=== PATIENT | female | born 1945 | race Caucasian/White ===

== ENCOUNTER 2024-05-23 17:01 | Inpatient (IN) | payer MEDICARE, OTHER, SELFPAY ==
[2024-05-23] VITALS (7 sets, daily range): BP systolic 131–193; BP diastolic 56–89; BMI 48.9
[2024-05-23 13:46] LABS: Hematocrit 34.8 % (37.0-47.0); Hemoglobin 11.6 g/dL (12.0-16.0); Mean Corp Hgb Conc. 33.3 g/dL (33.0-37.0); Mean Corpuscular Hgb 31.2 pg (27.0-31.0); Mean Corpuscular Volume 93.5 fL (81.0-99.0); Mean Platelet Volume 9.4 fL (7.4-10.4); Platelet Count 270 10^3/uL (130-400); Red Blood Cell Count 3.72 10^6/uL (4.20-5.40); Red Cell Dist. Width 14.2 % (11.5-14.5); White Blood Cell Count 17.2 10^3/uL (4.8-10.8)
[2024-05-23 14:03] LABS: % Basophils 0.5 % (0-2); % Eosinophils 0.1 % (0-6); % Immature Granulocytes 8.7 % (0-0.5); % Lymphocytes 8.3 % (20.5-51.1); % Monocytes 5.8 % (1.7-9.3); % Neutrophils 76.6 % (42.2-75.2); Absolute Basophils 0.1 10^3/uL (0-0.2); Absolute Immature Granulocytes 1.5 10^3/uL (0-0.05); Absolute Lymphocytes 1.4 10^3/uL (1.2-3.4); Absolute Neutrophils 13.2 10^3/uL (1.4-6.5); Nucleated Red Blood Cells % 0 %
[2024-05-23 14:06] LABS: ALT (SGPT) 48 U/L (0-35); AST (SGOT) 26 U/L (14-36); Alkaline Phosphatase 91 U/L (38-126); Blood Urea Nitrogen 42 mg/dl (7-17); Calcium 9.6 mg/dl (8.4-10.2); Carbon Dioxide 21 mmol/L (22-30); Chloride 105 mmol/L (98-107); Glucose 158 mg/dl (70-99); Potassium 4.8 mmol/L (3.5-5.1); Sodium 139 mmol/L (135-145); Total Bilirubin 0.6 mg/dl (0.2-1.3); eGFR 33.01
[2024-05-23 15:11] LABS: COVID-19 Antigen Negative (Negative)
--- NOTE | 2024-05-23 15:15 | ED.GENMED ---
History of Present Illness
General
Chief Complaint: Breathing Problem
Source: patient and family
Time Seen by Provider: 05/23/24 15:01
History of Present Illness
History of Present Illness:
79-year-old female presents emergency department with worsening symptoms that she describes as a 'COPD flare'. Symptoms began 8 days ago described as coughing, wheezing, shortness of breath, and dyspnea on exertion. She states that when this
happened she typically takes a steroid taper and Zithromax which she started on Sunday. She is tapering down her steroids and is due to take 30 mg today and is taking 10 mg so far. She reports worsening/continued symptoms including cough,
generalized weakness and malaise, and dyspnea. She denies orthopnea or PND, fever, chills, sweats, new leg swelling. When asked about chest discomfort she describes experiencing a 'awful pain like 4 fingers of fire' across her chest for just a few
minutes on Sunday resolved with deep breaths. Otherwise she only describes having chest pain described as a 'weight' when she coughs. She denies pleuritic chest pain, abdominal pain, nausea, vomiting, back pain, headache, dizziness, or other
complaints. Of note patient has known history of lung nodules and is due to get a PET scan to further investigate in May. Patient went to an urgent care today and was reportedly diagnosed with multilobar pneumonia and referred to the
emergency department.
Past History
Past History
ED Past Medical History: Asthma, CAD, COPD, HTN and Hypercholesterolemia
ED Past Surgical History: Cardiac (Stent X3)
Social History
Tobacco: Former smoker
Alcohol: None
Drug: None
Personal:
Living: with family
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
Family History
Family History: Other (COPD, breast cancer)
Phy Exam
Physical Exam
Physical Exam:
GENERAL: Alert , in no apparent distress, pleasant, obese
EYE: pupils equal and reactive
NECK: Supple, no significant adenopathy.
ENT: o/p clr, mmm.
CARDIAC: Regular rate and rhythm .
LUNGS: Equal breath sounds bilaterally, no acute respiratory distress, obvious cough, diffuse wheezing noted with scattered rhonchi, speaks in full sentences
ABDOMEN: Soft, without focal tenderness, no r/g, no cvat
NEUROLOGICAL: Alert and oriented, no focal neuro deficits
SKIN: Warm and dry, skin intact.
MUSCULOSKELETAL: Trace bilateral lower extremity edema, well perfused.
PSYCH: Normal and appropriate interaction.
Scores
Heart Failure Risk
Heart Failure Risk Score: Not Applicable
Course
Orders/Labs/Results
Orders:
Orders
05/23/24 13:27
Complete Blood Count/With Diff Urgent
Comprehensive Metabolic Panel Urgent
05/23/24 14:45
COVID-19 Antigen Urgent
Source: Nasal Swab
NT-proBNP Urgent
Troponin I Urgent
Influenza A+B Rapid Molecular Urgent
LYDIA Source: Nasal Swab
Specimen Description:
05/23/24 15:16
EKG [Electrocardiogram (*1)] Urgent
Reason for Study: Shortness of Breath
EKG- Treatment ONCE
05/23/24 15:19
Albuterol Sulfate [Ventolin Nebules] 7.5 mg INH R NOW STA
Azithromycin [Zithromax] 500 mg PO NOW STA
CefTRIAXone [Rocephin] 1,000 mg IV NOW STA
Dexamethasone Sod Phosphate [Decadron] 10 mg IV NOW STA
05/23/24 16:24
Admit/Transfer Patient As Directed
Co-Sign Provider:
Level of Care: Inpatient admission
Assign to:: Telemetry
Physician / Group: barb
Diagnosis: copd exacerbation, pneumonia
Reason for Telemetry: Arrhythmia
Date to Stop Telemetry: 05/26/24
Time to Stop Telemetry: 11:00
Reason for Hospitalization: copd exacerbation, pneumonia
Expected length of stay greater than two midnights?: Yes
ELOS- Estimated Length of Stay in days: 2
I certify the patient meets the requirements for IP care: Yes
PRN Pain Medication Management As Directed
May give lesser potent ordered pain med per pt: Yes
preference::
Protocol:: Medication orders for pain may be administered in a
manner that supports deferring to patient preference
when the pt is:
- Requesting an ordered lesser potent pain medication.
Least to most potent pain medications are defined
as: acetaminophen < NSAID < tramadol < opioids
(morphine, oxycodone, hydromorphone).
- Requesting a lesser dose of the same medication IF
ORDERED.
- Requesting a less intrusive route of administration
if both routes are prescribed by the provider (PO <
IV).
05/23/24 16:25
Code Status As Directed
Resuscitation Status: Full Code
05/23/24 16:27
Respiratory Culture/Gram Stain Urgent
LYDIA Source: Sputum
Specimen Description:
05/23/24 16:32
Legionella Urinary Antigen Urgent
LYDIA Source: Urine
Specimen Description:
MRSA Screen Routine
LYDIA Source: Nose
Specimen Description:
Strep pneumoniae Antigen Urgent
LYDIA Source: Urine
Specimen Description:
05/23/24 17:22
Ipratropium/Albuterol Sulfate [Duoneb] 3 ml INH R Q4HPRN PRN
05/23/24 17:22
Activity As Directed
Activity Level: As Tolerated
Intake/ Output As Directed
Frequency: Per unit guidelines
Vital Signs As Directed
Frequency: Per unit guidelines
Copd Education [RESP] Routine
DX Deep Vein Thrombosis Video Routine
05/23/24 20:00
Acetaminophen [Tylenol] 1,000 mg PO BID
Budesonide/Formoterol 160/4.5 [Symbicort 160/4.5 Mcg Inhaler] 2 puff INH R BID
Heparin 5,000 units SC Q12
Ipratropium/Albuterol Sulfate [Duoneb] 3 ml INH R QID
05/23/24 22:00
Aspirin Low Dose EC [Aspir Low (Enteric Coated)] 81 mg PO HS
Atorvastatin [Lipitor] 80 mg PO HS
Duloxetine Delayed Release [Cymbalta Delayed Release] 40 mg PO HS
Ezetimibe [Zetia] 10 mg PO HS
Guaifenesin [Mucinex] 600 mg PO HS
Melatonin 20 mg PO HS
Pantoprazole [Protonix] 40 mg PO HS
Simethicone [Mylicon] 80 mg PO HS
Trazodone [Desyrel] 200 mg PO HS
05/24/24 00:00
Dexamethasone Sod Phosphate [Decadron] 4 mg IV Q8H
05/24/24 06:00
Levothyroxine [Synthroid] 75 mcg PO DAILY @ 0600
05/24/24 07:20
Basic Metabolic Panel IN AM
Complete Blood Count/With Diff IN AM
05/24/24 08:00
Cholecalciferol (Vitamin D3) [VITAMIN D3 (cholecalciferol)] 10 mcg PO DAILY
Cyanocobalamin [Vitamin B-12] 1,000 mcg PO DAILY
Lisinopril [Zestril] 10 mg PO DAILY
Nitroglycerin [Nitro-Dur] 0.2 mg TRANSDERM DAILY
05/24/24 16:00
Azithromycin 500 mg/250 ml [Zithromax Infusion] 500 mg in 250 ml IV Q24H
CefTRIAXone [Rocephin] 1,000 mg IV Q24H
05/26/24 11:00
DC Protocol for Telemetry ONCE
Abnormal Lab Results
05/23/24
13:27
WBC 17.2 H 10^3/uL
(4.8-10.8)
RBC 3.72 L 10^6/uL
(4.20-5.40)
Hgb 11.6 L g/dL
(12.0-16.0)
Hct 34.8 L %
(37.0-47.0)
MCH 31.2 H pg
(27.0-31.0)
Abs Immat Gran (auto) 1.5 H 10^3/uL
(0-0.05)
Absolute Neuts (auto) 13.2 H 10^3/uL
(1.4-6.5)
Absolute Monos (auto) 1.0 H 10^3/uL
(0.1-0.6)
Immature Gran % 8.7 H %
(0-0.5)
Neutrophils % 76.6 H %
(42.2-75.2)
Lymphocytes % 8.3 L %
(20.5-51.1)
Carbon Dioxide 21 L mmol/L
(22-30)
BUN 42 H mg/dl
(7-17)
Creatinine 1.6 H mg/dL
(0.6-1.0)
Glucose 158 H mg/dl
(70-99)
ALT 48 H U/L
(0-35)
Total Protein 6.0 L g/dl
(6.3-8.2)
05/23/24 13:27
05/23/24 13:27
Vital Signs
Initial and Last Documented VS:
Initial Vital Signs
Temp Pulse Resp BP Pulse Ox
98.1 F 85 16 193/89 97
05/23/24 13:20 05/23/24 13:20 05/23/24 13:20 05/23/24 13:20 05/23/24 13:20
Last Documented Vital Signs
Temp Pulse Resp BP Pulse Ox
98.5 F 77 22 133/79 95
05/26/24 19:00 05/26/24 22:00 05/26/24 22:00 05/26/24 20:00 05/26/24 20:19
*Critical Care Note
Total Time (30-74mins, 75-104mins- exclusive of procedures): Not Applicable
Update Note
Update Note:
Patient presents to the Emergency Department with ____cough, wheezing, dyspnea
Number and Complexity of Problems Addressed at the Encounter
� Chronic conditions affecting care:
� Acute Exacerbation and/or Progression of Chronic Illness:
� Differential Diagnosis includes: But not limited to pneumonia, COPD exacerbation, heart failure, ACS, etc.
Amount and/or Complexity of Data to be Reviewed and Analyzed
� I performed an independent evaluation of and my interpretation is:
EKG:read by me, nsr, nl rate, no acute ischemia
CT:
Xrays: Report reviewed from urgent care, report consistent with 'diffuse interstitial infiltrate is suggested in
Laboratory Studies: White blood cell count elevation noted with a left shift, baseline renal insufficiency, baseline anemia troponin BMP pending� She reported normal, BNP with nonspecific elevation.
Other:
� Review of other/old records reveals: March 2023 patient had a catheterization demonstrating 'angiographically stable calcifications'. History and physical from the same time details patient's prior medical history etc.
� Clinical information was obtained by an independent historian:
� Prescriptions/Medications Considered but not given:
� Further testing considered but not performed:
Risk of Complications and/or Morbidity or Mortality of Patient Management
� Social determinants of health affecting care:
� Discussion with other providers (PCP, Hospitalists, Consultants, etc): Case discussed with Dr. Mcgrath from hospitalist for admission.
� Escalation of care including admission/observation vs risk of discharge considered:
ED Attending Note
-
Portions of this chart may have been created with voice recognition software.� Occasional wrong word or��sound alike� substitutions may have occurred due to the inherent limitations of voice recognition software.
Discharge Plan
Departure
Patient Disposition: Admit
Date of Disposition: 05/23/24
Time of Disposition: 16:07
Presentation/result/management discussed w/ accepting MD/DO: Hospitalist
Condition: Fair
Discharge Problem:
COPD (chronic obstructive pulmonary disease), Pneumonia
Interventions
Interventions:
*Risk Screen - Suicide Last Done: 05/23/24 13:20
*General Assessment Last Done: 05/23/24 13:20
*Neglect/Abuse Screening Last Done: 05/23/24 13:20
ED- Fall Risk Assessment Last Done: 05/23/24 14:42
*ED COVID-19 Vaccine History Last Done: 05/23/24 17:25
*Nursing Disposition Last Done: 05/23/24 17:25
ED- Cardiac Assessment Last Done: 05/23/24 14:42
ED- Pulmonary Assessment Last Done: 05/23/24 14:42
Discharge Date and Time
Discharge Date/Time: 05/23/24 17:25
[2024-05-23 15:22] LABS: NT-proBNP 1730 pg/ml; Troponin I < 0.012 ng/ml
[2024-05-23] MEDS: ROCEPHIN 1000 MG IV (15:26)
[2024-05-23] MEDS: VENTOLIN NEBULES 7.5 MG INH (15:26)
[2024-05-23] MEDS: ZITHROMAX 500 MG PO (15:26)
[2024-05-23] MEDS: DECADRON 10 MG IV (15:26)
--- NOTE | 2024-05-23 16:27 | HPS.HSE ---
Addendum entered and electronically signed by Francisca Vegas MD 05/23/24 16:42:
Held Ibuprofen due to CKD. Continue Lisinopril.
Original Note:
Family Physician
-
Family Physician: Morris Gudino
Chief Complaint
-
cough, shortness of breath
History of Present Illness
79-year-old female past medical history of COPD, bronchiectasis, pulmonary nodules, CAD status post stent, hypothyroidism, gout, GERD, CKD 3, hypertension, depression, insomnia presenting with productive cough although not coughing up much, wheezing
and shortness of breath with exertion which started 8 days ago. She started taking steroid taper and Zithromax 5 days ago and is tapering down steroids, currently on 30 mg. She has had an episode of chest discomfort 3 days ago described as severe
pain across her chest for a few minutes described as a weight when she coughs. She continues to have chest pain currently is described as pressure and worse with coughing. She denies any abdominal pain, nausea vomiting or back pain or headache or
dizziness. She has lower extremity edema which is stable. She has been having chills but denies fever.
She has a history of lung nodules and is due to get a PET scan in May. She went to an urgent care today and was reportedly diagnosed with multilobular pneumonia and referred to the emergency room.
Medical History
Past Medical History
Past Medical History: Reports Other ( COPD, bronchiectasis, pulmonary nodules, CAD status post stent, hypothyroidism, gout, GERD, CKD 3, hypertension, depression, insomnia)
Past Surgical History: Reports Other (Cardiac (Stent X3))
Social History
Tobacco: Former Smoker
Alcohol: None
Drug: None
Family History
Family History: Not pertinent
Allergies / Home Medications
Allergies reflects when Allergies were last updated in [facility].
Home Medications with original date entered in [facility]
Allergy/Medication List:
Allergies
Allergy/AdvReac Type Severity Reaction Status Date / Time
levofloxacin [From Levaquin] Allergy Unknown Unknown Verified 04/20/23 10:57
metronidazole [From Flagyl] Allergy Unknown Verified 12/31/22 22:54
anesthetic Allergy patient Uncoded 12/21/22 16:17
unsure
which
anesthesia
med
Home Medications
atorvastatin 80 mg tablet 80 mg PO HS High cholesterol 10/03/16
aspirin 81 mg tablet,delayed release 81 mg PO HS Blood clot prevention/tx 07/05/20
ezetimibe 10 mg tablet 10 mg PO HS High cholesterol 07/05/20
loperamide 2 mg capsule (Imodium A-D) 2 - 4 mg PO Q4H PRN diarrhea 07/05/20
acetaminophen 500 mg tablet (Tylenol Extra Strength) 1,000 mg PO Q8H PRN mild pain 06/27/21
cholecalciferol (vitamin D3) 50 mcg (2,000 unit) tablet 2,000 unit PO DAILY Supplement 06/27/21
melatonin 10 mg tablet 20 mg PO HS Supplement 06/27/21
lavinia (Zingiber officinalis) 500 mg capsule 550 mg PO HS Supplement 01/23/22
ascorbic acid (vitamin C) 500 mg tablet (Vitamin C) 500 mg PO DAILY Supplement 12/21/22
cyanocobalamin (vitamin B-12) 1,000 mcg tablet (Vitamin B-12) 1,000 mcg PO DAILY Supplement 12/21/22
guaifenesin 600 mg tablet, extended release 12 hr (Mucus Relief ER) 600 mg PO HS Congestion 12/21/22
multivitamin 1 tab PO DAILY Supplement 12/21/22
nitroglycerin 0.2 mg/hr transdermal 24 hour patch 0.2 mg transdermal Q12H chest pain 12/21/22
omeprazole 40 mg capsule,delayed release 40 mg PO DAILY Gastrointestinal issue 12/21/22
amlodipine 2.5 mg tablet 2.5 mg PO DAILY #90 tabs 04/20/23
celecoxib 200 mg capsule (Celebrex) 200 mg PO DAILY 04/20/23
colchicine 0.6 mg tablet 0.6 mg PO DAILYPRN PRN gout 04/20/23
fluticasone fur. 200 mcg-umeclid 62.5 mcg-vilant 25 mcg inhalat.powder (Trelegy Ellipta) 1 inh inhalation R DAILY 04/20/23
guaifenesin 100 mg/5 mL oral liquid 100 mg PO DAILY 04/20/23
icosapent ethyl 1 gram capsule (Vascepa) 2 g PO BID 04/20/23
levothyroxine 75 mcg tablet 75 mcg PO DAILY 04/20/23
simethicone 125 mg capsule (Gas-X Extra Strength) 125 mg PO DAILY 04/20/23
albuterol sulfate 90 mcg/actuation aerosol inhaler 2 puff inhalation R Q6HPRN PRN sob/wheezing 05/23/24
duloxetine 60 mg capsule,delayed release 60 mg PO HS 05/23/24
ergocalciferol (vitamin D2) 1,250 mcg (50,000 unit) capsule 1,250 mcg PO WEEKLY 05/23/24
lisinopril 10 mg tablet 10 mg PO DAILY 05/23/24
montelukast 10 mg tablet 10 mg PO HS 05/23/24
trazodone 150 mg tablet 150 mg PO HS 05/23/24
Review of Systems
-
History Source: Patient
A 12 point ROS was completed and negative except as noted: Yes
Constitutional: Reports No Symptoms
EENT: Reports No Symptoms
Respiratory: Reports See HPI
Cardiac: Reports No Symptoms
Abdomen/GI: Reports No Symptoms
: Reports No Symptoms
Musculoskeletal: Reports No Symptoms
Skin: Reports No Symptoms
Neurological: Reports No Symptoms
Endocrine: Reports No Symptoms
Hematologic/Lymphatic: Reports No Symptoms
Psych: Reports No Symptoms
Physical Exam
Vital Signs
Vital Signs
Temp Pulse Resp BP Pulse Ox
98.1 F 83 16 131/56 96
05/23/24 13:20 05/23/24 15:30 05/23/24 15:30 05/23/24 15:00 05/23/24 15:30
Physical Exam
General: Well Developed, Well Nourished and No Apparent Distress
HEENT: NormoCephalic, Moist mucous membranes and Atraumatic
Respiratory: Wheezes and Rhonchi
Cardiac: S1/S2 and Regular Rhythm; No Murmur or Rub
GI: Soft, Non Tender, Non Distended and Normal Bowel Sounds; No Organomegaly
Rectal: Deferred by Provider
Musculoskeletal: No Clubbing, No Cyanosis and No Edema
Skin: No Rash
Neuro: Nonfocal/grossly intact
Laboratory Results
-
05/23/24 13:27
05/23/24 13:27
Laboratory Results
Total Bilirubin 0.6 mg/dl (0.2-1.3) 05/23/24 13:27
AST 26 U/L (14-36) 05/23/24 13:27
ALT 48 U/L (0-35) H 05/23/24 13:27
Alkaline Phosphatase 91 U/L (38-126) 05/23/24 13:27
Troponin I < 0.012 ng/ml 05/23/24 14:45
Data Reviewed
-
Lab Data: Labs Reviewed by me
Old Records: Reviewed
Impression/Plan
-
IMPRESSION:
PLAN:
# COPD exacerbation
# Reported multilobular pneumonia
-Coarse bilateral wheezing/rhonchi on examination
-Chest x-ray report given to ER, will try to locate
-EKG shows normal sinus rhythm, troponin negative
-COVID-negative
-Dexamethasone 4 mg every 8 hours
-DuoNebs every 6 hours
-Check sputum culture
-Ceftriaxone/azithromycin
-Continue Mucinex
History of bronchiectasis
History of pulmonary nodules
-Due to have PET scan in May
CAD status post stents x 3
-Continue aspirin, statin, Zetia
CKD stage III
-Renal function at baseline
Hypothyroidism
-Continue levothyroxine
GERD
-Continue omeprazole
Essential hypertension
-Continue amlodipine, lisinopril
Depression
-Continue duloxetine
Insomnia
-Continue trazodone
Gout
Former smoker
Full code
DVT prophylaxis-heparin
Regular diet
[2024-05-23] MEDS: VENTOLIN NEBULES 2.5 MG INH (19:40)
[2024-05-23] MEDS: SYMBICORT 160/4.5 MCG INHALER 2 PUFF INH (19:40)
[2024-05-23] MEDS: HEPARIN 5000 UNITS SC (20:26)
[2024-05-23] MEDS: TYLENOL 1000 MG PO (20:27)
--- NOTE | 2024-05-23 20:30 | PTCARENOTE ---
Pt admitted to floor at 1900. Pt AAOX3, VSS, receptive to room and callbell. Bed in lowest position and callbell within reach. Will continue with current plan of care.
[2024-05-23] MEDS: ASPIR LOW (ENTERIC COATED) 81 MG PO (21:44)
[2024-05-23] MEDS: ZETIA 10 MG PO (21:44)
[2024-05-23] MEDS: CYMBALTA DELAYED RELEASE 40 MG PO (21:44)
[2024-05-23] MEDS: MYLICON 80 MG PO (21:44)
[2024-05-23] MEDS: MELATONIN 20 MG PO (21:45)
[2024-05-23] MEDS: LIPITOR 80 MG PO (21:46)
[2024-05-23] MEDS: DESYREL 200 MG PO (21:46)
[2024-05-23] MEDS: PROTONIX 40 MG PO (21:46)
[2024-05-23] MEDS: MUCINEX 600 MG PO (21:47)
[2024-05-23] MEDS: DECADRON 4 MG IV (23:37)
[2024-05-24] VITALS (9 sets, daily range): BP systolic 107–172; BP diastolic 48–101
[2024-05-24] MEDS: SYNTHROID 75 MCG PO (05:36)
[2024-05-24] MEDS: SPIRIVA RESPIMAT 2.5 MCG 2 PUFF INH (07:47)
[2024-05-24] MEDS: VENTOLIN NEBULES 2.5 MG INH (07:48)
[2024-05-24] MEDS: SYMBICORT 160/4.5 MCG INHALER 2 PUFF INH ×2 (07:48→20:23)
[2024-05-24 08:45] LABS: Hematocrit 35.2 % (37.0-47.0); Hemoglobin 11.6 g/dL (12.0-16.0); Mean Corpuscular Hgb 31.7 pg (27.0-31.0); Mean Corpuscular Volume 96.2 fL (81.0-99.0); Mean Platelet Volume 9.8 fL (7.4-10.4); Platelet Count 273 10^3/uL (130-400); Red Blood Cell Count 3.66 10^6/uL (4.20-5.40); Red Cell Dist. Width 14.2 % (11.5-14.5); White Blood Cell Count 16.4 10^3/uL (4.8-10.8)
[2024-05-24] MEDS: VITAMIN B-12 1000 MCG PO (08:46)
[2024-05-24] MEDS: TYLENOL 1000 MG PO ×2 (08:46→21:01)
[2024-05-24] MEDS: ZESTRIL 10 MG PO (08:46)
[2024-05-24] MEDS: VITAMIN D3 (cholecalciferol) 10 MCG PO (08:46)
[2024-05-24] MEDS: NITRO-DUR 0.2 MG TRANSDERM (08:46)
[2024-05-24] MEDS: DECADRON 4 MG IV ×3 (08:47→23:56)
[2024-05-24] MEDS: HEPARIN 5000 UNITS SC (08:47)
[2024-05-24 08:54] LABS: Blood Urea Nitrogen 39 mg/dl (7-17); Calcium 9.9 mg/dl (8.4-10.2); Carbon Dioxide 25 mmol/L (22-30); Chloride 104 mmol/L (98-107); Estimated Creatinine Clearance 45 ml/min; Glucose 130 mg/dl (70-99); Potassium 5.3 mmol/L (3.5-5.1); Sodium 142 mmol/L (135-145); eGFR 42.35
[2024-05-24 09:36] LABS: Lymphocytes 10 % (20-51); Metamyelocytes 1 % (-); Monocytes 3 % (2-9); Segmented Neutrophils 79 % (42-75)
[2024-05-24 09:37] LABS: Absolute Neutrophils -Man Diff 12.9 10^3/uL (1.4-6.5); Band Neutrophils 0 % (0-3); Myelocytes 7 % (-); Normal RBC Morphology Yes; Platelets Checked Yes; Total Cells Counted 100
[2024-05-24] MEDS: NITROSTAT (SUBLINGUAL) 0.4 MG SL (10:45)
[2024-05-24] MEDS: CARDIZEM 125 IV (10:58)
--- NOTE | 2024-05-24 11:06 | W.PN.HOSP.TC ---
Today's Communication/Plan
-
A-Fib rate control
Eliquis
Monitor chest pain, trend troponins, metal loader notified
Assessment / Plan
Assessment / Plan
Physical Exam
General: Not in acute distress
HEENT: Normocephalic
Respiratory: Wheezes and Rhonchi
Cardiac: S1/S2 and Regular Rhythm
GI: Soft, Non Tender, Non Distended and Normal Bowel Sounds
Musculoskeletal: No Cyanosis and No Edema
Skin: Warm. Dry.
Neuro: Nonfocal/grossly intact
Assessment/Plan
# COPD exacerbation
# Reported multilobular pneumonia outpatient on outpatient imaging
-Coarse bilateral wheezing/rhonchi on examination
-Chest x-ray report noted
-COVID-negative
-Dexamethasone IV 4 mg every 8 hours
-DuoNebs every 6 hours
-Check sputum culture
-Ceftriaxone/azithromycin
-Continue Mucinex
-Pulmonary consulted, appreciate evaluation and recommendations
#Chest pain
#New-Onset A-Fib, associated with chest pain
-Cardizem IV bolus plus drip started; continue
-New medication: Eliquis 5 mg BID
-Avoid beta livier given wheezing
-Trend troponins
-EKG this afternoon with normal sinus rhythm
-Resawyer notified
#HFpEF
-Given mildly elevated proBNP, Lasix IV one-time ordered by metal loader
History of bronchiectasis
History of pulmonary nodules
-Due to have PET scan in May
CAD status post stents x 3
-Continue aspirin, statin, Zetia
CKD stage III
-Renal function at baseline
Hypothyroidism
-Continue levothyroxine
GERD
-Continue omeprazole
Essential hypertension
-Continue amlodipine, lisinopril
Depression
-Continue duloxetine
Insomnia
-Continue trazodone
Gout
Former smoker
Full code
DVT prophylaxis-Eliquis
Regular diet
Anticipated Discharge: > 48 hours
Subjective/Interval History
-
Date of Service: May 24, 2024
Patient was seen and examined. In the morning she was coughing and on room air, but later in the day, she developed chest pain, turned into A-Fib with RVR needing IV Cardizem and oxygen for increasing oxygen requirements.
Objective Data
-
Labs:
Laboratory Results
05/24/24
07:20
WBC 16.4 H
Hgb 11.6 L
Hct 35.2 L
Plt Count 273
Sodium 142
Potassium 5.3 H
Chloride 104
Carbon Dioxide 25
BUN 39 H
Creatinine 1.3 H
Glucose 130 H
Calcium 9.9
Vital Signs:
Vital Signs
Temp Pulse Resp BP Pulse Ox
98.0 F 65 18 170/100 99
05/24/24 07:46 05/24/24 07:51 05/24/24 07:51 05/24/24 10:50 05/24/24 07:51
[2024-05-24] MEDS: CARDIZEM 10 MG IV (11:10)
[2024-05-24] MEDS: VENTOLIN NEBULES INH (11:29)
--- NOTE | 2024-05-24 11:35 | CON.CAR ---
Consultation
Consultation Request
Date/Time Consultation Requested: 05/24/2024 11:15 AM
Date/Time Consultation Performed: 05/24/2024 11:30 AM
Requesting Provider: Dr. Gotti
Performing Provider: Dr Rissa Walker
Reason for Consultation: Chest pain and rapid atrial fibrillation
Medical History
-
Chief Complaint: Chest discomfort/shortness of breath
History of Present Illness:
She is well-known to me. She has a history of hypertension, coronary disease and heart failure with preserved ejection fraction. She was last seen in our office 06/2023. She presents to the ER for worsening symptoms of shortness of breath. She
was tapering down steroid pack and symptoms had initially began 8 days ago with coughing, wheezing, shortness of breath and dyspnea. She states that she was diagnosed noticed with multi lobar pneumonia at urgent care. She has noted some chest
discomfort when she coughs. She has known history of lung nodules and has upcoming PET scan to further investigate in May. She is hospitalized and went into rapid atrial fibrillation today requiring urgent care with IV diltiazem bolus and
drip which decreased heart rate. She had chest pressure which made her breathing feel worse and this has now improved with controlled heart rates. She has not had atrial fibrillation in the past.
-She has a past history of coronary artery disease with last cardiac catheterization 04/20/2023 with stable coronary anatomy 50% distal left main stenosis extending to the origin of the LAD and circumflex at or above the ischemic threshold. She has
previously placed right coronary artery stents.
Past Medical History
Past Medical History: CAD, CHF (Heart failure preserved ejection fraction), GERD, HTN, Hypercholesterolemia, Valvular Disease and Other (Lung nodule, meningioma)
Past Surgical History: , Gynecological (D&C), Orthopedic (Knee surgery, low back procedure) and Other (Cataract surgery)
Social History
Tobacco: Non-Smoker
Family History
Family History: CAD (Father 80s ) and Other (Mother COPD)
Allergies / Home Medications
Allergy/AdvReac Type Severity Reaction Status Date / Time
levofloxacin [From Levaquin] Allergy Unknown Unknown Verified 04/20/23 10:57
metronidazole [From Flagyl] Allergy Unknown Verified 12/31/22 22:54
anesthetic Allergy patient Uncoded 12/21/22 16:17
unsure
which
anesthesia
med
�Medication �Instructions �Recorded �Confirmed �Type
atorvastatin 80 mg tablet 80 mg PO HS High cholesterol 10/03/16 05/23/24 History
aspirin 81 mg tablet,delayed 81 mg PO HS Blood clot 07/05/20 05/23/24 History
release prevention/tx
ezetimibe 10 mg tablet 10 mg PO HS High cholesterol 07/05/20 05/23/24 History
loperamide 2 mg capsule (Imodium 2 - 4 mg PO Q4HPRN PRN diarrhea 07/05/20 05/23/24 History
A-D)
acetaminophen 500 mg tablet 1,000 mg PO BID 06/27/21 05/23/24 History
(Tylenol Extra Strength)
melatonin 10 mg tablet 20 mg PO HS Supplement 06/27/21 05/23/24 History
lavinia (Zingiber officinalis) 500 550 mg PO HS Supplement 01/23/22 05/23/24 History
mg capsule
cyanocobalamin (vitamin B-12) 1,000 mcg PO DAILY Supplement 12/21/22 05/23/24 History
1,000 mcg tablet (Vitamin B-12)
guaifenesin 600 mg tablet, 600 mg PO HS Congestion 12/21/22 05/23/24 History
extended release 12 hr (Mucus
Relief ER)
nitroglycerin 0.2 mg/hr 0.2 mg transdermal DAILY chest pain 12/21/22 05/23/24 History
transdermal 24 hour patch
omeprazole 40 mg capsule,delayed 40 mg PO HS Gastrointestinal issue 12/21/22 05/23/24 History
release
fluticasone fur. 200 mcg-umeclid 1 inh inhalation R DAILY 04/20/23 05/23/24 History
62.5 mcg-vilant 25 mcg
inhalat.powder (Trelegy Ellipta)
icosapent ethyl 1 gram capsule 2 g PO BID 04/20/23 05/23/24 History
(Vascepa)
levothyroxine 75 mcg tablet 75 mcg PO DAILY 04/20/23 05/23/24 History
simethicone 125 mg capsule (Gas-X 125 mg PO HS 04/20/23 05/23/24 History
Extra Strength)
Robitussin 1 dose PO HS 05/23/24 05/23/24 History
albuterol sulfate 90 mcg/actuation 2 puff inhalation R Q6HPRN PRN 05/23/24 05/23/24 History
aerosol inhaler sob/wheezing
cholecalciferol (vitamin D3) 10 10 mcg PO DAILY 05/23/24 05/23/24 History
mcg (400 unit) tablet
duloxetine 20 mg capsule,delayed 40 mg PO HS 05/23/24 05/23/24 History
release
ibuprofen 200 mg tablet (Advil) 400 mg PO BID 05/23/24 05/23/24 History
ipratropium bromide 21 mcg (0.03 2 spray intranasal BID 05/23/24 05/23/24 History
%) nasal spray
lisinopril 10 mg tablet 10 mg PO DAILY 05/23/24 05/23/24 History
prednisone 10 mg tablet 10 mg PO .TAPER 05/23/24 05/23/24 History
trazodone 100 mg tablet 200 mg PO HS 05/23/24 05/23/24 History
Review of Systems
-
History Source: Patient
Respiratory: Trouble Breathing
Cardiac: Chest Pain and Palpitations
Physical Exam
Vital Signs
Temp Pulse Resp BP Pulse Ox
97.4 F 123 18 172/101 99
05/24/24 11:28 05/24/24 11:28 05/24/24 11:28 05/24/24 11:28 05/24/24 11:28
Lab Results
05/24/24 07:20
05/24/24 07:20
Troponin I < 0.012 ng/ml 05/23/24 14:45
Cpe-K-Uiwydwxzvxu Pept 1730 pg/ml 05/23/24 14:45
General: Oxygen in place
Heart: Difficult to assess JVD
Heart: Irregularly irregular, distant heart sounds
Lungs: Coarse breath sounds with bilateral wheezes and rhonchi oxygen in place.
Extremities: No clubbing, cyanosis or edema bilaterally.
Neuro: Grossly nonfocal, awake, alert and oriented x3.
Impression / Plan
-
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 Rissa Walker
Impression:
Chest pain
New onset rapid atrial fibrillation
Multilobar pneumonia by report
Pulmonary nodules
Coronary artery disease
Heart failure with preserved ejection fraction
Mild to moderate aortic valve stenosis with trace AI
Mild renal insufficiency
Hyperlipidemia
Hypertension
Known meningioma
Anemia
Echocardiogram 12/26/2022: Ejection fraction 55 to 60% with mild septal hypertrophy. Trace MR. Mild to moderate aortic valve stenosis with peak/mean gradient 32/17 mmHg. Aortic valve area 1.3 cm�. Trace AI. Mild TR with PA pressure 40 mmHg.
Cardiac catheterization 04/12/2023: 50% distal left main stenosis extending to the origins of the left circumflex and LAD. iFR serially measured above the ischemic threshold. Overlapping mid RCA stents widely patent.
Plan:
Discussed with patient and her daughter at the bedside. She comes in with multi lobar pneumonia, wheezing and COPD/reactive airways disease exacerbation for which she is seeing hospitalist service and pulmonary is consulted. She follows as an
outpatient with pulmonary for lung nodules for which she is having upcoming PET scan by report. Now during hospital stay had rapid atrial fibrillation heart rates 170s up to 190s which is a new rhythm for this patient. Chest discomfort with this.
Given that she was significantly ill with rapid atrial fibrillation and has pneumonia she would likely benefit from transfer to higher level of care such as IMU. Defer to primary service.
New onset rapid atrial fibrillation
Rate control with IV diltiazem (bolus and drip started)
EKGs reviewed
I discussed with the patient and her daughter risks and benefits of proceeding with oral anticoagulation. Eliquis started 5 mg twice daily. Will have social work amaya medication.
Hopefully she will convert to sinus rhythm as pulmonary status improves.
Echocardiogram ordered
Coronary artery disease with chest pain
She has known coronary artery disease with prior RCA stent and catheterization 03/2023 which was stable disease noted. Continue aggressive medical management.
Chest pain in the setting of rapid atrial fibrillation. Control heart rate.
Avoid beta-livier at this time given significant wheezing.
Chest pain improved now that heart rates have decreased.
Check serial troponins and EKG.
Chest pain-free currently.
EKG without acute abnormality.
Continue aggressive risk factor modification.
Assess lipid
Heart failure with preserved ejection fraction
proBNP mildly elevated will give 1 dose of IV Lasix and follow.
Multilobar pneumonia by report
Defer treatment to primary service
COPD/reactive airways exacerbation
Defer treatment to primary service consider switching albuterol to Xopenex
Lung nodules
Being followed as an outpatient
Hypertension
Blood pressure generally stable but elevated when she was an extremis. Reassess.
Hyperlipidemia
Assess lipids
Renal insufficiency
Follow with diuresis
Data Reviewed
-
EKG: Tracing Personally Visualized and interpreted
Medical Tests (Nuc Med, Echo etc): Image Personally Visualized and interpreted
Labs: Labs Reviewed by me
Old Records: Reviewed
--- NOTE | 2024-05-24 12:01 | PTCARENOTE ---
pt was in NSR and resting comfortably when heart rate suddenly was going into the 140's and steadily increasing. went in to check on patient and she stated to have some chest discomfort. pt was in NSR but noted to convert to A-fib. Dr. Gotti was
notified of what was going on. EKG was taken, patient had converted into afib with rvr with HR in the 170's. ordered a 10mg bolus of Cardizem, as well as a Cardizem drip at 10ml/hr. pt was also given 1 dose of nitro sublingual. pt was put on 3L
of O2. cardiology was notified as well as pulm for a consult. pt is now in the 105-115 range. cardiology saw patient. Dr. Tracy and cardiology agreed that patient needs to be monitored more closely. pt will be transferred to IMU. pt is now
stable and resting in bed. will continue to monitor patient.
[2024-05-24] MEDS: ELIQUIS 5 MG PO ×2 (12:46→20:58)
[2024-05-24 13:20] LABS: Troponin I < 0.012 ng/ml
[2024-05-24] MEDS: LASIX 20 MG IV (14:57)
--- NOTE | 2024-05-24 15:13 | CON.PUL ---
Consultation
Consultation Request
Date/Time Consultation Requested: 05/24/2024
Date/Time Consultation Performed: 05/24/2024
Requesting Provider: Dr. Vegas
Performing Provider: Dr. Lexx Bruno
Reason for Consultation: Acute exacerbation of COPD
Medical History
-
History of Present Illness:
75-year-old woman with past medical history significant for COPD, bronchiectasis, pulmonary nodules, coronary artery disease post stents, hypothyroidism, gout, GERD, chronic kidney disease, hypertension, depression, insomnia who presented to the [facility] complaining of productive cough, wheezing and shortness of breath for the last 8 days. She took a course of azithromycin and taper of the steroids without improvement. Currently was on 30 mg of prednisone. Denies any nausea, but or
diarrhea.
Denies any lower extremity swelling that is worsening. She was seen in urgent care and she was diagnosed with multifocal pneumonia. Sent to the hospital for evaluation.
Past Medical History
Past Medical History: Other (see list below)
Social History
Tobacco: Former Smoker
Alcohol: None
Drug: None
Family History
Family History: Reviewed & Not Pertinent
Allergies / Home Medications
Allergies
Allergy/AdvReac Type Severity Reaction Status Date / Time
levofloxacin [From Levaquin] Allergy Unknown Unknown Verified 04/20/23 10:57
metronidazole [From Flagyl] Allergy Unknown Verified 12/31/22 22:54
anesthetic Allergy patient Uncoded 12/21/22 16:17
unsure
which
anesthesia
med
Home Medications
�Medication �Instructions �Recorded �Confirmed �Last Taken �Type
atorvastatin 80 mg tablet 80 mg PO HS High cholesterol 10/03/16 05/23/24 05/22/24 History
aspirin 81 mg tablet,delayed 81 mg PO HS Blood clot 07/05/20 05/23/24 05/22/24 History
release prevention/tx
ezetimibe 10 mg tablet 10 mg PO HS High cholesterol 07/05/20 05/23/24 05/22/24 History
loperamide 2 mg capsule (Imodium 2 - 4 mg PO Q4HPRN PRN diarrhea 07/05/20 05/23/24 06/26/21 22:00 History
A-D)
acetaminophen 500 mg tablet 1,000 mg PO BID 06/27/21 05/23/24 05/23/24 History
(Tylenol Extra Strength)
melatonin 10 mg tablet 20 mg PO HS Supplement 06/27/21 05/23/24 05/22/24 History
lavinia (Zingiber officinalis) 500 550 mg PO HS Supplement 01/23/22 05/23/24 05/22/24 History
mg capsule
cyanocobalamin (vitamin B-12) 1,000 mcg PO DAILY Supplement 12/21/22 05/23/24 05/23/24 History
1,000 mcg tablet (Vitamin B-12)
guaifenesin 600 mg tablet, 600 mg PO HS Congestion 12/21/22 05/23/24 04/19/23 22:30 History
extended release 12 hr (Mucus
Relief ER)
nitroglycerin 0.2 mg/hr 0.2 mg transdermal DAILY chest pain 12/21/22 05/23/24 05/23/24 History
transdermal 24 hour patch
omeprazole 40 mg capsule,delayed 40 mg PO HS Gastrointestinal issue 12/21/22 05/23/24 04/19/23 22:30 History
release
fluticasone fur. 200 mcg-umeclid 1 inh inhalation R DAILY 04/20/23 05/23/24 05/23/24 History
62.5 mcg-vilant 25 mcg
inhalat.powder (Trelegy Ellipta)
icosapent ethyl 1 gram capsule 2 g PO BID 04/20/23 05/23/24 04/19/23 22:30 History
(Vascepa)
levothyroxine 75 mcg tablet 75 mcg PO DAILY 04/20/23 05/23/24 05/23/24 History
simethicone 125 mg capsule (Gas-X 125 mg PO HS 04/20/23 05/23/24 05/22/24 History
Extra Strength)
Robitussin 1 dose PO HS 05/23/24 05/23/24 05/22/24 History
albuterol sulfate 90 mcg/actuation 2 puff inhalation R Q6HPRN PRN 05/23/24 05/23/24 Unknown History
aerosol inhaler sob/wheezing
cholecalciferol (vitamin D3) 10 10 mcg PO DAILY 05/23/24 05/23/24 05/23/24 History
mcg (400 unit) tablet
duloxetine 20 mg capsule,delayed 40 mg PO HS 05/23/24 05/23/24 05/22/24 History
release
ibuprofen 200 mg tablet (Advil) 400 mg PO BID 05/23/24 05/23/24 05/23/24 History
ipratropium bromide 21 mcg (0.03 2 spray intranasal BID 05/23/24 05/23/24 05/23/24 History
%) nasal spray
lisinopril 10 mg tablet 10 mg PO DAILY 05/23/24 05/23/24 05/23/24 History
prednisone 10 mg tablet 10 mg PO .TAPER 05/23/24 05/23/24 05/23/24 History
10 mg
trazodone 100 mg tablet 200 mg PO HS 05/23/24 05/23/24 05/22/24 History
Review of Systems
-
History Source: Patient
All other systems: Negative unless noted
Vitals / Labs / Diagnostic Testing
Vital Signs
Temp Pulse Resp BP Pulse Ox
97.4 F 123 18 172/101 99
05/24/24 11:28 05/24/24 11:28 05/24/24 11:28 05/24/24 11:28 05/24/24 11:28
Lab Data
05/24/24 07:20
05/24/24 07:20
Microbiology
05/24/24 04:58 Urine Legionella Urinary Antigen - Final
Negative for Legionella pneumophila Serogroup 1 antigen.
A negative result does not rule out the possiblity of
Legionella infection due to other serogroups or species of
Legionella. Clinical correlation is recommended.
05/24/24 04:58 Urine Streptococcus pneumoniae Antigen (M - Final
Negative for Streptococcus pneumoniae antigen.
A negative result does not exclude infection with
Streptococcus pneumoniae. Clinical correlation is
recommended.
05/23/24 14:45 Nasal Swab Influenza Types A & B (MODE) - Final
Negative for Influenza A & B, NAAT
Negative results must be combined with clinical observations
and patient history.
Nucleic Acid Amplification test (NAAT)performed on the
[employer] platform.
Diagnostic Testing:
Physical Exam
-
HEENT: Normocephalic
Cardiovascular: S1/S2
Respiratory: Wheeze and Rales
GI: Soft and Non Distended
Neurology: Awake, Alert and No Motor Deficits
General: Comfortable
Assessment
-
Acute exacerbation of COPD
Chest x-ray 05/24/2024: Mild coarsening of interstitial markings in the right lung base, stable compared to prior study suggesting scarring.
Most recent CT chest 12/22/2022: Showed no evidence of interstitial lung disease. Multiple pulmonary nodules
CT abdomen pelvis lung cuts: No evidence for lower lobe abnormalities. 7 mm right lower lobe lung nodule.
COVID-negative
Heart failure component cannot be ruled out proBNP 1730.
Echocardiogram 12/26/2022: Showed normal LVEF. Mild septal hypertrophy mild to moderate AI
Leukocytosis
Rapid atrial fibrillation-new onset
Conditions present prior admission:
History of lung nodules: Follows up with Dr. Santiago
COPD: Follow-up with Dr. Santiago
On Trelegy
Heart failure with preserved ejection fraction.
history of coronary artery disease with RCA stent
COPD/bronchiectasis
Pulmonary nodules
Prior history of GERD
Gout
Hypothyroidism
Chronic kidney disease stage III
Depression
Insomnia
Hypertension
Former smoker
Assessment and plan:
From the pulmonary perspective given abnormal chest x-ray, leukocytosis and shortness of breath. Not unreasonable to treat for [facility] pneumonia.
Check sputum culture
If cultures negative then complete 7 days of antibiotics.
-
Wheezing on exam: Acute exacerbation of COPD. Cannot rule out heart failure component either
Dexamethasone 4 mg IV every 8
Levalbuterol as needed
As the patient is on exacerbation and coughing, hold inhalers and transition to nebulizers Atrovent/Xopenex.
Avoid beta agonist due to rapid atrial fibrillation.
-
Atrial fibrillation/heart failure for cardiology following
Diuresis as needed
Cardizem drip
Anticoagulation
Heart rate control
-
Follow blood sugars particularly with high-dose of steroids.
-
Pulmonary nodules: Continue follow-up in the outpatient setting.
-
DVT prophylaxis-now on anticoagulation
-
-
Follow-up with Dr. Santiago after discharge
Will continue to follow
[2024-05-24] MEDS: ZITHROMAX 500 MG PO (15:21)
[2024-05-24] MEDS: ROCEPHIN 1000 MG IV (15:22)
[2024-05-24] MEDS: STERILE WATER FOR INJECTION 10 ML IV (15:22)
[2024-05-24] MEDS: XOPENEX 0.63 MG INHALANT SOLUTION INH (15:33)
--- NOTE | 2024-05-24 16:22 | PTCARENOTE ---
pt was transferred to IMU, pt stable, report given in person to FRED Haque.
--- NOTE | 2024-05-24 16:50 | PTCARENOTE ---
"Rec'd pt from [facility]. Pt upgraded to IMU after new onset rapid a fib. Placed on Cardizem drip after bolus. Pt arrived to IMU in [facility] [place], HR 58. Drip on standby. EKG completed showing SB, pt also complained of chest pain. Dr. Samaniego and "Nikki"Denise notified. BP stable, SB on tele. Pt AAO x3, oriented to IMU. A fib education provided"
[2024-05-24 20:11] LABS: D-Dimer < 0.27 ug/mlFEU (0.00-0.50)
[2024-05-24 20:15] LABS: Troponin I 0.065 ng/ml
[2024-05-24] MEDS: ATROVENT NEBULES 0.5 MG INH (20:23)
[2024-05-24] MEDS: XOPENEX 1.25 MG INHALANT SOLUTION INH (20:24)
[2024-05-24] MEDS: MELATONIN 20 MG PO (20:59)
[2024-05-24] MEDS: MUCINEX 600 MG PO (20:59)
[2024-05-24] MEDS: MYLICON 80 MG PO (20:59)
[2024-05-24] MEDS: ZETIA 10 MG PO (20:59)
[2024-05-24] MEDS: DESYREL 200 MG PO (20:59)
[2024-05-24] MEDS: PROTONIX 40 MG PO (20:59)
[2024-05-24] MEDS: CYMBALTA DELAYED RELEASE 40 MG PO (21:00)
[2024-05-24] MEDS: ASPIR LOW (ENTERIC COATED) 81 MG PO (21:00)
[2024-05-24] MEDS: LIPITOR 80 MG PO (21:01)
[2024-05-24 21:05] LABS: Blood Urea Nitrogen 46 mg/dl (7-17); Calcium 9.5 mg/dl (8.4-10.2); Carbon Dioxide 19 mmol/L (22-30); Chloride 105 mmol/L (98-107); Estimated Creatinine Clearance 39 ml/min; Glucose 258 mg/dl (70-99); Potassium 4.8 mmol/L (3.5-5.1); Sodium 137 mmol/L (135-145); eGFR 35.67
[2024-05-24] MEDS: FLUSH (NSS) 2 FLUSH IV (23:56)
[2024-05-25] VITALS (13 sets, daily range): BP systolic 132–167; BP diastolic 50–139; BMI 47.7
[2024-05-25 00:45] LABS: Troponin I 0.061 ng/ml
--- NOTE | 2024-05-25 05:04 | PTCARENOTE ---
Pt resting well overnight but unable to sleep much. Pt states steroids keeping her awake. Remains on RA 92-97%. Slight CLOUD with activity. Continues to deny CP. SR on CM rate 60's-70's. +2-3 edema to LE/pedal. LE's elevated on pillows. CHF/Afib
packets given and videos assigned to pt. Much teaching given regarding CHF and Afib. At beginning of shift Dr Nasir Walker TT'd re: trop. Results 0.[address] Nasir Walker. Will continue serial trops and am EKG. VSS. Afebrile. Karen HUNT
also TT'd and updated as well. Rest of assessment as documented. Turns self in bed. Call maynard remains within reach. Will continue to monitor.
[2024-05-25 06:53] LABS: Blood Urea Nitrogen 49 mg/dl (7-17); Calcium 9.9 mg/dl (8.4-10.2); Carbon Dioxide 22 mmol/L (22-30); Chloride 104 mmol/L (98-107); Estimated Creatinine Clearance 38 ml/min; Glucose 151 mg/dl (70-99); HDL Cholesterol 51 mg/dl; LDL Cholesterol, Calculated 30 mg/dl; Potassium 5.2 mmol/L (3.5-5.1); Sodium 140 mmol/L (135-145); Total Cholesterol 105 mg/dl (50-199); Triglyceride 122 mg/dl (10-149); Very Low Density Lipoprotein 24 mg/dl (0-30); eGFR 35.67
[2024-05-25 07:08] LABS: Troponin I 0.041 ng/ml
[2024-05-25] MEDS: ATROVENT NEBULES 0.5 MG INH ×3 (07:27→20:12)
[2024-05-25] MEDS: XOPENEX 1.25 MG INHALANT SOLUTION INH ×3 (07:27→20:12)
[2024-05-25] MEDS: SYMBICORT 160/4.5 MCG INHALER 2 PUFF INH ×2 (07:27→20:12)
--- NOTE | 2024-05-25 08:00 | W.PN.HOSP.TC ---
Today's Communication/Plan
-
Cardizem PO, and Lasix PO
Continue IV steroids
Assessment / Plan
Assessment / Plan
Physical Exam
General: Not in acute distress
HEENT: Normocephalic
Respiratory: Wheezes and Rhonchi
Cardiac: S1/S2 and Regular Rhythm
GI: Soft, Non Tender, Non Distended and Normal Bowel Sounds
Musculoskeletal: No Cyanosis and No Edema
Skin: Warm. Dry.
Neuro: Nonfocal/grossly intact
Assessment/Plan
# COPD exacerbation
# Reported multilobular pneumonia outpatient on outpatient imaging
-Coarse bilateral wheezing/rhonchi on examination
-Chest x-ray report noted
-COVID-negative
-Continue Dexamethasone IV 4 mg every 8 hours
-DuoNebs every 6 hours
-Check sputum culture
-Ceftriaxone/azithromycin
-Continue Mucinex
-Pulmonary consulted, appreciate evaluation and recommendations
#Chest pain, likely a combination of rapid A-Fib and musculoskeletal with coughing
#New-Onset A-Fib, associated with chest pain
-Cardizem IV bolus plus drip -- completed and now off of this
-Start Diltiazem CD 180 mg daily
-New medication: Eliquis 5 mg BID
-Avoid beta livier given wheezing
-Echocardiogram
#HFpEF
-Continue sodium and fluid restriction
-Status post IV Lasix
-Given mildly elevated proBNP, Lasix PO 20 mg daily started
#Mild Hyperkalemia
-May need Lisinopril stopped, but now Lasix also started so potassium may correct
History of bronchiectasis
History of pulmonary nodules
-Due to have PET scan in May
CAD status post stents x 3
-Continue aspirin, statin, Zetia
CKD stage III
-Renal function at baseline
Hypothyroidism
-Continue levothyroxine
GERD
-Continue omeprazole
Essential hypertension
-Continue amlodipine, lisinopril
Depression
-Continue duloxetine
Insomnia
-Continue trazodone
Gout
Former smoker
Full code
DVT prophylaxis-Eliquis
Regular diet
Anticipated Discharge: 24 - 48 hours
Subjective/Interval History
-
Date of Service: May 25, 2024
Patient was seen and examined. She reported some chest pain with coughing, but denied any other significant symptoms or complaints.
Objective Data
-
Labs:
Laboratory Results
05/24/24 05/25/24
20:43 06:26
Sodium 137 140
Potassium 4.8 5.2 H
Chloride 105 104
Carbon Dioxide 19 L 22
BUN 46 H 49 H
Creatinine 1.5 H 1.5 H
Glucose 258 H 151 H
Calcium 9.5 9.9
Vital Signs:
Vital Signs
Temp Pulse Resp BP Pulse Ox
97.7 F 67 20 153/77 96
05/25/24 03:48 05/25/24 07:30 05/25/24 07:30 05/25/24 06:00 05/25/24 07:30
I&O
05/24/24 05/25/24 05/26/24
06:59 06:59 06:59
Output Total 1025 / 1025
Balance -1025 / -1025
[2024-05-25] MEDS: SYNTHROID 75 MCG PO (08:27)
[2024-05-25] MEDS: ELIQUIS 5 MG PO ×2 (08:27→19:59)
[2024-05-25] MEDS: ZESTRIL 10 MG PO (08:28)
[2024-05-25] MEDS: VITAMIN B-12 1000 MCG PO (08:28)
[2024-05-25] MEDS: NITRO-DUR 0.2 MG TRANSDERM (08:28)
[2024-05-25] MEDS: VITAMIN D3 (cholecalciferol) 10 MCG PO (08:28)
[2024-05-25] MEDS: DECADRON 4 MG IV ×3 (08:29→22:59)
[2024-05-25] MEDS: TYLENOL 1000 MG PO ×2 (08:29→19:58)
--- NOTE | 2024-05-25 11:11 | W.PN.CARDCBS ---
Today's Communication / Plan
-
Start Cardizem CD 180 mg daily. She currently is in sinus rhythm but when she goes into A-fib which is likely going to be paroxysmal heart rates are quite fast.
She has diuresed well. Start Lasix 20 mg daily.
Follow labs.
Sodium and fluid restricted diet
Follow-up blood pressure on changes of medication.
Impression / Plan
-
Primary transportation services representative: Dr. Rissa Walker
Impression:
New onset rapid atrial fibrillation
Heart failure with preserved ejection fraction
Wheezing/COPD exacerbation
Multilobar pneumonia by report
Pulmonary nodules
Chest pain
Coronary artery disease
Non-MA, nonischemic troponin elevation
Mild to moderate aortic valve stenosis with trace AI
Mild renal insufficiency
Hyperlipidemia
Hypertension
Known meningioma
Anemia
Echocardiogram 12/26/2022: Ejection fraction 55 to 60% with mild septal hypertrophy. Trace MR. Mild to moderate aortic valve stenosis with peak/mean gradient 32/17 mmHg. Aortic valve area 1.3 cm�. Trace AI. Mild TR with PA pressure 40 mmHg.
Cardiac catheterization 04/12/2023: 50% distal left main stenosis extending to the origins of the left circumflex and LAD. iFR serially measured above the ischemic threshold. Overlapping mid RCA stents widely patent.
Plan:
New onset rapid atrial fibrillation
Was rapid on presentation and very symptomatic. Initially rate controlled with IV diltiazem (bolus and drip started). She converted to sinus rhythm and drip was discontinued.
Continues and is in sinus rhythm on telemetry. Have started low-dose diltiazem CD 180 mg daily given how rapid atrial arrhythmia was initially and this may improve blood pressure which is currently elevated.
Previously I discussed with the patient and her daughter risks and benefits of proceeding with oral anticoagulation. Eliquis started 5 mg twice daily. Case management consult placed to check cost.
Echocardiogram ordered
Coronary artery disease with chest pain
Chest pain in the setting of rapid atrial fibrillation and volume overload. Troponin peak 0.065 consistent with non-MA troponin elevation. Chest pain resolved.
She has known coronary artery disease with prior RCA stent and catheterization 03/2023 which was stable disease noted. Continue aggressive medical management.
Avoid beta-livier at this time given significant wheezing.
Repeat troponins downtrending and follow-up EKG without significant abnormality.
Continue aggressive risk factor modification.
Lipids at goal
Heart failure with preserved ejection fraction
Volume overload in the setting of pulmonary issues, steroids, rapid atrial fibrillation and history of heart failure with preserved ejection fraction. Has responded very well to IV diuretic with brisk diuresis feeling better overall.
Lasix 20 mg daily started.
Sodium and fluid restricted diet implemented, discussed with patient
Continue to follow weights input/output
proBNP mildly elevated above her baseline levels
Multilobar pneumonia by report
Defer treatment to primary service
COPD/reactive airways exacerbation
Defer treatment to primary service consider switching albuterol to Xopenex
Lung nodules
Being followed as an outpatient with plan for PET scan as outpatient this week
Hypertension
Blood pressure generally stable but elevated when she was an extremis and elevation continues perhaps in part related to steroids.
Hopefully this will be helped with diltiazem and Lasix. Avoid beta-livier for now
Hyperlipidemia
Stable
Renal insufficiency, known CKD
Follow with diuresis
Creatinine stable
Discussed with patient. Discussed with patient's daughter on the telephone. Discussed with nursing
Discussed with patient and her daughter at the bedside. She comes in with multi lobar pneumonia, wheezing and COPD/reactive airways disease exacerbation for which she is seeing hospitalist service and pulmonary is consulted. She follows as an
outpatient with pulmonary for lung nodules for which she is having upcoming PET scan by report. Now during hospital stay had rapid atrial fibrillation heart rates 170s up to 190s which is a new rhythm for this patient. Chest discomfort with this.
Given that she was significantly ill with rapid atrial fibrillation and has pneumonia she would likely benefit from transfer to higher level of care such as IMU. Defer to primary service.
Progress Note - [employer]
Subjective
Date of Service: May 25, 2024
She is feeling better overall. She still has wheezing. No chest pain.
Objective
Labs:
05/25/24 06:26
Labs
Hgb 11.6 g/dL (12.0-16.0) L 05/24/24 07:20
Hct 35.2 % (37.0-47.0) L 05/24/24 07:20
Plt Count 273 10^3/uL (130-400) 05/24/24 07:20
Sodium 140 mmol/L (135-145) 05/25/24 06:26
Potassium 5.2 mmol/L (3.5-5.1) H 05/25/24 06:26
BUN 49 mg/dl (7-17) H 05/25/24 06:26
Creatinine 1.5 mg/dL (0.6-1.0) H 05/25/24 06:26
Glucose 151 mg/dl (70-99) H 05/25/24 06:26
Troponins
05/23/24 05/24/24 05/24/24
14:45 12:45 18:02
Troponin I < 0.012 < 0.012 0.065 H* D
05/25/24 05/25/24
00:09 06:26
Troponin I 0.061 H* 0.041 H* D
Vital Signs and I&O:
Vital Signs
Temp Pulse Resp BP Pulse Ox
98.3 F 76 15 165/71 96
05/25/24 07:53 05/25/24 08:00 05/25/24 08:00 05/25/24 08:00 05/25/24 09:34
Vital Signs
Temp Pulse Resp BP Pulse Ox
98.3 F 76 15 165/71 96
05/25/24 07:53 05/25/24 08:00 05/25/24 08:00 05/25/24 08:00 05/25/24 09:34
Intake & Output
05/23/24 05/24/24 05/25/24 05/26/24
06:59 06:59 06:59 06:59
Output Total 1025 / 1025
Balance -1025 / -1025
Physical Exam
Physical Exam
General: Well developed, well nourished in NAD.
Neck: JVD 8 cm with positive HJR rally.
Heart: Distant heart sounds regular
Lungs: Expiratory wheezing with fair air movement and decreased at the bases
Extremities: No clubbing, cyanosis and trace to +1 edema bilaterally.
Neuro: Grossly nonfocal, awake, alert and oriented x3.
[2024-05-25 11:13] LABS: Hematocrit 32.5 % (37.0-47.0); Mean Corp Hgb Conc. 33.8 g/dL (33.0-37.0); Mean Corpuscular Hgb 31.1 pg (27.0-31.0); Mean Corpuscular Volume 91.8 fL (81.0-99.0); Mean Platelet Volume 9.5 fL (7.4-10.4); Platelet Count 263 10^3/uL (130-400); Red Blood Cell Count 3.54 10^6/uL (4.20-5.40); Red Cell Dist. Width 14.5 % (11.5-14.5); White Blood Cell Count 16.7 10^3/uL (4.8-10.8)
--- NOTE | 2024-05-25 12:08 | W.PN.PUL3 ---
Today's Communication / Plan
-
Continue nebulizers
Continue IV steroids
Heart rate control
Anticoagulation
Diuresis as able
Oxygen supplementation as necessary to maintain pulse ox above 90.
Assessment
-
Acute exacerbation of COPD
Chest x-ray 05/24/2024: Mild coarsening of interstitial markings in the right lung base, stable compared to prior study suggesting scarring.
Most recent CT chest 12/22/2022: Showed no evidence of interstitial lung disease. Multiple pulmonary nodules
CT abdomen pelvis lung cuts: No evidence for lower lobe abnormalities. 7 mm right lower lobe lung nodule.
COVID-negative
Heart failure component cannot be ruled out proBNP 1729.
Echocardiogram 12/26/2022: Showed normal LVEF. Mild septal hypertrophy mild to moderate AI
Leukocytosis
Rapid atrial fibrillation-new onset
Conditions present prior admission:
History of lung nodules: Follows up with Dr. Santiago
COPD: Follow-up with Dr. Santiago
On Trelegy
Heart failure with preserved ejection fraction.
history of coronary artery disease with RCA stent
COPD/bronchiectasis
Pulmonary nodules
Prior history of GERD
Gout
Hypothyroidism
Chronic kidney disease stage III
Depression
Insomnia
Hypertension
Former smoker
Assessment and plan:
From the pulmonary perspective given abnormal chest x-ray, leukocytosis and shortness of breath. Not unreasonable to treat for community-acquired pneumonia.
Check sputum culture-unable to produce
Negative Legionella
Negative MRSA screening
Negative influenza
If cultures negative then complete 7 days of antibiotics.
-
Wheezing on exam: Acute exacerbation of COPD. Cannot rule out heart failure component either.
Dexamethasone 4 mg IV every 8
Levalbuterol as needed
As the patient is on exacerbation and coughing, hold inhalers and transition to nebulizers Atrovent/Xopenex.
Avoid beta agonist due to rapid atrial fibrillation.
Repeat chest x-ray in the next 24 to 48 hours depending on clinical situation. If chest x-ray clears then infiltrate was more related to volume overload, if there is persistent infiltrate then pneumonia. If pneumonia is really present would
recommend delaying PET/CT that is scheduled for next Sunday. Discussed with patient
-
Atrial fibrillation/heart failure for cardiology following
Heart rate improved
Diuresis as able.
Cardizem drip
Anticoagulation
Heart rate control
-
Follow blood sugars particularly with high-dose of steroids.
-
Pulmonary nodules: Continue follow-up in the outpatient setting.
-
DVT prophylaxis-now on anticoagulation
-
Daughter who is a nurse was updated by Dr. Bruno on the phone 05/25/2024.
-
Follow-up with Dr. Santiago after discharge
Will continue to follow
Subjective Data
-
Date of Service:
Date of Service: May 25, 2024
Chief Complaint: Pulmonary Follow Up (Acute exacerbation of COPD)
Subjective:
Still intermittently short of breath
Occasionally reported some chest discomfort
Denies phlegm production
Review of Systems
General: Fever (n)
Cardiopulmonary: Dyspnea (none at rest)
GI: Abdominal Pain (n) and Nausea (n)
Neuro: Headache (n)
Objective Data
Data Reviewed
Vital Signs / I&O / Oxygen:
Vital Signs
Temp Pulse Resp BP Pulse Ox
98.3 F 76 15 165/71 96
05/25/24 07:53 05/25/24 08:00 05/25/24 08:00 05/25/24 08:00 05/25/24 09:34
Intake and Output
05/24/24 05/25/24 05/26/24
06:59 06:59 06:59
Output Total 1025 / 1025
Balance -1025 / -1025
SaO2 96
Nasal Cannula flow liters per 2
minute
Physical Exam
General: Comfortable
HEENT: Normocephalic
Cardiovascular: S1-S2
Respiratory: Clear and Non-Labored Respirations
GI: Soft and Non Distended
Neurology: Awake and AO x 3
Skin: Warm
Labs/Micro/Reports
Lab Data
05/25/24 10:49
05/25/24 06:26
Microbiology
05/23/24 16:32 Nose MRSA Screen - Final
No Methicillin Resistant Staphylococcus aureus isolated.
05/24/24 04:58 Urine Legionella Urinary Antigen - Final
Negative for Legionella pneumophila Serogroup 1 antigen.
A negative result does not rule out the possiblity of
Legionella infection due to other serogroups or species of
Legionella. Clinical correlation is recommended.
05/24/24 04:58 Urine Streptococcus pneumoniae Antigen (M - Final
Negative for Streptococcus pneumoniae antigen.
A negative result does not exclude infection with
Streptococcus pneumoniae. Clinical correlation is
recommended.
05/23/24 14:45 Nasal Swab Influenza Types A & B (MODE) - Final
Negative for Influenza A & B, NAAT
Negative results must be combined with clinical observations
and patient history.
Nucleic Acid Amplification test (NAAT)performed on the
[employer] platform.
[2024-05-25] MEDS: LASIX 20 MG PO (13:28)
[2024-05-25] MEDS: CARDIZEM CD 180 MG PO (13:28)
[2024-05-25] MEDS: ZITHROMAX 500 MG PO (17:54)
[2024-05-25] MEDS: ROCEPHIN 1000 MG IV (17:55)
[2024-05-25] MEDS: STERILE WATER FOR INJECTION 10 ML IV (17:55)
--- NOTE | 2024-05-25 20:15 | PTCARENOTE ---
Received pt from angeli RN. Pt is AAOx3, anxious @ times. NSR on the monitor. On RA O2 sat 93%, lungs exp wheeze. PW in place for stress incont. Pt is laying in bed with call maynard in reach.
[2024-05-25] MEDS: MYLICON 80 MG PO (22:55)
[2024-05-25] MEDS: ASPIR LOW (ENTERIC COATED) 81 MG PO (22:55)
[2024-05-25] MEDS: CYMBALTA DELAYED RELEASE 40 MG PO (22:55)
[2024-05-25] MEDS: PROTONIX 40 MG PO (22:55)
[2024-05-25] MEDS: DESYREL 200 MG PO (22:55)
[2024-05-25] MEDS: LIPITOR 80 MG PO (22:55)
[2024-05-25] MEDS: MUCINEX 600 MG PO (22:55)
[2024-05-25] MEDS: MELATONIN 20 MG PO (22:55)
[2024-05-25] MEDS: ZETIA 10 MG PO (22:55)
[2024-05-26] VITALS (14 sets, daily range): BP systolic 101–155; BP diastolic 47–91; PULSE 90; O2SAT 97; BMI 47.6
[2024-05-26] MEDS: SYNTHROID 75 MCG PO (05:10)
[2024-05-26 05:41] LABS: Hemoglobin 11.4 g/dL (12.0-16.0); Mean Corp Hgb Conc. 33.5 g/dL (33.0-37.0); Mean Corpuscular Hgb 31.8 pg (27.0-31.0); Mean Corpuscular Volume 94.7 fL (81.0-99.0); Mean Platelet Volume 9.5 fL (7.4-10.4); Platelet Count 276 10^3/uL (130-400); Red Blood Cell Count 3.59 10^6/uL (4.20-5.40); Red Cell Dist. Width 14.5 % (11.5-14.5); White Blood Cell Count 18.1 10^3/uL (4.8-10.8)
[2024-05-26 05:55] LABS: ALT (SGPT) 43 U/L (0-35); AST (SGOT) 19 U/L (14-36); Albumin 3.6 g/dl (3.5-5.0); Alkaline Phosphatase 71 U/L (38-126); Blood Urea Nitrogen 63 mg/dl (7-17); Calcium 9.9 mg/dl (8.4-10.2); Carbon Dioxide 18 mmol/L (22-30); Chloride 105 mmol/L (98-107); Estimated Creatinine Clearance 41 ml/min; Glucose 153 mg/dl (70-99); Magnesium 2.2 mg/dl (1.6-2.3); Potassium 5.2 mmol/L (3.5-5.1); Sodium 136 mmol/L (135-145); Total Bilirubin 0.5 mg/dl (0.2-1.3); Total Protein 5.7 g/dl (6.3-8.2); eGFR 38.75
[2024-05-26] MEDS: SYMBICORT 160/4.5 MCG INHALER 2 PUFF INH ×2 (07:38→19:20)
[2024-05-26] MEDS: ATROVENT NEBULES 0.5 MG INH ×3 (07:38→19:20)
[2024-05-26] MEDS: XOPENEX 1.25 MG INHALANT SOLUTION INH ×3 (07:38→19:25)
--- NOTE | 2024-05-26 08:11 | W.PN.HOSP.TC ---
Today's Communication/Plan
-
see A/P
OK to downgrade to tele
Assessment / Plan
Assessment / Plan
CXR
There is mild coarsening of the interstitial markings in the right lung base, stable when compared with the prior study suggesting that this is more likely interstitial scarring than interstitial pneumonia
A/P:
# COPD exacerbation
# Reported multilobular pneumonia outpatient on outpatient imaging
Coarse bilateral wheezing/rhonchi on examination
Chest x-ray report noted
COVID-negative, MRSA screen negative
Continue Dexamethasone IV 4 mg every 8 hours
DuoNebs every 6 hours
Check sputum culture if able to collect
Cont Ceftriaxone/azithromycin x5 days
Continue Mucinex
Pulmonary consulted, appreciate evaluation and recommendations
# Chest pain, likely a combination of rapid A-Fib and musculoskeletal with coughing
# New-Onset A-Fib, associated with chest pain
s/p Cardizem drip, started Diltiazem CD 180 mg daily
Added Eliquis 5 mg BID
Avoid beta livier given wheezing
Check Echocardiogram
# Acute on Chronic HFpEF
Continue sodium and fluid restriction
Status post IV Lasix, started PO Lasix 20 mg daily
# Mild Hyperkalemia
May need Lisinopril stopped, but now Lasix also started so potassium may correct
# History of bronchiectasis
# History of pulmonary nodules
Due to have PET scan in May
# CAD status post stents x 3
Continue aspirin, statin, Zetia
# CKD stage III
Renal function at baseline
# Hypothyroidism
Continue levothyroxine
# GERD
Continue omeprazole
# Essential hypertension
Continue amlodipine, lisinopril
# Depression
Continue duloxetine
# Insomnia
Continue trazodone
# Gout
# Former smoker
Full code
DVT prophylaxis-Eliquis
Regular diet
Anticipated Discharge: 24 - 48 hours
Subjective/Interval History
-
Date of Service: May 26, 2024
Objective Data
-
Labs:
Laboratory Results
05/26/24
05:07
WBC 18.1 H
Hgb 11.4 L
Hct 34.0 L
Plt Count 276
Sodium 136
Potassium 5.2 H
Chloride 105
Carbon Dioxide 18 L
BUN 63 H
Creatinine 1.4 H
Glucose 153 H
Calcium 9.9
Total Bilirubin 0.5
AST 19
ALT 43 H
Alkaline Phosphatase 71
Vital Signs:
Vital Signs
Temp Pulse Resp BP Pulse Ox
36.9 C 82 20 132/57 94
05/26/24 03:05 05/26/24 07:42 05/26/24 07:42 05/26/24 06:00 05/26/24 07:42
I&O
05/25/24 05/26/24 05/27/24
06:59 06:59 06:59
Intake Total 590 / 590
Output Total 1025 / 1025 1770 / 1770
Balance -1025 / -1025 -1180 / -1180
Review of Systems
-
Respiratory: Reports Cough (occasional)
Physical Exam
-
General: Well Developed, Well Nourished, No Apparent Distress, Comfortable, Conversant and Obese
HEENT: Normocephalic and Atraumatic; Negative Oxygen
Respiratory: Clear to Auscultation, Wheezes (BL bases) and Non Labored Respirations; Negative Accessory Resp Muscle Use
Cardiac: Regular Rhythm and S1/S2
GI: Soft and Nontender
Neuro: Awake and Alert
Psych: Calm and Intact Judgement/Insight
Data Reviewed
-
Diagnostic Radiology: Image personally visualized and interpreted and Report Reviewed by me
Labs: Labs Reviewed by me
[2024-05-26 08:16] LABS: Absolute Neutrophils -Man Diff 14.6 10^3/uL (1.4-6.5); Anisocytosis Slight; Band Neutrophils 0 % (0-3); Hypochromasia Slight; Lymphocytes 9 % (20-51); Metamyelocytes 3 % (-); Monocytes 1 % (2-9); Myelocytes 6 % (-); Normal RBC Morphology No; Platelets Checked Yes; Segmented Neutrophils 81 % (42-75); Total Cells Counted 100
[2024-05-26] MEDS: NITRO-DUR 0.2 MG TRANSDERM (08:25)
[2024-05-26] MEDS: CARDIZEM CD 180 MG PO (08:27)
[2024-05-26] MEDS: TYLENOL 1000 MG PO ×2 (08:27→20:05)
[2024-05-26] MEDS: VITAMIN D3 (cholecalciferol) 10 MCG PO (08:27)
[2024-05-26] MEDS: LASIX 20 MG PO (08:28)
[2024-05-26] MEDS: DECADRON 4 MG IV (08:28)
[2024-05-26] MEDS: ZESTRIL 10 MG PO (08:28)
[2024-05-26] MEDS: ELIQUIS 5 MG PO ×2 (08:28→20:05)
[2024-05-26] MEDS: VITAMIN B-12 1000 MCG PO (08:28)
--- NOTE | 2024-05-26 10:11 | PTCARENOTE ---
Pt AAOX3 pleasant . OOB to chaier assist 1 and single point cane . Fo tx to tele. Pt has exp wheezes that clear after coughing, Purewick removed . FR maintained.
--- NOTE | 2024-05-26 12:15 | W.PN.PUL3 ---
Today's Communication / Plan
-
Continue antibiotic-consider transition to oral antibiotics in the next 24 hours
Repeat chest x-ray tomorrow
Continue cardiac management-patient diuresed well
Steroids decreased-transition to prednisone tomorrow if improved
Continue nebulizers while in the hospital. Restart inhalers upon discharge
Assessment
-
Acute exacerbation of COPD
Chest x-ray 05/24/2024: Mild coarsening of interstitial markings in the right lung base, stable compared to prior study suggesting scarring.
Most recent CT chest 12/22/2022: Showed no evidence of interstitial lung disease. Multiple pulmonary nodules
CT abdomen pelvis lung cuts: No evidence for lower lobe abnormalities. 7 mm right lower lobe lung nodule.
COVID-negative
Heart failure component cannot be ruled out proBNP 1729.
Echocardiogram 12/26/2022: Showed normal LVEF. Mild septal hypertrophy mild to moderate AI
Leukocytosis
Rapid atrial fibrillation-new onset
Conditions present prior admission:
History of lung nodules: Follows up with Dr. Santiago
COPD: Follow-up with Dr. Santiago
On Trelegy
Heart failure with preserved ejection fraction.
history of coronary artery disease with RCA stent
COPD/bronchiectasis
Pulmonary nodules
Prior history of GERD
Gout
Hypothyroidism
Chronic kidney disease stage III
Depression
Insomnia
Hypertension
Former smoker
Assessment and plan:
From the pulmonary perspective given abnormal chest x-ray, leukocytosis and shortness of breath. Not unreasonable to treat for community-acquired pneumonia.
-
Remains afebrile
Leukocytosis in part from steroids per
-
Check sputum culture-unable to produce-pending.
Negative Legionella
Negative MRSA screening
Negative influenza
Continue ceftriaxone/Zithromax. Consider transition to oral antibiotics tomorrow if better.
If cultures negative then complete 7 days of antibiotics.
-
Wheezing on exam: Acute exacerbation of COPD. Cannot rule out heart failure component either.
Will continue to decrease dexamethasone to 2 mg IV Q8. Will consider transition to prednisone taper tomorrow if improves.
Levalbuterol as needed
As the patient is on exacerbation and coughing, hold inhalers for now and continue nebulizers Atrovent/Xopenex while in the hospital.
Avoid beta agonist due to rapid atrial fibrillation.
Repeat chest x-ray 05/27/2024. If chest x-ray clears then infiltrate was more related to volume overload, if there is persistent infiltrate then pneumonia. If pneumonia is really present would recommend delaying PET/CT that is scheduled for next
Sunday. Discussed with patient
-
Atrial fibrillation/heart failure for cardiology following
Heart rate improved
Diuresis as able. Now on oral Lasix.
On oral Cardizem.
Patient diuresed well.
Anticoagulation
Repeat echocardiogram pending
-
Follow blood sugars particularly with high-dose of steroids.
-
Pulmonary nodules: Continue follow-up in the outpatient setting.
Upcoming PET scan next Sunday. See above
-
DVT prophylaxis-now on anticoagulation-apixaban
-
Daughter who is a nurse was updated by Dr. Bruno on the phone 05/25/2024.
-
Follow-up with Dr. Santiago after discharge
Will continue to follow
Subjective Data
-
Date of Service:
Date of Service: May 26, 2024
Chief Complaint: Pulmonary Follow Up (Acute exacerbation of COPD)
Subjective:
Patient feeling better.
Less wheezing
No significant phlegm production or hemoptysis
Chest discomfort mostly resolved
Review of Systems
Cardiopulmonary: Dyspnea
GI: Abdominal Pain (n)
Objective Data
Data Reviewed
Vital Signs / I&O / Oxygen:
Vital Signs
Temp Pulse Resp BP Pulse Ox
98.2 F 84 17 153/83 96
05/26/24 11:14 05/26/24 08:50 05/26/24 08:50 05/26/24 08:50 05/26/24 08:50
Intake and Output
05/25/24 05/26/24 05/27/24
06:59 06:59 06:59
Intake Total 590 / 590
Output Total 1025 / 1025 1770 / 1770
Balance -1025 / -1025 -1180 / -1180
SaO2 96
Nasal Cannula flow liters per 2
minute
Physical Exam
General: Comfortable
HEENT: Normocephalic
Cardiovascular: S1-S2
Respiratory: Wheeze (mild expiratory) and Non-Labored Respirations
GI: Soft and Non Distended
Neurology: Awake and AO x 3
Skin: Warm
Labs/Micro/Reports
Lab Data
05/26/24 05:07
05/26/24 05:07
Microbiology
05/23/24 16:32 Nose MRSA Screen - Final
No Methicillin Resistant Staphylococcus aureus isolated.
05/24/24 04:58 Urine Legionella Urinary Antigen - Final
Negative for Legionella pneumophila Serogroup 1 antigen.
A negative result does not rule out the possiblity of
Legionella infection due to other serogroups or species of
Legionella. Clinical correlation is recommended.
05/24/24 04:58 Urine Streptococcus pneumoniae Antigen (M - Final
Negative for Streptococcus pneumoniae antigen.
A negative result does not exclude infection with
Streptococcus pneumoniae. Clinical correlation is
recommended.
05/23/24 14:45 Nasal Swab Influenza Types A & B (MODE) - Final
Negative for Influenza A & B, NAAT
Negative results must be combined with clinical observations
and patient history.
Nucleic Acid Amplification test (NAAT)performed on the
[employer] platform.
--- NOTE | 2024-05-26 15:13 | W.PN.CARDCBS ---
Today's Communication / Plan
-
Continue current cardiac meds
Monitor on telemetry
Check echo in a.m.
Impression / Plan
-
Primary game protector: Dr. Rissa Walker
Impression:
New onset rapid atrial fibrillation
Heart failure with preserved ejection fraction
Wheezing/COPD exacerbation
Multilobar pneumonia by report
Pulmonary nodules
Chest pain
Coronary artery disease
Non-AL, nonischemic troponin elevation
Mild to moderate aortic valve stenosis with trace AI
Mild renal insufficiency
Hyperlipidemia
Hypertension
Known meningioma
Anemia
Echocardiogram 12/26/2022: Ejection fraction 55 to 60% with mild septal hypertrophy. Trace MR. Mild to moderate aortic valve stenosis with peak/mean gradient 32/17 mmHg. Aortic valve area 1.3 cm�. Trace AI. Mild TR with PA pressure 40 mmHg.
Cardiac catheterization 04/12/2023: 50% distal left main stenosis extending to the origins of the left circumflex and LAD. iFR serially measured above the ischemic threshold. Overlapping mid RCA stents widely patent.
Plan:
New onset rapid atrial fibrillation
Was rapid on presentation and very symptomatic. Initially rate controlled with IV diltiazem (bolus and drip started). She converted to sinus rhythm and drip was discontinued.
Continues in sinus rhythm on telemetry. Have started low-dose diltiazem CD 180 mg daily given how rapid atrial arrhythmia was initially and this may improve blood pressure which is currently elevated.
Eliquis started 5 mg twice daily. Case management consult placed to check cost.
Echocardiogram ordered
Coronary artery disease with chest pain
Chest pain in the setting of rapid atrial fibrillation and volume overload. Troponin peak 0.065 consistent with non-AL troponin elevation. Chest pain resolved.
She has known coronary artery disease with prior RCA stent and catheterization 03/2023 which was stable disease noted. Continue aggressive medical management.
Avoid beta-livier at this time given significant wheezing.
Repeat troponins downtrending and follow-up EKG without significant abnormality.
Continue aggressive risk factor modification.
Lipids at goal
Heart failure with preserved ejection fraction
Volume overload in the setting of pulmonary issues, steroids, rapid atrial fibrillation and history of heart failure with preserved ejection fraction. Has responded very well to IV diuretic with brisk diuresis feeling better overall.
Lasix 20 mg daily started.
Sodium and fluid restricted diet implemented, discussed with patient
Continue to follow weights input/output
proBNP mildly elevated above her baseline levels
Multilobar pneumonia by report
Defer treatment to primary service
COPD/reactive airways exacerbation
Defer treatment to primary service consider switching albuterol to Xopenex
Lung nodules
Being followed as an outpatient with plan for PET scan as outpatient this week
Hypertension
Blood pressure generally stable but elevated when she was an extremis and elevation continues perhaps in part related to steroids.
Hopefully this will be helped with diltiazem and Lasix. Avoid beta-livier for now
Hyperlipidemia
Stable
Renal insufficiency, known CKD
Follow with diuresis
Creatinine stable
She comes in with multi lobar pneumonia, wheezing and COPD/reactive airways disease exacerbation for which she is seeing hospitalist service and pulmonary is consulted. She follows as an outpatient with pulmonary for lung nodules for which she is
having upcoming PET scan by report. Now during hospital stay had rapid atrial fibrillation heart rates 170s up to 190s which is a new rhythm for this patient. Chest discomfort with this. Given that she was significantly ill with rapid atrial
fibrillation and has pneumonia she would likely benefit from transfer to higher level of care such as IMU. Defer to primary service.
Progress Note - Obstetrics Scrub Nurse
Subjective
Date of Service: May 26, 2024
No acute overnight events. Patient's resting comfortably in the IMU. Not reporting any chest pain or pressure. Telemetry reviewed, maintaining sinus rhythm.
Objective
Labs:
05/26/24 05:07
05/26/24 05:07
Labs
Hgb 11.4 g/dL (12.0-16.0) L 05/26/24 05:07
Hct 34.0 % (37.0-47.0) L 05/26/24 05:07
Plt Count 276 10^3/uL (130-400) 05/26/24 05:07
Sodium 136 mmol/L (135-145) 05/26/24 05:07
Potassium 5.2 mmol/L (3.5-5.1) H 05/26/24 05:07
BUN 63 mg/dl (7-17) H 05/26/24 05:07
Creatinine 1.4 mg/dL (0.6-1.0) H 05/26/24 05:07
Glucose 153 mg/dl (70-99) H 05/26/24 05:07
Troponins
05/23/24 05/24/24 05/24/24
14:45 12:45 18:02
Troponin I < 0.012 < 0.012 0.065 H* D
05/25/24 05/25/24
00:09 06:26
Troponin I 0.061 H* 0.041 H* D
Vital Signs and I&O:
Vital Signs
Temp Pulse Resp BP Pulse Ox
98.2 F 90 21 141/91 94
05/26/24 11:14 05/26/24 14:12 05/26/24 14:12 05/26/24 14:00 05/26/24 14:12
Vital Signs
Temp Pulse Resp BP Pulse Ox
98.2 F 90 21 141/91 94
05/26/24 11:14 05/26/24 14:12 05/26/24 14:12 05/26/24 14:00 05/26/24 14:12
Intake & Output
05/24/24 05/25/24 05/26/24 05/27/24
06:59 06:59 06:59 06:59
Intake Total 590 / 590
Output Total 1025 / 1025 1770 / 1770
Balance -1025 / -1025 -1180 / -1180
Physical Exam
Physical Exam
Gen: NAD, AAOx3
HEENT: NC/AT, sclera anicteric
Neck: No JVD
CV: RRR, NL s1/s2, no M/R/G
Lungs: CTAB
Abd: S/ND
Ext: No LE edema
Skin: Warm, dry
Neuro: Non-focal
[2024-05-26] MEDS: DECADRON 2 MG IV ×2 (16:29→23:04)
[2024-05-26] MEDS: ZITHROMAX 500 MG PO (16:32)
[2024-05-26] MEDS: STERILE WATER FOR INJECTION 10 ML IV (16:32)
[2024-05-26] MEDS: ROCEPHIN 1000 MG IV (16:32)
--- NOTE | 2024-05-26 20:48 | PTCARENOTE ---
GILBERT Liang notified. Pt went into Afib HR went up to 150s, then HR was 120s-130s. Pt converted back to NSR, before an EKG could be provided. HR in the 80s.
[2024-05-26] MEDS: ZETIA 10 MG PO (22:52)
[2024-05-26] MEDS: MUCINEX 600 MG PO (22:52)
[2024-05-26] MEDS: CYMBALTA DELAYED RELEASE 40 MG PO (22:52)
[2024-05-26] MEDS: DESYREL 200 MG PO (22:52)
[2024-05-26] MEDS: MYLICON 80 MG PO (22:52)
[2024-05-26] MEDS: LIPITOR 80 MG PO (22:52)
[2024-05-26] MEDS: MELATONIN 20 MG PO (22:52)
[2024-05-26] MEDS: PROTONIX 40 MG PO (22:52)
[2024-05-26] MEDS: ASPIR LOW (ENTERIC COATED) 81 MG PO (22:52)
[2024-05-27] VITALS (7 sets, daily range): BP systolic 130–161; BP diastolic 58–109; BMI 47.2
[2024-05-27] MEDS: SYNTHROID 75 MCG PO (05:25)
[2024-05-27 05:40] LABS: Hematocrit 35.3 % (37.0-47.0); Hemoglobin 11.8 g/dL (12.0-16.0); Mean Corp Hgb Conc. 33.4 g/dL (33.0-37.0); Mean Corpuscular Hgb 31.1 pg (27.0-31.0); Mean Corpuscular Volume 93.1 fL (81.0-99.0); Mean Platelet Volume 9.3 fL (7.4-10.4); Platelet Count 301 10^3/uL (130-400); Red Blood Cell Count 3.79 10^6/uL (4.20-5.40); Red Cell Dist. Width 14.6 % (11.5-14.5); White Blood Cell Count 23.9 10^3/uL (4.8-10.8)
[2024-05-27 06:05] LABS: Blood Urea Nitrogen 70 mg/dl (7-17); Calcium 9.8 mg/dl (8.4-10.2); Carbon Dioxide 18 mmol/L (22-30); Chloride 105 mmol/L (98-107); Estimated Creatinine Clearance 38 ml/min; Glucose 148 mg/dl (70-99); Magnesium 2.3 mg/dl (1.6-2.3); Potassium 4.9 mmol/L (3.5-5.1); Sodium 138 mmol/L (135-145); eGFR 35.67
--- NOTE | 2024-05-27 06:33 | PTCARENOTE ---
Pt rang c/o chest pain and pressure on her chest. GILBERT Liang notified, gave pt her 0800 Tylenol and Lisinopril early. EKG provided.
[2024-05-27] MEDS: TYLENOL 1000 MG PO ×2 (06:38→20:12)
[2024-05-27] MEDS: ZESTRIL 10 MG PO (06:38)
[2024-05-27 07:02] LABS: Absolute Neutrophils -Man Diff 19.1 10^3/uL (1.4-6.5); Anisocytosis Slight; Band Neutrophils 0 % (0-3); Hypochromasia Slight; Lymphocytes 8 % (20-51); Metamyelocytes 2 % (-); Monocytes 4 % (2-9); Myelocytes 6 % (-); Normal RBC Morphology No; Platelets Checked Yes; Segmented Neutrophils 80 % (42-75)
[2024-05-27 07:03] LABS: Total Cells Counted 100
[2024-05-27] MEDS: ATROVENT NEBULES 0.5 MG INH ×3 (07:27→19:19)
[2024-05-27] MEDS: SYMBICORT 160/4.5 MCG INHALER 2 PUFF INH ×2 (07:28→19:20)
[2024-05-27] MEDS: XOPENEX 1.25 MG INHALANT SOLUTION INH ×3 (07:28→19:19)
--- NOTE | 2024-05-27 07:32 | PTCARENOTE ---
Pt AAOX3 sitting up in bed. No CP at this time. Pt awaiting tx to tele. Pt needs CXR and Echo. Pt lungs are harsh sounding BLE edema, CLOUD . Pt one assist with single point cane. 1500 FR . Pt instructed to call with any CP
--- NOTE | 2024-05-27 07:50 | W.PN.HOSP.TC ---
Today's Communication/Plan
-
Start vest therapy
see A/P
Assessment / Plan
Assessment / Plan
CXR
There is mild coarsening of the interstitial markings in the right lung base, stable when compared with the prior study suggesting that this is more likely interstitial scarring than interstitial pneumonia
A/P:
# COPD exacerbation
# Reported multilobular pneumonia on outpatient imaging
Coarse bilateral wheezing/rhonchi on examination
Chest x-ray report noted
COVID-negative, MRSA screen negative
Continue Dexamethasone, down to 2 mg IV Q8H
DuoNebs TID
Check sputum culture if able to collect
Cont Ceftriaxone/azithromycin x5 days
Continue Mucinex
Start vest therapy
Pulmonary consulted, appreciate evaluation and recommendations
# Chest pain, likely a combination of rapid A-Fib and musculoskeletal with coughing
# New-Onset A-Fib, associated with chest pain
s/p Cardizem drip, started Diltiazem CD 180 mg daily
Added Eliquis 5 mg BID
Avoid beta livier given wheezing
Check Echocardiogram
# Acute on Chronic HFpEF
Continue sodium and fluid restriction
Status post IV Lasix, started PO Lasix 20 mg daily
cont [employer] low dose lisinopril
# Mild Hyperkalemia, resolved
# History of bronchiectasis
# History of pulmonary nodules
Due to have PET scan in May
# CAD status post stents x 3
Continue aspirin, statin/Zetia
# CKD stage III
Renal function at baseline
SCr at 1.5 today
# Hypothyroidism
Continue levothyroxine
# GERD
Continue omeprazole
# Essential hypertension
Continue amlodipine, lisinopril
# Depression
Continue duloxetine
# Insomnia
Continue trazodone
# Gout
# Former smoker
Full code
DVT prophylaxis-Eliquis
Regular diet
Dispo: PT recc HH
Anticipated Discharge: 24 - 48 hours
Subjective/Interval History
-
Date of Service: May 27, 2024
Objective Data
-
Labs:
Laboratory Results
05/27/24
05:29
WBC 23.9 H
Hgb 11.8 L
Hct 35.3 L
Plt Count 301
Sodium 138
Potassium 4.9
Chloride 105
Carbon Dioxide 18 L
BUN 70 H
Creatinine 1.5 H
Glucose 148 H
Calcium 9.8
Vital Signs:
Vital Signs
Temp Pulse Resp BP Pulse Ox
36.4 C 65 18 169/72 99
05/27/24 07:08 05/27/24 07:30 05/27/24 07:30 05/27/24 06:38 05/27/24 07:30
I&O
05/26/24 05/27/24 05/28/24
06:59 06:59 06:59
Intake Total 590 / 590 410 / 410
Output Total 1770 / 1770
Balance -1180 / -1180 410 / 410
Review of Systems
-
Respiratory: Reports Cough (occasional)
Physical Exam
-
General: Well Developed, Well Nourished, No Apparent Distress, Comfortable, Conversant and Obese
HEENT: Normocephalic and Atraumatic; Negative Oxygen
Respiratory: Clear to Auscultation, Wheezes (BL bases) and Non Labored Respirations; Negative Accessory Resp Muscle Use
Cardiac: Regular Rhythm and S1/S2
GI: Soft and Nontender
Neuro: Awake and Alert
Psych: Calm and Intact Judgement/Insight
Data Reviewed
-
Diagnostic Radiology: Image personally visualized and interpreted and Report Reviewed by me
Labs: Labs Reviewed by me
[2024-05-27] MEDS: DECADRON 2 MG IV (08:38)
[2024-05-27] MEDS: NITRO-DUR 0.2 MG TRANSDERM (08:39)
[2024-05-27] MEDS: ELIQUIS 5 MG PO ×2 (08:42→20:12)
[2024-05-27] MEDS: VITAMIN D3 (cholecalciferol) 10 MCG PO (08:42)
[2024-05-27] MEDS: VITAMIN B-12 1000 MCG PO (08:42)
[2024-05-27] MEDS: CARDIZEM CD 180 MG PO (08:43)
[2024-05-27] MEDS: LASIX PO (08:43)
--- NOTE | 2024-05-27 09:21 | W.PN.PUL3 ---
Today's Communication / Plan
-
Continue Abx - consider transition to oral Abx in the next 24-48 hrs - finish total of [address] chest
Continue nebulized bronchodilators with Symbicort; Restart inhalers upon discharge
Raise steroids from Decadron 2mg IV q8hr to Solu-medrol 40mg IV q6hr x 3 doses then q8hr with wean down as she clinically improves
Continue cardiac management-patient diuresed well
Pulmonary service to continue to follow along
Assessment
-
Impression:
Acute exacerbation of COPD
Chest x-ray 05/24/2024: Mild coarsening of interstitial markings in the right lung base, stable compared to prior study suggesting scarring.
Most recent CT chest 12/22/2022: Showed no evidence of interstitial lung disease. Multiple pulmonary nodules
CT abdomen pelvis lung cuts: No evidence for lower lobe abnormalities. 7 mm right lower lobe lung nodule.
COVID-negative
Heart failure component cannot be ruled out proBNP 1729.
Echocardiogram 12/26/2022: Showed normal LVEF. Mild septal hypertrophy mild to moderate AI
Leukocytosis
Rapid atrial fibrillation-new onset - now rate controlled and in NSR
Mild�moderate aortic stenosis with peak/mean gradient 33/16, respectively
Conditions present prior admission:
History of lung nodules: Follows up with Dr. Santiago
COPD: Follow-up with Dr. Santiago
On Trelegy
Heart failure with preserved ejection fraction.
history of coronary artery disease with RCA stent
COPD/bronchiectasis
Pulmonary nodules
Prior history of GERD
Gout
Hypothyroidism
Chronic kidney disease stage III
Depression
Insomnia
Hypertension
Former smoker
Assessment and plan:
From the pulmonary perspective given abnormal chest x-ray, leukocytosis and shortness of breath. Not unreasonable to treat for community-acquired pneumonia.
-
Remains afebrile
Leukocytosis in part from steroids per
-
Check sputum culture-unable to produce-pending.
Negative Legionella
Negative MRSA screening
Negative influenza
Continue ceftriaxone/Zithromax. Consider transition to oral antibiotics in next 1-2 days
Complete 5-7 days of antibiotics, assuming she continues to clinically improve and remains afebrile for 2 days prior to stopping antibiotics
-
Wheezing on exam: Acute exacerbation of COPD. Cannot rule out heart failure component either.
Today she continues to have expiratory wheezing and endorses shortness of breath with chest tightness --> raise steroids from Decadron 2mg IV q8hr to Solu-Medrol 40mg IV q8hr
Levalbuterol as needed
Continue nebulizers Atrovent/Xopenex while in the hospital; continue Symbicort; resume Trelegy upon discharge
Avoid beta agonist due to rapid atrial fibrillation.
Repeat chest x-ray 05/27/2024. If chest x-ray clears then infiltrate was more related to volume overload, if there is persistent infiltrate then pneumonia.
Given her continued SOB with unclear CXR, will check CT chest to better assess lung parenchyma. OF note, she says that she has had a Ct chest few months ago at [facility], and is scheduled to have a PET scan next week with [facility]
If pneumonia is really present would recommend delaying PET/CT that is scheduled for next Sunday. Discussed with patient
-
Atrial fibrillation/heart failure for cardiology following
Heart rate improved and she converted into NSR on 05/24/2024
Diuresis as able. Now on oral Lasix.
On oral Cardizem.
Patient diuresed well.
Anticoagulation with Eliquis
Repeat echocardiogram done today -LVEF preserved at 60-65% with normal diastolic function, no regional WMA, mild�moderate , mild TR with mild pulmonary hypertension with PASP 30�35 assuming RAP of 3 mmHg
-
Follow blood sugars particularly with high-dose of steroids with goal >100 and <180mg/dL
-
Pulmonary nodules: Continue follow-up in the outpatient setting.
Upcoming PET scan next Sunday. See above
-
DVT prophylaxis-now on anticoagulation-apixaban
-
Follow-up with Dr. Santiago after discharge
Will continue to follow
Total time spent today was 35 minutes for this encounter. Time includes reviewing laboratory test/imaging results, reviewing pertinent medical records, obtaining and reviewing medical history, performing an appropriate exam, ordering medications,
tests and procedures. Time also includes documentation of this encounter, coordinating patient care and communicating with other healthcare professionals. Total time does not include separately billed tests performed on this date of service.
Subjective Data
-
Date of Service:
Date of Service: May 27, 2024
Chief Complaint: Pulmonary Follow Up (Acute exacerbation of COPD)
Subjective:
Pt seen and evaluated this AM. She endorses SOB and chest tightness. Wheezing on exam. On room air, breathing comfortably. HR 78 and BP 130/65. Says she has phlegm that she can't easily bring up. Denies fevers/chills, PACKER, chest pain, abd pain,
N/V/D.
Review of Systems
General: Other (Negative unless mentioned above)
Objective Data
Data Reviewed
Vital Signs / I&O / Oxygen:
Vital Signs
Temp Pulse Resp BP Pulse Ox
97.5 F 82 16 143/109 96
05/27/24 11:12 05/27/24 08:43 05/27/24 11:12 05/27/24 08:43 05/27/24 11:12
Intake and Output
05/26/24 05/27/24 05/28/24
06:59 06:59 06:59
Intake Total 590 / 590 410 / 410
Output Total 1770 / 1770
Balance -1180 / -1180 410 / 410
SaO2 96
Nasal Cannula flow liters per 2
minute
Physical Exam
General: Respiratory Distress (negative), Comfortable and Chills (negative)
HEENT: Normocephalic
Cardiovascular: S1-S2, Murmur (CHARLI, heard at [facility]) and Peripheral Edema (trace JENNIE bilaterally)
Respiratory: Wheeze (Expiratory, bilaterally), Crackles (negative), Rhonchi (negative) and Non-Labored Respirations
GI: Soft, Distended (Abdominal obesity), Non Tender and Normal Bowel Sounds
Neurology: AO x 3
Skin: Warm, Dry, Cyanosis (negative) and Jaundice (negative)
Labs/Micro/Reports
Lab Data
05/27/24 05:29
05/27/24 05:29
Microbiology
05/23/24 16:32 Nose MRSA Screen - Final
No Methicillin Resistant Staphylococcus aureus isolated.
--- NOTE | 2024-05-27 09:25 | PTCARENOTE ---
Pt to CXR then 2Decho. Pt CLOUD when ambulating to [facility] (formerly [facility])[3]
--- NOTE | 2024-05-27 11:25 | W.PN.CARDCBS ---
Today's Communication / Plan
-
Recurrent chest pain last night/early this morning (05/27/2024) which seems to be reproducible with palpation. Continue Tylenol. EKG was normal.
Check troponin but does not appear clinically to be cardiac chest pain.
She may be currently overdiuresed hold Lasix for now we will continue to reassess. Likely will need low-dose diuretic as an outpatient.
Blood pressure remains elevated. Continue diltiazem multiuse. I have added low-dose Cardura given the limitations with medications.
Impression / Plan
-
Primary catalogue and special products manager: Dr. Rissa Walker
Impression:
New onset rapid atrial fibrillation
Heart failure with preserved ejection fraction
Chest pain
Wheezing/COPD exacerbation
Multilobar pneumonia by report
Pulmonary nodules
Coronary artery disease
Non-DC, nonischemic troponin elevation
Mild to moderate aortic valve stenosis with trace AI
Mild renal insufficiency
Hyperlipidemia
Hypertension
Known meningioma
Anemia
Echocardiogram 12/26/2022: Ejection fraction 55 to 60% with mild septal hypertrophy. Trace MR. Mild to moderate aortic valve stenosis with peak/mean gradient 32/17 mmHg. Aortic valve area 1.3 cm�. Trace AI. Mild TR with PA pressure 40 mmHg.
Cardiac catheterization 04/12/2023: 50% distal left main stenosis extending to the origins of the left circumflex and LAD. iFR serially measured above the ischemic threshold. Overlapping mid RCA stents widely patent.
Plan:
New onset rapid atrial fibrillation
Without recurrence. Previously was rapid on presentation and very symptomatic. Initially rate controlled with IV diltiazem (bolus and drip started). She converted to sinus rhythm and drip was discontinued.
Continues in sinus rhythm on telemetry. Continue low-dose diltiazem CD 180 mg daily given how rapid atrial arrhythmia was initially and this may improve blood pressure which is currently elevated.
Eliquis started 5 mg twice daily. Case management consult placed to check cost.
Echocardiogram ordered
Coronary artery disease with chest pain
Recurrent chest pain last night/early this morning (05/27/2024) which seems to be reproducible with palpation of her chest and may be costochondritis secondary to coughing. Continue Tylenol. EKG was normal. Check troponin but does not appear
clinically to be cardiac chest pain.
Echocardiogram pending
Earlier in the admission chest pain in the setting of rapid atrial fibrillation and volume overload. Troponin peak 0.065 consistent with non-DC troponin elevation.
She has known coronary artery disease with prior RCA stent and catheterization 03/2023 which was stable disease noted. Continue aggressive medical management.
Avoid beta-livier at this time given significant wheezing.
Repeat troponins downtrending and sinus rhythm EKG is normal.
Continue aggressive risk factor modification.
Lipids at goal
Heart failure with preserved ejection fraction
Volume overload in the setting of pulmonary issues, steroids, rapid atrial fibrillation and history of heart failure with preserved ejection fraction. Has responded very well to IV diuretic with brisk diuresis feeling better overall.
She may be currently overdiuresed hold Lasix for now we will continue to reassess. Likely will need low-dose as an outpatient..
Sodium and fluid restricted diet implemented, discussed with patient
Continue to follow weights input/output
proBNP mildly elevated above her baseline levels
Multilobar pneumonia by report
Defer treatment to primary service
COPD/reactive airways exacerbation
Defer treatment to primary service consider switching albuterol to Xopenex
Lung nodules
Being followed as an outpatient with plan for PET scan as outpatient this week
Hypertension
Blood pressure generally stable but elevated when she was an extremis and elevation continues perhaps in part related to steroids.
Blood pressure remains elevated. Continue diltiazem multi use. I have added low-dose Cardura given the limitations with medications.
Hyperlipidemia
Stable
Renal insufficiency, known CKD
Follow with diuresis
Creatinine stable
She comes in with multi lobar pneumonia, wheezing and COPD/reactive airways disease exacerbation for which she is seeing hospitalist service and pulmonary is consulted. She follows as an outpatient with pulmonary for lung nodules for which she is
having upcoming PET scan by report. Now during hospital stay had rapid atrial fibrillation heart rates 170s up to 190s which is a new rhythm for this patient. Chest discomfort with this. Given that she was significantly ill with rapid atrial
fibrillation and has pneumonia she would likely benefit from transfer to higher level of care such as IMU. Defer to primary service.
Progress Note - Caddie Supervisor
Subjective
Date of Service: May 27, 2024
She had chest pain earlier today which is reproducible on exam.
Objective
Labs:
05/27/24 05:29
05/27/24 05:29
Labs
Hgb 11.8 g/dL (12.0-16.0) L 05/27/24 05:29
Hct 35.3 % (37.0-47.0) L 05/27/24 05:29
Plt Count 301 10^3/uL (130-400) 05/27/24 05:29
Sodium 138 mmol/L (135-145) 05/27/24 05:29
Potassium 4.9 mmol/L (3.5-5.1) 05/27/24 05:29
BUN 70 mg/dl (7-17) H 05/27/24 05:29
Creatinine 1.5 mg/dL (0.6-1.0) H 05/27/24 05:29
Glucose 148 mg/dl (70-99) H 05/27/24 05:29
Troponins
05/24/24 05/24/24 05/25/24
12:45 18:02 00:09
Troponin I < 0.012 0.065 H* D 0.061 H*
05/25/24
06:26
Troponin I 0.041 H* D
Vital Signs and I&O:
Vital Signs
Temp Pulse Resp BP Pulse Ox
97.5 F 82 16 143/109 96
05/27/24 11:12 05/27/24 08:43 05/27/24 11:12 05/27/24 08:43 05/27/24 11:12
Vital Signs
Temp Pulse Resp BP Pulse Ox
97.5 F 82 16 143/109 96
05/27/24 11:12 05/27/24 08:43 05/27/24 11:12 05/27/24 08:43 05/27/24 11:12
Intake & Output
05/25/24 05/26/24 05/27/24 05/28/24
06:59 06:59 06:59 06:59
Intake Total 590 / 590 410 / 410
Output Total 1025 / 1025 1770 / 1770
Balance -1025 / -1025 -1180 / -1180 410 / 410
Physical Exam
Physical Exam
General: Well developed, well nourished in NAD.
Neck: Supple, no JVD, HJR, carotids +2 B/L, no bruits bilaterally.
Heart: Distant heart sounds, RRR, no murmurs, No S3, S4, no rubs.
Chest: Pain to palpation predominately right-sided but also left-sided. Area of chest pain earlier
Lungs: no wheeze, rhonchi, rubs bilaterally,
Extremities: No clubbing, cyanosis or edema bilaterally.
Neuro: Grossly nonfocal, awake, alert and oriented x3.
--- NOTE | 2024-05-27 12:50 | CM ---
CM following re: discharge planning.
Reviewed pt's chart met with pt.
Pt is a 79 year old female, admitted with primary dx of COPD exacerbation.
Pt reports she lives with daughter 2SH, 2 steps to enter and pt has her living space in the basement. Pt reports she ambulates with a cane inside the house, has stair glide, uses a Rollator and a transport chair for a long distance. Pt reports she
is active with [facility] for PT, OT and RN. Pt requested to resume [facility] upon the discharge.
A referral to [facility] made.
Eliquis amaya checked: 30 day supplies - $141.29
90 day supplies - $423.69
Pt stated she has [facility] prescription plan.
Free 30 days coupon provided. Pt stated she understands that medication is expensive and she stated she will afford it.
PCP: Morris Gudino
Pharmacy: [facility]
D/C plan: home with resumptions of [facility] and family support. Daughter to transport.
CM will follow with discharge plan updates as hospitalization progresses
[2024-05-27 12:54] LABS: Troponin I 0.013 ng/ml
[2024-05-27] MEDS: SOLU-MEDROL PF 40 MG IV ×2 (15:56→23:53)
[2024-05-27] MEDS: ZITHROMAX 500 MG PO (16:01)
[2024-05-27] MEDS: ROCEPHIN 1000 MG IV (16:02)
[2024-05-27] MEDS: STERILE WATER FOR INJECTION 10 ML IV (16:02)
--- NOTE | 2024-05-27 16:44 | PTCARENOTE ---
Cards here to see pt and talk with son new orders given
--- NOTE | 2024-05-27 17:02 | PTCARENOTE ---
Report to 4th floor nurse
[2024-05-27] MEDS: CARDURA 1 MG PO (23:49)
[2024-05-27] MEDS: MELATONIN 20 MG PO (23:50)
[2024-05-27] MEDS: CYMBALTA DELAYED RELEASE 40 MG PO (23:50)
[2024-05-27] MEDS: MYLICON 80 MG PO (23:51)
[2024-05-27] MEDS: MUCINEX 600 MG PO (23:51)
[2024-05-27] MEDS: PROTONIX 40 MG PO (23:51)
[2024-05-27] MEDS: ASPIR LOW (ENTERIC COATED) 81 MG PO (23:52)
[2024-05-27] MEDS: ZETIA 10 MG PO (23:52)
[2024-05-27] MEDS: DESYREL 200 MG PO (23:52)
[2024-05-27] MEDS: LIPITOR 80 MG PO (23:52)
[2024-05-28] VITALS (7 sets, daily range): BP systolic 114–161; BP diastolic 57–78; PULSE 85–140; O2SAT 91; BMI 47.5
[2024-05-28] MEDS: SOLU-MEDROL PF 40 MG IV ×3 (04:37→20:22)
[2024-05-28] MEDS: SYNTHROID 75 MCG PO (04:41)
[2024-05-28 04:57] LABS: Hematocrit 32.2 % (37.0-47.0); Hemoglobin 10.9 g/dL (12.0-16.0); Mean Corp Hgb Conc. 33.9 g/dL (33.0-37.0); Mean Corpuscular Hgb 31.2 pg (27.0-31.0); Mean Corpuscular Volume 92.3 fL (81.0-99.0); Mean Platelet Volume 9.6 fL (7.4-10.4); Platelet Count 223 10^3/uL (130-400); Red Blood Cell Count 3.49 10^6/uL (4.20-5.40); Red Cell Dist. Width 14.6 % (11.5-14.5)
[2024-05-28 05:18] LABS: Blood Urea Nitrogen 80 mg/dl (7-17); Calcium 9.6 mg/dl (8.4-10.2); Carbon Dioxide 19 mmol/L (22-30); Chloride 104 mmol/L (98-107); Estimated Creatinine Clearance 34 ml/min; Glucose 170 mg/dl (70-99); Magnesium 2.4 mg/dl (1.6-2.3); Potassium 5.6 mmol/L (3.5-5.1); Sodium 135 mmol/L (135-145)
[2024-05-28] MEDS: ATROVENT NEBULES 0.5 MG INH ×3 (07:19→19:21)
[2024-05-28] MEDS: XOPENEX 1.25 MG INHALANT SOLUTION INH ×3 (07:20→19:21)
[2024-05-28] MEDS: SYMBICORT 160/4.5 MCG INHALER 2 PUFF INH ×2 (07:20→19:21)
[2024-05-28 08:38] LABS: % Basophils 0.3 % (0-2); % Immature Granulocytes 8.2 % (0-0.5); % Lymphocytes 4.6 % (20.5-51.1); % Monocytes 3.4 % (1.7-9.3); % Neutrophils 83.5 % (42.2-75.2); Absolute Basophils 0.1 10^3/uL (0-0.2); Absolute Immature Granulocytes 1.5 10^3/uL (0-0.05); Absolute Lymphocytes 0.8 10^3/uL (1.2-3.4); Absolute Monocytes 0.6 10^3/uL (0.1-0.6); Nucleated Red Blood Cells % 0 %
[2024-05-28] MEDS: CARDIZEM CD 180 MG PO (09:14)
[2024-05-28] MEDS: NITRO-DUR 0.2 MG TRANSDERM (09:15)
[2024-05-28] MEDS: ELIQUIS 5 MG PO ×2 (09:15→20:20)
[2024-05-28] MEDS: TYLENOL 1000 MG PO ×2 (09:15→20:21)
[2024-05-28] MEDS: VITAMIN B-12 1000 MCG PO (09:15)
[2024-05-28] MEDS: ZESTRIL 10 MG PO (09:15)
--- NOTE | 2024-05-28 09:42 | W.PN.HOSP.TC ---
Today's Communication/Plan
-
see A/P
Assessment / Plan
Assessment / Plan
CXR
There is mild coarsening of the interstitial markings in the right lung base, stable when compared with the prior study suggesting that this is more likely interstitial scarring than interstitial pneumonia
A/P:
# COPD exacerbation
# Reported multilobular pneumonia on outpatient imaging
Coarse bilateral wheezing/rhonchi on examination
Chest x-ray report noted
COVID-negative, MRSA screen negative
IV Dexamethasone switched to IV methylprednisone 40 mg Q8H
Cont DuoNebs TID and PRN
Check sputum culture if able to collect
Cont Ceftriaxone/azithromycin x5 days
Continue Mucinex, Cont vest therapy
Pulmonary consulted, appreciate evaluation and recommendations
# Chest pain, likely a combination of rapid A-Fib and musculoskeletal with coughing
# New-Onset A-Fib, associated with chest pain
s/p Cardizem drip, started Diltiazem CD 180 mg daily
Added Eliquis 5 mg BID
Avoid beta livier given wheezing
Echo unrevealing: EF 60-65%. Normal diastolic function. Mild to moderate aortic stenosis.
# Acute on Chronic HFpEF
Continue sodium and fluid restriction
Status post IV Lasix, PO Lasix 20 mg daily on hold due to over-diuresis
cont DIGITAL SALES MANAGER low dose lisinopril
# Essential hypertension
Continue Cardizem, lisinopril
Cardura HS added for better BP control
# Mild Hyperkalemia, resolved
# History of bronchiectasis
# History of pulmonary nodules
Due to have PET scan in May
# CAD status post stents x 3
Continue aspirin, statin/Zetia
# CKD stage III
Renal function at baseline
SCr at 1.7 today
# Hypothyroidism
Continue levothyroxine
# GERD
Continue omeprazole
# Depression
Continue duloxetine
# Insomnia
Continue trazodone
# Gout
# Former smoker
Full code
DVT prophylaxis-Eliquis
Regular diet
Dispo: PT recc HH
DW Card
Anticipated Discharge: Within 24 hours
Subjective/Interval History
-
Date of Service: May 28, 2024
Objective Data
-
Labs:
Laboratory Results
05/28/24
04:32
WBC 18.0 H
Hgb 10.9 L
Hct 32.2 L
Plt Count 223 D
Sodium 135
Potassium 5.6 H
Chloride 104
Carbon Dioxide 19 L
BUN 80 H
Creatinine 1.7 H
Glucose 170 H
Calcium 9.6
Vital Signs:
Vital Signs
Temp Pulse Resp BP Pulse Ox
36.7 C 68 20 148/62 95
05/28/24 07:35 05/28/24 09:14 05/28/24 07:35 05/28/24 09:14 05/28/24 07:26
I&O
05/27/24 05/28/24 05/29/24
06:59 06:59 06:59
Intake Total 410 / 410 960 / 960
Balance 410 / 410 960 / 960
Review of Systems
-
Respiratory: Reports Cough (occasional)
Physical Exam
-
General: Well Developed, Well Nourished, No Apparent Distress, Comfortable, Conversant and Obese
HEENT: Normocephalic and Atraumatic; Negative Oxygen
Respiratory: Clear to Auscultation, Wheezes (BL bases) and Non Labored Respirations; Negative Accessory Resp Muscle Use
Cardiac: Regular Rhythm and S1/S2
GI: Soft and Nontender
Neuro: Awake and Alert
Psych: Calm and Intact Judgement/Insight
Data Reviewed
-
Diagnostic Radiology: Image personally visualized and interpreted and Report Reviewed by me
Labs: Labs Reviewed by me
--- NOTE | 2024-05-28 10:08 | W.PN.PUL3 ---
Addendum entered and electronically signed by Marvin Nagel MD 05/29/24 11:02:
Cassie Gusman has Bronchiectasis and has had a CT scan confirming this disease. She has had a productive cough daily for the past 6 months, and has tried postural drainage techniques with no success. She has also been on
2 antibiotics for treatment of this specific disease. Pt would benefit from HFCWO (High Frequency Chest Wall Oscillation) or the AffloVest.
Original Note:
Today's Communication / Plan
-
Continue Abx - consider transition to oral Abx by tomorrow - finish total of 7 day course
Continue nebulized xopenex with Symbicort; Restart inhalers upon discharge
Continue vest therapy and consult CM to try to get vest for pt at home
Wheezing/chest tightness now markedly improved --> wean down steroids and can likely transition to slow OCS taper tomorrow starting at 60mg daily and reduce by 10mg every 5th day until off
Continue cardiac management-patient diuresed well
Pulmonary service to continue to follow along
Assessment
-
Impression:
Acute exacerbation of COPD
Pulmonary bronchiectasis - lower lobe predominant
Chest x-ray 05/24/2024: Mild coarsening of interstitial markings in the right lung base, stable compared to prior study suggesting scarring.
Most recent CT chest 12/22/2022: Showed no evidence of interstitial lung disease. Multiple pulmonary nodules
CT abdomen pelvis lung cuts: No evidence for lower lobe abnormalities. 7 mm right lower lobe lung nodule.
COVID-negative
Heart failure component cannot be ruled out proBNP 1729.
Echocardiogram 12/26/2022: Showed normal LVEF. Mild septal hypertrophy mild to moderate AI
Leukocytosis
Rapid atrial fibrillation-new onset - now rate controlled and in NSR
Mild�moderate aortic stenosis with peak/mean gradient 33/16, respectively
Conditions present prior admission:
History of lung nodules: Follows up with Dr. Santiago
COPD: Follow-up with Dr. Santiago
On Trelegy
Heart failure with preserved ejection fraction.
history of coronary artery disease with RCA stent
COPD/bronchiectasis
Pulmonary nodules
Prior history of GERD
Gout
Hypothyroidism
Chronic kidney disease stage III
Depression
Insomnia
Hypertension
Former smoker
Assessment and plan:
From the pulmonary perspective given abnormal chest x-ray, leukocytosis and shortness of breath. Not unreasonable to treat for community-acquired pneumonia.
-
Remains afebrile
Leukocytosis in part from steroids
-
Check sputum culture-unable to produce
Negative Legionella
Negative MRSA screening
Negative influenza
Continue ceftriaxone/Zithromax. Consider transition to oral antibiotics by tomorrow
Complete 5-7 days of antibiotics, assuming she continues to clinically improve and remains afebrile for 2 days prior to stopping antibiotics
-
Wheezing on exam: Acute exacerbation of COPD. Cannot rule out heart failure component either.
Wheezing now resolved as of 05/28/2024 after steroids were raised Decadron 2mg IV q8hr to Solu-Medrol 40mg IV q8hr --> taper down steroids to 40mg IV q12hr
Levalbuterol as needed
Continue nebulizers Atrovent/Xopenex while in the hospital; continue Symbicort; resume Trelegy upon discharge with prn nebulized xopenex (she has nebulizer kit and albuterol at home she says)
Avoid beta agonist due to rapid atrial fibrillation.
Repeat chest x-ray 05/27/2024. If chest x-ray clears then infiltrate was more related to volume overload, if there is persistent infiltrate then pneumonia.
Given her continued SOB with unclear CXR, CT chest checked, showing improvement in prior left lower lobe linear scarring/atelectasis, lower lobe predominant bronchiectasis, new small focus of posterior right upper lobe subsegmental atelectasis with
mild linear scarring seen in the RML, RLL + LLL, also stable pulmonary nodules
- Of note, she says that she has had a CT chest few months ago at [facility]/[place], and is scheduled to have a PET scan next week with [facility]
- Continue vest therapy given bronchiectasis seen on imaging with poor mucous expectoration that has been present for >6 months that has failed other therapies like acapella valve and mucinex
-
Atrial fibrillation/heart failure for cardiology following
Heart rate improved and she converted into NSR on 05/24/2024
Diuresis as able. Now on oral Lasix.
On oral Cardizem.
Patient diuresed well.
Anticoagulation with Eliquis
Repeat echocardiogram done on 05/27/2024: LVEF preserved at 60-65% with normal diastolic function, no regional WMA, mild�moderate , mild TR with mild pulmonary hypertension with PASP 30�35 assuming RAP of 3 mmHg
-
Follow blood sugars particularly with high-dose of steroids with goal >100 and <180mg/dL
-
Pulmonary nodules: Continue follow-up in the outpatient setting.
Upcoming PET scan next Sunday. See above
-
DVT prophylaxis-now on anticoagulation-apixaban
-
Follow-up with Dr. Santiago after discharge
Will continue to follow
Total time spent today was 35 minutes for this encounter. Time includes reviewing laboratory test/imaging results, reviewing pertinent medical records, obtaining and reviewing medical history, performing an appropriate exam, ordering medications,
tests and procedures. Time also includes documentation of this encounter, coordinating patient care and communicating with other healthcare professionals. Total time does not include separately billed tests performed on this date of service.
Subjective Data
-
Date of Service:
Date of Service: May 28, 2024
Chief Complaint: Pulmonary Follow Up (Acute exacerbation of COPD)
Subjective:
Patient seen and evaluated today at bedside. Using the vest and likes it, although she is minimally bringing up phlegm. Currently on room air breathing comfortably. No acute events reported overnight. I spoke with her in the presence of her
daughter, Jenny, who the patient called on the phone. I answered all of the patient's daughter's questions. Patient denies CP, PACKER, abdominal pain, fevers or chills. She is eager to go home.
Review of Systems
General: Other (Negative unless mentioned above)
Objective Data
Data Reviewed
Vital Signs / I&O / Oxygen:
Vital Signs
Temp Pulse Resp BP Pulse Ox
98.1 F 68 20 148/62 95
05/28/24 07:35 05/28/24 09:14 05/28/24 07:35 05/28/24 09:14 05/28/24 07:26
Intake and Output
05/27/24 05/28/24 05/29/24
06:59 06:59 06:59
Intake Total 410 / 410 960 / 960
Balance 410 / 410 960 / 960
SaO2 95
Nasal Cannula flow liters per 2
minute
Physical Exam
General: Respiratory Distress (negative), Comfortable, Chills (negative) and Sweats (negative)
HEENT: Normocephalic and Anicteric
Cardiovascular: S1-S2, Murmur (CHARLI, heard at RUSB) and Peripheral Edema (trace JENNIE bilaterally)
Respiratory: Wheeze (negative), Rhonchi (negative), Non-Labored Respirations and Other (Coarse breath sounds heard bilaterally)
GI: Soft, Distended (Abdominal obesity), Non Tender and Normal Bowel Sounds
Neurology: AO x 3 and Tremors (negative)
Skin: Warm, Dry, Cyanosis (negative) and Jaundice (negative)
Labs/Micro/Reports
Lab Data
05/28/24 04:32
05/28/24 04:32
Microbiology
05/23/24 16:32 Nose MRSA Screen - Final
No Methicillin Resistant Staphylococcus aureus isolated.
[2024-05-28] MEDS: VITAMIN D3 (cholecalciferol) 10 MCG PO (10:40)
--- NOTE | 2024-05-28 10:44 | W.PN.CARDCBS ---
Addendum entered and electronically signed by Maximiliano Weeks MD 05/28/24 12:55:
I saw and examined the patient.
The RESEARCH CENTER DIRECTOR or PA's note was reviewed and I agree with the note.
Comment: General: Well developed, well nourished in NAD.
Neck: Supple, no JVD, HJR, carotids +2 B/L, no bruits bilaterally.
Heart: Non displaced PMI, RRR, no murmurs, No S3, S4, no rubs.
Lungs: Scattered rhonchi
Extremities: No clubbing, cyanosis or edema bilaterally.
Neuro: Grossly nonfocal, awake, alert and oriented x3
She is likely over diuresed. Continue to hold Lasix. Will hold lisinopril. Eventually restart Lasix when renal function is stabilized. Shortness of breath felt to be more pulmonary at this point.
Original Note:
Today's Communication / Plan
-
Lasix on hold since yesterday
Hold lisinopril in AM pending Cre, patient with known CKD 3
Remains in SR
Impression / Plan
-
PCP: Dr. Morris Gudino
Primary moisture conditioner operator: Dr. Rissa Walker
Impression:
Admitted with AE COPD and PLNA 05/23/24
Newly diagnosed Afib with RVR
New start to chronic Eliquis OAC
Acute HFpEF
Elevated Troponin
Chest pain
Pulmonary nodules
CAD
s/p 3.5/15 mm Xience V expedition drug-eluting stent to the proximal LAD 02/17/14
s/p overlapping 3.5/38 mm x2 Xience V expedition drug-eluting stents to the mid and proximal RCA 02/17/14
stable CAD with patent LAD and RCA stents by cath 07/05/20
patent LAD and RCA stents, nonobstructive distal left main lesion by cath 06/27/21
stable LM lesions with negative iFR assessment of LM/LAD and LM/Circ by cath 04/20/23
Mild to moderate peak/mean 33/16 mmHg and LISA 1.3 cm sq by echo 05/27/24
CKD 3
Hyperlipidemia
Hypertension
Known meningioma
Anemia
Echocardiogram 12/26/2022: Ejection fraction 55 to 60% with mild septal hypertrophy. Trace MR. Mild to moderate aortic valve stenosis with peak/mean gradient 32/17 mmHg. Aortic valve area 1.3 cm�. Trace AI. Mild TR with PA pressure 40 mmHg.
Echo 05/27/2024: EF 60 to 65%, normal RV size and function, trace MR, mild to moderate peak/mean 33/16 mmHg with LISA 1.3 cm SQ, mild aortic regurgitation, mild TR with PAP 30 to 35 mmHg
Plan:
-Patient with new Afib and RVR on admission. HRs controlled initially with Cardizem gtt and patient spontaneously converted to SR and remains in SR on 05/28/24 on tele reviewed by me 05/28/24.
-Patient is new to Cardizem CD 180 mg daily
-New to Eliquis 5 mg BID (age 79, wt 117 kg, Cre 1.7). CM checked cost of Eliquis and a 90 day supply will be $423, but not sure if she has to meet her deductible. She can use the 30 day coupon and cardiology office can work on patient prescription
assistance.
-Weight is down 9 lbs with IV diuresis. Transitioned to Lasix 20 mg PO daily 05/25/24. but then on hold since 05/27/24 due to CONCHITA. Patient was not taking diuretic prior to admission. Might consider regimen of daily weights and PRN Lasix dosing vs daily
dosing pending Cre at time of d/c.
-EF stable by echo 05/27/24.
-No BB due to COPD and wheezing.
-Outpatient dose of lisinopril 10 mg daily has been continued
-Troponin was undetectable on admission and then peaked at 0.065. Patient with chest pain that was reproducible with palpation. Patient with h/o CAD as outlined above. No ischemic changes on ECG. Echo without WMA. Will manage as a nonischemic
myocardial injury Troponin elevation.
-LDL 30 and outpatient doses of atorvastatin 80 mg daily and Zetia 10 mg daily continued.
-Cre up to 1.7 on 05/28/24. Morning dose of lisinopril already given. Lasix has been on hold since 05/27/24. Will hold doses of lisinopril and Lasix 05/29/24 AM.
-Cardura 1 mg HS added 05/27/24 PM and BP improved 05/28/24 AM. Will follow.
She comes in with multi lobar pneumonia, wheezing and COPD/reactive airways disease exacerbation for which she is seeing hospitalist service and pulmonary is consulted. She follows as an outpatient with pulmonary for lung nodules for which she is
having upcoming PET scan by report. Now during hospital stay had rapid atrial fibrillation heart rates 170s up to 190s which is a new rhythm for this patient. Chest discomfort with this. Given that she was significantly ill with rapid atrial
fibrillation and has pneumonia she would likely benefit from transfer to higher level of care such as IMU. Defer to primary service.
Progress Note - [place] [employer] Operator
Subjective
Date of Service: May 28, 2024
Feels well, still with pain when coughing
Objective
Labs:
05/28/24 04:32
05/28/24 04:32
Labs
Hgb 10.9 g/dL (12.0-16.0) L 05/28/24 04:32
Hct 32.2 % (37.0-47.0) L 05/28/24 04:32
Plt Count 223 10^3/uL (130-400) D 05/28/24 04:32
Sodium 135 mmol/L (135-145) 05/28/24 04:32
Potassium 5.6 mmol/L (3.5-5.1) H 05/28/24 04:32
BUN 80 mg/dl (7-17) H 05/28/24 04:32
Creatinine 1.7 mg/dL (0.6-1.0) H 05/28/24 04:32
Glucose 170 mg/dl (70-99) H 05/28/24 04:32
Troponins
05/27/24
12:11
Troponin I 0.013
Vital Signs and I&O:
Vital Signs
Temp Pulse Resp BP Pulse Ox
98.1 F 68 20 148/62 95
05/28/24 07:35 05/28/24 09:14 05/28/24 07:35 05/28/24 09:14 05/28/24 10:31
Vital Signs
Temp Pulse Resp BP Pulse Ox
98.1 F 68 20 148/62 95
05/28/24 07:35 05/28/24 09:14 05/28/24 07:35 05/28/24 09:14 05/28/24 10:31
Intake & Output
05/26/24 05/27/24 05/28/24 05/29/24
06:59 06:59 06:59 06:59
Intake Total 590 / 590 410 / 410 960 / 960
Output Total 1770 / 1770
Balance -1180 / -1180 410 / 410 960 / 960
Physical Exam
Physical Exam
GEN: AAOx3
HEENT: MMM
LUNGS: Slight expiratory wheeze
CV: SR on tele
ABD: ND
EXT: No edema B/L
NEURO: Gross non-focal
SKIN: No rash
[2024-05-28] MEDS: STERILE WATER FOR INJECTION 10 ML IV (15:34)
[2024-05-28] MEDS: ROCEPHIN 1000 MG IV (15:34)
[2024-05-28] MEDS: ZITHROMAX 500 MG PO (15:34)
--- NOTE | 2024-05-28 16:01 | CM ---
CM met with pt bedside
Pt accepted by [facility] for [facility]
IMM verbally completed- copy provided
VN order requested- pt is hopeful for dc today
Discharge Disposition- home with [facility] office fax- [phone]
[2024-05-28] MEDS: MUCINEX 1200 MG PO (20:22)
[2024-05-28] MEDS: ASPIR LOW (ENTERIC COATED) 81 MG PO (21:53)
[2024-05-28] MEDS: MELATONIN 20 MG PO (21:53)
[2024-05-28] MEDS: LIPITOR 80 MG PO (21:54)
[2024-05-28] MEDS: CYMBALTA DELAYED RELEASE 40 MG PO (21:54)
[2024-05-28] MEDS: PROTONIX 40 MG PO (21:54)
[2024-05-28] MEDS: DESYREL 200 MG PO (21:54)
[2024-05-28] MEDS: ZETIA 10 MG PO (21:55)
[2024-05-28] MEDS: CARDURA 1 MG PO (21:55)
[2024-05-28] MEDS: MYLICON 80 MG PO (21:56)
--- NOTE | 2024-05-28 22:28 | W.PN.UPDATE ---
Addendum entered and electronically signed by GILBERT Vogel 05/29/24 04:46:
At [place] HR continuos to be in 110's-130s, 160/72, will start Cardizem drip at 5mg/hr
At 0300 converted to NSR, HR in 60's,will turn off Cardizem drip
Patient continuous to be asymptomatic
Original Note:
Update Note
Progress Note Update
RN notified MANAGER CREDIT RISK HR irregular(A-fib) 120's-140, 160/72, afebrile, was on Cardizem drip for rapid Afib, now Cardizem PO in AM. Patient asymptomatic, will order Cardizem 10mg IVx1.
[2024-05-28] MEDS: CARDIZEM 10 MG IV (22:36)
[2024-05-29] MEDS: CARDIZEM 125 IV (01:03)
--- NOTE | 2024-05-29 01:15 | PTCARENOTE ---
Pt alarmed on tele with high heart rate; pt who was previously NSR found to be Afib on the monitor, HR sustaining 100's-130's. Pt reports mild SOB/anxiety, denies CP. D/w covering PEDIATRIC ONCOLOGIST, BP 160/72, 10mg IV Cardizem bolus given as ordered, see NOV.
Pt's HR lowered to 90's-110's for a short period of time, remaining in Afib, before elevating back to 120's-130's Afib on the monitor. Update provided to covering PEDIATRIC ONCOLOGIST, Cardizem gtt ordered and hung when received from pharmacy, see NOV. BP 125/84,
HR 130.
--- NOTE | 2024-05-29 01:25 | PTCARENOTE ---
Pt converted back to NSR on tele, HR 88; see telemetry strips in paper chart.
[2024-05-29 03:52] VITALS: BP 131/54
[2024-05-29] MEDS: SYNTHROID 75 MCG PO (05:33)
[2024-05-29 06:00] VITALS: BMI 47.5
[2024-05-29] MEDS: ATROVENT NEBULES 0.5 MG INH ×3 (07:16→19:26)
[2024-05-29] MEDS: XOPENEX 1.25 MG INHALANT SOLUTION INH ×3 (07:16→19:26)
[2024-05-29] MEDS: SYMBICORT 160/4.5 MCG INHALER 2 PUFF INH ×2 (07:17→19:26)
[2024-05-29 07:29] LABS: Blood Urea Nitrogen 92 mg/dl (7-17); Calcium 9.5 mg/dl (8.4-10.2); Carbon Dioxide 14 mmol/L (22-30); Chloride 104 mmol/L (98-107); Estimated Creatinine Clearance 32 ml/min; Glucose 152 mg/dl (70-99); Magnesium 2.5 mg/dl (1.6-2.3); Potassium 5.4 mmol/L (3.5-5.1); Sodium 137 mmol/L (135-145); eGFR 28.66
[2024-05-29 07:40] LABS: Hematocrit 34.8 % (37.0-47.0); Hemoglobin 11.7 g/dL (12.0-16.0); Mean Corp Hgb Conc. 33.6 g/dL (33.0-37.0); Mean Corpuscular Hgb 31.9 pg (27.0-31.0); Mean Corpuscular Volume 94.8 fL (81.0-99.0); Mean Platelet Volume 9.9 fL (7.4-10.4); Platelet Count 224 10^3/uL (130-400); Red Blood Cell Count 3.67 10^6/uL (4.20-5.40); Red Cell Dist. Width 14.6 % (11.5-14.5); White Blood Cell Count 23.3 10^3/uL (4.8-10.8)
[2024-05-29 08:40] VITALS: BP 136/60
[2024-05-29 08:48] LABS: % Basophils 0.6 % (0-2); % Immature Granulocytes 6.4 % (0-0.5); % Lymphocytes 4.2 % (20.5-51.1); % Monocytes 4.3 % (1.7-9.3); % Neutrophils 84.5 % (42.2-75.2); Absolute Basophils 0.1 10^3/uL (0-0.2); Absolute Immature Granulocytes 1.5 10^3/uL (0-0.05); Absolute Neutrophils 19.7 10^3/uL (1.4-6.5); Nucleated Red Blood Cells % 0 %
[2024-05-29] MEDS: MUCINEX 1200 MG PO ×2 (08:52→20:54)
[2024-05-29] MEDS: SOLU-MEDROL PF 40 MG IV ×2 (08:52→22:50)
[2024-05-29] MEDS: VITAMIN B-12 1000 MCG PO (08:53)
[2024-05-29] MEDS: CARDIZEM CD 180 MG PO (08:53)
[2024-05-29] MEDS: NITRO-DUR 0.2 MG TRANSDERM (08:53)
[2024-05-29] MEDS: TYLENOL 1000 MG PO ×2 (08:53→20:56)
[2024-05-29] MEDS: VITAMIN D3 (cholecalciferol) 10 MCG PO (08:53)
[2024-05-29] MEDS: ELIQUIS 5 MG PO ×2 (08:53→20:54)
--- NOTE | 2024-05-29 09:05 | W.PN.HOSP.TC ---
Today's Communication/Plan
-
see A/P
Assessment / Plan
Assessment / Plan
CXR
There is mild coarsening of the interstitial markings in the right lung base, stable when compared with the prior study suggesting that this is more likely interstitial scarring than interstitial pneumonia
A/P:
# COPD exacerbation
# Reported multilobular pneumonia on outpatient imaging
Coarse bilateral wheezing/rhonchi on examination
Chest x-ray report noted
COVID-negative, MRSA screen negative
IV Dexamethasone switched to IV methylprednisone, now at 40 mg Q12
Cont DuoNebs TID and PRN
Check sputum culture if able to collect
Cont Ceftriaxone/azithromycin x5 days
Continue Mucinex, cont vest therapy
Pulmonary consulted, appreciate evaluation and recommendations
# Chest pain, likely a combination of rapid A-Fib and musculoskeletal with coughing
# New-Onset A-Fib, associated with chest pain
s/p Cardizem drip, started Diltiazem CD 180 mg daily
Added Eliquis 5 mg BID
Avoid beta livier given wheezing
Echo unrevealing: EF 60-65%. Normal diastolic function. Mild to moderate aortic stenosis.
overnight / pt went into A fib, was given IV Cardizem and restarted with Cardizem drip, then converted back to NSR
# Acute on Chronic HFpEF
Continue sodium and fluid restriction
Status post IV Lasix, PO Lasix 20 mg daily on hold due to over-diuresis
cont MONEY MARKET DEALER low dose lisinopril
# Essential hypertension
Continue Cardizem, lisinopril
Cardura HS added for better BP control
# Mild Hyperkalemia, resolved
# History of bronchiectasis
# History of pulmonary nodules
Due to have PET scan in May
# CAD status post stents x 3
Continue aspirin, statin/Zetia
# CKD stage III
Renal function at baseline
SCr at 1.8 today
# Hypothyroidism
Continue levothyroxine
# GERD
Continue omeprazole
# Depression
Continue duloxetine
# Insomnia
Continue trazodone
# Gout
# Former smoker
Full code
DVT prophylaxis-Eliquis
Regular diet
Dispo: PT recc HH
DW Card
Anticipated Discharge: Within 24 hours
Subjective/Interval History
-
Date of Service: May 29, 2024
Objective Data
-
Labs:
Laboratory Results
05/29/24
05:45
WBC 23.3 H
Hgb 11.7 L
Hct 34.8 L
Plt Count 224
Sodium 137
Potassium 5.4 H
Chloride 104
Carbon Dioxide 14 L*
BUN 92 H
Creatinine 1.8 H
Glucose 152 H
Calcium 9.5
Vital Signs:
Vital Signs
Temp Pulse Resp BP Pulse Ox
36.8 C 70 18 136/60 96
05/29/24 08:40 05/29/24 08:53 05/29/24 08:40 05/29/24 08:53 05/29/24 08:40
I&O
05/28/24 05/29/24 05/30/24
06:59 06:59 06:59
Intake Total 960 / 960 1170 / 1170
Balance 960 / 960 1170 / 1170
Review of Systems
-
Respiratory: Reports Cough (occasional)
Physical Exam
-
General: Well Developed, Well Nourished, No Apparent Distress, Comfortable, Conversant and Obese
HEENT: Normocephalic and Atraumatic; Negative Oxygen
Respiratory: Clear to Auscultation, Wheezes (improved ) and Non Labored Respirations; Negative Accessory Resp Muscle Use
Cardiac: Regular Rhythm and S1/S2
GI: Soft and Nontender
Neuro: Awake and Alert
Psych: Calm and Intact Judgement/Insight
Data Reviewed
-
Diagnostic Radiology: Image personally visualized and interpreted and Report Reviewed by me
Labs: Labs Reviewed by me
--- NOTE | 2024-05-29 09:29 | W.PN.PUL3 ---
Today's Communication / Plan
-
Continue nebulized xopenex with Symbicort; Restart inhalers upon discharge
Continue vest therapy and CM consulted to try to get vest for pt at home
Wheezing/chest tightness now resolved--> wean down steroids and will transition to slow OCS taper tomorrow starting at 60mg daily and reduce by 10mg every 5th day until off
Continue cardiac management-patient diuresed well
A-fib management per cardiology
Trend serum HCO3
Pulmonary service to continue to follow along
Assessment
-
Impression:
Acute exacerbation of COPD
Pulmonary bronchiectasis - lower lobe predominant
Chest x-ray 05/24/2024: Mild coarsening of interstitial markings in the right lung base, stable compared to prior study suggesting scarring.
Most recent CT chest 12/22/2022: Showed no evidence of interstitial lung disease. Multiple pulmonary nodules
CT abdomen pelvis lung cuts: No evidence for lower lobe abnormalities. 7 mm right lower lobe lung nodule.
COVID-negative
Heart failure component cannot be ruled out proBNP 1729.
Echocardiogram 12/26/2022: Showed normal LVEF. Mild septal hypertrophy mild to moderate AI
Leukocytosis
Rapid atrial fibrillation-new onset - now rate controlled and in NSR
Mild�moderate aortic stenosis with peak/mean gradient 33/16, respectively
Conditions present prior admission:
History of lung nodules: Follows up with Dr. Santiago
COPD: Follow-up with Dr. Santiago
On Trelegy
Heart failure with preserved ejection fraction.
history of coronary artery disease with RCA stent
COPD/bronchiectasis
Pulmonary nodules
Prior history of GERD
Gout
Hypothyroidism
Chronic kidney disease stage III
Depression
Insomnia
Hypertension
Former smoker
Assessment and plan:
From the pulmonary perspective given abnormal chest x-ray, leukocytosis and shortness of breath. Not unreasonable to treat for community-acquired pneumonia.
-
Remains afebrile
Leukocytosis in part from steroids
-
Check sputum culture-unable to produce
Negative Legionella
Negative MRSA screening
Negative influenza
Continue ceftriaxone/Zithromax - s/p 6 days of antibiotics
-
Wheezing on exam: Acute exacerbation of COPD. Cannot rule out heart failure component either.
Wheezing now resolved as of 05/28/2024 after steroids were raised Decadron 2mg IV q8hr to Solu-Medrol 40mg IV q8hr --> on 05/27 I tapered down steroids to 40mg IV q12hr
Levalbuterol as needed
Continue nebulizers Atrovent/Xopenex while in the hospital; continue Symbicort 160mcg; resume Trelegy upon discharge with prn nebulized xopenex (she has nebulizer kit and albuterol at home she says)
Avoid beta agonist due to rapid atrial fibrillation.
Repeat chest x-ray 05/27/2024. If chest x-ray clears then infiltrate was more related to volume overload, if there is persistent infiltrate then pneumonia.
Given her continued SOB with unclear CXR, CT chest checked, showing improvement in prior left lower lobe linear scarring/atelectasis, lower lobe predominant bronchiectasis, new small focus of posterior right upper lobe subsegmental atelectasis with
mild linear scarring seen in the RML, RLL + LLL, also stable pulmonary nodules
- Of note, she says that she has had a CT chest few months ago at [facility]/[place], and is scheduled to have a PET scan next week with [facility]
- Continue vest therapy given bronchiectasis seen on imaging with poor mucous expectoration that has been present for >6 months that has failed other therapies like acapella valve and mucinex
-
Atrial fibrillation/heart failure for cardiology following
Heart rate improved and she converted into NSR on 05/24/2024; went back into A-fib with RVR on evening of 05/28 - 05/29, requiring Cardizem drip. Now on PO amiodarone and back in NSR
Diuresis as able - lasix being held due to CONCHITA
On oral Cardizem.
Anticoagulation with Eliquis
Repeat echocardiogram done on 05/27/2024: LVEF preserved at 60-65% with normal diastolic function, no regional WMA, mild�moderate , mild TR with mild pulmonary hypertension with PASP 30�35 assuming RAP of 3 mmHg
-
Follow blood sugars particularly with high-dose of steroids with goal >100 and <180mg/dL
-
Pulmonary nodules: Continue follow-up in the outpatient setting.
Upcoming PET scan next Sunday. See above
-
DVT prophylaxis-now on anticoagulation-apixaban
-
Follow-up with Dr. Santiago after discharge
Will continue to follow
Total time spent today was 35 minutes for this encounter. Time includes reviewing laboratory test/imaging results, reviewing pertinent medical records, obtaining and reviewing medical history, performing an appropriate exam, ordering medications,
tests and procedures. Time also includes documentation of this encounter, coordinating patient care and communicating with other healthcare professionals. Total time does not include separately billed tests performed on this date of service.
Subjective Data
-
Date of Service:
Date of Service: May 29, 2024
Chief Complaint: Pulmonary Follow Up (Acute exacerbation of COPD)
Subjective:
Developed A-fib with RVR overnight, started on Cardizem drip and converted to NSR at around 3 AM. When I saw the patient she was in NSR, feels a little more short of breath today. Denies chest pain. Daughter, Brynn, at bedside. All questions
were answered. Patient is on room air breathing comfortably. Patient also denies PACKER, abdominal pain, nausea, fevers or chills.
Review of Systems
General: Other (Negative unless mentioned above)
Objective Data
Data Reviewed
Vital Signs / I&O / Oxygen:
Vital Signs
Temp Pulse Resp BP Pulse Ox
98.2 F 70 18 136/60 96
05/29/24 08:40 05/29/24 08:53 05/29/24 08:40 05/29/24 08:53 05/29/24 08:40
Intake and Output
05/28/24 05/29/24 05/30/24
06:59 06:59 06:59
Intake Total 960 / 960 1170 / 1170
Balance 960 / 960 1170 / 1170
SaO2 96
Nasal Cannula flow liters per 2
minute
Physical Exam
General: Respiratory Distress (negative), Comfortable, Chills (negative) and Sweats (negative)
HEENT: Normocephalic, Anicteric and Moist Mucous Membranes
Cardiovascular: S1-S2, Murmur (CHARLI, heard at RUSB) and Peripheral Edema (negative)
Respiratory: Clear, Wheeze (negative), Crackles (negative), Rhonchi (negative) and Non-Labored Respirations
GI: Soft, Distended (Abdominal obesity), Non Tender and Normal Bowel Sounds
Neurology: AO x 3 and Tremors (negative)
Skin: Warm, Dry, Cyanosis (negative) and Jaundice (negative)
Labs/Micro/Reports
Lab Data
05/29/24 05:45
05/29/24 05:45
--- NOTE | 2024-05-29 11:14 | W.PN.CARDCBS ---
Addendum entered and electronically signed by Dayday Pinedo DO 05/29/24 20:37:
I saw and examined the patient.
The Hydraulic Auto Jack Mechanic's note was reviewed and I agree with the note.
Comment:
Plan:
Recurrent symptomatic AFib.
Discussed amiodarone 200 mg BID. Monitor QTc with being on Zithromax and Trazodone.
Reviewed with pharmacy. Monitor EKG
Tolerating Cardizem and Eliquis
Cont to hold Lisinopril and Lasix and monitor cr
Cont pulm toilet
Discussed with daughter via telephone and her regular nuclear powerplant mechanic helper.
Original Note:
Today's Communication / Plan
-
Start amiodarone 200 mg BID
Check ECG now and Troponin now after chest pain late last night/early this morning
Check ECG in AM to monitor QT
Cont to hold lisinopril and Lasix
Check BMP in AM
52 minutes in face to face time with patient and family and chart prep
Impression / Plan
-
PCP: Dr. Morris Gudino
Primary nuclear powerplant mechanic helper: Dr. Rissa Walker
Impression:
Admitted with AE COPD and PNA 05/23/24
Newly diagnosed Afib with RVR
spontaneously converted to SR on Cardizem gtt 05/23/24
recurrent Afib with RVR that spontaneously converted again on Cardizem gtt 05/29/24 early AM
New start to chronic Eliquis OAC
Acute HFpEF
Elevated Troponin
Chest pain
Pulmonary nodules
CAD
s/p 3.5/15 mm Xience V expedition drug-eluting stent to the proximal LAD 02/17/14
s/p overlapping 3.5/38 mm x2 Xience V expedition drug-eluting stents to the mid and proximal RCA 02/17/14
stable CAD with patent LAD and RCA stents by cath 07/05/20
patent LAD and RCA stents, nonobstructive distal left main lesion by cath 06/27/21
stable LM lesions with negative iFR assessment of LM/LAD and LM/Circ by cath 04/20/23
Mild to moderate peak/mean 33/16 mmHg and LISA 1.3 cm sq by echo 05/27/24
CKD 3
Hyperlipidemia
Hypertension
Known meningioma
Anemia
Echocardiogram 12/26/22: Ejection fraction 55 to 60% with mild septal hypertrophy. Trace MR. Mild to moderate aortic valve stenosis with peak/mean gradient 32/17 mmHg. Aortic valve area 1.3 cm�. Trace AI. Mild TR with PA pressure 40 mmHg.
Echo 05/27/24: EF 60 to 65%, normal RV size and function, trace MR, mild to moderate peak/mean 33/16 mmHg with LISA 1.3 cm SQ, mild aortic regurgitation, mild TR with PAP 30 to 35 mmHg
Plan:
-New Afib on admission that converted on Cardizem gtt. Patient recurred with Afib 05/28/24 PM and had chest discomfort that she says lasted for 4 hours. No ECG checked at the time. ECG ordered for now. Check Troponin. Echo without WMA on admission
when she had similar symptoms.
-Troponin was undetectable on admission and then peaked at 0.065. Patient with chest pain that was reproducible with palpation. Patient with h/o CAD as outlined above. No ischemic changes on ECG. Echo without WMA. Will manage as a nonischemic
myocardial injury Troponin elevation. Likely outpatient stress test.
-Cardizem gtt restarted 05/28/24 PM and patient again spontaneously converted to SR at about 0300 on 05/29/24. Remains in SR on tele review by me.
-Talked with patient and a daughter by phone plus her daughter in the room. Talked about Afib and treatment options. Patient is agreeable to starting amiodarone 200 mg BID. Check ECG now and again in AM to monitor QT. Patient ordered azithromycin
for PNA on admission, but last dose scheduled for 05/29/24. Patient also taking trazodone chronically as an outpatient. Follow QTc on tele.
-Reviewed long-term monitoring of TFTs, LFTs and CXR with patient and daughter.
-Cont Cardizem CD 180 mg daily as well which is new this admission. Patient cannot take BB due to wheezing and COPD.
-New to Eliquis 5 mg BID (age 79, wt 117 kg, Cre 1.7). CM checked cost of Eliquis and a 90 day supply will be $423, but not sure if she has to meet her deductible. She can use the 30 day coupon and cardiology office can work on patient prescription
assistance.
-Weight is down 9 lbs with IV diuresis. Patient was not taking diuretic prior to admission. Transitioned to Lasix 20 mg PO daily 05/25/24, but then developed CONCHITA and Lasix on hold since 05/27/24. Might consider regimen of lasix 20 mg MWF or daily
weights and PRN Lasix dosing.
-Patient is agreeable to VN
-EF stable by echo 05/27/24.
-No BB due to COPD and wheezing.
-Outpatient dose of lisinopril 10 mg daily on hold due to CONCHITA
-Cre might be plateauing. Check BMP 05/30/24 AM
-LDL 30 and outpatient doses of atorvastatin 80 mg daily and Zetia 10 mg daily continued.
-Cardura 1 mg HS added 05/27/24 PM and BP improved.
She comes in with multi lobar pneumonia, wheezing and COPD/reactive airways disease exacerbation for which she is seeing hospitalist service and pulmonary is consulted. She follows as an outpatient with pulmonary for lung nodules for which she is
having upcoming PET scan by report. Now during hospital stay had rapid atrial fibrillation heart rates 170s up to 190s which is a new rhythm for this patient. Chest discomfort with this. Given that she was significantly ill with rapid atrial
fibrillation and has pneumonia she would likely benefit from transfer to higher level of care such as IMU. Defer to primary service.
Progress Note - Premix Concrete Batcher
Subjective
Date of Service: May 29, 2024
Chest pain during rapid Afib last night
Objective
Labs:
05/29/24 05:45
05/29/24 05:45
Labs
Hgb 11.7 g/dL (12.0-16.0) L 05/29/24 05:45
Hct 34.8 % (37.0-47.0) L 05/29/24 05:45
Plt Count 224 10^3/uL (130-400) 05/29/24 05:45
Sodium 137 mmol/L (135-145) 05/29/24 05:45
Potassium 5.4 mmol/L (3.5-5.1) H 05/29/24 05:45
BUN 92 mg/dl (7-17) H 05/29/24 05:45
Creatinine 1.8 mg/dL (0.6-1.0) H 05/29/24 05:45
Glucose 152 mg/dl (70-99) H 05/29/24 05:45
Troponins
05/27/24
12:11
Troponin I 0.013
Vital Signs and I&O:
Vital Signs
Temp Pulse Resp BP Pulse Ox
98.2 F 70 18 136/60 96
05/29/24 08:40 05/29/24 08:53 05/29/24 08:40 05/29/24 08:53 05/29/24 08:40
Vital Signs
Temp Pulse Resp BP Pulse Ox
98.2 F 70 18 136/60 96
05/29/24 08:40 05/29/24 08:53 05/29/24 08:40 05/29/24 08:53 05/29/24 08:40
Intake & Output
05/27/24 05/28/24 05/29/24 05/30/24
06:59 06:59 06:59 06:59
Intake Total 410 / 410 960 / 960 1170 / 1170
Balance 410 / 410 960 / 960 1170 / 1170
Physical Exam
Physical Exam
GEN: AAOx3
HEENT: MMM
LUNGS: Slight expiratory wheeze
CV: SR on tele
ABD: ND
EXT: No edema B/L
NEURO: Gross non-focal
SKIN: No rash
--- NOTE | 2024-05-29 11:20 | CM ---
Consult received for Pulmonary vest.
Contacted Alexandria at [facility] [phone] .DR Nagel signed form . All appropriate clinical faxed to [facility] [phone].
Alexandria spoke with patient.
Pt accepted by Sarah for [facility] office.
Family to drive her home
PLAN Home with [facility] fax- [phone]
[2024-05-29 11:21] LABS: COVID-19 Antigen Negative (Negative)
[2024-05-29] MEDS: PACERONE 200 MG PO ×2 (11:26→20:54)
[2024-05-29 11:59] VITALS: BP 146/53
[2024-05-29 14:42] LABS: Troponin I 0.024 ng/ml
[2024-05-29 16:08] VITALS: BP 134/59
[2024-05-29] MEDS: STERILE WATER FOR INJECTION IV (16:10)
[2024-05-29 19:37] VITALS: BP 138/64
[2024-05-29] MEDS: SOLU-MEDROL PF IV (20:56)
[2024-05-29] MEDS: ASPIR LOW (ENTERIC COATED) 81 MG PO (22:05)
[2024-05-29] MEDS: DESYREL 200 MG PO (22:07)
[2024-05-29] MEDS: ZETIA 10 MG PO (22:07)
[2024-05-29] MEDS: LIPITOR 80 MG PO (22:07)
[2024-05-29] MEDS: CYMBALTA DELAYED RELEASE 40 MG PO (22:07)
[2024-05-29] MEDS: MYLICON 80 MG PO (22:07)
[2024-05-29] MEDS: MELATONIN 20 MG PO (22:07)
[2024-05-29] MEDS: PROTONIX 40 MG PO (22:08)
[2024-05-29] MEDS: CARDURA 1 MG PO (22:14)
[2024-05-29 22:34] LABS: ALT (SGPT) 37 U/L (0-35); AST (SGOT) 20 U/L (14-36); Albumin 3.5 g/dl (3.5-5.0); Alkaline Phosphatase 72 U/L (38-126); Blood Urea Nitrogen 102 mg/dl (7-17); Calcium 9.2 mg/dl (8.4-10.2); Carbon Dioxide 13 mmol/L (22-30); Chloride 103 mmol/L (98-107); Estimated Creatinine Clearance 29 ml/min; Glucose 204 mg/dl (70-99); Magnesium 2.3 mg/dl (1.6-2.3); Phosphorus 4.9 mg/dl (2.5-4.5); Potassium 4.9 mmol/L (3.5-5.1); Sodium 132 mmol/L (135-145); Total Bilirubin 0.4 mg/dl (0.2-1.3); Total Protein 5.3 g/dl (6.3-8.2); eGFR 25.26
[2024-05-29 23:47] VITALS: BP 142/58
[2024-05-30] VITALS (9 sets, daily range): BP systolic 130–158; BP diastolic 44–74; PULSE 89–111; BMI 47.9
[2024-05-30] MEDS: SODIUM BICARBONATE 50 MEQ IV (01:13)
--- NOTE | 2024-05-30 03:13 | PTCARENOTE ---
Addendum entered by Lisbeth Duron RN 05/30/24 06:27:
Pt ambulated to this morning,came back to bed. Pt Hr noted 110-140 not sustaining. Pt BP was rechecked 158/74,hr-120. COMMUNITY HEALTH PROMOTER contact lens cutter made aware of all pt am labs & pt HR range.EKG done on pt.Pt asymptomatic denies pain,no fever.COMMUNITY HEALTH PROMOTER ok to give am dose
of amiodarone early.No new orders at this time.Pt encouraged to call for help as needed.
Original Note:
Pt aaox3 able to make her needs known.Denies pain. MEDICAL NURSE contact lens cutter made aware of all pt critical lab results. Pt asymptomatic,denies SOB or any other discomfort. Medications given as per COMMUNITY HEALTH PROMOTER order. Plan of care continued.Call maynard in reach.
[2024-05-30 04:31] LABS: Venous Blood Gas HCO3 18.8 mmol/L (22-27); Venous Blood Gas O2 Sat % 94.3 %; Venous Blood Gas pCO2 34 mmHg (35-48); Venous Blood Gas pH 7.35 (7.32-7.43); Venous Blood Gas pO2 67 mmHg (30-50)
[2024-05-30 04:37] LABS: Hematocrit 31.6 % (37.0-47.0); Hemoglobin 10.9 g/dL (12.0-16.0); Mean Corp Hgb Conc. 34.5 g/dL (33.0-37.0); Mean Corpuscular Hgb 31.8 pg (27.0-31.0); Mean Corpuscular Volume 92.1 fL (81.0-99.0); Mean Platelet Volume 9.8 fL (7.4-10.4); Platelet Count 214 10^3/uL (130-400); Red Blood Cell Count 3.43 10^6/uL (4.20-5.40); Red Cell Dist. Width 14.9 % (11.5-14.5); White Blood Cell Count 20.4 10^3/uL (4.8-10.8)
[2024-05-30] MEDS: SYNTHROID 75 MCG PO (04:54)
[2024-05-30 04:59] LABS: Blood Urea Nitrogen 103 mg/dl (7-17); Calcium 9.5 mg/dl (8.4-10.2); Carbon Dioxide 15 mmol/L (22-30); Chloride 103 mmol/L (98-107); Estimated Creatinine Clearance 30 ml/min; Glucose 168 mg/dl (70-99); Magnesium 2.5 mg/dl (1.6-2.3); Phosphorus 5.3 mg/dl (2.5-4.5); Potassium 5.3 mmol/L (3.5-5.1); Sodium 137 mmol/L (135-145); eGFR 26.86
[2024-05-30] MEDS: PACERONE 200 MG PO ×2 (05:36→19:41)
[2024-05-30] MEDS: XOPENEX 1.25 MG INHALANT SOLUTION INH ×3 (07:14→19:18)
[2024-05-30] MEDS: SYMBICORT 160/4.5 MCG INHALER 2 PUFF INH ×2 (07:14→19:17)
[2024-05-30] MEDS: ATROVENT NEBULES 0.5 MG INH ×3 (07:14→19:17)
--- NOTE | 2024-05-30 07:30 | W.PN.CARDCBS ---
Addendum entered and electronically signed by Maximiliano Weeks MD 05/30/24 15:03:
I saw and examined the patient.
The DATA PROCESSING AUDITOR or PA's note was reviewed and I agree with the note.
Comment: General: Well developed, well nourished in NAD.
Neck: Supple, no JVD, HJR, carotids +2 B/L, no bruits bilaterally.
Heart: Non displaced PMI, irregular, no murmurs, No S3, S4, no rubs.
Lungs: Scattered rhonchi
Extremities: No clubbing, cyanosis or edema bilaterally.
Neuro: Grossly nonfocal, awake, alert and oriented x3.
Remains in sinus rhythm with amiodarone. Lasix remains on hold due to renal insufficiency.
Original Note:
Today's Communication / Plan
-
Continue amiodarone load.
Would discharge home on 200 mg twice daily for 2 weeks then once a day thereafter
Would keep an additional 24 hours given symptomatic rate rapid atrial fibrillation
Consider outpatient ischemic evaluation with stress test and outpatient evaluation for sleep apnea
Cardiology follow-up has been arranged
Impression / Plan
-
PCP: Dr. Morris Gudino
Primary anglesmith helper: Dr. Rissa Walker
Impression:
Admitted with AE COPD and PNA 05/23/24
Newly diagnosed Afib with RVR
spontaneously converted to SR on Cardizem gtt 05/23/24
recurrent Afib with RVR that spontaneously converted again on Cardizem gtt 05/29/24 early AM
New start to chronic Eliquis OAC
Acute HFpEF, proBNP 1730
Elevated Troponin, peaked 0.065, nonischemic myocardial injury secondary to pneumonia and respiratory process
Pulmonary nodules
CAD
s/p 3.5/15 mm Xience V expedition drug-eluting stent to the proximal LAD 02/17/14
s/p overlapping 3.5/38 mm x2 Xience V expedition drug-eluting stents to the mid and proximal RCA 02/17/14
stable CAD with patent LAD and RCA stents by cath 07/05/20
patent LAD and RCA stents, nonobstructive distal left main lesion by cath 06/27/21
stable LM lesions with negative iFR assessment of LM/LAD and LM/Circ by cath 04/20/23Mild to moderate peak/mean 33/16 mmHg and LISA 1.3 cm sq by echo 05/27/24
CKD 3
Hyperlipidemia
Hypertension
Known meningioma
Anemia
Echocardiogram 12/26/22: Ejection fraction 55 to 60% with mild septal hypertrophy. Trace MR. Mild to moderate aortic valve stenosis with peak/mean gradient 32/17 mmHg. Aortic valve area 1.3 cm�. Trace AI. Mild TR with PA pressure 40 mmHg.
Echo 05/27/24: EF 60 to 65%, normal RV size and function, trace MR, mild to moderate peak/mean 33/16 mmHg with LISA 1.3 cm SQ, mild aortic regurgitation, mild TR with PAP 30 to 35 mmHg
Plan:
-New Afib on admission that converted on Cardizem gtt. Patient recurred with Afib 05/28/24 PM and had chest discomfort that she says lasted for 4 hours. No ECG checked at the time. Troponin unremarkable. Suspect chest pain was secondary to rapid
A-fib
-Patient had recurrence of PAF on morning of 05/30/2024. She was given amiodarone dosing early with spontaneous conversion of sinus rhythm.
-Troponin was undetectable on admission and then peaked at 0.065. Patient with chest pain that was reproducible with palpation. Patient with h/o CAD as outlined above. No ischemic changes on ECG. Echo without WMA. Will manage as a nonischemic
myocardial injury Troponin elevation. Likely outpatient stress test when she has recovered from pulmonary process
-Cardizem gtt restarted 05/28/24 PM and patient again spontaneously converted to SR at about 0300 on 05/29/24. Had recurrence of PAF 05/30/2024 in AM with spontaneous conversion to sinus rhythm after given AM amiodarone. Remains in SR on tele review by
me.
-Continue amiodarone load with 200 mg BID x 2 weeks then once a day after. QTc stable on EKG at 376 ms on 05/30/2024. Patient ordered azithromycin for PNA on admission, but last dose scheduled for 05/29/24. Patient also taking trazodone chronically as
an outpatient. Follow QTc on tele.
-Given patient w/ several episodes of recurrence of PAF during sleep would consider outpatient sleep study once she has recovered from pulmonary standpoint. Patient reports she did have a sleep test in the past which was unremarkable but it was
several years ago.
-Reviewed long-term monitoring of TFTs, LFTs and CXR with patient and daughter.
-Cont Cardizem CD 180 mg daily as well which is new this admission. Patient cannot take BB due to wheezing and COPD.
-New to Eliquis 5 mg BID (age 79, wt 117 kg, Cre 1.7). CM checked cost of Eliquis and a 90 day supply will be $423, but not sure if she has to meet her deductible. She can use the 30 day coupon and cardiology office can work on patient prescription
assistance.
-Weight is down 7 lbs with IV diuresis since admission. Patient was not taking diuretic prior to admission. Transitioned to Lasix 20 mg PO daily 05/25/24, but then developed CONCHITA and Lasix on hold since 05/27/24. Might consider regimen of lasix 20 mg MWF
or daily weights and PRN Lasix dosing.
-Creat still up, 1.9. Baseline appears to be 1.3-1.5
-Patient is agreeable to VN
-EF stable by echo 05/27/24.
-No BB due to COPD and wheezing.
-Outpatient dose of lisinopril 10 mg daily on hold due to CONCHITA. Can consider increasing diltiazem as needed for blood pressure control
-LDL 30 and outpatient doses of atorvastatin 80 mg daily and Zetia 10 mg daily continued.
-Cardura 1 mg HS added 05/27/24 PM and BP improved.
Plan was discussed with nursing, hospitalist, patient and patient's daughter over the phone.
She comes in with multi lobar pneumonia, wheezing and COPD/reactive airways disease exacerbation for which she is seeing hospitalist service and pulmonary is consulted. She follows as an outpatient with pulmonary for lung nodules for which she is
having upcoming PET scan by report. Now during hospital stay had rapid atrial fibrillation heart rates 170s up to 190s which is a new rhythm for this patient. Chest discomfort with this. Given that she was significantly ill with rapid atrial
fibrillation and has pneumonia she would likely benefit from transfer to higher level of care such as IMU. Defer to primary service.
Progress Note - Sour Bleaching Pleater
Subjective
Date of Service: May 30, 2024
Patient seen and examined. Patient sitting in chair. She reports she was able to walk a lap around the unit felt mildly dyspneic but cough has improved significantly. She denies shortness of breath at rest.
She did have an episode of atrial fibrillation in commercial litigation paralegal of 05/30/2024. She was given oral amiodarone and converted spontaneously to sinus rhythm shortly after. No recurrence of arrhythmia since then.
Objective
Labs:
05/30/24 04:24
05/30/24 04:24
Labs
Hgb 10.9 g/dL (12.0-16.0) L 05/30/24 04:24
Hct 31.6 % (37.0-47.0) L 05/30/24 04:24
Plt Count 214 10^3/uL (130-400) 05/30/24 04:24
Sodium 137 mmol/L (135-145) 05/30/24 04:24
Potassium 5.3 mmol/L (3.5-5.1) H 05/30/24 04:24
BUN 103 mg/dl (7-17) H* 05/30/24 04:24
Creatinine 1.9 mg/dL (0.6-1.0) H 05/30/24 04:24
Glucose 168 mg/dl (70-99) H 05/30/24 04:24
Troponins
05/27/24 05/29/24
12:11 14:08
Troponin I 0.013 0.024
Vital Signs and I&O:
Vital Signs
Temp Pulse Resp BP Pulse Ox
98.8 F 81 18 158/74 95
05/30/24 05:38 05/30/24 07:17 05/30/24 07:17 05/30/24 05:38 05/30/24 07:17
Vital Signs
Temp Pulse Resp BP Pulse Ox
98.8 F 81 18 158/74 95
05/30/24 05:38 05/30/24 07:17 05/30/24 07:17 05/30/24 05:38 05/30/24 07:17
Intake & Output
05/28/24 05/29/24 05/30/24 05/31/24
06:59 06:59 06:59 06:59
Intake Total 960 / 960 1170 / 1170 720 / 720
Balance 960 / 960 1170 / 1170 720 / 720
Physical Exam
Physical Exam
GEN: No distress, awake, Ox3, sitting in chair
HEENT: supple, anicteric, mmm
LUNGS: CTA, no wheezes/rales; on room air
CV: Reg, S1/S2, 1/6 syst LSB murmur, no rub or gallop
ABD: soft, BS+, NT/ND
EXT: Trace lower extremity edema bilaterally, no clubbing or cyanosis
NEURO: Gross non-focal
SKIN: No rash, warm, dry, pink
[2024-05-30 08:05] LABS: % Basophils 0.2 % (0-2); % Immature Granulocytes 5.6 % (0-0.5); % Lymphocytes 2.9 % (20.5-51.1); % Monocytes 4.1 % (1.7-9.3); % Neutrophils 87.2 % (42.2-75.2); Absolute Immature Granulocytes 1.1 10^3/uL (0-0.05); Absolute Lymphocytes 0.6 10^3/uL (1.2-3.4); Absolute Monocytes 0.8 10^3/uL (0.1-0.6); Absolute Neutrophils 17.8 10^3/uL (1.4-6.5); Nucleated Red Blood Cells % 0 %
[2024-05-30] MEDS: MUCINEX 1200 MG PO ×2 (08:31→19:41)
[2024-05-30] MEDS: TYLENOL 1000 MG PO ×2 (08:31→19:42)
[2024-05-30] MEDS: VITAMIN D3 (cholecalciferol) 10 MCG PO (08:33)
[2024-05-30] MEDS: ELIQUIS 5 MG PO ×2 (08:33→19:41)
[2024-05-30] MEDS: CARDIZEM CD 180 MG PO (08:33)
[2024-05-30] MEDS: NITRO-DUR 0.2 MG TRANSDERM (08:33)
[2024-05-30] MEDS: SOLU-MEDROL PF 40 MG IV ×2 (08:34→19:41)
[2024-05-30] MEDS: VITAMIN B-12 1000 MCG PO (08:34)
--- NOTE | 2024-05-30 08:36 | W.PN.HOSP.TC ---
Today's Communication/Plan
-
see A/P
Assessment / Plan
Assessment / Plan
CXR
There is mild coarsening of the interstitial markings in the right lung base, stable when compared with the prior study suggesting that this is more likely interstitial scarring than interstitial pneumonia
A/P:
# COPD exacerbation
# Reported multilobular pneumonia on outpatient imaging
Coarse bilateral wheezing/rhonchi on examination
Chest x-ray report noted
COVID-negative, MRSA screen negative
IV Dexamethasone -> IV methylprednisone, with plan to transition to PO prednisone with taper upon discharge
Cont DuoNebs TID and PRN
Check sputum culture if able to collect
s/p Ceftriaxone/azithromycin x5 days
Continue Mucinex, cont vest therapy
Pulmonary consulted, appreciate evaluation and recommendations
# Chest pain, likely a combination of rapid A-Fib and musculoskeletal with coughing
# New-Onset A-Fib, associated with chest pain
s/p Cardizem drip, started Diltiazem CD 180 mg daily
Added Eliquis 5 mg BID
Avoid beta livier given wheezing
Echo unrevealing: EF 60-65%. Normal diastolic function. Mild to moderate aortic stenosis.
overnight 05/28 and 05/29 pt went into A fib
Amiodarone 200 mg BID started
# Acute on Chronic HFpEF
Continue sodium and fluid restriction
Status post IV Lasix, PO Lasix 20 mg daily on hold due to over-diuresis
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
# Essential hypertension
Continue Cardizem, lisinopril
Cardura HS added for better BP control
# Mild Hyperkalemia, resolved
# History of bronchiectasis
# History of pulmonary nodules
Due to have PET scan in May
# CAD status post stents x 3
Continue aspirin, statin/Zetia
# CKD stage III
Renal function at baseline
SCr at 1.9 today
# Hypothyroidism
Continue levothyroxine
# GERD
Continue omeprazole
# Depression
Continue duloxetine
# Insomnia
Continue trazodone
# Gout
# Former smoker
Full code
DVT prophylaxis-Eliquis
Regular diet
Dispo: PT recc HH
DW RN
DW Card
updated daughter Jenny on the phone
total time spent 51 min
Anticipated Discharge: 24 - 48 hours
Subjective/Interval History
-
Date of Service: May 30, 2024
Objective Data
-
Labs:
Laboratory Results
05/29/24 05/30/24
21:56 04:24
WBC 20.4 H
Hgb 10.9 L
Hct 31.6 L
Plt Count 214
Sodium 132 L 137
Potassium 4.9 5.3 H
Chloride 103 103
Carbon Dioxide 13 L* 15 L
BUN 102 H* 103 H*
Creatinine 2.0 H 1.9 H
Glucose 204 H 168 H
Calcium 9.2 9.5
Total Bilirubin 0.4
AST 20
ALT 37 H
Alkaline Phosphatase 72
Vital Signs:
Vital Signs
Temp Pulse Resp BP Pulse Ox
36.5 C 82 18 140/57 95
05/30/24 07:00 05/30/24 08:33 05/30/24 07:17 05/30/24 08:33 05/30/24 07:17
I&O
05/29/24 05/30/24 05/31/24
06:59 06:59 06:59
Intake Total 1170 / 1170 720 / 720
Balance 1170 / 1170 720 / 720
--- NOTE | 2024-05-30 09:33 | W.PN.PUL3 ---
Today's Communication / Plan
-
Continue nebulized xopenex with Symbicort; Restart inhalers upon discharge
Continue vest therapy and CM consulted to try to get vest for home use
Wheezing/chest tightness now resolved--> wean down steroids and will transition to slow OCS taper tomorrow starting at 60mg daily and reduce by 10mg every 5th day until off
Continue cardiac management-patient diuresed well
A-fib management per cardiology
Trend serum HCO3
Pulmonary service to continue to follow along
Assessment
-
Impression:
Acute exacerbation of COPD
Pulmonary bronchiectasis - lower lobe predominant
Chest x-ray 05/24/2024: Mild coarsening of interstitial markings in the right lung base, stable compared to prior study suggesting scarring.
Most recent CT chest 12/22/2022: Showed no evidence of interstitial lung disease. Multiple pulmonary nodules
CT abdomen pelvis lung cuts: No evidence for lower lobe abnormalities. 7 mm right lower lobe lung nodule.
COVID-negative
Heart failure component cannot be ruled out proBNP 1729.
Echocardiogram 12/26/2022: Showed normal LVEF. Mild septal hypertrophy mild to moderate AI
Leukocytosis
Rapid atrial fibrillation-new onset - now rate controlled and in NSR
Mild�moderate aortic stenosis with peak/mean gradient 33/16, respectively
Conditions present prior admission:
History of lung nodules: Follows up with Dr. Santiago
COPD: Follow-up with Dr. Santiago
On Trelegy
Heart failure with preserved ejection fraction.
history of coronary artery disease with RCA stent
COPD/bronchiectasis
Pulmonary nodules
Prior history of GERD
Gout
Hypothyroidism
Chronic kidney disease stage III
Depression
Insomnia
Hypertension
Former smoker
Assessment and plan:
From the pulmonary perspective given abnormal chest x-ray, leukocytosis and shortness of breath. Not unreasonable to treat for community-acquired pneumonia.
-
Remains afebrile
Leukocytosis in part from steroids
-
Check sputum culture-unable to produce
Negative Legionella
Negative MRSA screening
Negative influenza
s/p 6 days of antibiotics (ceftriaxone/Zithromax)
-
Wheezing on exam: Acute exacerbation of COPD. Cannot rule out heart failure component either.
Wheezing now resolved as of 05/28/2024 after steroids were raised Decadron 2mg IV q8hr to Solu-Medrol 40mg IV q8hr --> on 05/27 I tapered down steroids to 40mg IV q12hr --> tomorrow can start prednisone starting at 60mg daily and reduce by 10mg every
5th day until off
Levalbuterol as needed
Continue nebulizers Atrovent/Xopenex while in the hospital; continue Symbicort 160mcg; resume Trelegy upon discharge with prn nebulized xopenex (she has nebulizer kit and albuterol at home she says)
Avoid beta agonist due to rapid atrial fibrillation.
Given her continued SOB with unclear CXR, CT chest checked, showing improvement in prior left lower lobe linear scarring/atelectasis, lower lobe predominant bronchiectasis, new small focus of posterior right upper lobe subsegmental atelectasis with
mild linear scarring seen in the RML, RLL + LLL, also stable pulmonary nodules
- Of note, she says that she has had a CT chest few months ago at [facility]/[place], and is scheduled to have a PET scan next week with [facility]
- Continue vest therapy given bronchiectasis seen on imaging with poor mucous expectoration that has been present for >6 months that has failed other therapies like acapella valve and mucinex
-
Atrial fibrillation/heart failure for cardiology following
Heart rate improved and she converted into NSR on 05/24/2024; went back into A-fib with RVR on evening of 05/28 - 05/29, requiring Cardizem drip. Now on PO amiodarone and back in NSR
Diuresis as able - lasix being held due to CONCHITA
On oral Cardizem.
Anticoagulation with Eliquis
Repeat echocardiogram done on 05/27/2024: LVEF preserved at 60-65% with normal diastolic function, no regional WMA, mild�moderate , mild TR with mild pulmonary hypertension with PASP 30�35 assuming RAP of 3 mmHg
-
Follow blood sugars particularly with high-dose of steroids with goal >100 and <180mg/dL
-
Pulmonary nodules: Continue follow-up in the outpatient setting.
Upcoming PET scan next Sunday. See above
-
DVT prophylaxis-now on anticoagulation-apixaban
-
Follow-up with Dr. Santiago after discharge
Will continue to follow
Total time spent today was 35 minutes for this encounter. Time includes reviewing laboratory test/imaging results, reviewing pertinent medical records, obtaining and reviewing medical history, performing an appropriate exam, ordering medications,
tests and procedures. Time also includes documentation of this encounter, coordinating patient care and communicating with other healthcare professionals. Total time does not include separately billed tests performed on this date of service.
Subjective Data
-
Date of Service:
Date of Service: May 30, 2024
Chief Complaint: Pulmonary Follow Up (Acute exacerbation of COPD)
Subjective:
Patient seen and evaluated today at bedside. She went into A-fib with RVR overnight. Given oral amiodarone and converted back into sinus rhythm. She is currently on room air breathing comfortably. She feels better today. Able to walk around the
smith with mild shortness of breath that is not limiting. She denies chest pain, PACKER, abdominal pain, fevers or chills.
Review of Systems
General: Other (Negative unless mentioned above)
Objective Data
Data Reviewed
Vital Signs / I&O / Oxygen:
Vital Signs
Temp Pulse Resp BP Pulse Ox
97.9 F 76 16 141/59 98
05/30/24 11:16 05/30/24 11:16 05/30/24 11:16 05/30/24 11:16 09/06/24 11:16
Intake and Output
05/29/24 05/30/24 05/31/24
06:59 06:59 06:59
Intake Total 1170 / 1170 720 / 720
Balance 1170 / 1170 720 / 720
SaO2 98
Nasal Cannula flow liters per 2
minute
Physical Exam
General: Respiratory Distress (negative), Comfortable, Chills (negative) and Sweats (negative)
HEENT: Normocephalic, Anicteric and Moist Mucous Membranes
Cardiovascular: S1-S2, Murmur (CHARLI, heard at [facility]) and Peripheral Edema (trace EJNNIE bilaterally)
Respiratory: Wheeze (negative), Crackles (Bilaterally in posterior lung zuleta), Rhonchi (negative) and Non-Labored Respirations
GI: Soft, Distended (Abdominal obesity), Non Tender and Normal Bowel Sounds
Neurology: AO x 3 and Tremors (negative)
Skin: Warm, Dry, Cyanosis (negative) and Jaundice (negative)
Labs/Micro/Reports
Lab Data
05/30/24 04:24
05/30/24 04:24
[2024-05-30] MEDS: STERILE WATER FOR INJECTION IV (15:45)
--- NOTE | 2024-05-30 16:19 | CM ---
As per [place] at [facility] [phone] all clinical have been received for Pulmonary vest.
DR Nagel aware.
Informed pt [facility] will contact her with vest set up.
Spoke with Michelle .Pt accepted by Sarah for [facility] office.
Family to drive her home
IMM signed by pt on chart.
PLAN Home with Sarah fax- [phone]
[2024-05-30] MEDS: DESYREL 200 MG PO (21:09)
[2024-05-30] MEDS: LIPITOR 80 MG PO (21:09)
[2024-05-30] MEDS: CARDURA 1 MG PO (21:09)
[2024-05-30] MEDS: ASPIR LOW (ENTERIC COATED) 81 MG PO (21:09)
[2024-05-30] MEDS: ZETIA 10 MG PO (21:09)
[2024-05-30] MEDS: MELATONIN 20 MG PO (21:09)
[2024-05-30] MEDS: PROTONIX 40 MG PO (21:10)
[2024-05-30] MEDS: MYLICON 80 MG PO (21:10)
[2024-05-30] MEDS: CYMBALTA DELAYED RELEASE 40 MG PO (21:10)
[2024-05-31 03:23] VITALS: BP 152/53
[2024-05-31 05:38] LABS: % Basophils 0.2 % (0-2); % Immature Granulocytes 4.8 % (0-0.5); % Lymphocytes 2.6 % (20.5-51.1); % Monocytes 4.7 % (1.7-9.3); % Neutrophils 87.7 % (42.2-75.2); Absolute Immature Granulocytes 0.7 10^3/uL (0-0.05); Absolute Lymphocytes 0.4 10^3/uL (1.2-3.4); Absolute Monocytes 0.7 10^3/uL (0.1-0.6); Absolute Neutrophils 13.6 10^3/uL (1.4-6.5); Hematocrit 32.2 % (37.0-47.0); Hemoglobin 10.6 g/dL (12.0-16.0); Mean Corp Hgb Conc. 32.9 g/dL (33.0-37.0); Mean Corpuscular Hgb 30.5 pg (27.0-31.0); Mean Corpuscular Volume 92.5 fL (81.0-99.0); Mean Platelet Volume 10.1 fL (7.4-10.4); Nucleated Red Blood Cells % 0 %; Platelet Count 182 10^3/uL (130-400); Red Blood Cell Count 3.48 10^6/uL (4.20-5.40); Red Cell Dist. Width 14.7 % (11.5-14.5); White Blood Cell Count 15.5 10^3/uL (4.8-10.8)
[2024-05-31 05:54] VITALS: BMI 47.7
[2024-05-31 06:00] VITALS: BMI 47.7
[2024-05-31 06:00] LABS: Blood Urea Nitrogen 97 mg/dl (7-17); Calcium 9.4 mg/dl (8.4-10.2); Carbon Dioxide 16 mmol/L (22-30); Chloride 104 mmol/L (98-107); Estimated Creatinine Clearance 32 ml/min; Glucose 150 mg/dl (70-99); Potassium 5.1 mmol/L (3.5-5.1); Sodium 137 mmol/L (135-145); eGFR 28.66
[2024-05-31] MEDS: SYNTHROID 75 MCG PO (06:19)
[2024-05-31] MEDS: SYMBICORT 160/4.5 MCG INHALER 2 PUFF INH (07:53)
[2024-05-31] MEDS: XOPENEX 1.25 MG INHALANT SOLUTION INH (07:53)
[2024-05-31] MEDS: ATROVENT NEBULES 0.5 MG INH (07:53)
[2024-05-31 08:06] VITALS: BP 159/70
--- NOTE | 2024-05-31 08:51 | W.PN.HOSP.TC ---
Addendum entered and electronically signed by Alicia Hall MD 05/31/24 12:31:
total DC time 40 min
Original Note:
Today's Communication/Plan
-
see A/P
Assessment / Plan
Assessment / Plan
CXR
There is mild coarsening of the interstitial markings in the right lung base, stable when compared with the prior study suggesting that this is more likely interstitial scarring than interstitial pneumonia
A/P:
# COPD exacerbation
# Reported multilobular pneumonia on outpatient imaging
Coarse bilateral wheezing/rhonchi on examination
Chest x-ray report noted
COVID-negative, MRSA screen negative
IV Dexamethasone -> IV methylprednisone -> PO prednisone with taper, decrease 10mg every 5th day until off
Cont DuoNebs TID and PRN
s/p Ceftriaxone/azithromycin x5 days
Continue Mucinex, cont vest therapy
Pulmonary consulted, appreciate evaluation and recommendations
# Chest pain, likely a combination of rapid A-Fib and musculoskeletal with coughing
# New-Onset A-Fib, associated with chest pain
s/p Cardizem drip, started Diltiazem CD 180 mg daily
Added Eliquis 5 mg BID
Avoid beta livier given wheezing
Echo unrevealing: EF 60-65%. Normal diastolic function. Mild to moderate aortic stenosis.
overnight 05/28 and 05/29 pt went into A fib, Amiodarone 200 mg BID started
recc to follow with Pulm/PCP for outpt sleep apnea eval (sleep study)
# Acute on Chronic HFpEF
Continue sodium and fluid restriction
Status post IV Lasix, PO Lasix 20 mg daily on hold due to over-diuresis
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
# Essential hypertension
Continue Cardizem, lisinopril
Cardura HS added for better BP control
# Mild Hyperkalemia, resolved
# History of bronchiectasis
# History of pulmonary nodules
Due to have PET scan in May
# CAD status post stents x 3
Continue aspirin, statin/Zetia
# CKD stage III
Renal function at baseline
SCr at 1.8 today
# Hypothyroidism
Continue levothyroxine
# GERD
Continue omeprazole
# Depression
Continue duloxetine
# Insomnia
Continue trazodone
# Gout
# Former smoker
Full code
DVT prophylaxis-Eliquis
Regular diet
Dispo: PT recc HH
DW RN
DW Card
updated daughter Jenny on the phone
Anticipated Discharge: Today
Subjective/Interval History
-
Date of Service: May 31, 2024
Objective Data
-
Labs:
Laboratory Results
05/31/24
04:16
WBC 15.5 H
Hgb 10.6 L
Hct 32.2 L
Plt Count 182
Sodium 137
Potassium 5.1
Chloride 104
Carbon Dioxide 16 L
BUN 97 H
Creatinine 1.8 H
Glucose 150 H
Calcium 9.4
Vital Signs:
Vital Signs
Temp Pulse Resp BP Pulse Ox
36.7 C 76 18 159/70 96
05/31/24 08:06 05/31/24 08:06 05/31/24 08:06 05/31/24 08:06 05/31/24 08:06
I&O
05/30/24 05/31/24 06/01/24
06:59 06:59 06:59
Intake Total 720 / 720 1140 / 1140
Balance 720 / 720 1140 / 1140
Review of Systems
-
All other systems: Reviewed and negative
Physical Exam
-
General: Well Developed, Well Nourished, No Apparent Distress, Comfortable, Conversant and Obese
HEENT: Normocephalic and Atraumatic; Negative Oxygen
Respiratory: Clear to Auscultation and Non Labored Respirations; Negative Wheezes or Accessory Resp Muscle Use
Cardiac: Regular Rhythm and S1/S2
GI: Soft and Nontender
Neuro: Awake and Alert
Psych: Calm and Intact Judgement/Insight
Data Reviewed
-
Diagnostic Radiology: Image personally visualized and interpreted and Report Reviewed by me
Labs: Labs Reviewed by me
[2024-05-31] MEDS: VITAMIN B-12 1000 MCG PO (08:53)
[2024-05-31] MEDS: TYLENOL 1000 MG PO (08:53)
[2024-05-31] MEDS: DELTASONE 60 MG PO (08:53)
[2024-05-31] MEDS: CARDIZEM CD 180 MG PO (08:53)
[2024-05-31] MEDS: MUCINEX 1200 MG PO (08:53)
[2024-05-31] MEDS: PACERONE 200 MG PO (08:54)
[2024-05-31] MEDS: ELIQUIS 5 MG PO (08:54)
[2024-05-31] MEDS: VITAMIN D3 (cholecalciferol) 10 MCG PO (08:54)
[2024-05-31] MEDS: NITRO-DUR 0.2 MG TRANSDERM (08:54)
--- NOTE | 2024-05-31 09:52 | W.PN.PUL3 ---
Today's Communication / Plan
-
Continue nebulized xopenex with Symbicort; Restart inhalers upon discharge
Continue vest therapy and CM consulted to try to get vest for home use
Wheezing/chest tightness now resolved--> transition to slow OCS taper today starting at 60mg daily and reduce by 10mg every 5th day until off
Continue cardiac management-patient diuresed well
A-fib management per cardiology
Trend serum HCO3
Patient being prepared for discharge home today. Pulmonary service will now sign off. Please reconsult if there are any additional questions/concerns, or if patient's respiratory status deteriorates.
Assessment
-
Impression:
Acute exacerbation of COPD
Pulmonary bronchiectasis - lower lobe predominant
Chest x-ray 05/24/2024: Mild coarsening of interstitial markings in the right lung base, stable compared to prior study suggesting scarring.
Most recent CT chest 12/22/2022: Showed no evidence of interstitial lung disease. Multiple pulmonary nodules
CT abdomen pelvis lung cuts: No evidence for lower lobe abnormalities. 7 mm right lower lobe lung nodule.
COVID-negative
Heart failure component cannot be ruled out proBNP 1729.
Echocardiogram 12/26/2022: Showed normal LVEF. Mild septal hypertrophy mild to moderate AI
Leukocytosis
Rapid atrial fibrillation-new onset - now rate controlled and in NSR
Mild�moderate aortic stenosis with peak/mean gradient 33/16, respectively
Conditions present prior admission:
History of lung nodules: Follows up with Dr. Santiago
COPD: Follow-up with Dr. Santiago
On Trelegy
Heart failure with preserved ejection fraction.
history of coronary artery disease with RCA stent
COPD/bronchiectasis
Pulmonary nodules
Prior history of GERD
Gout
Hypothyroidism
Chronic kidney disease stage III
Depression
Insomnia
Hypertension
Former smoker
Assessment and plan:
From the pulmonary perspective given abnormal chest x-ray, leukocytosis and shortness of breath. Not unreasonable to treat for community-acquired pneumonia.
-
Remains afebrile
Leukocytosis in part from steroids
-
Check sputum culture-unable to produce
Negative Legionella
Negative MRSA screening
Negative influenza
s/p 6 days of antibiotics (ceftriaxone/Zithromax)
-
Wheezing on exam: Acute exacerbation of COPD. Cannot rule out heart failure component either.
Wheezing now resolved as of 05/28/2024 after steroids were raised Decadron 2mg IV q8hr to Solu-Medrol 40mg IV q8hr --> on 05/27 I tapered down steroids to 40mg IV q12hr --> today I started prednisone taper starting at 60mg daily and reduce by 10mg
every 5th day until off
Levalbuterol as needed
Continue nebulizers Atrovent/Xopenex while in the hospital; continue Symbicort 160mcg; resume Trelegy upon discharge with prn nebulized xopenex (she has nebulizer kit and albuterol at home she says)
Avoid beta agonist due to rapid atrial fibrillation.
Given her continued SOB with unclear CXR, CT chest checked, showing improvement in prior left lower lobe linear scarring/atelectasis, lower lobe predominant bronchiectasis, new small focus of posterior right upper lobe subsegmental atelectasis with
mild linear scarring seen in the RML, RLL + LLL, also stable pulmonary nodules
- Of note, she says that she has had a CT chest few months ago at [facility]/[place], and is scheduled to have a PET scan next week with [facility] --> will need to get records of this
- Continue vest therapy given bronchiectasis seen on imaging with poor mucous expectoration that has been present for >6 months that has failed other therapies like acapella valve and mucinex
-
Atrial fibrillation/heart failure for cardiology following
Heart rate improved and she converted into NSR on 05/24/2024; went back into A-fib with RVR on evening of 05/28 - 05/29, requiring Cardizem drip. Now on PO amiodarone and back in NSR
Diuresis as able - lasix being held due to CONCHITA
On oral Cardizem.
Anticoagulation with Eliquis
Repeat echocardiogram done on 05/27/2024: LVEF preserved at 60-65% with normal diastolic function, no regional WMA, mild�moderate , mild TR with mild pulmonary hypertension with PASP 30�35 assuming RAP of 3 mmHg
-
Follow blood sugars particularly with high-dose of steroids with goal >100 and <180mg/dL
-
Pulmonary nodules: Continue follow-up in the outpatient setting.
Upcoming PET scan next Sunday. See above
-
DVT prophylaxis-now on anticoagulation-apixaban
-
Follow-up with Dr. Santiago/GILB[facility] after discharge
Patient being prepared for discharge home today. Pulmonary service will now sign off. Thank you for allowing us to be involved in the care of this patient. Please reconsult if there are any additional questions/concerns, or if patient's
respiratory status deteriorates.
Total time spent today was 35 minutes for this encounter. Time includes reviewing laboratory test/imaging results, reviewing pertinent medical records, obtaining and reviewing medical history, performing an appropriate exam, ordering medications,
tests and procedures. Time also includes documentation of this encounter, coordinating patient care and communicating with other healthcare professionals. Total time does not include separately billed tests performed on this date of service.
Subjective Data
-
Date of Service:
Date of Service: May 31, 2024
Chief Complaint: Pulmonary Follow Up (Acute exacerbation of COPD)
Subjective:
Patient seen and evaluated today at bedside. Feels well. No acute events reported from overnight. Eager to go home. Denies chest pain, PACKER, abdominal pain, fevers or chills.
Review of Systems
General: Other (Negative unless mentioned above)
Objective Data
Data Reviewed
Vital Signs / I&O / Oxygen:
Vital Signs
Temp Pulse Resp BP Pulse Ox
98.1 F 76 18 159/70 96
05/31/24 08:06 05/31/24 08:06 05/31/24 08:06 05/31/24 08:06 05/31/24 08:06
Intake and Output
05/30/24 05/31/24 06/01/24
06:59 06:59 06:59
Intake Total 720 / 720 1140 / 1140
Balance 720 / 720 1140 / 1140
SaO2 96
Nasal Cannula flow liters per 2
minute
Physical Exam
General: Respiratory Distress (negative), Comfortable, Chills (negative) and Sweats (negative)
HEENT: Normocephalic, Anicteric and Moist Mucous Membranes
Cardiovascular: S1-S2, Murmur (CHARLI, heard at RUSB) and Peripheral Edema (trace JENNIE bilaterally)
Respiratory: Wheeze (negative), Crackles (Bilaterally in posterior lung zuleta), Rhonchi (negative) and Non-Labored Respirations
GI: Soft, Distended (Abdominal obesity), Non Tender and Normal Bowel Sounds
Neurology: AO x 3 and Tremors (negative)
Skin: Warm, Dry, Cyanosis (negative) and Jaundice (negative)
Labs/Micro/Reports
Lab Data
05/31/24 04:16
05/31/24 04:16
[2024-05-31 09:54] LABS: COVID-19 Antigen Negative (Negative)
--- NOTE | 2024-05-31 09:58 | CM ---
fax- [phone] for [facility]. Cm updated referral in [facility].
deli clerk to fax d/c paperwork to [facility].
--- NOTE | 2024-05-31 10:16 | W.PN.CARDCBS ---
Addendum entered and electronically signed by Maximiliano Weeks MD 05/31/24 13:01:
I saw and examined the patient.
The LITERACY TEACHER or PA's note was reviewed and I agree with the note.
Comment: General: Well developed, well nourished in NAD.
Stable cardiology status for discharge. Will resume Lasix at 20 mg Sunday, Sunday, Sunday. Will check renal profile in 1 week. Continue to hold lisinopril with renal insufficiency. She has outpatient follow-up scheduled. Amiodarone 200 mg
p.o. twice daily for 2 weeks then 200 mg daily. Has remained in sinus rhythm. Discussed with primary service
Original Note:
Today's Communication / Plan
-
Continue amiodarone 200 mg twice daily for 2 weeks then decrease to 200 mg daily
Check EKG today prior to discharge to reeval QTc in sinus rhythm
Continue p.o. Cardizem
Continue Eliquis
P.o. Lasix 20 mg Sunday with BMP in 1 week
Consider for outpatient sleep study and outpatient stress test
Outpatient cardiac follow-up arranged
For DC today
Impression / Plan
-
PCP: Dr. Morris Gudino
Primary paving crew foreman: Dr. Rissa Walker
Impression:
Admitted with AE COPD and PNA 05/23/24
Newly diagnosed Afib with RVR
spontaneously converted to SR on Cardizem gtt 05/23/24
recurrent Afib with RVR that spontaneously converted again on Cardizem gtt 05/29/24 early AM
New start to chronic Eliquis OAC
Acute HFpEF, proBNP 1730
Elevated Troponin, peaked 0.065, nonischemic myocardial injury secondary to pneumonia and respiratory process
Pulmonary nodules
CAD
s/p 3.5/15 mm Xience V expedition drug-eluting stent to the proximal LAD 02/17/14
s/p overlapping 3.5/38 mm x2 Xience V expedition drug-eluting stents to the mid and proximal RCA 02/17/14
stable CAD with patent LAD and RCA stents by cath 07/05/20
patent LAD and RCA stents, nonobstructive distal left main lesion by cath 06/27/21
stable LM lesions with negative iFR assessment of LM/LAD and LM/Circ by cath 04/20/23Mild to moderate peak/mean 33/16 mmHg and LISA 1.3 cm sq by echo 05/27/24
CKD 3
Hyperlipidemia
Hypertension
Known meningioma
Anemia
Echocardiogram 12/26/22: Ejection fraction 55 to 60% with mild septal hypertrophy. Trace MR. Mild to moderate aortic valve stenosis with peak/mean gradient 32/17 mmHg. Aortic valve area 1.3 cm�. Trace AI. Mild TR with PA pressure 40 mmHg.
Echo 05/27/24: EF 60 to 65%, normal RV size and function, trace MR, mild to moderate peak/mean 33/16 mmHg with LISA 1.3 cm SQ, mild aortic regurgitation, mild TR with PAP 30 to 35 mmHg
Plan:
-She is feeling much improved. Plan for discharge today.
-New A-fib on admission and spontaneously converted on IV Cardizem gtt., however then recurred. She was started on amiodarone. maintaining SR. Plan to continue amiodarone 200 mg twice daily for 2 weeks then decrease to 200 mg daily. She is
chronically on trazodone. Repeat EKG today to reassess QTc in sinus rhythm
-Continue outpatient Cardizem, no beta-livier due to wheezing/COPD.
-continue Eliquis 5 mg twice daily
-Noted to have several episodes of PAF during sleep. Consider for outpatient sleep study
-She was diuresed this admission. Not on diuretic prior. Plan for p.o. Lasix 20 mg Sunday. Will need BMP in 1 week upon discharge. Creatinine today 1.8. Baseline 1.3-1.5 by review of prior records
-EF preserved by echo this admission
-Lisinopril stopped due to CONCHITA. Jace added this admission. Holding on SGLT2 inhibitor at present as with CONCHITA, however unclear if good candidate.
-Troponin peaked at 0.065 suspected nonischemic myocardial injury. Consider for outpatient stress test,
-Plan for discharge to home with VNA today
-Outpatient cardiac follow-up arranged
She comes in with multi lobar pneumonia, wheezing and COPD/reactive airways disease exacerbation for which she is seeing hospitalist service and pulmonary is consulted. She follows as an outpatient with pulmonary for lung nodules for which she is
having upcoming PET scan by report. Now during hospital stay had rapid atrial fibrillation heart rates 170s up to 190s which is a new rhythm for this patient. Chest discomfort with this. Given that she was significantly ill with rapid atrial
fibrillation and has pneumonia she would likely benefit from transfer to higher level of care such as IMU. Defer to primary service.
Progress Note - Rn Telemetry
Subjective
Date of Service: May 31, 2024
Feeling better. Eager for discharge
Objective
Labs:
05/31/24 04:16
05/31/24 04:16
Labs
Hgb 10.6 g/dL (12.0-16.0) L 05/31/24 04:16
Hct 32.2 % (37.0-47.0) L 05/31/24 04:16
Plt Count 182 10^3/uL (130-400) 05/31/24 04:16
Sodium 137 mmol/L (135-145) 05/31/24 04:16
Potassium 5.1 mmol/L (3.5-5.1) 05/31/24 04:16
BUN 97 mg/dl (7-17) H 05/31/24 04:16
Creatinine 1.8 mg/dL (0.6-1.0) H 05/31/24 04:16
Glucose 150 mg/dl (70-99) H 05/31/24 04:16
Troponins
05/29/24
14:08
Troponin I 0.024
Vital Signs and I&O:
Vital Signs
Temp Pulse Resp BP Pulse Ox
98.1 F 76 18 159/70 96
05/31/24 08:06 05/31/24 08:06 05/31/24 08:06 05/31/24 08:06 05/31/24 08:06
Vital Signs
Temp Pulse Resp BP Pulse Ox
98.1 F 76 18 159/70 96
05/31/24 08:06 05/31/24 08:06 05/31/24 08:06 05/31/24 08:06 05/31/24 08:06
Intake & Output
05/29/24 05/30/24 05/31/24 06/01/24
07:59 07:59 07:59 07:59
Intake Total 1170 / 1170 720 / 720 1140 / 1140
Balance 1170 / 1170 720 / 720 1140 / 1140
Physical Exam
Physical Exam
GEN: No distress, awake, alert, oriented x3. Obese, EOMI
HEENT: supple, anicteric, mmm
LUNGS: Scattered rhonchi, no wheezes
CV: Reg, S1/S2, 1/6 syst LSB
ABD: soft, BS+, NT/ND
EXT: No cyanosis, clubbing. Trace edema of bilateral lower extremity
NEURO: Gross non-focal
SKIN: Warm, pink, dry. No rash
--- NOTE | 2024-05-31 11:12 | W.DCSUMMARY ---
Discharge Summary
Discharge Data
Date of Admission: 05/23/24
Date of Discharge: 05/31/24
-
Pending Results: No
Hospital Course
Principal Diagnosis:
COPD exacerbation
New onset atrial fibrillation
Acute on chronic heart failure with preserved ejection fraction
Chronic Diagnoses:�
Essential hypertension, Cardura added this admission for better BP control
History of bronchiectasis
History of pulmonary nodules
Coronary artery disease status post stents x 3
Chronic kidney disease stage III
Hypothyroidism, on levothyroxine
GERD
Depression on duloxetine
Insomnia on trazodone
Gout
Former smoker
Consultations:�
Cardiology
Pulmonary
Procedures:�
None
Clinical course:�
This is a 79-year-old female, with past medical history as stated above, who presented with cough, shortness of breath and wheezing.
Problem 1:
COPD exacerbation with reported multilobular pneumonia on outpatient imaging.
Her COVID and MRSA screen were negative.
She received IV Decadron initially for her COPD, and this was later changed to IV methylprednisolone.
She was discharged with oral prednisone taper (50 mg daily, to decrease 10 mg every 5 days until off).
She completed antibiotic course with Ceftriaxone/azithromycin x5 days during hospital stay.
Problem 2:
New onset atrial fibrillation.
She was treated with Cardizem drip initially, and this was changed to oral Cardizem at 180 mg daily, which she can continue going forward.
Eliquis 5 mg BID was added.
Her Echo was unrevealing: showed EF 60-65%. Normal diastolic function. Mild to moderate aortic stenosis.
Due to persistent A fib, Amiodarone was started. She can continue Amiodarone 200 mg twice daily for 2 weeks then once a day thereafter.
She has been informed to follow-up with her PCP/pulmonary outpatient for sleep study (for sleep apnea eval, which could be the cause of her A-fib).
Problem 3:
Acute on Chronic HFpEF.
She received IV Lasix while in the hospital, and was discharged with oral Lasix 20 mg Sunday. She can continue such dose until further directed by her dealer compliance representative.
Due to her CONCHITA on CKD stage III and hyperkalemia, her prior to admission lisinopril was discontinued this admission.
As for the rest of her medical problems, they were stable during her hospital stay.
Discharge Plan
-
Patient Disposition: Home with Home Care
Discharge Diagnosis/Procedures: COPD exacerbation with community acquired pneumonia;
Atrial fibrillation
Condition: Fair
Diet: As tolerated, Low Fat, Low Cholesterol, 2 Gram Sodium and Restrict fluids to 64 oz
Activity: As tolerated
Driving Restrictions: As prior to admission
Blood Work: BMP in 1 week, result to your PCP
Activity Restrictions/Additional Instructions:
follow with Pulm/PCP for outpatient sleep apnea eval (sleep study)
Referrals:
[facility] Visiting Nurse [Outside]
Morris Gudino MD [Family Provider] -
Antoinette Rea NP [Specified Professional Personl] - in one to two weeks
Rissa Walker MD [Active] - 07/02/24 11:20 am (You have cardiology follow-up with Dr. Rissa Walker on July 02 at 11:20 AM at the [facility] in [place]. If you are unable to make this appointment please call
[phone] to reschedule)
Additional Discharge Medication Instructions: Continue prednisone with taper: decrease 10mg every 5th day until off.
You were started with Diltiazem CD 180 mg daily and Amiodarone for your atrial fibrillation.
Take Amiodarone 200 mg twice daily for 2 weeks then once a day thereafter.
You were started with Eliquis 5 mg twice daily.
Cardura was added for better BP control.
Stop lisinopril (due to chronic kidney disease and hyperkalemia) and Advil (due to chronic kidney injury)
Continue lasix 20 mg MWF until further directed by your dealer compliance representative.
Prescriptions:
New
diltiazem HCl 180 mg Capsule,Extended Release 24hr
180 mg PO DAILY Qty: 30 0RF
doxazosin 1 mg Tablet
1 mg PO HS Qty: 30 0RF
Eliquis 5 mg Tablet
5 mg PO BID Qty: 60 0RF
amiodarone 200 mg Tablet
200 mg PO BID Qty: 60 0RF
prednisone 10 mg Tablet
See Rx Instructions .ROUTE .COMPLEX Qty: 100 0RF
Rx Instructions:
Take By Mouth:
50 mg daily x5 days, 40 mg daily x5 days,
30 mg daily x5 days, 20 mg daily x5 days,
10 mg daily x5 days
furosemide [Lasix] 20 mg tablet
20 mg PO MOWEFR Qty: 30 0RF
Continued
atorvastatin 80 MG tablet
80 mg PO HS
loperamide [Imodium A-D] 2 MG capsule
2 - 4 mg PO Q4HPRN PRN (Reason: diarrhea)
ezetimibe 10 MG tablet
10 mg PO HS
acetaminophen [Tylenol Extra Strength] 500 MG tablet
1,000 mg PO BID
melatonin 10 MG tablet
20 mg PO HS
lavinia (Zingiber officinalis) 500 MG capsule
550 mg PO HS
nitroglycerin 0.2 mg/hr patch 24 hour
0.2 mg transdermal DAILY
Rx Instructions:
12 hours on, 12 hours off
cyanocobalamin (vitamin B-12) [Vitamin B-12] 1,000 mcg Tablet
1,000 mcg PO DAILY
omeprazole 40 mg capsule,delayed release(DR/EC)
40 mg PO HS
guaifenesin [Mucus Relief ER] 600 MG tablet extended release 12hr
600 mg PO HS
levothyroxine 75 mcg Tablet
75 mcg PO DAILY
simethicone [Gas-X Extra Strength] 125 mg Capsule
125 mg PO HS
icosapent ethyl [Vascepa] 1 gram Capsule
2 g PO BID
Trelegy Ellipta 200-62.5-25 mcg Blister With Device
1 inh INHALATION R DAILY
albuterol sulfate 90 mcg/actuation HFA aerosol inhaler
2 puff INHALATION R Q6HPRN PRN (Reason: sob/wheezing)
trazodone 100 mg Tablet
200 mg PO HS
cholecalciferol (vitamin D3) 10 mcg (400 unit) Tablet
10 mcg PO DAILY
ipratropium bromide 21 mcg (0.03 %) spray,non-aerosol
2 spray INTRANASAL BID
duloxetine 20 mg capsule,delayed release(DR/EC)
40 mg PO HS
Robitussin liquid
1 dose PO HS
Discontinued
aspirin 81 MG tablet,delayed release (DR/EC)
81 mg PO HS
lisinopril 10 mg tablet
10 mg PO DAILY
prednisone 10 mg tablet
10 mg PO .TAPER
Rx Instructions:
TAKE 4 TABS BY MOUTH FOR 3 DAYS,3 TABS FOR 3 DAYS,2 TABS FOR 3 DAYS,1 TAB FOR 3 DAYS
ibuprofen [Advil] 200 mg Tablet
400 mg PO BID
Discharge Orders:
Discharge Patient (As Directed); Ordered 05/31/24
Ordered By: Alicia Hall
Discharge Date and Time
Print Language: KAZAKH
[2024-05-31 12:00] VITALS: BP 130/89
== END 2024-05-31 12:58 | disposition home health service (06) | DRG 190 ==
LOC: 4 EAST ACU 17:01
PROVIDERS: Emergency Medicine; Hospitalist; Internal Medicine Critical Care Medicine; Physician Assistant; Physician Assistant Medical; ADMITTING PHYSICIAN Hospitalist; ATTENDING PHYSICIAN Internal Medicine; CONSULT PHYSICIAN Internal Medicine Cardiovascular Disease; CONSULT PHYSICIAN Internal Medicine Critical Care Medicine; EMERGENCY PHYSICIAN Emergency Medicine; FAMILY PHYSICIAN Family Medicine
DX: J44.1 Chronic obstructive pulmonary disease with (acute) exacerbation (principal); I50.33 Acute on chronic diastolic (congestive) heart failure; J18.9 Pneumonia, unspecified organism; I13.0 Hypertensive heart and chronic kidney disease with heart failure and stage 1 through stage 4 chronic kidney disease, or unspecified chronic kidney disease; J47.0 Bronchiectasis with acute lower respiratory infection; N17.9 Acute kidney failure, unspecified; I5A Non-ischemic myocardial injury (non-traumatic); Z68.42 Body mass index [BMI] 45.0-49.9, adult; J44.0 Chronic obstructive pulmonary disease with (acute) lower respiratory infection; I48.91 Unspecified atrial fibrillation; I25.10 Atherosclerotic heart disease of native coronary artery without angina pectoris; E78.00 Pure hypercholesterolemia, unspecified; N18.30 Chronic kidney disease, stage 3 unspecified; K21.9 Gastro-esophageal reflux disease without esophagitis; M10.9 Gout, unspecified; I08.0 Rheumatic disorders of both mitral and aortic valves; G47.00 Insomnia, unspecified; E87.5 Hyperkalemia; E03.9 Hypothyroidism, unspecified; D63.1 Anemia in chronic kidney disease; D32.9 Benign neoplasm of meninges, unspecified; E66.8 Other obesity; F32.A Depression, unspecified; Z95.5 Presence of coronary angioplasty implant and graft; Z87.891 Personal history of nicotine dependence; Z79.82 Long term (current) use of aspirin; Z79.890 Hormone replacement therapy; Z79.899 Other long term (current) drug therapy; Z82.5 Family history of asthma and other chronic lower respiratory diseases; Z88.1 Allergy status to other antibiotic agents; Z11.52 Encounter for screening for COVID-19
CPT/HCPCS: 71045; 71046; 71250; 80048; 80053; 80061; 82805; 83735; 83880; 84100; 84484; 85025; 85027; 85379; 87070; 87449; 87502; 87811; 87899; 93005; 93306; 94640; 94669; 96374; 96375; 97116; 97162; 97166; 97530; 97535; 99285

== ENCOUNTER 2024-06-06 18:00 | Inpatient (IN) | payer MEDICARE, OTHER, SELFPAY ==
[2024-06-06 13:10] VITALS: BP 145/62
[2024-06-06 14:21] VITALS: BMI 49.4
[2024-06-06 14:52] LABS: % Basophils 0.2 % (0-2); % Eosinophils 0.1 % (0-6); % Immature Granulocytes 4.2 % (0-0.5); % Lymphocytes 3.6 % (20.5-51.1); % Monocytes 2.5 % (1.7-9.3); % Neutrophils 89.4 % (42.2-75.2); Absolute Immature Granulocytes 0.7 10^3/uL (0-0.05); Absolute Lymphocytes 0.6 10^3/uL (1.2-3.4); Absolute Monocytes 0.4 10^3/uL (0.1-0.6); Absolute Neutrophils 15.6 10^3/uL (1.4-6.5); Hematocrit 34.3 % (37.0-47.0); Hemoglobin 11.5 g/dL (12.0-16.0); Mean Corp Hgb Conc. 33.5 g/dL (33.0-37.0); Mean Corpuscular Hgb 30.7 pg (27.0-31.0); Mean Corpuscular Volume 91.7 fL (81.0-99.0); Mean Platelet Volume 10.1 fL (7.4-10.4); Nucleated Red Blood Cells % 0 %; Platelet Count 224 10^3/uL (130-400); Red Blood Cell Count 3.74 10^6/uL (4.20-5.40); White Blood Cell Count 17.4 10^3/uL (4.8-10.8)
[2024-06-06 15:02] LABS: ALT (SGPT) 32 U/L (0-35); AST (SGOT) 20 U/L (14-36); Albumin 3.6 g/dl (3.5-5.0); Alkaline Phosphatase 85 U/L (38-126); Blood Urea Nitrogen 71 mg/dl (7-17); Calcium 9.3 mg/dl (8.4-10.2); Carbon Dioxide 20 mmol/L (22-30); Chloride 100 mmol/L (98-107); Estimated Creatinine Clearance 33 ml/min; Glucose 177 mg/dl (70-99); Potassium 5.1 mmol/L (3.5-5.1); Sodium 133 mmol/L (135-145); Total Bilirubin 0.7 mg/dl (0.2-1.3); Total Protein 5.4 g/dl (6.3-8.2); eGFR 28.66
[2024-06-06 15:10] LABS: COVID-19 Antigen Negative (Negative)
[2024-06-06 15:34] LABS: TSH Reflex To Free T4 0.12 uIU/ml (0.47-4.68)
[2024-06-06 15:44] VITALS: BP 124/58
[2024-06-06 15:58] VITALS: BP 124/58; PULSE 72; O2SAT 97
--- NOTE | 2024-06-06 15:58 | ED.GENMED ---
History of Present Illness
General
Chief Complaint: Weakness
Source: patient and family
Exam Limitations: none
Time Seen by Provider: 06/06/24 13:47
Nursing documentation reviewed up to this point in time: agreed with
History of Present Illness
History of Present Illness:
79-year-old female with a past medical history of hypertension, hyperlipidemia, CHF, COPD, IBS, hypothyroidism who presents to the emergency room for evaluation of generalized weakness. Patient was notably just admitted to this hospital 05/23/2024
until 05/31/2024 for COPD exacerbation with pneumonia, new onset A-fib and acute CHF exacerbation. Since she has been home patient says that she has had significant generalized weakness and it has progressed to the point that she cannot even get
herself up out of a chair or out of bed without assistance from multiple people. She currently lives in a basement apartment with her daughter and has a stair chair but they could not even get her up and into the stair chair without assistance from
3 people today and so she was brought to the ER. Yesterday she actually had a minor mechanical fall due to her degree of weakness�fell onto her knees, fortunately no serious injuries or head trauma. She was too weak to get up on her own and
required assistance from her family. In addition to being very weak, she has had some mild shortness of breath. She has continued edema in her legs. She says cough has improved. She has not had a fever or chills. She has not had any GI issues.
She denies any urinary symptoms.
Past History
Past History
ED Past Medical History: Asthma, CAD, COPD, HTN and Hypercholesterolemia
ED Past Surgical History: Cardiac (Stent X3)
Social History
Tobacco: Former smoker
Alcohol: None
Drug: None
Personal:
Living: with family
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
Family History
Family History: Other (COPD, breast cancer)
Review of Systems
Review of Systems
All Other Systems: ROS reviewed and negative except as documented in HPI and ROS
Constitutional: Reports fatigue; Denies fever or chills
Respiratory: Reports trouble breathing; Denies cough
Cardiac: Denies chest pain
ABD/GI: Denies abdominal pain, nausea or vomiting
: Denies dysuria, frequency or flank pain
Musculoskeletal: Reports edema; Denies joint pain
Neurological: Reports weakness (Generalized); Denies dizzy or headache
Phy Exam
Physical Exam
Physical Exam:
General: Awake, alert, oriented x3; no acute distress
Head: Normocephalic, atraumatic
Eyes: Conjunctiva normal, pupils equal round and reactive to light bilaterally
Throat: Airway intact, handling secretions
Neck: Trachea midline, supple without meningismus
Lungs: Clear to auscultation bilaterally, no wheezing, rales, rhonchi; occasional cough
Heart: Regular rate and rhythm, systolic murmur
Abd: Soft, non distended, mild suprapubic tenderness
Neuro: Cranial nerves grossly intact, speech fluid, no focal motor or sensory deficit
Skin: Chronic venous stasis changes in the legs
Extremities: Marked bilateral lower extremity edema; distal extremities warm and well-perfused
Scores
Heart Failure Risk
Heart Failure Risk Score: Not Applicable
Heart Score for Chest Pain Patients
STEMI patient?: Not applicable
Withdrawal Assessment of Alcohol
Withdrawal Assessment Completed?: Not applicable
Course
Orders/Labs/Results
Orders:
Orders
06/06/24 13:48
Electrocardiogram (*1) Urgent
Reason for Study: Fatigue / Weakness
EKG- Treatment ONCE
06/06/24 13:49
CR Chest - 2 Views Urgent
Comment:
Reason For Exam: weakness, recent pneumonia
06/06/24 14:41
COVID-19 Antigen Urgent
Source: Nasal Swab
Complete Blood Count/With Diff Urgent
Comprehensive Metabolic Panel Urgent
Free T4 Urgent
NT-proBNP Urgent
Comment: ADD ON
TSH Reflex To Free T4 Urgent
Influenza A+B Rapid Molecular Urgent
LYDIA Source: Nasal Swab
Specimen Description:
06/06/24 15:06
Case Management Consult ONCE
Case Management Consult: Detention Placement
Straight cath- Treatment ONCE
06/06/24 15:24
Pt Eval And Treat Urgent
Activity Level: With Assistance
06/06/24 16:02
Add On- LAB Urgent
Tests Added?: pro-BNP
06/06/24 16:05
Urinalysis Reflex To Culture Urgent
Date Specimen was Collected: 06/06/24
Time Specimen was Collected: 16:04
Urine Microscopic Reflex Cult Urgent
Abnormal Lab Results
06/06/24 06/06/24
14:41 16:05
WBC 17.4 H 10^3/uL
(4.8-10.8)
RBC 3.74 L 10^6/uL
(4.20-5.40)
Hgb 11.5 L g/dL
(12.0-16.0)
Hct 34.3 L %
(37.0-47.0)
RDW 15.0 H %
(11.5-14.5)
Abs Immat Gran (auto) 0.7 H 10^3/uL
(0-0.05)
Absolute Neuts (auto) 15.6 H 10^3/uL
(1.4-6.5)
Absolute Lymphs (auto) 0.6 L 10^3/uL
(1.2-3.4)
Immature Gran % 4.2 H %
(0-0.5)
Neutrophils % 89.4 H %
(42.2-75.2)
Lymphocytes % 3.6 L %
(20.5-51.1)
Sodium 133 L mmol/L
(135-145)
Carbon Dioxide 20 L mmol/L
(22-30)
BUN 71 H mg/dl
(7-17)
Creatinine 1.8 H mg/dL
(0.6-1.0)
Glucose 177 H mg/dl
(70-99)
Total Protein 5.4 L g/dl
(6.3-8.2)
TSH (Reflex) 0.12 L uIU/ml
(0.47-4.68)
Urine Bilirubin 1+ A
(Negative)
Leukocyte Esterase Rfl Trace A
(Negative)
06/06/24 14:41
06/06/24 14:41
Vital Signs
Initial and Last Documented VS:
Initial Vital Signs
Temp Pulse Resp BP Pulse Ox
36.6 C 78 22 145/62 96
06/06/24 13:10 06/06/24 13:10 06/06/24 13:10 06/06/24 13:10 06/06/24 13:10
Last Documented Vital Signs
Temp Pulse Resp BP Pulse Ox
36.6 C 70 21 124/58 98
06/06/24 13:10 06/06/24 16:30 06/06/24 16:30 06/06/24 15:44 06/06/24 15:45
MDM/Problems Addressed
Differential Diagnosis Includes:
Persistent pneumonia, UTI, anemia, CHF, deconditioning
MDM/Problems Addressed:
79-year-old female who was recently hospitalized as described above presents with persistent generalized weakness worsening x 1 week since discharge. Had minor fall yesterday no serious injuries. Vitals and exam as above. Suspect that this may be
physical deconditioning after prolonged hospitalization however must rule out infection or secondary cause. Check labs including a CBC and a CMP, thyroid studies. Check urinalysis and chest x-ray. Swab for COVID. Check an EKG, will send a proBNP
as she does have continued lower extremity edema. Discussed with case management and PT to evaluate�if no secondary cause for weakness identified and symptoms thought to be from deconditioning would likely need placement in rehab/fpc.
Labs reviewed: CBC shows a leukocytosis to 17.4�she is notably on a steroid taper likely contributing to this. She has mild anemia which is stable. She does have a creatinine of 1.8�this is stable. TSH low but normal T4. Chest x-ray shows no
pneumonia or clear CHF. COVID swab negative. We are awaiting results of urinalysis.
Case management performed bedside assessment�unfortunately due to multiple issues patient will be difficult to place out of the emergency room, likely will need admission to the hospital pending placement for the next few days but they will attempt
at placement of the ER first.
Urinalysis negative for infection. Vitals have been stable here including normal pulse ox, normal respiratory rate; no pulmonary edema on chest x-ray�not clearly in acute CHF despite her continued edema it sounds that this is going chronic issue
only slightly worse recently. My suspicion is that her weakness is due to physical deconditioning after her recent hospitalization. Fortunately case management was able to arrange for a bed in fpc facility but will not be available
until tomorrow. Will admit for observation pending placement. Discussed with hospitalist.
Chronic conditions affecting care:
Obesity, CHF, COPD
*Radiology
Radiology exam reviewed: preliminary read by ED provider and radiology read reviewed
*Pulse Oximetry
Patient hypoxic: no
*EKG
Interpreted by ED Provider?: Yes
Heart Rate: 69
Rate: normal
Rhythm: sinus
[place]: normal axis
Interval: normal interval
QRS Pattern: normal QRS
Ischemia: no ischemia
*Critical Care Note
Total Time (30-74mins, 75-104mins- exclusive of procedures): Not Applicable
Data Reviewed
Review of Other/Old Records Reveals: Labs, Records, Radiology Studies and Discharge Summary
Source: patient, records and family
Patient Management
Social determinants of health affecting care: Living situation
Discussion with other providers: Hospitalist (Discussed with hospitalist) and Other (Discussed with case management)
Escalation/DeEscalation of care consider admission/obs:
Admission indicated
ED Attending Note
-
Portions of this chart may have been created with voice recognition software.� Occasional wrong word or��sound alike� substitutions may have occurred due to the inherent limitations of voice recognition software.
Discharge Plan
Departure
Patient Disposition: Admit
Date of Disposition: 06/06/24
Time of Disposition: 16:40
Admit to doctor: Chas
Presentation/result/management discussed w/ accepting MD/DO: Hospitalist
Patient with high blood pressure during this ER visit?: No
Discharge Problem:
Physical deconditioning, Generalized weakness
Instructions: Generalized Weakness (DC)
Prescriptions:
No Action
atorvastatin 80 MG tablet
80 mg PO HS
loperamide [Imodium A-D] 2 MG capsule
2 - 4 mg PO Q4HPRN PRN (Reason: diarrhea)
ezetimibe 10 MG tablet
10 mg PO HS
acetaminophen [Tylenol Extra Strength] 500 MG tablet
1,000 mg PO BID
melatonin 10 MG tablet
20 mg PO HS
lavinia (Zingiber officinalis) 500 MG capsule
550 mg PO HS
nitroglycerin 0.2 mg/hr patch 24 hour
0.2 mg transdermal DAILY
Rx Instructions:
12 hours on, 12 hours off
cyanocobalamin (vitamin B-12) [Vitamin B-12] 1,000 mcg Tablet
1,000 mcg PO DAILY
omeprazole 40 mg capsule,delayed release(DR/EC)
40 mg PO HS
guaifenesin [Mucus Relief ER] 600 MG tablet extended release 12hr
600 mg PO HS
levothyroxine 75 mcg Tablet
75 mcg PO DAILY
simethicone [Gas-X Extra Strength] 125 mg Capsule
125 mg PO HS
icosapent ethyl [Vascepa] 1 gram Capsule
2 g PO BID
Trelegy Ellipta 200-62.5-25 mcg Blister With Device
1 inh INHALATION R DAILY
albuterol sulfate 90 mcg/actuation HFA aerosol inhaler
2 puff INHALATION R Q6HPRN PRN (Reason: sob/wheezing)
trazodone 100 mg Tablet
200 mg PO HS
cholecalciferol (vitamin D3) 10 mcg (400 unit) Tablet
10 mcg PO DAILY
ipratropium bromide 21 mcg (0.03 %) spray,non-aerosol
2 spray INTRANASAL BID
duloxetine 20 mg capsule,delayed release(DR/EC)
40 mg PO HS
Robitussin liquid
1 dose PO HS
diltiazem HCl 180 mg Capsule,Extended Release 24hr
180 mg PO DAILY Qty: 30 0RF
doxazosin 1 mg Tablet
1 mg PO HS Qty: 30 0RF
Eliquis 5 mg Tablet
5 mg PO BID Qty: 60 0RF
amiodarone 200 mg Tablet
200 mg PO BID Qty: 60 0RF
prednisone 10 mg Tablet
See Rx Instructions .ROUTE .COMPLEX Qty: 100 0RF
Rx Instructions:
Take By Mouth:
50 mg daily x5 days, 40 mg daily x5 days,
30 mg daily x5 days, 20 mg daily x5 days,
10 mg daily x5 days
furosemide [Lasix] 20 mg tablet
20 mg PO MOWEFR Qty: 30 0RF
Referrals:
Morris Gudino MD [Family Provider] - Follow up in 5-7 days
Activity Restrictions/Additional Instructions:
Thank you for visiting the Emergency Department at [facility].
1. Please schedule a follow up appointment as directed. Call first thing tomorrow morning to make an appointment.
2. If indicated, please take your medications as instructed and indicated on discharge paperwork.
3. If any of your symptoms do not improve, or persist, or become more severe within 6-12 hours, please return to the emergency department for further care.
4. Please return to the emergency department if you develop a headache, neck pain/stiffness, fever greater than 100.4F, chest pain, shortness of breath, persistent nausea, vomiting, slurred speech, difficulty walking, numbness/tingling, weakness,
signs of infection or any other symptoms that are worrisome to you.
Please call [phone] if you have any questions.
Interventions
Interventions:
*Risk Screen - Suicide Last Done: 06/06/24 13:11
*General Assessment Last Done: 06/06/24 13:11
*Neglect/Abuse Screening Last Done: 06/06/24 13:11
ED- Fall Risk Assessment Last Done: 06/06/24 14:52
*ED COVID-19 Vaccine History Last Done: 06/06/24 14:48
ED- Cardiac Assessment Last Done: 06/06/24 16:37
ED- Neurological Assessment Last Done: 06/06/24 14:52
ED- Pulmonary Assessment Last Done: 06/06/24 14:52
Discharge Date and Time
Print Language: GREEK
--- NOTE | 2024-06-06 16:06 | CM ---
Addendum entered by Alexandria Doty RN 06/06/24 17:10:
[facility] has accepted patient for tomorrow discharge. Alexandria from [facility] has provided this CM with original script for patient's AffloVest. CM forwarded script to [facility] via [facility]. Plan for patient's family to bring vest to facility.
[facility] stated they will have a STR bed available for patient tomorrow. [facility] is requesting a after 3pm discharge.
Patient's family is happy with plan. Patient is looking forward to rehab and 'getting better.'
Original Note:
CM met with patient and daughter in room. Patient and daughter are agreeable to SNF placement. CM advised that finding a facility that will accept her Pulmonary Toileting [employer] Velocity Vest may be difficult. Family and patient understood. They
confirmed that patient has a vest from [facility].
CM sent referrals to [facility], [facility], [facility], [facility]. LESLY spoke with [facility] and she is able to accept patient with vest as long as patient provides vest.
[2024-06-06 16:08] LABS: Free T4 1.35 ng/dl (0.78-2.19)
[2024-06-06 16:26] LABS: Urine Albumin Trace (Neg - Trace); Urine Bilirubin 1+ (Negative); Urine Character Clear (Clear); Urine Color Yellow; Urine Glucose Negative (Negative); Urine Ketone Negative (Negative); Urine Leukocyte Trace (Negative); Urine Nitrite Negative (Negative); Urine Occult Blood Negative (Negative); Urine Urobilinogen Negative (Neg - 1+)
[2024-06-06 16:36] LABS: Urine Red Blood Cell 0-2 /HPF (0-2); Urine Squamous Cell >30 /LPF (Few); Urine White Cell 0-2 /HPF (0-5)
--- NOTE | 2024-06-06 17:36 | HPS.HSE ---
Family Physician
-
Family Physician: Morris Gudino
Chief Complaint
-
Weakness
History of Present Illness
Patient is a 79 yo female with hx of COPD/Bronchiectasis, CKD, Afib, and HFpEF presents for weakness. She was discharged 1 week ago after being hospitalized with COPD exacerbation, HF exacerbation, and new onset Afib. She was discharged with a
prednisone taper, oral Lasix 3x/week, Cardizem, Eliquis and amiodarone. Since being discharged her weakness, which she describes as a 'stone'-like heaviness in her legs, has progressively worsened to the point where today she could not get out of
bed or out of a chair without assistance from 3 people. Additionally she reports some confusion and lightheadedness since being discharged last week. Her weight earlier in the week was initially up 5 lbs, so her PCP had her take 2 doses of her Lasix
on Sunday and then 1 dose daily from then on. Her weight has now been decreasing about 1 lb each day, however her leg swelling has not improved. She denies headache, vision changes, slurred speech, worsening cough or SOB, chest pain, abdominal
pain, or n/v/d.
Medical History
Past Medical History
Past Medical History: Reports Other
Additional Past Medical History:
COPD
Bronchiectasis
Coronary Artery Disease s/p Stent
Chronic HFpEF
Paroxysmal Atrial Fibrillation
Essential Hypertension
Hyperlipidemia
CKD Stage III
Hypothyroidism
Depression
Insomnia
GERD
Gout
Past Surgical History: Reports Other
Additional Past Surgical History:
Lumbar Rhizotomy
Right Knee Arthroscopy
Urethral Dilation
Left Lumpectomy
Social History
Tobacco: Former Smoker
Alcohol: None
Living: With Family
Family History
Family History: Other (Father: CAD, HTN Mother: COPD, HTN, Breast Cancer)
Allergies / Home Medications
Allergies reflects when Allergies were last updated in [employer].
Home Medications with original date entered in [employer]
Allergy/Medication List:
Allergies
Allergy/AdvReac Type Severity Reaction Status Date / Time
levofloxacin [From Levaquin] Allergy Unknown Verified 05/28/24 18:06
metronidazole [From Flagyl] Allergy JOINT Verified 05/28/24 18:06
PAINS/H=PYLORI
anesthetic Allergy patient Uncoded 12/21/22 16:17
unsure
which
anesthesia
med
Home Medications
atorvastatin 80 mg tablet 80 mg PO HS High cholesterol 10/03/16
ezetimibe 10 mg tablet 10 mg PO HS High cholesterol 07/05/20
loperamide 2 mg capsule (Imodium A-D) 2 - 4 mg PO Q4HPRN PRN diarrhea 07/05/20
acetaminophen 500 mg tablet (Tylenol Extra Strength) 1,000 mg PO BID Pain 06/27/21
melatonin 10 mg tablet 20 mg PO HS Sleep 06/27/21
lavinia (Zingiber officinalis) 500 mg capsule 550 mg PO HS Supplement 01/23/22
cyanocobalamin (vitamin B-12) 1,000 mcg tablet (Vitamin B-12) 1,000 mcg PO DAILY Supplement 12/21/22
nitroglycerin 0.2 mg/hr transdermal 24 hour patch 0.2 mg transdermal DAILY chest pain 12/21/22
omeprazole 40 mg capsule,delayed release 40 mg PO HS Gastrointestinal issue 12/21/22
fluticasone fur. 200 mcg-umeclid 62.5 mcg-vilant 25 mcg inhalat.powder (Trelegy Ellipta) 1 inh inhalation R DAILY Lung/Breathing Issues 04/20/23
icosapent ethyl 1 gram capsule (Vascepa) 2 g PO BID High Cholesterol 04/20/23
levothyroxine 75 mcg tablet 75 mcg PO DAILY Thyroid 04/20/23
simethicone 125 mg capsule (Gas-X Extra Strength) 125 mg PO HSPRN PRN gas 04/20/23
Robitussin 1 dose PO HS Cough 05/23/24
amiodarone 200 mg tablet 200 mg PO BID #60 tabs 05/31/24
apixaban 5 mg tablet (Eliquis) 5 mg PO BID #60 tabs 05/31/24
diltiazem HCl 180 mg capsule,extended release 24 hr 180 mg PO DAILY #30 caps 05/31/24
doxazosin 1 mg tablet 1 mg PO HS #30 tabs 05/31/24
prednisone 10 mg tablet See Rx Instructions .Route .COMPLEX #100 tabs 05/31/24
cholecalciferol (vitamin D3) 1,250 mcg (50,000 unit) capsule 1,250 mcg PO FR 06/06/24
colchicine 0.6 mg tablet 0.6 mg PO DAILYPRN PRN gout 06/06/24
duloxetine 60 mg capsule,delayed release 60 mg PO HS 06/06/24
furosemide 20 mg tablet (Lasix) 20 mg PO DAILY 06/06/24
trazodone 150 mg tablet 150 mg PO HS 06/06/24
Review of Systems
-
A 12 point ROS was completed and negative except as noted: Yes
Constitutional: Denies Fever or Chills
Respiratory: Reports Other (Dyspnea on exertion); Denies Cough
Cardiac: Reports Palpitations; Denies Chest Pain
Abdomen/GI: Denies Abdominal Pain, Nausea, Vomiting or Diarrhea
Musculoskeletal: Reports Edema
Physical Exam
Vital Signs
Vital Signs
Temp Pulse Resp BP Pulse Ox
97.8 F 72 13 124/58 98
06/06/24 13:10 06/06/24 17:00 06/06/24 17:00 06/06/24 15:44 06/06/24 15:45
Physical Exam
General: Comfortable and Conversant
HEENT: Anicteric and Moist mucous membranes
Respiratory: Clear and Non Labored Respirations
Cardiac: S1/S2 and Regular Rhythm
GI: Soft and Non Tender
Musculoskeletal: No Clubbing, No Cyanosis and Other (+3 edema bilateral lower extremities)
Skin: Warm and Dry
Neuro: Awake, Alert, Oriented and Nonfocal/grossly intact
Psych: Calm
Laboratory Results
-
06/06/24 14:41
06/06/24 14:41
Laboratory Results
Total Bilirubin 0.7 mg/dl (0.2-1.3) 06/06/24 14:41
AST 20 U/L (14-36) 06/06/24 14:41
ALT 32 U/L (0-35) 06/06/24 14:41
Alkaline Phosphatase 85 U/L (38-126) 06/06/24 14:41
Data Reviewed
-
Lab Data: Labs Reviewed by me
Impression/Plan
-
Hyponatremia, mild - Suspect Decompensated HFpEF
-Possibly related to recent increase in diuretics, however weight is still up compared to recent discharge and patient has noted worsening lower extremity edema
-BNP slightly lower than previous, but remains elevated - Suspect decompensated heart failure
-Give Lasix 40mg IV Now
-Continue Lasix 20mg PO Daily
-Recheck BMP in AM
-Check urine electrolytes
-Monitor Is&Os and Daily Weights
Leukocytosis, no signs/symptoms of infection, possibly related to steroids
-Recheck CBC in AM
Weakness/Ambulatory Dysfunction
-Continue PT/OT
COPD/Bronchiectasis
-Completed prednisone taper as previously prescribed
-Continue Trelegy
Coronary Artery Disease s/p Stent
-Continue nitroglycerin patch
Chronic HFpEF
-Monitor Is&Os and Daily Weights
Paroxysmal Atrial Fibrillation
-Continue Amiodarone and Diltiazem for rate/rhythm control
-Continue Eliquis for anticoagulation
Essential Hypertension
-Continue diltiazem and doxazosin
Hyperlipidemia
-Continue atorvastatin and ezetimibe
-Patient also maintained on Vascepa as outpatient
CKD Stage III
-Creatinine at baseline
Hypothyroidism
-Continue levothyroxine
Depression
-Continue duloxetine
Insomnia
-Continue trazodone
Class III Obesity
-Affects all aspects of care
DVT proph: Eliquis
Code Status: Full Code
[2024-06-06 17:40] LABS: NT-proBNP 1280 pg/ml
--- NOTE | 2024-06-06 17:57 | W.PN.UPDATE ---
Update Note
Progress Note Update
This note serves as an addendum to the H&P by special education aide ROGELIO Bernarda CALLE
HPI
79F Recent admission ( 05/23/24 - 05/31/24) HX COPD, bronchiectasis, New AF, chr HFpEF, CKD3 seenat ER for evaluation of generalized weakness. Unabel to care for herself.
Vital Signs
Temp Pulse Resp BP Pulse Ox
97.8 F 72 13 124/58 98
06/06/24 13:10 06/06/24 17:00 06/06/24 17:00 06/06/24 15:44 06/06/24 15:45
PE
Gen: Obese , NAD
HEENT: anicteric
Neck: supple
Lungs: CTA
Cor: RRR S1 S2
Abdomen: obese
FIRST PRESS OPERATOR: AAO3, NFND
MS: b/l Hayley 2 plus edema
Psych: nl affect
Labs reviewed:
leukocytosis to 17.4� on a steroid taper
mild anemia - stable.
Cr 1.8�this is stable.
TSH low but normal T4.
NEG UA
COVID swab negative. We are awaiting results of urinalysis.
CXR: no pneumonia or clear CHF.
EKG in NSR
ASSESSMENT & PLAN
Deconditioning elderly who live with family
Generalized weakness and debility
Ambulatory dysfunction
- Of note; has Rehab bed tomorrow
- PT/OT
- CRM consult
Elevated proBNP
gained Wt from DC
Mild Hyponatremia due to hemodilution but asymtomatic
Suspect decompensated Chr HFpEF
- IV Lasix 40 x1 and cont PO lasix
- daily Wt
- daily BMP
HX Prx AF on Eliquis and Diltiazem
DVT Px: on Eliquis for AF
Code: Full code
IP TLM
[2024-06-06 18:33] LABS: Osmolality Serum 299 mOsm/kg (275-300)
[2024-06-06] MEDS: LASIX 40 MG IV (18:42)
[2024-06-06 18:49] VITALS: BP 137/53
[2024-06-06 19:26] LABS: Urine Sodium 13 mmol/L (30-90)
[2024-06-06 19:33] LABS: Osmolality Urine 504 mOsm/kg (300-900)
[2024-06-06 20:34] VITALS: BP 143/61; BMI 46.4
[2024-06-06] MEDS: TYLENOL 650 MG PO (21:10)
[2024-06-06] MEDS: ZETIA 10 MG PO (21:10)
[2024-06-06] MEDS: MUCINEX 600 MG PO (21:11)
[2024-06-06] MEDS: PACERONE 200 MG PO (21:11)
[2024-06-06] MEDS: PROTONIX 40 MG PO (21:11)
[2024-06-06] MEDS: DESYREL 150 MG PO (21:12)
[2024-06-06] MEDS: LIPITOR 80 MG PO (21:12)
[2024-06-06] MEDS: MELATONIN 20 MG PO (21:12)
[2024-06-06] MEDS: ELIQUIS 5 MG PO (21:13)
[2024-06-06] MEDS: CYMBALTA DELAYED RELEASE 60 MG PO (21:13)
[2024-06-06] MEDS: CARDURA 1 MG PO (21:13)
[2024-06-06 22:56] VITALS: BP 122/43
[2024-06-07] VITALS (8 sets, daily range): BP systolic 115–137; BP diastolic 33–60; PULSE 67–72; O2SAT 98; BMI 46.4
[2024-06-07 06:19] LABS: Hematocrit 32.4 % (37.0-47.0); Mean Corpuscular Hgb 31.9 pg (27.0-31.0); Mean Corpuscular Volume 93.9 fL (81.0-99.0); Mean Platelet Volume 10.2 fL (7.4-10.4); Platelet Count 199 10^3/uL (130-400); Red Blood Cell Count 3.45 10^6/uL (4.20-5.40); White Blood Cell Count 16.6 10^3/uL (4.8-10.8)
[2024-06-07] MEDS: SYNTHROID 75 MCG PO (06:22)
[2024-06-07 06:39] LABS: Blood Urea Nitrogen 75 mg/dl (7-17); Calcium 9.2 mg/dl (8.4-10.2); Carbon Dioxide 21 mmol/L (22-30); Chloride 102 mmol/L (98-107); Estimated Creatinine Clearance 30 ml/min; Glucose 96 mg/dl (70-99); Potassium 4.4 mmol/L (3.5-5.1); Sodium 133 mmol/L (135-145); eGFR 26.86
[2024-06-07] MEDS: SYMBICORT 160/4.5 MCG INHALER 2 PUFF INH ×2 (07:55→20:27)
[2024-06-07] MEDS: SPIRIVA RESPIMAT 2.5 MCG 2 PUFF INH (07:55)
[2024-06-07] MEDS: PACERONE 200 MG PO ×2 (09:23→21:51)
[2024-06-07] MEDS: DELTASONE 40 MG PO (09:24)
[2024-06-07] MEDS: LASIX 20 MG PO (09:24)
[2024-06-07] MEDS: ELIQUIS 5 MG PO ×2 (09:24→21:50)
[2024-06-07] MEDS: MUCINEX 600 MG PO ×2 (09:24→21:49)
[2024-06-07] MEDS: CARDIZEM CD 180 MG PO (09:28)
--- NOTE | 2024-06-07 09:34 | W.PN.HOSP.TC ---
Today's Communication/Plan
-
Diuretics. Monitor renal function and WBC.
Assessment / Plan
Assessment / Plan
Physical Exam
General: Comfortable and Conversant
HEENT: Anicteric and Moist mucous membranes
Respiratory: Clear and Non Labored Respirations
Cardiac: S1/S2 and Regular Rhythm
GI: Soft and Non Tender
Musculoskeletal: No Clubbing, No Cyanosis and Other (+2 edema bilateral lower extremities)
Skin: Warm and Dry
Neuro: Awake, Alert, Oriented and Nonfocal/grossly intact
Psych: Calm
A/P:
Hyponatremia, mild - Suspect Decompensated HFpEF
-Possibly related to recent increase in diuretics, however weight is still up compared to recent discharge and patient has noted worsening lower extremity edema
-BNP slightly lower than previous, but remains elevated - Suspect decompensated heart failure
-Give Lasix 40mg IV yesterday
-Continue Lasix 20mg PO Daily. Unclear if she would benefit from increased doses of diuretics but given underlying CKD I would prefer to have nephrology evaluate her.
-Recheck BMP in AM
-Check urine electrolytes
-Monitor Is&Os and Daily Weights
-Discharge disposition once cleared by nephrology.
Leukocytosis, no signs/symptoms of infection, possibly related to steroids but also will need to rule out hematopoietic malignancy or other etiologies.
-Recheck CBC in AM
-Hematology oncology referral as outpatient
Weakness/Ambulatory Dysfunction
-Continue PT/OT
-Plan to go to rehab upon discharge
Constipation
-Start bowel regimen
COPD/Bronchiectasis
-Completed prednisone taper as previously prescribed
-Continue Trelegy
Coronary Artery Disease s/p Stent
-Continue nitroglycerin patch
Chronic HFpEF
-Monitor Is&Os and Daily Weights
Paroxysmal Atrial Fibrillation
-Continue Amiodarone and Diltiazem for rate/rhythm control
-Continue Eliquis for anticoagulation
Essential Hypertension
-Continue diltiazem and doxazosin
Hyperlipidemia
-Continue atorvastatin and ezetimibe
-Patient also maintained on Vascepa as outpatient
CKD Stage III
-Creatinine at baseline but use of diuretics renal function needs to be monitored closely
Hypothyroidism
-Continue levothyroxine
Depression
-Continue duloxetine
Insomnia
-Continue trazodone
Class III Obesity
-Affects all aspects of care
DVT proph: Eliquis
Code Status: Full Code
Anticipated Discharge: Within 24 hours
Subjective/Interval History
-
Date of Service: June 07, 2024
Patient with generalized weakness. She also has peripheral edema. Afebrile. No chest pain
Objective Data
-
Labs:
Laboratory Results
06/07/24
05:49
WBC 16.6 H
Hgb 11.0 L
Hct 32.4 L
Plt Count 199
Sodium 133 L
Potassium 4.4
Chloride 102
Carbon Dioxide 21 L
BUN 75 H
Creatinine 1.9 H
Glucose 96
Calcium 9.2
Vital Signs:
Vital Signs
Temp Pulse Resp BP Pulse Ox
97.7 F 72 18 136/55 99
06/07/24 07:08 06/07/24 08:02 06/07/24 08:02 06/07/24 07:08 06/07/24 08:02
I&O
06/06/24 06/07/24 06/08/24
06:59 06:59 06:59
Intake Total 120 / 120
Output Total 300 / 300
Balance -180 / -180
--- NOTE | 2024-06-07 12:25 | CM ---
Reviewed chart, spoke with Sobeida in admissions at [facility] who confirmed that she can accept patient today, after 3. # For Report [phone] F [phone].
Plan: Case management will continue to follow and assist with discharge planning, [facility] when medically cleared.
--- NOTE | 2024-06-07 13:21 | W.CON.NEPH ---
Consultation
-
Date/Time Consultation Requested: 06/07/24 0942
Date/Time Consultation Performed: 06/07/24 1430
Requesting Provider: Reji Diaz
Performing Provider: Amberly Bentley
Reason for Consultation: CKD and diuretic use
Medical History
-
Chief Complaint: Weakness
History of Present Illness:
79 yo female with hx of COPD/Bronchiectasis inhaler, CKD3b cr 1.5-1.9, Afib on Amiodarone, Eliquis, and HFpEF on lasix, mild to mod , HLD on statin, Ezetimibe, Vescepa, GERD o PPI, gout on prn colchicine presents for weakness. She was discharged 1
week ago after being hospitalized with COPD exacerbation, HF exacerbation, and new onset Afib. Due to CONCHITA and hyperkalemia last admit ACEI were discontinued. She was discharged with a prednisone taper, oral Lasix 3x/week, Cardizem, Eliquis and
amiodarone. Since being discharged her weakness, which she describes as a 'stone'-like heaviness in her legs, has progressively worsened to the point where that she could not get out of bed or out of a chair without assistance from 3 people.
Additionally she reports some confusion and lightheadedness since being discharged last week. Her weight earlier in the week was initially up 5 lbs, she took extra lasix as directed by cards and improved wt but she became more weaker with ongoing
edema. She denies worsening cough or SOB, chest pain, abdominal pain, or n/v/d.
Since admit her cr remains at 1.8-1.9, nephrology asked to guide diuretics. Mild hyponatremia 133.
SHe has not seen nephrology before.
Past Medical History
COPD
Bronchiectasis
Coronary Artery Disease s/p Stent
Chronic HFpEF
Paroxysmal Atrial Fibrillation
Essential Hypertension
Hyperlipidemia
CKD Stage III
Hypothyroidism
Depression
Insomnia
GERD
Gout
Past Surgical History: Other (Lumbar Rhizotomy Right Knee Arthroscopy Urethral Dilation Left Lumpectomy)
Social History
Tobacco: Former Smoker
Alcohol: None
Living: With Family
Family History
Father: CAD, HTN Mother: COPD, HTN, Breast Cancer
no CKD
Allergies / Home Medications
Allergy/AdvReac Type Severity Reaction Status Date / Time
levofloxacin [From Levaquin] Allergy Unknown Verified 05/28/24 18:06
metronidazole [From Flagyl] Allergy JOINT Verified 05/28/24 18:06
PAINS/H=PYLORI
anesthetic Allergy patient Uncoded 12/21/22 16:17
unsure
which
anesthesia
med
�Medication �Instructions �Recorded �Confirmed �Type
atorvastatin 80 mg tablet 80 mg PO HS High cholesterol 10/03/16 06/06/24 History
ezetimibe 10 mg tablet 10 mg PO HS High cholesterol 07/05/20 06/06/24 History
loperamide 2 mg capsule (Imodium 2 - 4 mg PO Q4HPRN PRN diarrhea 07/05/20 06/06/24 History
A-D)
acetaminophen 500 mg tablet 1,000 mg PO BID Pain 06/27/21 06/06/24 History
(Tylenol Extra Strength)
melatonin 10 mg tablet 20 mg PO HS Sleep 06/27/21 06/06/24 History
lavinia (Zingiber officinalis) 500 550 mg PO HS Supplement 01/23/22 06/06/24 History
mg capsule
cyanocobalamin (vitamin B-12) 1,000 mcg PO DAILY Supplement 12/21/22 06/06/24 History
1,000 mcg tablet (Vitamin B-12)
nitroglycerin 0.2 mg/hr 0.2 mg transdermal DAILY chest pain 12/21/22 06/06/24 History
transdermal 24 hour patch
omeprazole 40 mg capsule,delayed 40 mg PO HS Gastrointestinal issue 12/21/22 06/06/24 History
release
fluticasone fur. 200 mcg-umeclid 1 inh inhalation R DAILY 04/20/23 06/06/24 History
62.5 mcg-vilant 25 mcg Lung/Breathing Issues
inhalat.powder (Trelegy Ellipta)
icosapent ethyl 1 gram capsule 2 g PO BID High Cholesterol 04/20/23 06/06/24 History
(Vascepa)
levothyroxine 75 mcg tablet 75 mcg PO DAILY Thyroid 04/20/23 06/06/24 History
simethicone 125 mg capsule (Gas-X 125 mg PO HSPRN PRN gas 04/20/23 06/06/24 History
Extra Strength)
Robitussin 1 dose PO HS Cough 05/23/24 06/06/24 History
amiodarone 200 mg tablet 200 mg PO BID #60 tabs 05/31/24 06/06/24 Rx
apixaban 5 mg tablet (Eliquis) 5 mg PO BID #60 tabs 05/31/24 06/06/24 Rx
diltiazem HCl 180 mg 180 mg PO DAILY #30 caps 05/31/24 06/06/24 Rx
capsule,extended release 24 hr
doxazosin 1 mg tablet 1 mg PO HS #30 tabs 05/31/24 06/06/24 Rx
cholecalciferol (vitamin D3) 1,250 1,250 mcg PO FR Supplement 06/06/24 06/06/24 History
mcg (50,000 unit) capsule
colchicine 0.6 mg tablet 0.6 mg PO DAILYPRN PRN gout 06/06/24 06/06/24 History
duloxetine 60 mg capsule,delayed 60 mg PO HS Depression 06/06/24 06/06/24 History
release
furosemide 20 mg tablet (Lasix) 20 mg PO DAILY Fluid 06/06/24 06/06/24 History
Retention/Swelling
trazodone 150 mg tablet 150 mg PO HS Sleep 06/06/24 06/06/24 History
prednisone 10 mg tablet See Rx Instructions .Route 06/07/24 06/06/24 History
.COMPLEX Anti-Inflammatory
Review of Systems
-
All complete 12 point ROS have been inquired and found negative other than stated in HPI
All other systems: Negative unless noted
Physical Exam
Vital Signs
Vital Signs
Temp Pulse Resp BP Pulse Ox
98.1 F 72 17 127/57 100
06/07/24 11:23 06/07/24 11:23 06/07/24 11:23 06/07/24 11:23 06/07/24 11:23
Lab Results
WBC 16.6 10^3/uL (4.8-10.8) H 06/07/24 05:49
RBC 3.45 10^6/uL (4.20-5.40) L 06/07/24 05:49
Hgb 11.0 g/dL (12.0-16.0) L 06/07/24 05:49
Hct 32.4 % (37.0-47.0) L 06/07/24 05:49
Plt Count 199 10^3/uL (130-400) 06/07/24 05:49
Sodium 133 mmol/L (135-145) L 06/07/24 05:49
Potassium 4.4 mmol/L (3.5-5.1) 06/07/24 05:49
Chloride 102 mmol/L (98-107) 06/07/24 05:49
Carbon Dioxide 21 mmol/L (22-30) L 06/07/24 05:49
BUN 75 mg/dl (7-17) H 06/07/24 05:49
Creatinine 1.9 mg/dL (0.6-1.0) H 06/07/24 05:49
eGFR 26.86 06/07/24 05:49
Glucose 96 mg/dl (70-99) 06/07/24 05:49
Calcium 9.2 mg/dl (8.4-10.2) 06/07/24 05:49
Inm-B-Lcnvonopjoy Pept 1280 pg/ml 06/06/24 14:41
Albumin 3.6 g/dl (3.5-5.0) 06/06/24 14:41
CXR 06/06:
FINDINGS: Previously seen hazy opacity over the left midlung has resolved. Likely related to the technique and overlying soft tissues on the previous exam. There is some mild elevation of right hemidiaphragm as compared with the left. Lung volumes
are low. Linear opacity along fissure on the lateral view related to the subsegmental atelectatic change, probably hypoaeration atelectasis. No dense airspace consolidation. No effusion. No pneumothorax. Cardiomediastinal silhouette is unchanged.
Pulmonary vasculature is within normal limits. No acute osseous abnormality is seen. Moderate degenerative changes thoracic spine.
IMPRESSION: Hypoaerated lungs without consolidation.
Physical Exam
General: Awake, Alert, Oriented, AOx3, No Distress and Nontoxic
HEENT: EOMI, Anicteric, Conjunctivae Clear and Neck Supple
Respiratory: Clear, Normal Excursion and Nonlabored Respirations
Cardiac: S1/S2, Regular Rate/Rhythm and Murmur
Breast: Deferred by me
Abdomen: Soft, Nontender and Nondistended
Musculoskeletal: No Cyanosis and Edema (1+ no pitting)
Skin: No Rash
Neuro: Nonfocal/Grossly Intact
Psych: Mood/afflect pleasant, Insight/judgement good and Appropriate
Data Reviewed
-
Radiology: Report Reviewed by me and Discussed with Family
Labs: Labs Reviewed by me, Discussed with Nurse, Discussed with Patient and Discussed with Family
Assessment/Plan
-
IMP:
Suspect Decompensated HFpEF
CKD [id number] 1.5-1.9
Leukocytosis
Non gap met acidosis
Weakness/Ambulatory Dysfunction
Constipation
COPD/Bronchiectasis
Coronary Artery Disease s/p Stent
Paroxysmal Atrial Fibrillation
Essential Hypertension
Hyperlipidemia
Hypothyroidism
Depression
Insomnia
Class III Obesity
mild to mod
PLan:
A/w gen weakness after recent d/c 1 wk ago-treated for COPD and CHF
[place] to be mild decompensation of DCHF on admit
current wt is oli, would cont lasix 20mg daily
should follow salt and fluid restriction
CKD-cr seem stable, follow bladder scan
bland UA and U na low suggest cardiorenal
she probably has underlying interstitial nephritis with heavy use of NSAIDs which she stopped since last admit
(cr is slowly progressive increase for several years from 2013, CT in 2022 non acute kidneys)
recent fluctuations are from cardiorenal, reviewed staging of CKD with family
monitor non gap met acidosis
prednisone per primary
BP stable on meds
bowel regimen for constipation
I wonder her edema is not amenable for diuresis, start TEDs, elevate legs
note she is on CCB, Casper livier and now on prednisone
BMP 1 week after d/c
she wants to f/u with nephro out pt
detailed d/w pt and family
[2024-06-07] MEDS: NITRO-DUR 0.2 MG TRANSDERM (14:35)
[2024-06-07] MEDS: MIRALAX 17 GRAMS PO (14:35)
[2024-06-07] MEDS: SENOKOT-S 1 TABLET PO ×2 (14:35→21:51)
[2024-06-07 14:56] LABS: INR 1.57; PT 18.6 Sec (11.4-14.6)
[2024-06-07 14:57] LABS: APTT 25.7 Sec (23.4-35.0)
--- NOTE | 2024-06-07 16:48 | PTCARENOTE ---
PT aaox3 pleasant able to make needs known. pt denies any pain at this time. weight 253 same as yesterday. BLE +3 BLE edema, daughter stated worse than yesterday, lung scourase in based decreased throghout CLOUD. P with NSR on monitor. PT two
assist oob to chair. Legs wrapped with paris. creatinin 1.9, renal consult ordered and obtained. purwick removed as pt is able to ambulate. Daughter at bedside most of day and assisted mother. PT on eliquis and her rac IV was leaking blood however,
it had an excellent blood return. IVT called and re dressed it. aware and coags ordered. Abd large soft hypoactive BS no NVD. pt tells me she has not had any bp since last sunday. Abd soft on deep palpation, aware and bowel regime
added. no bp so far. Heel foam dressings placed on heels preventativly as when i go in room her legs are off pillows with them digging in bed. Legs are currently on pillow elevated.
[2024-06-07] MEDS: ZETIA 10 MG PO (21:49)
[2024-06-07] MEDS: CYMBALTA DELAYED RELEASE 60 MG PO (21:49)
[2024-06-07] MEDS: PROTONIX 40 MG PO (21:49)
[2024-06-07] MEDS: LIPITOR 80 MG PO (21:49)
[2024-06-07] MEDS: MELATONIN 20 MG PO (21:49)
[2024-06-07] MEDS: CARDURA 1 MG PO (21:50)
[2024-06-07] MEDS: DESYREL 150 MG PO (21:51)
[2024-06-07] MEDS: MIRALAX PO (21:51)
[2024-06-08] VITALS (7 sets, daily range): BP systolic 108–152; BP diastolic 47–76; PULSE 70–96; BMI 46.6
[2024-06-08] MEDS: SYNTHROID 75 MCG PO (06:23)
[2024-06-08 07:43] LABS: Hematocrit 32.1 % (37.0-47.0); Hemoglobin 10.9 g/dL (12.0-16.0); Mean Corpuscular Hgb 32.1 pg (27.0-31.0); Mean Corpuscular Volume 94.4 fL (81.0-99.0); Mean Platelet Volume 10.3 fL (7.4-10.4); Platelet Count 185 10^3/uL (130-400); Red Cell Dist. Width 14.8 % (11.5-14.5); White Blood Cell Count 16.3 10^3/uL (4.8-10.8)
[2024-06-08 08:06] LABS: Blood Urea Nitrogen 70 mg/dl (7-17); Calcium 9.4 mg/dl (8.4-10.2); Carbon Dioxide 19 mmol/L (22-30); Chloride 102 mmol/L (98-107); Estimated Creatinine Clearance 32 ml/min; Glucose 98 mg/dl (70-99); Potassium 4.4 mmol/L (3.5-5.1); Sodium 134 mmol/L (135-145); eGFR 28.66
[2024-06-08] MEDS: SPIRIVA RESPIMAT 2.5 MCG 2 PUFF INH (08:20)
[2024-06-08] MEDS: SYMBICORT 160/4.5 MCG INHALER 2 PUFF INH ×2 (08:21→21:09)
[2024-06-08 08:42] LABS: % Basophils 0.4 % (0-2); % Eosinophils 0.4 % (0-6); % Immature Granulocytes 5.3 % (0-0.5); % Lymphocytes 8.6 % (20.5-51.1); % Monocytes 4.7 % (1.7-9.3); % Neutrophils 80.6 % (42.2-75.2); Absolute Basophils 0.1 10^3/uL (0-0.2); Absolute Eosinophils 0.1 10^3/uL (0-0.7); Absolute Immature Granulocytes 0.9 10^3/uL (0-0.05); Absolute Lymphocytes 1.4 10^3/uL (1.2-3.4); Absolute Monocytes 0.8 10^3/uL (0.1-0.6); Absolute Neutrophils 13.1 10^3/uL (1.4-6.5); Nucleated Red Blood Cells % 0 %
--- NOTE | 2024-06-08 09:01 | W.PN.HOSP.TC ---
Today's Communication/Plan
-
Doppler left lower extremity. Diuretics. Taper steroids. Discharge planning in progress.
Assessment / Plan
Assessment / Plan
Physical Exam
General: Chronically ill. Comfortable and Conversant
HEENT: Anicteric and Moist mucous membranes
Respiratory: Clear and Non Labored Respirations
Cardiac: S1/S2 and Regular Rhythm
GI: Soft and Non Tender
Musculoskeletal: No Clubbing, No Cyanosis and Other (+2 edema bilateral lower extremities)
Skin: Warm and Dry
Neuro: Awake, Alert, Oriented and Nonfocal/grossly intact
Psych: Calm
A/P:
Generalized weakness and ambulatory dysfunction:
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
Obtain CPK, B12, and update TSH in a.m.
Discussed with patient and family that we will attempt to taper down her steroids quicker than initially anticipated. Her lung exam is unremarkable today.
I am decreasing down from 40 mg down to 20 mg from tomorrow on a prednisone and anticipate short course rather than long.
Discussed with nephrology today and nephrology making some changes today and feels that she is not ready for discharge yet.
Discussed with onsite case manager and plan to go to rehab once medically stable.
Discussed with both daughters over the phone today
Orthostatic hypotension:
Suspect medication related
Continue to monitor orthostatic
Discontinue Nitropaste
Hold Cardura
Acute on chronic diastolic CHF:
IV Lasix upon admission and yesterday.
Extra Lasix 20 mg today but nephrology recommends 20 mg daily upon discharge.
Follow-up with cardiology upon discharge (she was recently seen by mark on prior admission).
Continue monitor in and out, daily weights, and salt and fluid restriction.
Obtain ultrasound of the left lower extremity (she is on Eliquis though).
Hyponatremia, mild - Suspect related to decompensated HFpEF:
BNP slightly lower than previous, but remains elevated and increase weight and edema - Suspect decompensated heart failure as above.
Given Lasix
Continue Lasix 20mg PO Daily.
Recheck BMP in AM
Check urine electrolytes
Leukocytosis, reactive -no signs/symptoms of infection:
Likely related to steroids
Recheck CBC in AM
Hematology eval if would not go back down to normal after finish steroids course but not necessary at the moment.
Constipation:
Continue bowel regimen
COPD/Bronchiectasis
On tapering course of steroid but given her lung exam she does not need to be on a long course or high doses of steroids, in my opinion.
Continue Trelegy
Coronary Artery Disease s/p Stent
Continue anti-ischemic regimen
Paroxysmal Atrial Fibrillation
Continue Amiodarone and Diltiazem for rate/rhythm control
Continue Eliquis for anticoagulation
Essential Hypertension
Continue diltiazem
Hold doxazosin
Hyperlipidemia
Continue atorvastatin and ezetimibe
Patient also maintained on Vascepa as outpatient
CKD Stage III
Creatinine at baseline but use of diuretics renal function needs to be monitored closely
Hypothyroidism
Continue levothyroxine
Depression
Continue duloxetine
Insomnia
Continue trazodone
Class III Obesity
Affects all aspects of care
DVT proph: Eliquis
Code Status: Full Code
Anticipated Discharge: 24 - 48 hours
Subjective/Interval History
-
Date of Service: June 08, 2024
Patient feels tired and reports some lightheadedness. Peripheral edema present. Afebrile. No chest pain
Objective Data
-
Labs:
Laboratory Results
06/08/24
07:01
WBC 16.3 H
Hgb 10.9 L
Hct 32.1 L
Plt Count 185
Sodium 134 L
Potassium 4.4
Chloride 102
Carbon Dioxide 19 L
BUN 70 H
Creatinine 1.8 H
Glucose 98
Calcium 9.4
Vital Signs:
Vital Signs
Temp Pulse Resp BP Pulse Ox
97.6 F 74 18 129/51 99
06/08/24 07:51 06/08/24 08:28 06/08/24 08:28 06/08/24 07:51 06/08/24 08:28
I&O
06/07/24 06/08/24 06/09/24
06:59 06:59 06:59
Intake Total 120 / 120 660 / 660
Output Total 300 / 300 400 / 400
Balance -180 / -180 260 / 260
[2024-06-08] MEDS: SENOKOT-S 1 TABLET PO ×2 (09:23→20:20)
[2024-06-08] MEDS: ELIQUIS 5 MG PO ×2 (09:23→20:20)
[2024-06-08] MEDS: MUCINEX 600 MG PO ×2 (09:24→20:20)
[2024-06-08] MEDS: LASIX 20 MG PO ×2 (09:24→13:37)
[2024-06-08] MEDS: CARDIZEM CD 180 MG PO (09:24)
[2024-06-08] MEDS: MIRALAX 17 GRAMS PO ×2 (09:24→20:21)
[2024-06-08] MEDS: DELTASONE 40 MG PO (09:24)
[2024-06-08] MEDS: PACERONE 200 MG PO ×2 (09:24→20:21)
[2024-06-08] MEDS: NITRO-DUR 0.2 MG TRANSDERM (09:25)
[2024-06-08] MEDS: TYLENOL 650 MG PO (09:39)
--- NOTE | 2024-06-08 13:04 | W.PN.NEPH.PH ---
Today's Communication / Plan
-
TEDs, elevate legs
hold cardura
extra lasix
wean steroids
Assessment/Plan
-
IMP:
Suspect Decompensated HFpEF
CKD [id number] 1.5-1.9
Leukocytosis
Non gap met acidosis
Weakness/Ambulatory Dysfunction
Constipation
COPD/Bronchiectasis
Coronary Artery Disease s/p Stent
Paroxysmal Atrial Fibrillation
Essential Hypertension
Hyperlipidemia
Hypothyroidism
Depression
Insomnia
Class III Obesity
mild to mod
PLan:
A/w gen weakness after recent d/c 1 wk ago-treated for COPD and CHF
[place] to be mild decompensation of DCHF on admit
wt is slightly up and increase in LE edema
ok to take extra lasix and cont lasix 20mg daily
should follow salt and fluid restriction
CKD-cr seem stable, follow bladder scan
bland UA and U na low suggest cardiorenal
she probably has underlying interstitial nephritis with heavy use of NSAIDs which she stopped since last admit
(cr is slowly progressive increase for several years from 2014, CT in 2022 non acute kidneys)
recent fluctuations of cr are from cardiorenal
non gap met acidosis add po bicarb
prednisone per primary
BP stable on meds but borderline orthostatic, may be hold cardura, she is also on nitro patch
suspect her edema is not amenable for diuresis, start TEDs, elevate legs, on AC with eliquis
note she is on CCB, Casper livier and now on prednisone taper
BMP 1 week after d/c
she wants to f/u with nephro out pt
d/w nursing
-
-
Date of Service: June 08, 2024
CC / HPI / ROS
-
Chief Complaint:
CKD
History of Present Illness:
cr stable at 1.8, bicarb low 19
sodium stable 134
BP stable but orthostatic specially on standing
no fever
wt is slightly up
Review of Systems:
no cp or sob
but concerned about increased edema specially left leg and feels heavy
Labs
-
Labs:
WBC 16.3 10^3/uL (4.8-10.8) H 06/08/24 07:01
RBC 3.40 10^6/uL (4.20-5.40) L 06/08/24 07:01
Hgb 10.9 g/dL (12.0-16.0) L 06/08/24 07:01
Hct 32.1 % (37.0-47.0) L 06/08/24 07:01
Plt Count 185 10^3/uL (130-400) 06/08/24 07:01
Sodium 134 mmol/L (135-145) L 06/08/24 07:01
Potassium 4.4 mmol/L (3.5-5.1) 06/08/24 07:01
Chloride 102 mmol/L (98-107) 06/08/24 07:01
Carbon Dioxide 19 mmol/L (22-30) L 06/08/24 07:01
BUN 70 mg/dl (7-17) H 06/08/24 07:01
Creatinine 1.8 mg/dL (0.6-1.0) H 06/08/24 07:01
eGFR 28.66 06/08/24 07:01
Glucose 98 mg/dl (70-99) 06/08/24 07:01
Calcium 9.4 mg/dl (8.4-10.2) 06/08/24 07:01
Nyc-J-Yaqlcdqfhnk Pept 1280 pg/ml 06/06/24 14:41
Albumin 3.6 g/dl (3.5-5.0) 06/06/24 14:41
Physical Exam
-
Vital Signs:
Vital Signs
Temp Pulse Resp BP Pulse Ox
97.9 F 72 16 121/51 98
06/08/24 10:41 06/08/24 10:41 06/08/24 10:41 06/08/24 10:41 06/08/24 10:41
Cardiovascular:: Regular rate and rhythm
Respiratory:: Bilateral: CTA
Lung Excursion:: Normal
Abdomen:: Nontender and Soft
Extremity Edema:: +2: Bilateral: (non pitting)
Perez Catheter: No
[2024-06-08] MEDS: SODIUM BICARBONATE 650 MG PO (20:21)
[2024-06-08] MEDS: LIPITOR 80 MG PO (22:40)
[2024-06-08] MEDS: MELATONIN 20 MG PO (22:40)
[2024-06-08] MEDS: PROTONIX 40 MG PO (22:40)
[2024-06-08] MEDS: CYMBALTA DELAYED RELEASE 60 MG PO (22:41)
[2024-06-08] MEDS: ZETIA 10 MG PO (22:41)
[2024-06-08] MEDS: DESYREL 150 MG PO (22:41)
[2024-06-09] VITALS (9 sets, daily range): BP systolic 118–146; BP diastolic 52–74; PULSE 65–110; O2SAT 95; BMI 46.5
[2024-06-09] MEDS: SYNTHROID 75 MCG PO (05:40)
[2024-06-09 05:58] LABS: Blood Urea Nitrogen 72 mg/dl (7-17); Calcium 9.2 mg/dl (8.4-10.2); Carbon Dioxide 19 mmol/L (22-30); Chloride 101 mmol/L (98-107); Creatine Phosphokinase 43 U/L (30-135); Estimated Creatinine Clearance 33 ml/min; Glucose 118 mg/dl (70-99); Potassium 4.5 mmol/L (3.5-5.1); Sodium 132 mmol/L (135-145)
[2024-06-09 06:26] LABS: Hematocrit 31.7 % (37.0-47.0); Hemoglobin 10.7 g/dL (12.0-16.0); Mean Corp Hgb Conc. 33.8 g/dL (33.0-37.0); Mean Corpuscular Hgb 30.7 pg (27.0-31.0); Mean Corpuscular Volume 91.1 fL (81.0-99.0); Mean Platelet Volume 10.3 fL (7.4-10.4); Platelet Count 198 10^3/uL (130-400); Red Blood Cell Count 3.48 10^6/uL (4.20-5.40); Red Cell Dist. Width 14.9 % (11.5-14.5); White Blood Cell Count 18.2 10^3/uL (4.8-10.8)
[2024-06-09 06:30] LABS: TSH 0.14 uIU/ml (0.47-4.68)
[2024-06-09 07:05] LABS: Vitamin B12 > 1000 pg/ml (239-931)
[2024-06-09] MEDS: ELIQUIS 5 MG PO ×2 (07:39→20:26)
[2024-06-09] MEDS: SODIUM BICARBONATE 650 MG PO ×2 (07:39→20:33)
[2024-06-09] MEDS: DELTASONE 20 MG PO (07:39)
[2024-06-09] MEDS: MUCINEX 600 MG PO ×2 (07:39→20:26)
[2024-06-09] MEDS: CARDIZEM CD 180 MG PO (07:39)
[2024-06-09] MEDS: MIRALAX 17 GRAMS PO ×2 (07:40→20:26)
[2024-06-09] MEDS: SENOKOT-S 1 TABLET PO ×2 (07:40→20:27)
[2024-06-09] MEDS: LASIX 20 MG PO (07:40)
[2024-06-09] MEDS: PACERONE 200 MG PO ×2 (07:40→20:26)
[2024-06-09] MEDS: SPIRIVA RESPIMAT 2.5 MCG 2 PUFF INH (07:46)
[2024-06-09] MEDS: SYMBICORT 160/4.5 MCG INHALER 2 PUFF INH ×2 (07:46→20:14)
[2024-06-09 08:09] LABS: % Basophils 0.2 % (0-2); % Eosinophils 0.3 % (0-6); % Immature Granulocytes 5.3 % (0-0.5); % Lymphocytes 6.8 % (20.5-51.1); % Monocytes 4.3 % (1.7-9.3); % Neutrophils 83.1 % (42.2-75.2); Absolute Eosinophils 0.1 10^3/uL (0-0.7); Absolute Lymphocytes 1.2 10^3/uL (1.2-3.4); Absolute Monocytes 0.8 10^3/uL (0.1-0.6); Absolute Neutrophils 15.2 10^3/uL (1.4-6.5); Nucleated Red Blood Cells % 0 %
--- NOTE | 2024-06-09 09:55 | W.PN.NEPH.PH ---
Today's Communication / Plan
-
increase lasix
Assessment/Plan
-
IMP:
Suspect Decompensated HFpEF
CKD [id number] 1.5-1.9
Leukocytosis
Non gap met acidosis
Weakness/Ambulatory Dysfunction
Constipation
COPD/Bronchiectasis
Coronary Artery Disease s/p Stent
Paroxysmal Atrial Fibrillation
Essential Hypertension
Hyperlipidemia
Hypothyroidism
Depression
Insomnia
Class III Obesity
gout
mild to mod
PLan:
increase lasix to 40mg daily
check uric acid
will likely benefit from allopurinol
wean steroids
follow BMP
maintain FR
tolerate SBP up to 140 given orthostasis
-
-
Date of Service: June 09, 2024
CC / HPI / ROS
-
Chief Complaint:
CKD
History of Present Illness:
Cr/CKD down to 1.7
acidosis stable 19 on bicarb
weaning steroids
sodium stable 132
BP stable but orthostatic
Review of Systems:
no cp or sob
c/o LE edema
Labs
-
Labs:
WBC 18.2 10^3/uL (4.8-10.8) H 06/09/24 05:02
RBC 3.48 10^6/uL (4.20-5.40) L 06/09/24 05:02
Hgb 10.7 g/dL (12.0-16.0) L 06/09/24 05:02
Hct 31.7 % (37.0-47.0) L 06/09/24 05:02
Plt Count 198 10^3/uL (130-400) 06/09/24 05:02
Sodium 132 mmol/L (135-145) L 06/09/24 05:02
Potassium 4.5 mmol/L (3.5-5.1) 06/09/24 05:02
Chloride 101 mmol/L (98-107) 06/09/24 05:02
Carbon Dioxide 19 mmol/L (22-30) L 06/09/24 05:02
BUN 72 mg/dl (7-17) H 06/09/24 05:02
Creatinine 1.7 mg/dL (0.6-1.0) H 06/09/24 05:02
eGFR 30.70 06/09/24 05:02
Glucose 118 mg/dl (70-99) H 06/09/24 05:02
Calcium 9.2 mg/dl (8.4-10.2) 06/09/24 05:02
Mah-U-Cvtlgzjiuwg Pept 1280 pg/ml 06/06/24 14:41
Albumin 3.6 g/dl (3.5-5.0) 06/06/24 14:41
Physical Exam
-
Vital Signs:
Vital Signs
Temp Pulse Resp BP Pulse Ox
98.2 F 74 15 131/61 95
06/09/24 07:21 06/09/24 08:05 06/09/24 08:05 06/09/24 07:39 06/09/24 08:05
Cardiovascular:: Regular rate and rhythm
Respiratory:: Bilateral: Coarse
Lung Excursion:: Normal
Abdomen:: Nontender and Soft
Bowel Sounds:: Normal
Extremity Edema:: +2: Bilateral:
--- NOTE | 2024-06-09 11:09 | CM ---
Spoke with Sobeida from [facility] she said she has a bed to [facility] for pt.
Updates sent in care port.
anticipates dc tomorrow.
[facility]
Report [phone]

[facility]
--- NOTE | 2024-06-09 14:35 | W.PN.HOSP.TC ---
Today's Communication/Plan
-
monitor renal function/weight
continue steroids taper
eventual snf rehab
Assessment / Plan
Assessment / Plan
Generalized weakness and ambulatory dysfunction:
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
CPK normal, B12 elevated, TSH 0.14
Patient steroids to be tapered early
Patient will need snf rehab placement
Orthostatic hypotension:
Suspect medication related
Continue to monitor orthostatic
Discontinue Nitropaste
Hold Cardura
Acute on chronic diastolic CHF:
Follow-up with cardiology upon discharge (she was recently seen by card on prior admission).
Continue monitor in and out, daily weights, and salt and fluid restriction.
LE wound dopler neg for clot.
Patient lasix dose has been increased to 40mg/d
Chronic Hyponatremia, mild - Suspect related to decompensated HFpEF:
BNP slightly lower than previous, but remains elevated and increase weight and edema - Suspect decompensated heart failure as above.
Leukocytosis, reactive -no signs/symptoms of infection:
Likely related to steroids
Constipation:
Continue bowel regimen
COPD/Bronchiectasis
Oral steroids to be tapered faster
Continue Trelegy
Coronary Artery Disease s/p Stent
Continue anti-ischemic regimen
Paroxysmal Atrial Fibrillation
Continue Amiodarone and Diltiazem for rate/rhythm control
Continue Eliquis for anticoagulation
Essential Hypertension
Continue diltiazem
Hold doxazosin
Hyperlipidemia
Continue atorvastatin and ezetimibe
Patient also maintained on Vascepa as outpatient
CKD Stage III
Creatinine at baseline but use of diuretics renal function needs to be monitored closely
Hypothyroidism
Continue levothyroxine
Depression
Continue duloxetine
Insomnia
Continue trazodone
Class III Obesity
Affects all aspects of care
DVT proph: Eliquis
Code Status: Full Code
Discussed with patient and daughter at bedside.
Patient should be able to be discharged to assisted facility rehab tomorrow
Anticipated Discharge: 24 - 48 hours
Subjective/Interval History
-
Date of Service: June 09, 2024
Patient resting comfortably in bed
denies of having any issues
Objective Data
-
Labs:
Laboratory Results
06/09/24
05:02
WBC 18.2 H
Hgb 10.7 L
Hct 31.7 L
Plt Count 198
Sodium 132 L
Potassium 4.5
Chloride 101
Carbon Dioxide 19 L
BUN 72 H
Creatinine 1.7 H
Glucose 118 H
Calcium 9.2
Vital Signs:
Vital Signs
Temp Pulse Resp BP Pulse Ox
98.1 F 69 16 139/61 98
06/09/24 11:10 06/09/24 11:10 06/09/24 11:10 06/09/24 11:10 06/09/24 11:10
I&O
06/08/24 06/09/24 06/10/24
06:59 06:59 06:59
Intake Total 660 / 660 900 / 900 0 / 0
Output Total 400 / 400 900 / 900
Balance 260 / 260 900 / 900 -900 / -900
Review of Systems
-
Respiratory: Reports No Symptoms
Cardiac: Reports No Symptoms
Abdomen/GI: Reports No Symptoms
Physical Exam
-
General: Comfortable
HEENT: Negative Oxygen
Respiratory: Clear to Auscultation; Negative Wheezes
Cardiac: Regular Rhythm and S1/S2; Negative Murmur
GI: Soft and Nontender
Neuro: Awake, Alert, Oriented and No Motor Deficits
Psych: Calm and Intact Judgement/Insight
[2024-06-09] MEDS: LASIX 40 MG PO (15:32)
[2024-06-09] MEDS: LIPITOR 80 MG PO (21:17)
[2024-06-09] MEDS: MELATONIN 20 MG PO (21:17)
[2024-06-09] MEDS: DESYREL 150 MG PO (21:17)
[2024-06-09] MEDS: CYMBALTA DELAYED RELEASE 60 MG PO (21:17)
[2024-06-09] MEDS: PROTONIX 40 MG PO (21:18)
[2024-06-09] MEDS: ZETIA 10 MG PO (21:18)
[2024-06-10 03:25] VITALS: BP 150/70
[2024-06-10] MEDS: SYNTHROID 75 MCG PO (05:59)
[2024-06-10 06:00] VITALS: BMI 46.0
[2024-06-10 07:05] VITALS: BP 130/67; BP 139/58; BP 139/67; PULSE 68; PULSE 79; PULSE 96
[2024-06-10 07:10] LABS: Blood Urea Nitrogen 72 mg/dl (7-17); Calcium 9.4 mg/dl (8.4-10.2); Carbon Dioxide 21 mmol/L (22-30); Chloride 99 mmol/L (98-107); Estimated Creatinine Clearance 31 ml/min; Glucose 106 mg/dl (70-99); Potassium 4.2 mmol/L (3.5-5.1); Sodium 133 mmol/L (135-145); Uric Acid 10.2 mg/dl (2.5-6.2); eGFR 28.66
[2024-06-10] MEDS: SYMBICORT 160/4.5 MCG INHALER 2 PUFF INH (07:29)
[2024-06-10] MEDS: SPIRIVA RESPIMAT 2.5 MCG 2 PUFF INH (07:30)
[2024-06-10] MEDS: MUCINEX 600 MG PO (08:59)
[2024-06-10] MEDS: CARDIZEM CD 180 MG PO (09:00)
[2024-06-10] MEDS: DELTASONE 20 MG PO (09:00)
[2024-06-10] MEDS: LASIX 40 MG PO (09:00)
[2024-06-10] MEDS: PACERONE 200 MG PO (09:00)
[2024-06-10] MEDS: SODIUM BICARBONATE 650 MG PO (09:00)
[2024-06-10] MEDS: ELIQUIS 5 MG PO (09:00)
[2024-06-10] MEDS: MIRALAX 17 GRAMS PO (09:00)
[2024-06-10] MEDS: SENOKOT-S 1 TABLET PO (09:01)
[2024-06-10 09:30] VITALS: BP 139/55; PULSE 70; O2SAT 100
--- NOTE | 2024-06-10 10:25 | W.PN.NEPH.PH ---
Today's Communication / Plan
-
allopurinol
Assessment/Plan
-
IMP:
Suspect Decompensated HFpEF
CKD [id number] 1.5-1.9
Leukocytosis
Non gap met acidosis
Weakness/Ambulatory Dysfunction
Constipation
COPD/Bronchiectasis
Coronary Artery Disease s/p Stent
Paroxysmal Atrial Fibrillation
Essential Hypertension
Hyperlipidemia
Hypothyroidism
Depression
Insomnia
Class III Obesity
gout
mild to mod
PLan:
continue lasix 40mg daily
wean steroids
follow BMP
maintain FR
tolerate SBP up to 140 given orthostasis
allopurinol 100mg daily
-
-
Date of Service: June 10, 2024
CC / HPI / ROS
-
Chief Complaint:
CKD
History of Present Illness:
Cr/CKD stable 1.8
uric acid high 10.2
acidosis stable 21 on bicarb
weaning steroids
sodium stable 133
BP stable but orthostatic
Review of Systems:
no cp or sob
LE edema improving
Labs
-
Labs:
WBC 18.2 10^3/uL (4.8-10.8) H 06/09/24 05:02
RBC 3.48 10^6/uL (4.20-5.40) L 06/09/24 05:02
Hgb 10.7 g/dL (12.0-16.0) L 06/09/24 05:02
Hct 31.7 % (37.0-47.0) L 06/09/24 05:02
Plt Count 198 10^3/uL (130-400) 06/09/24 05:02
Sodium 133 mmol/L (135-145) L 06/10/24 06:25
Potassium 4.2 mmol/L (3.5-5.1) 06/10/24 06:25
Chloride 99 mmol/L (98-107) 06/10/24 06:25
Carbon Dioxide 21 mmol/L (22-30) L 06/10/24 06:25
BUN 72 mg/dl (7-17) H 06/10/24 06:25
Creatinine 1.8 mg/dL (0.6-1.0) H 06/10/24 06:25
eGFR 28.66 06/10/24 06:25
Glucose 106 mg/dl (70-99) H 06/10/24 06:25
Calcium 9.4 mg/dl (8.4-10.2) 06/10/24 06:25
Moc-V-Jymvepjuemo Pept 1280 pg/ml 06/06/24 14:41
Albumin 3.6 g/dl (3.5-5.0) 06/06/24 14:41
Physical Exam
-
Vital Signs:
Vital Signs
Temp Pulse Resp BP Pulse Ox
97.8 F 71 16 139/58 96
06/10/24 07:05 06/10/24 07:35 06/10/24 07:35 06/10/24 07:05 06/10/24 08:15
Cardiovascular:: Regular rate and rhythm
Respiratory:: Bilateral: Coarse
Lung Excursion:: Normal
Abdomen:: Nontender and Soft
Bowel Sounds:: Normal
Extremity Edema:: +1: Bilateral:
[2024-06-10] MEDS: ZYLOPRIM 100 MG PO (11:28)
[2024-06-10 11:29] VITALS: BP 143/61
--- NOTE | 2024-06-10 11:43 | CM ---
entered order for discharge.
Spoke with Sobeida from [facility] bed ready
Updates sent in care port.
Spoke with carmelita Alvarado she agrees with dc.[facility] reviewed she said she has copy and agrees with dc.
Reviewed transport . Jenny said she would drive her to SNF .
[facility]
Report [phone]

[facility]
--- NOTE | 2024-06-10 13:07 | W.PN.HOSP.TC ---
Today's Communication/Plan
-
d/c snf rehab
Assessment / Plan
Assessment / Plan
Generalized weakness and ambulatory dysfunction:
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
CPK normal, B12 elevated, TSH 0.14
Patient steroids to be tapered early
Patient will need snf rehab placement
Orthostatic hypotension:
Suspect medication related
Continue to monitor orthostatic
Discontinue Nitropaste
Hold Cardura
Acute on chronic diastolic CHF:
Follow-up with cardiology upon discharge (she was recently seen by card on prior admission).
Continue monitor in and out, daily weights, and salt and fluid restriction.
LE wound dopler neg for clot.
Patient lasix dose has been increased to 40mg/d
Chronic Hyponatremia, mild - Suspect related to decompensated HFpEF:
BNP slightly lower than previous, but remains elevated and increase weight and edema - Suspect decompensated heart failure as above.
Leukocytosis, reactive -no signs/symptoms of infection:
Likely related to steroids
Constipation:
Continue bowel regimen
COPD/Bronchiectasis
Oral steroids to be tapered faster
Continue Trelegy
Coronary Artery Disease s/p Stent
Continue anti-ischemic regimen
Paroxysmal Atrial Fibrillation
Continue Amiodarone and Diltiazem for rate/rhythm control
Continue Eliquis for anticoagulation
Essential Hypertension
Continue diltiazem
Hold doxazosin
Hyperlipidemia
Continue atorvastatin and ezetimibe
Patient also maintained on Vascepa as outpatient
CKD Stage III
Creatinine at baseline but use of diuretics renal function needs to be monitored closely
Hypothyroidism
Continue levothyroxine
Depression
Continue duloxetine
Insomnia
Continue trazodone
Class III Obesity
Affects all aspects of care
DVT proph: Eliquis
Code Status: Full Code
More than 30 minutes spent in discharge including
Final examination of the patient
Summarizing hospital stay
Instructions for continuing care to all relevant caregivers
Preparation of discharge records, prescriptions, and referral forms
Total time spent (in minutes): 39 mins
Anticipated Discharge: Today
Subjective/Interval History
-
Date of Service: June 10, 2024
no issues overnight
no shortness breath/cough
Objective Data
-
Labs:
Laboratory Results
06/10/24
06:25
Sodium 133 L
Potassium 4.2
Chloride 99
Carbon Dioxide 21 L
BUN 72 H
Creatinine 1.8 H
Glucose 106 H
Calcium 9.4
Vital Signs:
Vital Signs
Temp Pulse Resp BP Pulse Ox
97.9 F 68 18 143/61 92
06/10/24 11:29 06/10/24 11:29 06/10/24 11:29 06/10/24 11:29 06/10/24 11:29
I&O
06/09/24 06/10/24 06/11/24
06:59 06:59 06:59
Intake Total 900 / 900 1320 / 1320
Output Total 900 / 900
Balance 900 / 900 420 / 420
Review of Systems
-
Respiratory: Reports Trouble Breathing; Denies Cough
Cardiac: Reports No Symptoms
Abdomen/GI: Reports No Symptoms
Physical Exam
-
General: Comfortable
HEENT: Negative Oxygen
Respiratory: Clear to Auscultation; Negative Wheezes
Cardiac: Regular Rhythm and S1/S2; Negative Murmur
GI: Soft and Nontender
Neuro: Awake, Alert, Oriented and No Motor Deficits
Psych: Calm and Intact Judgement/Insight
--- NOTE | 2024-06-11 18:22 | W.DCSUMMARY ---
Discharge Summary
Discharge Data
Date of Admission: 06/06/24
Date of Discharge: 06/10/24
-
Pending Results: No
Hospital Course
Discharging Physician : Dr Yaw Klein
Disposition : To home
Primary care physician : Dr Morris Gudino
Principal Discharge diagnosis :
Generalized weakness
Orthostatic hypotension
Acute on chronic diastolic congestive heart failure
Chronic hyponatremia
Reactive leukocytosis
Chronic Discharge diagnosis :
Chronic obstructive pulmonary disease/bronchiectasis
Coronary artery disease with history of stents
Paroxysmal atrial fibrillation
Essential hypertension
Hyperlipidemia
Chronic kidney disease stage IIIb
Hypothyroidism
Depression
Morbid obesity
Hospital Course :
Patient is a 79-year-old female with above-mentioned past medical history came to ER for having worsening weakness with leg feeling heavy and like 'stone'. On clinical evaluation patient was felt to having worsening heart failure exacerbation.
Patient was provided IV diuretic therapy. Lower extremity venous Doppler was negative for clot. Nephrology was involved in care with patient underlying CKD. Patient also had a problem with some orthostatic hypotension and blood pressure
medications were adjusted. Patient insulin improvement in leg swelling with weight trending down. At discharge patient was discharged on oral Lasix 40 mg daily dose.
Patient generalized weakness was felt to be related to decompensation versus steroid related myopathy. CPK/B12 levels were within normal limit. TSH was somewhat suppressed at 0.14 and will require repeat check in PCP office. Patient steroid taper
was shortened with plan for patient to come off steroids and 6 to 7 days. Patient was evaluated by physical therapy and was appropriate for rehab placement.
Important imaging findings :
None
Procedure findings :
None
Discharge Plan
-
Patient Disposition: Penitentiary/SNF
Discharge Diagnosis/Procedures: Diastolic HF exacerbation, Orthostatic hypotension, Generalized weakness - possible steroid use related
Condition: Fair
Diet: 2 Gram Sodium
Activity: As tolerated
Driving Restrictions: No driving
Bathing Restrictions: OK to Shower
Blood Work: BMP in 1 week
Referrals:
Morris Gudino MD [Family Provider] - in one week
Prescriptions:
New
furosemide 40 mg Tablet
40 mg PO DAILY Qty: 30 0RF
allopurinol 100 mg Tablet
100 mg PO DAILY Qty: 30 0RF
sodium bicarbonate 650 mg Tablet
650 mg PO BID Qty: 60 0RF
guaifenesin 600 mg Tablet Extended Release 12hr
600 mg PO Q12 Qty: 30 0RF
prednisone 10 mg tablet
See Rx Instructions .ROUTE .COMPLEX Qty: 10 0RF
Rx Instructions:
Take 2 Tabs for 3 Days THEN
Take 1 Tabs for 3 Days
Continued
atorvastatin 80 MG tablet
80 mg PO HS
loperamide [Imodium A-D] 2 MG capsule
2 - 4 mg PO Q4HPRN PRN (Reason: diarrhea)
ezetimibe 10 MG tablet
10 mg PO HS
acetaminophen [Tylenol Extra Strength] 500 MG tablet
1,000 mg PO BID
melatonin 10 MG tablet
20 mg PO HS
lavinia (Zingiber officinalis) 500 MG capsule
550 mg PO HS
cyanocobalamin (vitamin B-12) [Vitamin B-12] 1,000 mcg Tablet
1,000 mcg PO DAILY
omeprazole 40 mg capsule,delayed release(DR/EC)
40 mg PO HS
levothyroxine 75 mcg Tablet
75 mcg PO DAILY
simethicone [Gas-X Extra Strength] 125 mg Capsule
125 mg PO HSPRN PRN (Reason: gas)
icosapent ethyl [Vascepa] 1 gram Capsule
2 g PO BID
Trelegy Ellipta 200-62.5-25 mcg Blister With Device
1 inh INHALATION R DAILY
Robitussin liquid
1 dose PO HS
diltiazem HCl 180 mg Capsule,Extended Release 24hr
180 mg PO DAILY Qty: 30 0RF
Eliquis 5 mg Tablet
5 mg PO BID Qty: 60 0RF
amiodarone 200 mg Tablet
200 mg PO BID Qty: 60 0RF
trazodone 150 mg Tablet
150 mg PO HS
colchicine 0.6 mg Tablet
0.6 mg PO DAILYPRN PRN (Reason: gout)
duloxetine 60 mg Capsule,Delayed Release(Dr/Ec)
60 mg PO HS
ergocalciferol (vitamin D2) 1,250 mcg (50,000 unit) capsule
50,000 unit PO FR
Discontinued
nitroglycerin 0.2 mg/hr patch 24 hour
0.2 mg transdermal DAILY
Rx Instructions:
12 hours on, 12 hours off
doxazosin 1 mg Tablet
1 mg PO HS Qty: 30 0RF
furosemide [Lasix] 20 mg tablet
20 mg PO DAILY
prednisone 10 mg tablet
See Rx Instructions .ROUTE .COMPLEX
Patient Comments:
06/06/24: Today patient just had her first dose of 40mg
Rx Instructions:
Take By Mouth:
50 mg daily x5 days, 40 mg daily x5 days,
30 mg daily x5 days, 20 mg daily x5 days,
10 mg daily x5 days
Discharge Orders:
Discharge Patient (As Directed); Ordered 06/10/24
Ordered By: Yaw Klein
Discharge Date and Time
Discharge Date/Time: 06/10/24 14:16
Print Language: INDIAN
== END 2024-06-10 14:16 | DRG 91 ==
LOC: 3 WEST ACU 18:00
PROVIDERS: Hospitalist; Physician Assistant Medical; Specialist; ADMITTING PHYSICIAN Internal Medicine; ATTENDING PHYSICIAN Hospitalist; CONSULT PHYSICIAN Internal Medicine; EMERGENCY PHYSICIAN Emergency Medicine; FAMILY PHYSICIAN Family Medicine
DX: G72.0 Drug-induced myopathy (principal); I50.33 Acute on chronic diastolic (congestive) heart failure; I13.0 Hypertensive heart and chronic kidney disease with heart failure and stage 1 through stage 4 chronic kidney disease, or unspecified chronic kidney disease; E87.1 Hypo-osmolality and hyponatremia; Z68.42 Body mass index [BMI] 45.0-49.9, adult; E87.20 Acidosis, unspecified; N12 Tubulo-interstitial nephritis, not specified as acute or chronic; T38.0X5A Adverse effect of glucocorticoids and synthetic analogues, initial encounter; T44.6X5A Adverse effect of alpha-adrenoreceptor antagonists, initial encounter; J44.89 Other specified chronic obstructive pulmonary disease; I25.10 Atherosclerotic heart disease of native coronary artery without angina pectoris; E78.00 Pure hypercholesterolemia, unspecified; N18.32 Chronic kidney disease, stage 3b; D63.1 Anemia in chronic kidney disease; E03.9 Hypothyroidism, unspecified; F32.A Depression, unspecified; G47.00 Insomnia, unspecified; I48.0 Paroxysmal atrial fibrillation; E66.01 Morbid (severe) obesity due to excess calories; K21.9 Gastro-esophageal reflux disease without esophagitis; J47.9 Bronchiectasis, uncomplicated; K59.00 Constipation, unspecified; I35.0 Nonrheumatic aortic (valve) stenosis; I95.2 Hypotension due to drugs; M10.9 Gout, unspecified; D72.829 Elevated white blood cell count, unspecified; Z11.52 Encounter for screening for COVID-19; Z95.5 Presence of coronary angioplasty implant and graft; Z87.891 Personal history of nicotine dependence; Z88.1 Allergy status to other antibiotic agents; Z87.01 Personal history of pneumonia (recurrent); Z79.01 Long term (current) use of anticoagulants; Z79.890 Hormone replacement therapy; Z79.899 Other long term (current) drug therapy
CPT/HCPCS: 71046; 80048; 80053; 81003; 81015; 82550; 82607; 83880; 83930; 83935; 84300; 84439; 84443; 84550; 85025; 85027; 85610; 85730; 87502; 87811; 93005; 93971; 94640; 97116; 97166; 97530; 99285

== ENCOUNTER 2024-07-02 16:42 | Inpatient (IN) | payer MEDICARE, OTHER, SELFPAY ==
[2024-07-02 13:03] VITALS: BP 135/59
[2024-07-02 13:41] VITALS: BP 130/56
[2024-07-02 13:43] VITALS: BMI 49.7
[2024-07-02 14:15] LABS: Hematocrit 28.3 % (37.0-47.0); Hemoglobin 9.2 g/dL (12.0-16.0); Mean Corp Hgb Conc. 32.5 g/dL (33.0-37.0); Mean Corpuscular Hgb 30.7 pg (27.0-31.0); Mean Corpuscular Volume 94.3 fL (81.0-99.0); Mean Platelet Volume 8.8 fL (7.4-10.4); Platelet Count 263 10^3/uL (130-400); Red Cell Dist. Width 17.9 % (11.5-14.5); White Blood Cell Count 9.9 10^3/uL (4.8-10.8)
--- NOTE | 2024-07-02 14:18 | ED.GENMED ---
History of Present Illness
General
Chief Complaint: Swelling
Source: patient
Exam Limitations: none
Time Seen by Provider: 07/02/24 13:37
Nursing documentation reviewed up to this point in time: agreed with
History of Present Illness
History of Present Illness:
79-year-old female with past medical history of COPD, asthma, CHF CAD hypertension, CKD presenting from cardiology office with concerns of recent significant weight gain leg swelling and shortness of breath. Patient has been on Lasix as well as
metolazone without relief as an outpatient. Additionally her potassium has been low as well and has been taking supplementation over the past few days. She claims that her exercise tolerance has been significantly decreased over the past few days
as well. Denies any chest pain fevers.
Past History
Past History
ED Past Medical History: Asthma, CAD, COPD, HTN and Hypercholesterolemia
ED Past Surgical History: Cardiac (Stent X3)
Social History
Tobacco: Former smoker
Alcohol: None
Drug: None
Personal:
Living: with family
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
Family History
Family History: Other (COPD, breast cancer)
Review of Systems
Review of Systems
Allergies reviewed?: Yes
All Other Systems: ROS reviewed and negative except as documented in HPI and ROS
Phy Exam
Physical Exam
Physical Exam:
GENERAL: Alert , in no apparent distress
EYE: pupils equal and reactive
NECK: Supple, no significant adenopathy.
ENT: o/p clr, mmm.
CARDIAC: Regular rate and rhythm .
LUNGS: End expiratory wheeze diffusely otherwise good air movement
ABDOMEN: Soft, without focal tenderness, no r/g, no cvat
NEUROLOGICAL: Alert and oriented, no focal neuro deficits
SKIN: Warm and dry, skin intact.
MUSCULOSKELETAL: Significantly swollen legs from mid thigh distally well perfused.
PSYCH: Normal and appropriate interaction.
Scores
Heart Failure Risk
Heart Failure Risk Score: Not Applicable
Course
Orders/Labs/Results
Orders:
Orders
07/02/24 13:39
Electrocardiogram (*1) Stat
Reason for Study: Other
Other Reason for Exam: chest pain
EKG- Treatment ONCE
CR Chest - 2 Views Urgent
Comment:
Reason For Exam: sob
07/02/24 13:51
Comprehensive Metabolic Panel Urgent
Magnesium Urgent
07/02/24 13:52
Complete Blood Count/With Diff Urgent
Manual Differential Urgent
NT-proBNP Urgent
TSH Urgent
Troponin I Urgent
07/02/24 14:56
Furosemide [Lasix] 40 mg IV NOW STA
Abnormal Lab Results
07/02/24 07/02/24
13:51 13:52
RBC 3.00 L 10^6/uL
(4.20-5.40)
Hgb 9.2 L g/dL
(12.0-16.0)
Hct 28.3 L %
(37.0-47.0)
MCHC 32.5 L g/dL
(33.0-37.0)
RDW 17.9 H %
(11.5-14.5)
Abs Neuts (Manual) 8.1 H 10^3/uL
(1.4-6.5)
Segmented Neutrophils 80 H %
(42-75)
Lymphocytes (Manual) 8 L %
(20-51)
BUN 58 H mg/dl
(7-17)
Creatinine 1.9 H mg/dL
(0.6-1.0)
Glucose 107 H mg/dl
(70-99)
Total Protein 5.7 L g/dl
(6.3-8.2)
07/02/24 13:52
07/02/24 13:51
Vital Signs
Initial and Last Documented VS:
Initial Vital Signs
Temp Pulse Resp BP Pulse Ox
97.9 F 67 20 135/59 93
07/02/24 13:03 07/02/24 13:03 07/02/24 13:03 07/02/24 13:03 07/02/24 13:03
Last Documented Vital Signs
Temp Pulse Resp BP Pulse Ox
97.9 F 66 18 128/53 95
07/02/24 13:03 07/02/24 14:59 07/02/24 13:44 07/02/24 14:59 07/02/24 13:44
MDM/Problems Addressed
MDM/Problems Addressed:
79-year-old female presenting to the emergency department today with concerns of potential CHF exacerbation as well as hypokalemia. Patient at rest in no distress with pulse ox in the mid to low 90s. Patient is significant peripheral edema and
adventitious lung sounds concerning for potential pulmonary edema. Labs showing creatinine patient's baseline. Troponin negative EKG unchanged potassium level normal. Considering her likely CHF exacerbation patient was given dose of IV Lasix.
Plan to admit for further treatment and monitoring.
*Critical Care Note
Total Time (30-74mins, 75-104mins- exclusive of procedures): Not Applicable
ED Attending Note
-
Portions of this chart may have been created with voice recognition software.� Occasional wrong word or��sound alike� substitutions may have occurred due to the inherent limitations of voice recognition software.
Discharge Plan
Departure
Patient Disposition: Admit
Date of Disposition: 07/02/24
Time of Disposition: 15:37
Admit to: Telemetry
Admit to doctor: [facility]
Presentation/result/management discussed w/ accepting MD/DO: Hospitalist
Patient with high blood pressure during this ER visit?: No
Condition: Good
Covid-19: Not Applicable
Discharge Problem:
Acute exacerbation of CHF (congestive heart failure)
Prescriptions:
No Action
atorvastatin 80 MG tablet
80 mg PO HS
loperamide [Imodium A-D] 2 MG capsule
2 - 4 mg PO Q4HPRN PRN (Reason: diarrhea)
ezetimibe 10 MG tablet
10 mg PO HS
acetaminophen [Tylenol Extra Strength] 500 MG tablet
1,000 mg PO BID
melatonin 10 MG tablet
20 mg PO HS
lavinia (Zingiber officinalis) 500 MG capsule
550 mg PO HS
cyanocobalamin (vitamin B-12) [Vitamin B-12] 1,000 mcg Tablet
1,000 mcg PO DAILY
omeprazole 40 mg capsule,delayed release(DR/EC)
40 mg PO HS
levothyroxine 75 mcg Tablet
75 mcg PO DAILY
simethicone [Gas-X Extra Strength] 125 mg Capsule
125 mg PO HSPRN PRN (Reason: gas)
icosapent ethyl [Vascepa] 1 gram Capsule
2 g PO BID
Trelegy Ellipta 200-62.5-25 mcg Blister With Device
1 inh INHALATION R DAILY
Robitussin liquid
1 dose PO HS
diltiazem HCl 180 mg Capsule,Extended Release 24hr
180 mg PO DAILY Qty: 30 0RF
Eliquis 5 mg Tablet
5 mg PO BID Qty: 60 0RF
amiodarone 200 mg Tablet
200 mg PO BID Qty: 60 0RF
trazodone 150 mg Tablet
150 mg PO HS
colchicine 0.6 mg Tablet
0.6 mg PO DAILYPRN PRN (Reason: gout)
duloxetine 60 mg Capsule,Delayed Release(Dr/Ec)
60 mg PO HS
ergocalciferol (vitamin D2) 1,250 mcg (50,000 unit) capsule
50,000 unit PO FR
furosemide 40 mg Tablet
40 mg PO DAILY Qty: 30 0RF
allopurinol 100 mg Tablet
100 mg PO DAILY Qty: 30 0RF
sodium bicarbonate 650 mg Tablet
650 mg PO BID Qty: 60 0RF
guaifenesin 600 mg Tablet Extended Release 12hr
600 mg PO Q12 Qty: 30 0RF
prednisone 10 mg tablet
See Rx Instructions .ROUTE .COMPLEX Qty: 10 0RF
Rx Instructions:
Take 2 Tabs for 3 Days THEN
Take 1 Tabs for 3 Days
Referrals:
Suraj Arreguin MD [Family Provider] -
Interventions
Interventions:
ED- Cardiac Assessment Last Done: 07/02/24 13:45
Discharge Date and Time
Print Language: NIUEAN
[2024-07-02 14:22] LABS: ALT (SGPT) 23 U/L (0-35); AST (SGOT) 22 U/L (14-36); Albumin 3.8 g/dl (3.5-5.0); Alkaline Phosphatase 110 U/L (38-126); Blood Urea Nitrogen 58 mg/dl (7-17); Calcium 9.6 mg/dl (8.4-10.2); Carbon Dioxide 28 mmol/L (22-30); Chloride 99 mmol/L (98-107); Estimated Creatinine Clearance 31 ml/min; Glucose 107 mg/dl (70-99); Potassium 3.6 mmol/L (3.5-5.1); Sodium 137 mmol/L (135-145); Total Bilirubin 0.4 mg/dl (0.2-1.3); Total Protein 5.7 g/dl (6.3-8.2); eGFR 26.86
[2024-07-02 14:32] LABS: Absolute Neutrophils -Man Diff 8.1 10^3/uL (1.4-6.5); Band Neutrophils 2 % (0-3); Segmented Neutrophils 80 % (42-75)
[2024-07-02 14:33] LABS: Eosinophils 2 % (0-6); Lymphocytes 8 % (20-51); Monocytes 5 % (2-9); Myelocytes 2 % (-); NT-proBNP 133 pg/ml; Normal RBC Morphology No; Nucleated Red Blood Cells 1 (-); Platelets Checked Yes; Promyelocytes 1 % (-); Troponin I < 0.012 ng/ml
[2024-07-02 14:34] LABS: Anisocytosis 2+; Macrocytosis 2+; Polychromasia 1+
[2024-07-02 14:35] LABS: Total Cells Counted 100
[2024-07-02 14:59] VITALS: BP 128/53
[2024-07-02] MEDS: LASIX 40 MG IV (15:31)
--- NOTE | 2024-07-02 16:24 | HPS.HSE ---
Family Physician
-
Family Physician: Suraj Arreguin
Chief Complaint
-
shortness of breath
History of Present Illness
79-year-old female past medical history of orthostatic hypotension, CAD status post stents, paroxysmal atrial fibrillation, HFpEF, essential hypertension, CKD 3, chronic hyponatremia, constipation, COPD/bronchiectasis, hypothyroidism, presenting
with depression, insomnia, obesity, presenting with recent weight gain, swelling and shortness of breath. She has gained 15 pounds in past few weeks. Her exercise tolerance has been decreased over the past few days. Denies chest pain, cough or
fever. He has been on Lasix and metolazone without relief. She was recently switched to Bumex without improvement. Her potassium has been low and she has been taking potassium supplementation.
Denies smoking or alcohol use.
Medical History
Past Medical History
Past Medical History: Reports Other (orthostatic hypotension, CAD status post stents, paroxysmal atrial fibrillation, HFpEF, essential hypertension, CKD 3, chronic hyponatremia, constipation, COPD/bronchiectasis, hypothyroidism, presenting with
depression, insomnia, obesity)
Past Surgical History: Reports None
Social History
Tobacco: Non-smoker
Alcohol: None
Drug: None
Family History
Family History: Not pertinent
Allergies / Home Medications
Allergies reflects when Allergies were last updated in [employer].
Home Medications with original date entered in [employer]
Allergy/Medication List:
Allergies
Allergy/AdvReac Type Severity Reaction Status Date / Time
levofloxacin [From Levaquin] Allergy Unknown Verified 07/02/24 13:07
metronidazole [From Flagyl] Allergy JOINT Verified 07/02/24 13:07
PAINS/H=PYLORI
anesthetic Allergy nausea Uncoded 07/02/24 13:11
vomiting
Home Medications
atorvastatin 80 mg tablet 80 mg PO HS High cholesterol 10/03/16
ezetimibe 10 mg tablet 10 mg PO HS High cholesterol 07/05/20
loperamide 2 mg capsule (Imodium A-D) 4 mg PO Q4HPRN PRN diarrhea 07/05/20
acetaminophen 500 mg tablet (Tylenol Extra Strength) 1,000 mg PO BID Pain 06/27/21
melatonin 10 mg tablet 20 mg PO HS Sleep 06/27/21
lavinia (Zingiber officinalis) 500 mg capsule 550 mg PO HS Supplement 01/23/22
cyanocobalamin (vitamin B-12) 1,000 mcg tablet (Vitamin B-12) 1,000 mcg PO DAILY Supplement 12/21/22
omeprazole 40 mg capsule,delayed release 40 mg PO HS Gastrointestinal issue 12/21/22
fluticasone fur. 200 mcg-umeclid 62.5 mcg-vilant 25 mcg inhalat.powder (Trelegy Ellipta) 1 inh inhalation R DAILY Lung/Breathing Issues 04/20/23
levothyroxine 75 mcg tablet 75 mcg PO DAILY Thyroid 04/20/23
simethicone 125 mg capsule (Gas-X Extra Strength) 125 mg PO HSPRN PRN gas 04/20/23
amiodarone 200 mg tablet 200 mg PO BID #60 tabs 05/31/24
apixaban 5 mg tablet (Eliquis) 5 mg PO BID #60 tabs 05/31/24
diltiazem HCl 180 mg capsule,extended release 24 hr 180 mg PO DAILY #30 caps 05/31/24
colchicine 0.6 mg tablet 0.6 mg PO DAILYPRN PRN gout 06/06/24
duloxetine 60 mg capsule,delayed release 60 mg PO HS Depression 06/06/24
trazodone 150 mg tablet 150 mg PO HS Sleep 06/06/24
allopurinol 100 mg tablet 100 mg PO DAILY #30 tabs 06/10/24
sodium bicarbonate 650 mg tablet 650 mg PO BID #60 tabs 06/10/24
acetaminophen 325 mg tablet 650 mg PO Q6HPRN PRN mild pain/temp >100 07/02/24
bisacodyl 10 mg rectal suppository (Dulcolax (bisacodyl)) [address] DAILYPRN PRN mom ineffective 07/02/24
bumetanide 2 mg tablet 2 mg PO DAILY 07/02/24
cholecalciferol (vitamin D3) 1,250 mcg (50,000 unit) tablet 1,250 mcg PO FR 07/02/24
dextromethorphan-guaifenesin 10 mg-100 mg/5 mL oral syrup 10 ml PO HS 07/02/24
guaifenesin 200 mg tablet 600 mg PO Q12H 07/02/24
icosapent ethyl 1 gram capsule (Vascepa) 2 g PO BID 07/02/24
ipratropium 0.5 mg-albuterol 3 mg (2.5 mg base)/3 mL nebulization soln 3 ml inhalation R Q6HPRN PRN sob 07/02/24
lidocaine 4 % topical patch 1 patch topical DAILY right front thigh 07/02/24
magnesium hydroxide 400 mg/5 mL oral suspension (Milk of Magnesia) 30 ml PO [id number] PRN no bm 3 days 07/02/24
potassium chloride 20 mEq tablet,extended release 40 meq PO DAILY 07/02/24
sodium phosphates 19 gram-7 gram/118 mL enema (Fleet Enema) [address] DAILYPRN PRN dulcolax ineffective 07/02/24
Review of Systems
-
History Source: Patient
A 12 point ROS was completed and negative except as noted: Yes
Constitutional: Reports No Symptoms
EENT: Reports No Symptoms
Respiratory: Reports See HPI
Cardiac: Reports See HPI
Abdomen/GI: Reports No Symptoms
: Reports No Symptoms
Musculoskeletal: Reports No Symptoms
Skin: Reports No Symptoms
Neurological: Reports No Symptoms
Endocrine: Reports No Symptoms
Hematologic/Lymphatic: Reports No Symptoms
Psych: Reports No Symptoms
Physical Exam
Vital Signs
Vital Signs
Temp Pulse Resp BP Pulse Ox
97.9 F 67 18 132/57 95
07/02/24 13:03 07/02/24 15:31 07/02/24 13:44 07/02/24 15:31 07/02/24 13:44
Physical Exam
General: Well Developed, Well Nourished and No Apparent Distress
HEENT: NormoCephalic, Moist mucous membranes and Atraumatic
Respiratory: Clear
Cardiac: S1/S2 and Regular Rhythm; No Murmur or Rub
GI: Soft, Non Tender, Non Distended and Normal Bowel Sounds; No Organomegaly
Rectal: Deferred by Provider
Musculoskeletal: No Clubbing, No Cyanosis and No Edema
Skin: No Rash
Neuro: Nonfocal/grossly intact
Laboratory Results
-
07/02/24 13:52
07/02/24 13:51
Laboratory Results
Total Bilirubin 0.4 mg/dl (0.2-1.3) 07/02/24 13:51
AST 22 U/L (14-36) 07/02/24 13:51
ALT 23 U/L (0-35) 07/02/24 13:51
Alkaline Phosphatase 110 U/L (38-126) 07/02/24 13:51
Troponin I < 0.012 ng/ml 07/02/24 13:52
Data Reviewed
-
Lab Data: Labs Reviewed by me
Old Records: Reviewed
Impression/Plan
-
IMPRESSION:
PLAN:
# Acute on chronic HFpEF exacerbation
-Patient clearly clinically volume overloaded
-Check I's and O's, daily weights
-Bumex 2 mg twice daily IV
-Chest x-ray unremarkable
-Interestingly cardiac BNP of only 130
-Cardiology consulted
CAD status post stents
-Continue statin
Paroxysmal atrial fibrillation
-Continue amiodarone
-Continue diltiazem
-Continue Eliquis
Hyperlipidemia
-Continue Zetia
History of orthostatic hypotension
Essential hypertension
CKD 3
-Continue sodium bicarb
-Renal function at baseline
Chronic hyponatremia
Constipation
COPD/bronchiectasis
-Continue Trelegy
Hypothyroidism
-Continue levothyroxine
Depression
-Continue duloxetine
Insomnia
-Continue trazodone
Obesity
Gout
-Continue allopurinol, colchicine
Full code
DVT prophylaxis�Eliquis
Cardiac diet
--- NOTE | 2024-07-02 16:39 | W.PN.CARDCBS ---
Today's Communication / Plan
-
Continue IV diuresis, monitor and trend response
Monitor renal function closely
Continue diltiazem, amiodarone, Eliquis
Impression / Plan
-
Please refer to Outpatient cardiology office note from 07/02/2024 as official H&P/consult
PCP: Dr. Morris Gudino
Primary marble mason: Dr. Rissa Walker
Impression:
Presents 07/02/2024 with worsening shortness of breath, crackles, edema and weight gain
Difficulty ambulating
Acute on chronic heart failure with preserved ejection fraction, proBNP 133
Recent admissiom for COPD/bronchiectasis and PNA 05/23/24
Paroxymal Afib with RVR spontaneously converted to SR on Cardizem gtt 05/23/24 and again on 05/29/2024
Chronic Eliquis OAC
Pulmonary nodules
CAD
s/p 3.5/15 mm Xience V expedition drug-eluting stent to the proximal LAD 02/17/14
s/p overlapping 3.5/38 mm x2 Xience V expedition drug-eluting stents to the mid and proximal RCA 02/17/14
stable CAD with patent LAD and RCA stents by cath 07/05/20
patent LAD and RCA stents, nonobstructive distal left main lesion by cath 06/27/21
stable LM lesions with negative iFR assessment of LM/LAD and LM/Circ by cath 04/20/23
Mild to moderate peak/mean 33/16 mmHg and LISA 1.3 cm sq by echo 05/27/24
CKD 3
Hyperlipidemia
Hypertension
Known meningioma
Anemia
Echocardiogram 12/26/22: Ejection fraction 55 to 60% with mild septal hypertrophy. Trace MR. Mild to moderate aortic valve stenosis with peak/mean gradient 32/17 mmHg. Aortic valve area 1.3 cm�. Trace AI. Mild TR with PA pressure 40 mmHg.
Echo 05/27/24: EF 60 to 65%, normal RV size and function, trace MR, mild to moderate peak/mean 33/16 mmHg with LISA 1.3 cm SQ, mild aortic regurgitation, mild TR with PAP 30 to 35 mmHg
Plan:
-Presents 07/02/2024 with worsening shortness of breath, edema and weight gain which is up 15-20 lbs since d/c 06/10
-CXR with no acute cardiopulmonary process.
-Heart failure with preserved ejection fraction, proBNP 133 this admission. Was as high as 1280 in May 2024 and 1730 in April 2024
-Treat with IV diuresis, patient was given Lasix 40 mg IV in ED. Monitor and assess response.
-Baseline CKD stage 3b (1.5-1.9), creat 1.9. Monitor and trend with diuresis. Continue Sodium bicarb. Known to nephrology from prior admissions
-Known COPD -may benefit from nebulizer given wheezing
-History of Paroxysmal atrial fibrillation (new in April 2024). Currently in sinus rhythm on ECG. Continue Amiodarone 200 mg daily. TSH 2.90
-Chronic anticoagulation on Eliquis 5 mg BID. Hgb stable at 9.2. Continue to monitor and trend
-Known coronary artery disease. EKG without ischemic changes. Troponin negative. Patient denies chest pain. Continue medical management
Plan discussed with patient, daughter at bedside
Progress Note - Customer Support Executive
Subjective
Date of Service: July 02, 2024
Patient seen and examined. Patient's daughter at bedside with her. Confirms she has been more short of breath with minimal activity with increased fatigue, worsening lower extremity edema, cough over the last week.
Denies chest pain or shortness of breath at rest.
Objective
Labs:
07/02/24 13:52
07/02/24 13:51
Labs
Hgb 9.2 g/dL (12.0-16.0) L 07/02/24 13:52
Hct 28.3 % (37.0-47.0) L 07/02/24 13:52
Plt Count 263 10^3/uL (130-400) 07/02/24 13:52
Sodium 137 mmol/L (135-145) 07/02/24 13:51
Potassium 3.6 mmol/L (3.5-5.1) 07/02/24 13:51
BUN 58 mg/dl (7-17) H 07/02/24 13:51
Creatinine 1.9 mg/dL (0.6-1.0) H 07/02/24 13:51
Glucose 107 mg/dl (70-99) H 07/02/24 13:51
Troponins
07/02/24
13:52
Troponin I < 0.012
Vital Signs and I&O:
Vital Signs
Temp Pulse Resp BP Pulse Ox
97.9 F 67 18 132/57 95
07/02/24 13:03 07/02/24 15:31 07/02/24 13:44 07/02/24 15:31 07/02/24 13:44
Vital Signs
Temp Pulse Resp BP Pulse Ox
97.9 F 67 18 132/57 95
07/02/24 13:03 07/02/24 15:31 07/02/24 13:44 07/02/24 15:31 07/02/24 13:44
Physical Exam
Physical Exam
GEN: No distress, awake, Ox3, lying in bed
HEENT: supple, anicteric, mmm
LUNGS: Faint expiratory wheezes left greater than right, bibasilar crackles; on 3 L via nasal cannula
CV: Reg, S1/S2, 1/6 syst LSB murmur, no rub or gallop
ABD: soft, BS+, NT/ND
EXT: +1 lower extremity edema bilaterally, no clubbing or cyanosis; leg in Alan wrap's
NEURO: Gross non-focal
SKIN: No rash, warm, dry, pink
[2024-07-02 18:02] VITALS: BP 143/59; BMI 48.8
[2024-07-02 18:37] VITALS: BMI 48.8
[2024-07-02 19:20] VITALS: BP 133/53
--- NOTE | 2024-07-02 19:24 | PTCARENOTE ---
pt pulled over from stretcher to bed. wearing 2L NC. VSS. NSR on monitor. assessment and admissions completed by this nurse.
[2024-07-02] MEDS: SYMBICORT 160/4.5 MCG INHALER INH (19:25)
[2024-07-02] MEDS: PROTONIX 40 MG PO (21:55)
[2024-07-02] MEDS: MUCINEX 600 MG PO (21:55)
[2024-07-02] MEDS: SODIUM BICARBONATE 650 MG PO (21:55)
[2024-07-02] MEDS: PACERONE 200 MG PO (21:56)
[2024-07-02] MEDS: TYLENOL 1000 MG PO (21:57)
[2024-07-02] MEDS: ELIQUIS 5 MG PO (21:57)
[2024-07-02] MEDS: DESENEX/MITRAZOL/ZEASORB 1 APPLIC TOPICAL (21:58)
[2024-07-02] MEDS: ZETIA 10 MG PO (21:59)
[2024-07-02] MEDS: ROBITUSSIN DM 10 ML PO (21:59)
[2024-07-02] MEDS: CYMBALTA DELAYED RELEASE 60 MG PO (22:00)
[2024-07-02] MEDS: MELATONIN 20 MG PO (22:00)
[2024-07-02] MEDS: LIPITOR 80 MG PO (22:00)
[2024-07-02] MEDS: DESYREL 150 MG PO (22:00)
[2024-07-02 23:02] VITALS: BP 107/42
[2024-07-03 03:00] VITALS: BP 122/47
[2024-07-03] MEDS: SYNTHROID 75 MCG PO (05:46)
[2024-07-03 06:00] VITALS: BMI 48.5
[2024-07-03 06:57] LABS: Hematocrit 26.4 % (37.0-47.0); Hemoglobin 8.6 g/dL (12.0-16.0); Mean Corp Hgb Conc. 32.6 g/dL (33.0-37.0); Mean Corpuscular Hgb 32.1 pg (27.0-31.0); Mean Corpuscular Volume 98.5 fL (81.0-99.0); Mean Platelet Volume 9.2 fL (7.4-10.4); Platelet Count 226 10^3/uL (130-400); Red Blood Cell Count 2.68 10^6/uL (4.20-5.40); Red Cell Dist. Width 17.9 % (11.5-14.5); White Blood Cell Count 8.6 10^3/uL (4.8-10.8)
[2024-07-03 07:16] LABS: ALT (SGPT) 20 U/L (0-35); AST (SGOT) 20 U/L (14-36); Albumin 3.3 g/dl (3.5-5.0); Alkaline Phosphatase 105 U/L (38-126); Blood Urea Nitrogen 58 mg/dl (7-17); Calcium 9.8 mg/dl (8.4-10.2); Carbon Dioxide 29 mmol/L (22-30); Chloride 99 mmol/L (98-107); Estimated Creatinine Clearance 31 ml/min; Glucose 137 mg/dl (70-99); Potassium 3.4 mmol/L (3.5-5.1); Sodium 140 mmol/L (135-145); Total Bilirubin 0.5 mg/dl (0.2-1.3); Total Protein 5.2 g/dl (6.3-8.2); eGFR 26.86
[2024-07-03 07:32] LABS: % Basophils 0.9 % (0-2); % Eosinophils 1.2 % (0-6); % Immature Granulocytes 5.1 % (0-0.5); % Lymphocytes 11.1 % (20.5-51.1); % Monocytes 4.8 % (1.7-9.3); % Neutrophils 76.9 % (42.2-75.2); Absolute Basophils 0.1 10^3/uL (0-0.2); Absolute Eosinophils 0.1 10^3/uL (0-0.7); Absolute Immature Granulocytes 0.4 10^3/uL (0-0.05); Absolute Monocytes 0.4 10^3/uL (0.1-0.6); Absolute Neutrophils 6.6 10^3/uL (1.4-6.5); Nucleated Red Blood Cells % 0.4 %
[2024-07-03] MEDS: SYMBICORT 160/4.5 MCG INHALER 2 PUFF INH ×2 (07:36→19:40)
[2024-07-03] MEDS: SPIRIVA RESPIMAT 2.5 MCG 2 PUFF INH (07:36)
[2024-07-03 07:39] VITALS: BP 141/63
[2024-07-03] MEDS: TYLENOL 1000 MG PO ×2 (07:56→20:54)
[2024-07-03] MEDS: CARDIZEM CD 180 MG PO (07:56)
[2024-07-03] MEDS: MUCINEX 600 MG PO ×2 (07:56→20:54)
[2024-07-03] MEDS: KCL 40 MEQ PO ×2 (07:56→09:32)
[2024-07-03] MEDS: ELIQUIS 5 MG PO ×2 (07:56→20:54)
[2024-07-03] MEDS: VITAMIN B-12 1000 MCG PO (07:56)
[2024-07-03] MEDS: PACERONE 200 MG PO ×2 (07:56→20:55)
[2024-07-03] MEDS: ZYLOPRIM 100 MG PO (07:56)
[2024-07-03] MEDS: SODIUM BICARBONATE 650 MG PO ×2 (07:56→22:07)
[2024-07-03] MEDS: DESENEX/MITRAZOL/ZEASORB 1 APPLIC TOPICAL ×2 (07:57→21:05)
[2024-07-03] MEDS: BUMEX 2 MG IV ×2 (07:57→15:35)
[2024-07-03] MEDS: FLUSH (NSS) 2 FLUSH IV (07:59)
--- NOTE | 2024-07-03 11:26 | W.PN.HOSP.TC ---
Today's Communication/Plan
-
Monitor vital signs
see plan
Continue with diuresis
Replete potassium
Assessment / Plan
Assessment / Plan
General: Well Developed, Well Nourished and No Apparent Distress
HEENT: NormoCephalic, Moist mucous membranes and Atraumatic
Respiratory: Clear
Cardiac: S1/S2 and Regular Rhythm; No Murmur or Rub
GI: Soft, Non Tender, Non Distended and Normal Bowel Sounds
Rectal: Deferred by Provider
Musculoskeletal: No Edema
Neuro: Nonfocal/grossly intact
Acute on chronic HFpEF exacerbation
-Patient clearly clinically volume overloaded
-Check I's and O's, daily weights
-Bumex 2 mg twice daily IV
-Chest x-ray unremarkable
-Interestingly cardiac BNP of only 130
-Cardiology following
Hypokalemia
Replete
CAD status post stents
-Continue statin
Paroxysmal atrial fibrillation
-Continue amiodarone
-Continue diltiazem
-Continue Eliquis
Hyperlipidemia
-Continue Zetia
History of orthostatic hypotension
Essential hypertension
CKD 3
-Continue sodium bicarb
-Renal function at baseline
Chronic hyponatremia
Constipation
COPD/bronchiectasis
-Continue Trelegy
Hypothyroidism
-Continue levothyroxine
Depression
-Continue duloxetine
Insomnia
-Continue trazodone
Obesity
Gout
-Continue allopurinol, colchicine
Full code
DVT prophylaxis�Eliquis
I spent a total of 51 minutes with the patient or on the floor. More than 50% of this time involved counseling and coordination of care.
Anticipated Discharge: > 48 hours
Subjective/Interval History
-
Date of Service: July 03, 2024
denies pain
Objective Data
-
Labs:
Laboratory Results
07/03/24
06:21
WBC 8.6
Hgb 8.6 L
Hct 26.4 L
Plt Count 226
Sodium 140
Potassium 3.4 L
Chloride 99
Carbon Dioxide 29
BUN 58 H
Creatinine 1.9 H
Glucose 137 H
Calcium 9.8
Total Bilirubin 0.5
AST 20
ALT 20
Alkaline Phosphatase 105
Vital Signs:
Vital Signs
Temp Pulse Resp BP Pulse Ox
97.9 F 86 16 141/63 97
07/03/24 07:39 07/03/24 07:57 07/03/24 07:43 07/03/24 07:57 07/03/24 07:43
I&O
07/02/24 07/03/24 07/04/24
06:59 06:59 06:59
Intake Total 480 / 480
Balance 480 / 480
[2024-07-03 12:47] VITALS: BP 115/50
--- NOTE | 2024-07-03 15:39 | W.PN.CARDCBS ---
Addendum entered and electronically signed by Missael Leonard MD 07/03/24 16:45:
I saw and examined the patient.
The Maintenance Data Analyst's note was reviewed and I agree with the note.
Comment:
GEN: No distress, awake, Ox3
HEENT: supple, anicteric, mmm
LUNGS: CTA, no wheezes/rales
CV: Reg, S1/S2, 1/6 syst LSB, no gallop
ABD: soft, BS+, NT/ND
EXT: +1 edema
NEURO: Gross non-focal
SKIN: chronic stasis changes
plan:
Her weight is down some. Continue with IV Lasix. Creatinine overall stable at 1.9.
Of note proBNP is only 120 so this suggests her dyspnea is likely multifactorial.
She remains in sinus rhythm. Continue amiodarone, diltiazem, and Eliquis.
Wean oxygen as tolerated.
Original Note:
Today's Communication / Plan
-
Continue diuresis
Follow creat
Continue amio, cardizem, eliquis
Wean O2 as able
Impression / Plan
-
PCP: Dr. Morris Gudino
Primary door puller: Dr. Rissa Walker
Impression:
Presented with worsening SOB, edema, and weight gain
Difficulty ambulating
Acute on chronic HFpEF
Recent admission for COPD/bronchiectasis and PNA 05/23/24
Paroxysmal Afib with RVR spontaneously converted to SR on Cardizem gtt 05/23/24 and again on 05/29/2024
Chronic Eliquis OAC
Pulmonary nodules
CAD
s/p 3.5/15 mm Xience V expedition drug-eluting stent to the proximal LAD 02/17/14
s/p overlapping 3.5/38 mm x2 Xience V expedition drug-eluting stents to the mid and proximal RCA 5/27/14
stable CAD with patent LAD and RCA stents by cath 07/05/20
patent LAD and RCA stents, nonobstructive distal left main lesion by cath 06/27/21
stable LM lesions with negative iFR assessment of LM/LAD and LM/Circ by cath 04/20/23
Mild to moderate peak/mean 33/16 mmHg and LISA 1.3 cm sq by echo 05/27/24
CKD 3
Hyperlipidemia
Hypertension
Known meningioma
Anemia
Echo 12/26/22: Ejection fraction 55 to 60% with mild septal hypertrophy. Trace MR. Mild to moderate aortic valve stenosis with peak/mean gradient 32/17 mmHg. Aortic valve area 1.3 cm�. Trace AI. Mild TR with PA pressure 40 mmHg.
Echo 05/27/24: EF 60 to 65%, normal RV size and function, trace MR, mild to moderate peak/mean 33/16 mmHg with LISA 1.3 cm SQ, mild aortic regurgitation, mild TR with PAP 30 to 35 mmHg
Plan:
-Presented with SOB, edema and weight gain.
-Diuresing with IV bumex 2mg BID. Weight down to 265lbs 07/03, still up 14 lbs from dry weight of 251lbs.
-Creat stable at 1.9. Continue to follow w/ diuresis. Follow daily weights, I&Os.
-In SR on review of telemetry. Does have h/o afib, maintained on amiodarone 200mg daily and cardizem CD 180mg daily. HR stable.
-Continue anticoagulation with Eliquis 5mg BID. Hgb down to 8.6 07/03, continue to follow closely.
-K down to 3.4 07/03, agree w/ repletion
Progress Note - Machinist Outside
Subjective
Date of Service: July 03, 2024
Still SOB, especially w/ ambulation.
Objective
Labs:
07/03/24 06:21
07/03/24 06:21
Labs
Hgb 8.6 g/dL (12.0-16.0) L 07/03/24 06:21
Hct 26.4 % (37.0-47.0) L 07/03/24 06:21
Plt Count 226 10^3/uL (130-400) 07/03/24 06:21
Sodium 140 mmol/L (135-145) 07/03/24 06:21
Potassium 3.4 mmol/L (3.5-5.1) L 07/03/24 06:21
BUN 58 mg/dl (7-17) H 07/03/24 06:21
Creatinine 1.9 mg/dL (0.6-1.0) H 07/03/24 06:21
Glucose 137 mg/dl (70-99) H 07/03/24 06:21
Troponins
07/02/24
13:52
Troponin I < 0.012
Vital Signs and I&O:
Vital Signs
Temp Pulse Resp BP Pulse Ox
98.0 F 70 16 115/50 93
07/03/24 12:47 07/03/24 12:47 07/03/24 12:47 07/03/24 12:47 07/03/24 12:47
Vital Signs
Temp Pulse Resp BP Pulse Ox
98.0 F 70 16 115/50 93
07/03/24 12:47 07/03/24 12:47 07/03/24 12:47 07/03/24 12:47 07/03/24 12:47
Intake & Output
07/01/24 07/02/24 07/03/24 07/04/24
06:59 06:59 06:59 06:59
Intake Total 480 / 480
Balance 480 / 480
Physical Exam
Physical Exam
GEN: No distress, awake, Ox3, lying in bed
HEENT: supple, anicteric, mmm
LUNGS: scattered wheezes
CV: Reg, S1/S2, 1/6 syst murmur, no rub or gallop
EXT: +1 LE edema b/l, no clubbing or cyanosis; leg in Alan wrap's
NEURO: Gross non-focal
SKIN: No rash, warm, dry, pink
[2024-07-03 18:09] VITALS: BP 129/50
[2024-07-03 19:20] VITALS: BP 124/49
--- NOTE | 2024-07-03 21:10 | PTCARENOTE ---
Pt c/o pain throughout R thigh. Pt stated, 'I have a pinched nerve'. Pt requested lidocaine patch, WEDDING COORDINATOR made aware, new order provided, see MAR. will continue to monitor.
[2024-07-03] MEDS: DUONEB 3 ML INH (21:15)
[2024-07-03] MEDS: MELATONIN 20 MG PO (22:07)
[2024-07-03] MEDS: DESYREL 150 MG PO (22:07)
[2024-07-03] MEDS: PROTONIX 40 MG PO (22:07)
[2024-07-03] MEDS: LIDOCAINE 4% PATCH 1 PATCH TOPICAL (22:07)
[2024-07-03] MEDS: CYMBALTA DELAYED RELEASE 60 MG PO (22:07)
[2024-07-03] MEDS: LIPITOR 80 MG PO (22:07)
[2024-07-03] MEDS: ROBITUSSIN DM 10 ML PO (22:07)
[2024-07-03] MEDS: ZETIA 10 MG PO (22:08)
[2024-07-03 23:20] VITALS: BP 133/59
[2024-07-04] VITALS (7 sets, daily range): BP systolic 115–147; BP diastolic 49–71; PULSE 69; O2SAT 97; BMI 48.4
[2024-07-04] MEDS: SYNTHROID 75 MCG PO (06:06)
[2024-07-04 07:48] LABS: Hemoglobin 9.1 g/dL (12.0-16.0); Mean Corp Hgb Conc. 33.7 g/dL (33.0-37.0); Mean Corpuscular Hgb 33.1 pg (27.0-31.0); Mean Corpuscular Volume 98.2 fL (81.0-99.0); Platelet Count 199 10^3/uL (130-400); Red Blood Cell Count 2.75 10^6/uL (4.20-5.40); Red Cell Dist. Width 18.3 % (11.5-14.5)
[2024-07-04] MEDS: SPIRIVA RESPIMAT 2.5 MCG 2 PUFF INH (07:50)
[2024-07-04] MEDS: SYMBICORT 160/4.5 MCG INHALER 2 PUFF INH ×2 (07:51→19:25)
[2024-07-04 08:19] LABS: Blood Urea Nitrogen 54 mg/dl (7-17); Carbon Dioxide 28 mmol/L (22-30); Chloride 100 mmol/L (98-107); Estimated Creatinine Clearance 34 ml/min; Glucose 132 mg/dl (70-99); Potassium 3.8 mmol/L (3.5-5.1); Sodium 142 mmol/L (135-145)
[2024-07-04 08:25] LABS: Absolute Neutrophils -Man Diff 6.3 10^3/uL (1.4-6.5); Band Neutrophils 1 % (0-3); Eosinophils 2 % (0-6); Lymphocytes 2 % (20-51); Monocytes 3 % (2-9); Segmented Neutrophils 90 % (42-75)
[2024-07-04 08:26] LABS: Anisocytosis 3+; Macrocytosis 1+; Myelocytes 1 % (-); Normal RBC Morphology No; Nucleated Red Blood Cells 2 (-); Platelets Checked Yes; Polychromasia 1+
[2024-07-04 08:27] LABS: Total Cells Counted 100
[2024-07-04] MEDS: MUCINEX 600 MG PO ×2 (09:04→20:20)
[2024-07-04] MEDS: PACERONE 200 MG PO ×2 (09:04→20:19)
[2024-07-04] MEDS: VITAMIN B-12 1000 MCG PO (09:04)
[2024-07-04] MEDS: KCL 40 MEQ PO ×2 (09:04→17:48)
[2024-07-04] MEDS: ELIQUIS 5 MG PO ×2 (09:04→20:18)
[2024-07-04] MEDS: SODIUM BICARBONATE 650 MG PO ×2 (09:04→21:39)
[2024-07-04] MEDS: TYLENOL 1000 MG PO ×2 (09:04→20:19)
[2024-07-04] MEDS: ZYLOPRIM 100 MG PO (09:04)
[2024-07-04] MEDS: BUMEX 2 MG IV ×2 (09:16→16:14)
[2024-07-04] MEDS: CARDIZEM CD 180 MG PO (09:16)
[2024-07-04] MEDS: DESENEX/MITRAZOL/ZEASORB 1 APPLIC TOPICAL ×2 (09:17→20:26)
[2024-07-04] MEDS: DRISDOL (VITAMIN D2) 50000 UNITS PO (09:34)
--- NOTE | 2024-07-04 12:29 | W.PN.HOSP.TC ---
Today's Communication/Plan
-
monitor vitals
see plan
cw IV diuresis
PT/OT eval
Assessment / Plan
Assessment / Plan
General: Well Developed, Well Nourished and No Apparent Distress
HEENT: NormoCephalic, Moist mucous membranes and Atraumatic
Respiratory: Clear
Cardiac: S1/S2 and Regular Rhythm; No Murmur or Rub
GI: Soft, Non Tender, Non Distended and Normal Bowel Sounds
Rectal: Deferred by Provider
Musculoskeletal: No Edema
Neuro: Nonfocal/grossly intact
Acute on chronic HFpEF exacerbation
-Patient clearly clinically volume overloaded
-Check I's and O's, daily weights
-Bumex 2 mg twice daily IV
-Chest x-ray unremarkable
-Interestingly cardiac BNP of only 130
-Cardiology following
Ambulatory dysfunction
last admission was thought to be related to steroid induced myopathy and recent hospitalization
PT/OT
monitor
Hypokalemia
resolved
CAD status post stents
-Continue statin
Paroxysmal atrial fibrillation
-Continue amiodarone
-Continue diltiazem
-Continue Eliquis
Hyperlipidemia
-Continue Zetia
History of orthostatic hypotension
Essential hypertension
CKD 3
-Continue sodium bicarb
-Renal function at baseline
Chronic hyponatremia
Constipation
COPD/bronchiectasis
-Continue Trelegy
Hypothyroidism
-Continue levothyroxine
Depression
-Continue duloxetine
Insomnia
-Continue trazodone
Obesity
Gout
-Continue allopurinol, colchicine
Full code
DVT prophylaxis�Eliquis
I spent a total of 52 minutes with the patient or on the floor. More than 50% of this time involved counseling and coordination of care.
Anticipated Discharge: 24 - 48 hours
Subjective/Interval History
-
Date of Service: July 04, 2024
denies pain
Objective Data
-
Labs:
Laboratory Results
07/04/24
07:14
WBC 7.0
Hgb 9.1 L
Hct 27.0 L
Plt Count 199
Sodium 142
Potassium 3.8
Chloride 100
Carbon Dioxide 28
BUN 54 H
Creatinine 1.7 H
Glucose 132 H
Calcium 10.0
Vital Signs:
Vital Signs
Temp Pulse Resp BP Pulse Ox
100.0 F 84 20 142/71 95
07/04/24 11:32 07/04/24 11:32 07/04/24 11:32 07/04/24 11:32 07/04/24 11:32
I&O
07/03/24 07/04/24 07/05/24
06:59 06:59 06:59
Intake Total 480 / 480 200 / 200
Balance 480 / 480 200 / 200
[2024-07-04] MEDS: TYLENOL 650 MG PO (14:23)
--- NOTE | 2024-07-04 15:24 | W.PN.CARDCBS ---
Addendum entered and electronically signed by Jazmyn Tai DO 07/04/24 19:15:
I saw and examined the patient.
The Project Executive's note was reviewed and I agree with the note.
Comment: Patient seen and examined. Shortness of breath with minimal exertion and remains on nasal cannula O2. No chest pain or pressure.
GEN: No distress, awake, Ox3
HEENT: mmm. Nasal cannula O2
LUNGS:Bronchovesicular breath sounds decreased bilaterally with fine crackles at bases
CV: Reg, S1/S2, 2/6 CHARLI LSB,
ABD: soft, BS+, NT/ND
EXT: 3+ B/L LE edema
Plan:
Heart failure with preserved ejection fraction
-Presented 07/02/2024 with SOB, edema and weight gain.
-Remains clinically volume overloaded. Weight 264lbs 07/04, still up from previous dry weight of 251lbs on 06/10/2024.
-Continue IV bumex 2mg BID.
-Add Zaroxolyn 2.5 mg prior to morning dose of Bumex
-Keep K greater than 4, mag greater than 2
-Creat improved to 1.7 (ranges 1.7-1.9 this admit, was 1.3-2.0 admit early May 2024). Continue to follow w/ diuresis.
-Follow daily weights, I&Os.
-Add Farxiga prior to discharge if renal function allows; check with case management regarding cost
History of atrial fibrillation with episodes of PAF
-In SR on review of telemetry.
-Continue amiodarone 200mg daily and cardizem CD 180mg daily. HR stable.
-Continue anticoagulation with Eliquis 5mg BID.
-Hgb stable 9.1 07/04, continue to follow closely.
Cough and upper respiratory symptoms with history of COPD/bronchiectasis/Pulmonary now
-Repeat COVID
Suspect sleep apnea�recommend outpatient testing
CAD with history of prior stents�no active symptoms. No angina. Continue medical therapy
History of mild to moderate �noted
Original Note:
Today's Communication / Plan
-
Continue diuresis with IV Bumex
If no improvement/weight loss consider giving Zaroxolyn 2.5 mg 07/05/2024
Replete potassium
BMP in a.m.
Impression / Plan
-
PCP: Dr. Morris Gudino
Primary church musician: Dr. Rissa Walker
Impression:
Presented 07/02/2024 with worsening SOB, edema, and weight gain
Difficulty ambulating
Acute on chronic HFpEF, proBNP 133
Recent admission for COPD/bronchiectasis and PNA 05/23/24
Paroxysmal Afib with RVR spontaneously converted to SR on Cardizem gtt 05/23/24 and again on 05/29/2024
Chronic Eliquis OAC
Pulmonary nodules
CAD
s/p 3.5/15 mm Xience V expedition drug-eluting stent to the proximal LAD 02/17/14
s/p overlapping 3.5/38 mm x2 Xience V expedition drug-eluting stents to the mid and proximal RCA 02/17/14
stable CAD with patent LAD and RCA stents by cath 07/05/20
patent LAD and RCA stents, nonobstructive distal left main lesion by cath 06/27/21
stable LM lesions with negative iFR assessment of LM/LAD and LM/Circ by cath 04/20/23
Mild to moderate peak/mean 33/16 mmHg and LISA 1.3 cm sq by echo 05/27/24
CKD 3
Hyperlipidemia
Hypertension
Known meningioma
Anemia
Echo 12/26/22: Ejection fraction 55 to 60% with mild septal hypertrophy. Trace MR. Mild to moderate aortic valve stenosis with peak/mean gradient 32/17 mmHg. Aortic valve area 1.3 cm�. Trace AI. Mild TR with PA pressure 40 mmHg.
Echo 05/27/24: EF 60 to 65%, normal RV size and function, trace MR, mild to moderate peak/mean 33/16 mmHg with LISA 1.3 cm SQ, mild aortic regurgitation, mild TR with PAP 30 to 35 mmHg
Plan:
-Presented 07/02/2024 with SOB, edema and weight gain.
-Patient still clinically volume overloaded. Weight 264lbs 07/04, still up from previous dry weight of 251lbs on 06/10/2024.
-Diuresing with IV bumex 2mg BID. If no response in next 24 hours consider adding a dose of Zaroxolyn 2.5 mg
-Creat improved to 1.7 (ranges 1.7-1.9 this admit, was 1.3-2.0 admit early May 2024). Continue to follow w/ diuresis. Follow daily weights, I&Os.
-In SR on review of telemetry. Does have h/o afib, maintained on amiodarone 200mg daily and cardizem CD 180mg daily. HR stable.
-Continue anticoagulation with Eliquis 5mg BID. Hgb stable 9.1 07/04, continue to follow closely.
-K down to 3.8 07/04, up from 3.4. Continue with daily potassium repletion while on IV diuretics. Will give an extra 40 meq x 1 this PM
Progress Note - Realtime Court Reporter
Subjective
Date of Service: July 04, 2024
Patient seen and examined. Patient still with evidence of volume overload on examination.
Objective
Labs:
07/04/24 07:14
07/04/24 07:14
Labs
Hgb 9.1 g/dL (12.0-16.0) L 07/04/24 07:14
Hct 27.0 % (37.0-47.0) L 07/04/24 07:14
Plt Count 199 10^3/uL (130-400) 07/04/24 07:14
Sodium 142 mmol/L (135-145) 07/04/24 07:14
Potassium 3.8 mmol/L (3.5-5.1) 07/04/24 07:14
BUN 54 mg/dl (7-17) H 07/04/24 07:14
Creatinine 1.7 mg/dL (0.6-1.0) H 07/04/24 07:14
Glucose 132 mg/dl (70-99) H 07/04/24 07:14
Troponins
07/02/24
13:52
Troponin I < 0.012
Vital Signs and I&O:
Vital Signs
Temp Pulse Resp BP Pulse Ox
98.9 F 69 20 123/49 97
07/04/24 14:55 07/04/24 14:55 07/04/24 14:55 07/04/24 14:55 07/04/24 14:55
Vital Signs
Temp Pulse Resp BP Pulse Ox
98.9 F 69 20 123/49 97
07/04/24 14:55 07/04/24 14:55 07/04/24 14:55 07/04/24 14:55 07/04/24 14:55
Intake & Output
07/02/24 07/03/24 07/04/24 07/05/24
06:59 06:59 06:59 06:59
Intake Total 480 / 480 200 / 200
Balance 480 / 480 200 / 200
Physical Exam
Physical Exam
GEN: No distress, awake, Ox3
HEENT: supple, anicteric, mmm
LUNGS:B/L rales at bases
CV: Reg, S1/S2, 2/6 CHARLI LSB,
ABD: soft, BS+, NT/ND
EXT: 3+ B/L LE edema
NEURO: Gross non-focal
SKIN: No rash
[2024-07-04] MEDS: ULTRAM 25 MG PO (16:11)
--- NOTE | 2024-07-04 16:58 | CM ---
Reviewed chart, met with patient to obtain information for assessment. Patient put her daughter on speakerphone to talk as well. Patient stated that she came from [facility] [place] however she does not want to return. Prior to that, patient
lived with her daughter, Desi in a single, two story home with one step to enter. Patient described herself as in need of assistance with dressing and bathing as well as her other ADLs. She uses a walker for short distances and a walker for longer
distances. Her daughter does all the metal stamping machine operator, cooking, cleaning and laundry as well as manage patient's medications.
Patient stated that she has toilet rails and a stair glide in addition to her walker and w/c. She is currently on o2 but denied any at home and is hoping to wean.
Patient has had [facility] VN in the past.
[facility] was the only SNF she had been to.
Patient has a prescription plan and she uses, [facility] for all of her medications.
Her PCP is, Suraj Shea.
Patient stated that she did not want to return to [place] or any SNF. She understands that she is still weak and not at her baseline. Patient's daughter stated that she would like for VN services through , a hospital bed and private caregivers
for whom she would pay.
Will send Desi a list of private home health aides at [email or web address] Will send referral to VN.
Plan: Case management will continue to follow and assist with discharge planning. Home with VN and private nursing.
[2024-07-04 20:38] LABS: COVID-19 Antigen Positive (Negative)
--- NOTE | 2024-07-04 20:46 | W.PN.UPDATE ---
Update Note
Progress Note Update
Patient is + covid, Currently afebrile, SPO2 93% on 1L of O2. No new complaints at this time.
Albuterol inhaler ordered as needed, and will monitor vitals.
--- NOTE | 2024-07-04 20:50 | PTCARENOTE ---
COVID test positive. GILBERT Segovia on unit and made aware of positive result. Patient with mild cough, fatigued. Afebrile. Patient with a known hx of COPD. No new orders received at this time. Will monitor.
[2024-07-04] MEDS: LIDOCAINE 4% PATCH 1 PATCH TOPICAL (21:35)
[2024-07-04] MEDS: PROTONIX 40 MG PO (21:36)
[2024-07-04] MEDS: DESYREL 150 MG PO (21:36)
[2024-07-04] MEDS: ZETIA 10 MG PO (21:36)
[2024-07-04] MEDS: MELATONIN 20 MG PO (21:36)
[2024-07-04] MEDS: CYMBALTA DELAYED RELEASE 60 MG PO (21:36)
[2024-07-04] MEDS: ROBITUSSIN DM 10 ML PO (21:37)
[2024-07-04] MEDS: LIPITOR 80 MG PO (21:38)
[2024-07-05] VITALS (8 sets, daily range): BP systolic 111–138; BP diastolic 50–63; PULSE 79; BMI 49.1
[2024-07-05] MEDS: SYNTHROID 75 MCG PO (05:27)
--- NOTE | 2024-07-05 07:54 | W.PN.CARDCBS ---
Addendum entered and electronically signed by Haroon Collins MD 07/05/24 09:50:
Patient diagnosed with COVID
Evaluated by our team and assessment as below
Exam deferred and as per PA-C note
Impression:
Presented 07/02/2024 with worsening SOB, edema, and weight gain
Difficulty ambulating
Acute on chronic HFpEF, proBNP 133
*COVID + 07/04/24*
Recent admission for COPD/bronchiectasis and PNA 05/23/24
Paroxysmal Afib with RVR spontaneously converted to SR on Cardizem gtt 05/23/24 and again on 05/29/2024
Chronic Eliquis OAC
Pulmonary nodules
CAD
s/p 3.5/15 mm Xience V expedition drug-eluting stent to the proximal LAD 02/17/14
s/p overlapping 3.5/38 mm x2 Xience V expedition drug-eluting stents to the mid and proximal RCA 02/17/14
stable CAD with patent LAD and RCA stents by cath 07/05/20
patent LAD and RCA stents, nonobstructive distal left main lesion by cath 06/27/21
stable LM lesions with negative iFR assessment of LM/LAD and LM/Circ by cath 04/20/23Mild to moderate peak/mean 33/16 mmHg and LISA 1.3 cm sq by echo 05/27/24
CKD 3
Hyperlipidemia
Hypertension
Known meningioma
Anemia
Echo 12/26/22: Ejection fraction 55 to 60% with mild septal hypertrophy. Trace MR. Mild to moderate aortic valve stenosis with peak/mean gradient 32/17 mmHg. Aortic valve area 1.3 cm�. Trace AI. Mild TR with PA pressure 40 mmHg.
Echo 05/27/24: EF 60 to 65%, normal RV size and function, trace MR, mild to moderate peak/mean 33/16 mmHg with LISA 1.3 cm SQ, mild aortic regurgitation, mild TR with PAP 30 to 35 mmHg
Plan:
-Presented 07/02/2024 with SOB, edema and weight gain.
-Patient still clinically volume overloaded. Weight up 4 lbs overnight to 268 lbs. 264lbs 07/04, still up from previous dry weight of 251lbs on 06/10/2024.
-Diuresing with IV bumex 2mg BID. Will add Zaroxolyn 2.5 mg for 2 days. Still waiting on morning labs. Her renal insufficiency is noted.
-K down to 3.8 07/04, up from 3.4. Rec'd extra KCl 40 meq 07/04/24. Continue with daily potassium repletion while on IV diuretics.
-Creat improved to 1.7 (ranges 1.7-1.9 this admit, was 1.3-2.0 admit early May 2024). Await today's labs. Continue to follow w/ diuresis. Follow daily weights, I&Os.
-In SR on review of telemetry. HRs 70s. Does have h/o afib, maintained on amiodarone 200mg daily and cardizem CD 180mg daily. HR stable.
-Continue anticoagulation with Eliquis 5mg BID. Hgb stable 9.1 07/04, continue to follow closely.
-started with URI symptoms and low grade fever 07/04/24, tested COVID +
-care per primary team
Original Note:
Today's Communication / Plan
-
-wt up overnight and still appears vol overloaded
-would add Zaroxolyn 2.5 mg x 2 days as long as creat/K stable - await today's labs
-cont IV Bumex
-keep K>4, Mag>2
Impression / Plan
-
PCP: Dr. Morris Gudino
Primary school services officer: Dr. Rissa Walker
Impression:
Presented 07/02/2024 with worsening SOB, edema, and weight gain
Difficulty ambulating
Acute on chronic HFpEF, proBNP 133
*COVID + 07/04/24*
Recent admission for COPD/bronchiectasis and PNA 05/23/24
Paroxysmal Afib with RVR spontaneously converted to SR on Cardizem gtt 05/23/24 and again on 05/29/2024
Chronic Eliquis OAC
Pulmonary nodules
CAD
s/p 3.5/15 mm Xience V expedition drug-eluting stent to the proximal LAD 02/17/14
s/p overlapping 3.5/38 mm x2 Xience V expedition drug-eluting stents to the mid and proximal RCA 02/17/14
stable CAD with patent LAD and RCA stents by cath 07/05/20
patent LAD and RCA stents, nonobstructive distal left main lesion by cath 06/27/21
stable LM lesions with negative iFR assessment of LM/LAD and LM/Circ by cath 04/20/23
Mild to moderate peak/mean 33/16 mmHg and LISA 1.3 cm sq by echo 05/27/24
CKD 3
Hyperlipidemia
Hypertension
Known meningioma
Anemia
Echo 12/26/22: Ejection fraction 55 to 60% with mild septal hypertrophy. Trace MR. Mild to moderate aortic valve stenosis with peak/mean gradient 32/17 mmHg. Aortic valve area 1.3 cm�. Trace AI. Mild TR with PA pressure 40 mmHg.
Echo 05/27/24: EF 60 to 65%, normal RV size and function, trace MR, mild to moderate peak/mean 33/16 mmHg with LISA 1.3 cm SQ, mild aortic regurgitation, mild TR with PAP 30 to 35 mmHg
Plan:
-Presented 07/02/2024 with SOB, edema and weight gain.
-Patient still clinically volume overloaded. Weight up 4 lbs overnight to 268 lbs. 264lbs 07/04, still up from previous dry weight of 251lbs on 06/10/2024.
-Diuresing with IV bumex 2mg BID. Will add Zaroxolyn 2.5 mg
-K down to 3.8 07/04, up from 3.4. Rec'd extra KCl 40 meq 07/04/24. Continue with daily potassium repletion while on IV diuretics.
-Creat improved to 1.7 (ranges 1.7-1.9 this admit, was 1.3-2.0 admit early May 2024). Await today's labs. Continue to follow w/ diuresis. Follow daily weights, I&Os.
-In SR on review of telemetry. HRs 70s. Does have h/o afib, maintained on amiodarone 200mg daily and cardizem CD 180mg daily. HR stable.
-Continue anticoagulation with Eliquis 5mg BID. Hgb stable 9.1 07/04, continue to follow closely.
-started with URI symptoms and low grade fever 07/04/24, tested COVID +
-care per primary team
Progress Note - Ticket Taker
Subjective
Date of Service: July 05, 2024
COVID +
wt up overnight
getting albuterol treatments
NSR on telemetry
Objective
Labs:
Labs
Hgb 9.1 g/dL (12.0-16.0) L 07/04/24 07:14
Hct 27.0 % (37.0-47.0) L 07/04/24 07:14
Plt Count 199 10^3/uL (130-400) 07/04/24 07:14
Sodium 142 mmol/L (135-145) 07/04/24 07:14
Potassium 3.8 mmol/L (3.5-5.1) 07/04/24 07:14
BUN 54 mg/dl (7-17) H 07/04/24 07:14
Creatinine 1.7 mg/dL (0.6-1.0) H 07/04/24 07:14
Glucose 132 mg/dl (70-99) H 07/04/24 07:14
Troponins
07/02/24
13:52
Troponin I < 0.012
Vital Signs and I&O:
Vital Signs
Temp Pulse Resp BP Pulse Ox
98.7 F 74 18 111/51 93
07/05/24 03:37 07/05/24 03:37 07/05/24 03:37 07/05/24 03:37 07/05/24 03:37
Vital Signs
Temp Pulse Resp BP Pulse Ox
98.7 F 74 18 111/51 93
07/05/24 03:37 07/05/24 03:37 07/05/24 03:37 07/05/24 03:37 07/05/24 03:37
Intake & Output
07/03/24 07/04/24 07/05/24 07/06/24
06:59 06:59 06:59 06:59
Intake Total 480 / 480 200 / 200 840 / 840
Balance 480 / 480 200 / 200 840 / 840
Physical Exam
Physical Exam
GEN: No distress, awake, Ox3, on O2
HEENT: supple, anicteric, mmm
LUNGS: + exp wheezing, crackles at bases
CV: Reg, S1/S2, 2/6 CHARLI LSB
ABD: soft, BS+, NT/ND
EXT: 2+ B/L LE edema
NEURO: Gross non-focal
SKIN: wound on L heel
[2024-07-05] MEDS: SYMBICORT 160/4.5 MCG INHALER 2 PUFF INH ×2 (08:29→20:07)
[2024-07-05] MEDS: SPIRIVA RESPIMAT 2.5 MCG 2 PUFF INH (08:29)
[2024-07-05] MEDS: CARDIZEM CD 180 MG PO (09:41)
[2024-07-05] MEDS: PACERONE 200 MG PO ×2 (09:42→20:26)
[2024-07-05] MEDS: ZYLOPRIM 100 MG PO (09:42)
[2024-07-05] MEDS: TYLENOL 1000 MG PO ×2 (09:42→20:27)
[2024-07-05] MEDS: ELIQUIS 5 MG PO ×2 (09:42→20:26)
[2024-07-05] MEDS: KCL 40 MEQ PO (09:42)
[2024-07-05] MEDS: MUCINEX 600 MG PO ×2 (09:42→20:27)
[2024-07-05] MEDS: SODIUM BICARBONATE 650 MG PO ×2 (09:42→20:27)
[2024-07-05] MEDS: VITAMIN B-12 1000 MCG PO (09:42)
[2024-07-05] MEDS: BUMEX 2 MG IV ×2 (09:43→17:00)
[2024-07-05] MEDS: ZAROXOLYN 2.5 MG PO (09:48)
[2024-07-05] MEDS: DESENEX/MITRAZOL/ZEASORB 1 APPLIC TOPICAL ×2 (10:03→20:26)
[2024-07-05 12:09] LABS: Blood Urea Nitrogen 50 mg/dl (7-17); Calcium 9.5 mg/dl (8.4-10.2); Carbon Dioxide 30 mmol/L (22-30); Chloride 97 mmol/L (98-107); Estimated Creatinine Clearance 33 ml/min; Glucose 118 mg/dl (70-99); Potassium 4.4 mmol/L (3.5-5.1); Sodium 138 mmol/L (135-145); eGFR 28.66
[2024-07-05 12:17] LABS: % Eosinophils 1.7 % (0-6); % Immature Granulocytes 5.9 % (0-0.5); % Lymphocytes 11.8 % (20.5-51.1); % Monocytes 7.7 % (1.7-9.3); % Neutrophils 71.9 % (42.2-75.2); Absolute Basophils 0.1 10^3/uL (0-0.2); Absolute Eosinophils 0.1 10^3/uL (0-0.7); Absolute Immature Granulocytes 0.4 10^3/uL (0-0.05); Absolute Lymphocytes 0.7 10^3/uL (1.2-3.4); Absolute Monocytes 0.5 10^3/uL (0.1-0.6); Absolute Neutrophils 4.3 10^3/uL (1.4-6.5); Hematocrit 25.8 % (37.0-47.0); Hemoglobin 8.5 g/dL (12.0-16.0); Mean Corp Hgb Conc. 32.9 g/dL (33.0-37.0); Mean Corpuscular Hgb 32.8 pg (27.0-31.0); Mean Corpuscular Volume 99.6 fL (81.0-99.0); Mean Platelet Volume 9.2 fL (7.4-10.4); Nucleated Red Blood Cells % 0.3 %; Platelet Count 199 10^3/uL (130-400); Red Blood Cell Count 2.59 10^6/uL (4.20-5.40); Red Cell Dist. Width 18.3 % (11.5-14.5)
--- NOTE | 2024-07-05 12:28 | W.PN.HOSP.TC ---
Today's Communication/Plan
-
monitor vitals
see plan
start decadron 6mg
cw bumex
make tessalon pearls standing
daughter updated over the phone
pt/ot
Assessment / Plan
Assessment / Plan
General: Well Developed, Well Nourished and No Apparent Distress
HEENT: NormoCephalic, Moist mucous membranes and Atraumatic
Respiratory: Clear
Cardiac: S1/S2 and Regular Rhythm; No Murmur or Rub
GI: Soft, Non Tender, Non Distended and Normal Bowel Sounds
Rectal: Deferred by Provider
Musculoskeletal: No Edema
Neuro: Nonfocal/grossly intact
Acute on chronic HFpEF exacerbation
-Patient clearly clinically volume overloaded
-Check I's and O's, daily weights
-Bumex 2 mg twice daily IV
-Chest x-ray unremarkable
-Interestingly cardiac BNP of only 130
-Cardiology following
Patient had cough and sob so covid was checked 07/04 and its positive
no clear timeline as she had respiratory symptoms on admission; no fever
on 1L
no indication for covid therapy as timeline is unclear; would do 6 decadron daily
Ambulatory dysfunction
last admission was thought to be related to steroid induced myopathy and recent hospitalization
PT/OT
monitor
Hypokalemia
resolved
CAD status post stents
-Continue statin
Paroxysmal atrial fibrillation
-Continue amiodarone
-Continue diltiazem
-Continue Eliquis
Hyperlipidemia
-Continue Zetia
History of orthostatic hypotension
Essential hypertension
CKD 3
-Continue sodium bicarb
-Renal function at baseline
Chronic hyponatremia
Constipation
COPD/bronchiectasis
-Continue Trelegy
Hypothyroidism
-Continue levothyroxine
Depression
-Continue duloxetine
Insomnia
-Continue trazodone
Obesity
Gout
-Continue allopurinol, colchicine
Full code
DVT prophylaxis�Eliquis
I spent a total of 51 minutes with the patient or on the floor. More than 50% of this time involved counseling and coordination of care.
Anticipated Discharge: > 48 hours
Subjective/Interval History
-
Date of Service: July 05, 2024
denies pain
Objective Data
-
Labs:
Laboratory Results
07/05/24
10:46
WBC 6.0
Hgb 8.5 L
Hct 25.8 L
Plt Count 199
Sodium 138
Potassium 4.4
Chloride 97 L
Carbon Dioxide 30
BUN 50 H
Creatinine 1.8 H
Glucose 118 H
Calcium 9.5
Vital Signs:
Vital Signs
Temp Pulse Resp BP Pulse Ox
98.6 F 75 18 117/50 92
07/05/24 11:10 07/05/24 11:10 07/05/24 11:10 07/05/24 11:10 07/05/24 11:10
I&O
07/04/24 07/05/24 07/06/24
06:59 06:59 06:59
Intake Total 200 / 200 840 / 840
Balance 200 / 200 840 / 840
[2024-07-05] MEDS: TESSALON PERLES 100 MG PO ×3 (12:56→21:01)
[2024-07-05] MEDS: DECADRON 6 MG IV (12:56)
--- NOTE | 2024-07-05 16:01 | PTCARENOTE ---
patient c/o cough and congestion this am. +CLOUD, no sob at rest, weight was increased so Zaroxolyn ordered by cardiology. tolerating diet, but per patient appetite is decreased, vss, will continue to monitor.
[2024-07-05] MEDS: MAGNESIUM SULFATE 50 IV (18:24)
--- NOTE | 2024-07-05 18:46 | PTCARENOTE ---
at 17:16, patient with 17 run of V-tach, asymptomatic, sitting in bed. b/p 150/70. Dr. Collins notified at 1734 and I recommended running magnesium level be drawn and he said to communicate with primary team and that v-tach likely from Covid. at
1739, notified Dr. Early and communicate event with him and called him at 1745 to take telephone order for magnesium level in am and 2 grams magnesium sulfate IV Now, will continue to monitor.
[2024-07-05] MEDS: ULTRAM 25 MG PO (21:00)
[2024-07-05] MEDS: LIDOCAINE 4% PATCH 1 PATCH TOPICAL (21:00)
[2024-07-05] MEDS: DESYREL 150 MG PO (21:00)
[2024-07-05] MEDS: CYMBALTA DELAYED RELEASE 60 MG PO (21:00)
[2024-07-05] MEDS: PROTONIX 40 MG PO (21:01)
[2024-07-05] MEDS: LIPITOR 80 MG PO (21:01)
[2024-07-05] MEDS: MELATONIN 20 MG PO (21:01)
[2024-07-05] MEDS: ROBITUSSIN DM 10 ML PO (21:01)
[2024-07-05] MEDS: ZETIA 10 MG PO (21:01)
[2024-07-06 03:56] VITALS: BP 138/65
[2024-07-06] MEDS: SYNTHROID 75 MCG PO (05:46)
[2024-07-06 06:00] VITALS: BMI 48.2
[2024-07-06 06:25] LABS: Hematocrit 25.5 % (37.0-47.0); Hemoglobin 8.6 g/dL (12.0-16.0); Mean Corp Hgb Conc. 33.7 g/dL (33.0-37.0); Mean Corpuscular Hgb 32.7 pg (27.0-31.0); Mean Platelet Volume 8.9 fL (7.4-10.4); Platelet Count 192 10^3/uL (130-400); Red Blood Cell Count 2.63 10^6/uL (4.20-5.40); Red Cell Dist. Width 17.8 % (11.5-14.5); White Blood Cell Count 5.6 10^3/uL (4.8-10.8)
[2024-07-06 06:42] LABS: Blood Urea Nitrogen 54 mg/dl (7-17); Calcium 9.4 mg/dl (8.4-10.2); Carbon Dioxide 31 mmol/L (22-30); Chloride 94 mmol/L (98-107); Estimated Creatinine Clearance 34 ml/min; Glucose 136 mg/dl (70-99); Magnesium 2.4 mg/dl (1.6-2.3); Potassium 4.5 mmol/L (3.5-5.1); Sodium 137 mmol/L (135-145)
[2024-07-06 07:30] VITALS: BP 110/59
[2024-07-06 07:30] LABS: % Basophils 0.7 % (0-2); % Immature Granulocytes 5.6 % (0-0.5); % Lymphocytes 10.8 % (20.5-51.1); % Monocytes 5.7 % (1.7-9.3); % Neutrophils 77.2 % (42.2-75.2); Absolute Immature Granulocytes 0.3 10^3/uL (0-0.05); Absolute Lymphocytes 0.6 10^3/uL (1.2-3.4); Absolute Monocytes 0.3 10^3/uL (0.1-0.6); Absolute Neutrophils 4.3 10^3/uL (1.4-6.5); Nucleated Red Blood Cells % 0 %
[2024-07-06] MEDS: TYLENOL 1000 MG PO ×2 (08:05→21:08)
[2024-07-06] MEDS: KCL 40 MEQ PO (08:05)
[2024-07-06] MEDS: ZYLOPRIM 100 MG PO (08:05)
[2024-07-06] MEDS: VITAMIN B-12 1000 MCG PO (08:05)
[2024-07-06] MEDS: MUCINEX 600 MG PO ×2 (08:05→21:08)
[2024-07-06] MEDS: BUMEX 2 MG IV ×2 (08:05→15:24)
[2024-07-06] MEDS: CARDIZEM CD 180 MG PO (08:05)
[2024-07-06] MEDS: ELIQUIS 5 MG PO ×2 (08:06→21:09)
[2024-07-06] MEDS: PACERONE 200 MG PO ×2 (08:06→21:08)
[2024-07-06] MEDS: SODIUM BICARBONATE 650 MG PO ×2 (08:06→21:08)
[2024-07-06] MEDS: TESSALON PERLES 100 MG PO ×3 (08:06→21:09)
[2024-07-06] MEDS: DESENEX/MITRAZOL/ZEASORB 1 APPLIC TOPICAL (08:06)
[2024-07-06] MEDS: SPIRIVA RESPIMAT 2.5 MCG 2 PUFF INH (08:19)
[2024-07-06] MEDS: SYMBICORT 160/4.5 MCG INHALER 2 PUFF INH ×2 (08:20→20:07)
[2024-07-06] MEDS: DECADRON 6 MG IV (11:26)
[2024-07-06 11:33] VITALS: BP 116/52
--- NOTE | 2024-07-06 11:42 | W.PN.HOSP.TC ---
Today's Communication/Plan
-
Monitor vital signs see plan
Continue with IV diuresis
Continue Decadron
PT/OT
Wean oxygen as tolerated
Daughter updated over the phone
Assessment / Plan
Assessment / Plan
General: Well Developed, Well Nourished and No Apparent Distress
HEENT: NormoCephalic, Moist mucous membranes and Atraumatic
Respiratory: Clear
Cardiac: S1/S2 and Regular Rhythm; No Murmur or Rub
GI: Soft, Non Tender, Non Distended and Normal Bowel Sounds
Rectal: Deferred by Provider
Musculoskeletal: No Edema
Neuro: Nonfocal/grossly intact
Acute on chronic HFpEF exacerbation
-Patient clearly clinically volume overloaded
-Check I's and O's, daily weights
-Bumex 2 mg twice daily IV
-Chest x-ray unremarkable
-Interestingly cardiac BNP of only 130
-Cardiology following
Patient had cough and sob so covid was checked 07/04 and its positive
no clear timeline as she had respiratory symptoms on admission; no fever
on 1L
no indication for covid therapy as timeline is unclear; would do 6 decadron daily. appears to be helping
Ambulatory dysfunction
last admission was thought to be related to steroid induced myopathy and recent hospitalization
PT/OT
monitor
Hypokalemia
resolved
CAD status post stents
-Continue statin
Paroxysmal atrial fibrillation
-Continue amiodarone
-Continue diltiazem
-Continue Eliquis
Hyperlipidemia
-Continue Zetia
History of orthostatic hypotension
Essential hypertension
CKD 3
-Continue sodium bicarb
-Renal function at baseline
Chronic hyponatremia
Constipation
COPD/bronchiectasis
-Continue Trelegy
Hypothyroidism
-Continue levothyroxine
Depression
-Continue duloxetine
Insomnia
-Continue trazodone
Obesity
Gout
-Continue allopurinol, colchicine
Full code
DVT prophylaxis�Eliquis
I spent a total of 52 minutes with the patient or on the floor. More than 50% of this time involved counseling and coordination of care.
Anticipated Discharge: 24 - 48 hours
Subjective/Interval History
-
Date of Service: July 06, 2024
denies pain
Objective Data
-
Labs:
Laboratory Results
07/06/24
05:53
WBC 5.6
Hgb 8.6 L
Hct 25.5 L
Plt Count 192
Sodium 137
Potassium 4.5
Chloride 94 L
Carbon Dioxide 31 H
BUN 54 H
Creatinine 1.7 H
Glucose 136 H
Calcium 9.4
Vital Signs:
Vital Signs
Temp Pulse Resp BP Pulse Ox
97.5 F 68 18 116/52 95
07/06/24 11:33 07/06/24 11:33 07/06/24 11:33 07/06/24 11:33 07/06/24 11:33
I&O
07/05/24 07/06/24 07/07/24
06:59 06:59 06:59
Intake Total 840 / 840 1010 / 1010
Balance 840 / 840 1010 / 1010
[2024-07-06 15:33] VITALS: BP 124/58
[2024-07-06 19:30] VITALS: BP 134/61
[2024-07-06] MEDS: LIDOCAINE 4% PATCH 1 PATCH TOPICAL (21:05)
[2024-07-06] MEDS: ZETIA 10 MG PO (21:06)
[2024-07-06] MEDS: MELATONIN 20 MG PO (21:07)
[2024-07-06] MEDS: LIPITOR 80 MG PO (21:07)
[2024-07-06] MEDS: CYMBALTA DELAYED RELEASE 60 MG PO (21:07)
[2024-07-06] MEDS: PROTONIX 40 MG PO (21:07)
[2024-07-06] MEDS: DESYREL 150 MG PO (21:09)
[2024-07-06] MEDS: ROBITUSSIN DM 10 ML PO (21:10)
[2024-07-06] MEDS: DESENEX/MITRAZOL/ZEASORB TOPICAL (21:58)
[2024-07-06 23:40] VITALS: BP 116/58
[2024-07-07 03:32] VITALS: BP 132/54
[2024-07-07] MEDS: SYNTHROID 75 MCG PO (05:24)
[2024-07-07 06:00] VITALS: BMI 48.6
[2024-07-07] MEDS: MUCINEX 600 MG PO ×2 (07:27→20:50)
[2024-07-07] MEDS: ZYLOPRIM 100 MG PO (07:27)
[2024-07-07] MEDS: TYLENOL 1000 MG PO ×2 (07:27→20:51)
[2024-07-07] MEDS: KCL 40 MEQ PO ×2 (07:27→15:45)
[2024-07-07] MEDS: VITAMIN B-12 1000 MCG PO (07:27)
[2024-07-07] MEDS: SODIUM BICARBONATE 650 MG PO (07:27)
[2024-07-07] MEDS: ELIQUIS 5 MG PO ×2 (07:27→20:51)
[2024-07-07] MEDS: PACERONE 200 MG PO (07:27)
[2024-07-07] MEDS: TESSALON PERLES 100 MG PO ×3 (07:27→22:13)
[2024-07-07] MEDS: DESENEX/MITRAZOL/ZEASORB 1 APPLIC TOPICAL ×2 (07:28→20:54)
[2024-07-07] MEDS: BUMEX 2 MG IV ×2 (07:28→15:43)
[2024-07-07] MEDS: CARDIZEM CD 180 MG PO (07:28)
[2024-07-07 07:30] VITALS: BP 102/55
[2024-07-07] MEDS: SPIRIVA RESPIMAT 2.5 MCG 2 PUFF INH (08:16)
[2024-07-07] MEDS: SYMBICORT 160/4.5 MCG INHALER 2 PUFF INH ×2 (08:16→19:29)
[2024-07-07 09:18] LABS: Blood Urea Nitrogen 58 mg/dl (7-17); Calcium 9.1 mg/dl (8.4-10.2); Carbon Dioxide 28 mmol/L (22-30); Chloride 92 mmol/L (98-107); Estimated Creatinine Clearance 34 ml/min; Glucose 119 mg/dl (70-99); Potassium 4.1 mmol/L (3.5-5.1); Sodium 137 mmol/L (135-145)
[2024-07-07 09:47] LABS: % Basophils 0.3 % (0-2); % Lymphocytes 10.3 % (20.5-51.1); % Monocytes 7.8 % (1.7-9.3); % Neutrophils 77.6 % (42.2-75.2); Absolute Immature Granulocytes 0.3 10^3/uL (0-0.05); Absolute Lymphocytes 0.7 10^3/uL (1.2-3.4); Absolute Monocytes 0.5 10^3/uL (0.1-0.6); Absolute Neutrophils 5.3 10^3/uL (1.4-6.5); Hematocrit 26.6 % (37.0-47.0); Hemoglobin 8.9 g/dL (12.0-16.0); Mean Corp Hgb Conc. 33.5 g/dL (33.0-37.0); Mean Corpuscular Hgb 32.6 pg (27.0-31.0); Mean Corpuscular Volume 97.4 fL (81.0-99.0); Mean Platelet Volume 9.6 fL (7.4-10.4); Nucleated Red Blood Cells % 0.3 %; Platelet Count 236 10^3/uL (130-400); Red Blood Cell Count 2.73 10^6/uL (4.20-5.40); Red Cell Dist. Width 17.9 % (11.5-14.5); White Blood Cell Count 6.8 10^3/uL (4.8-10.8)
[2024-07-07 11:12] VITALS: BP 130/57
--- NOTE | 2024-07-07 11:43 | W.PN.CARDCBS ---
Addendum entered and electronically signed by Ramesh Ureña MD 07/07/24 15:52:
79-year-old woman admitted with acute on chronic HFpEF, PAF on amiodarone, CAD with 2014 two-vessel PCI and found to have COVID, hospitalized x 2 with new onset A-fib with weakness and HFpEF in May
Currently, she feels better, though still feels volume overloaded, states she does not drink much fluid
PMH/PSH: COPD, paroxysmal A-fib, CAD with a Xience stent to LAD 2013, mid and proximal RCA 2013, patent stents by cath in 2019, moderate aortic stenosis, CKD stage III
Allergies reviewed, outpatient meds reviewed, on amiodarone
FH/SH: Reviewed
Current meds: Bumetanide 2 mg IV twice daily, allopurinol 100 mg a day, amiodarone 200 mg twice daily, apixaban 5 mg twice daily, atorvastatin 80 mg a day, diltiazem ER 180 mg a day, duloxetine, ezetimibe 10 mg a day, levothyroxine 75 mcg a day,
melatonin, pantoprazole, potassium 40 meq daily, bicarb 650 mg twice daily, trazodone 150 mg at bedtime, Spiriva, lidocaine patch, dexamethasone 6 IV every 24 and Tessalon, as outpatient Bumex was 2 mg daily
132/54, pulse 77,weight is 120 kg, up 1 kg, weight is about 10 kg up from May, intake and output not accurate, morbidly obese, no acute distress, head neck exam unremarkable, lungs are clear cardiac exam is regular rate and rhythm 3+ edema,
CBC is pending, BUN and creatinine are 58 and 1.7, potassium is 4.1, troponin was undetectable,, proBNP was 133, creatinine has been stable
Plan:
She is not in acute distress, but by weight she still is markedly volume overloaded. She is on high-dose Bumex but not diuresing impressively, in the setting of CKD. This could in part related to steroid administration. Will give metolazone 5 mg x
1 today, will also give extra potassium
Continue IV Bumex 2 mg twice daily.
She is on bicarbonate with a bicarb level of 28. This makes heart failure control difficult. Will stop bicarbonate at this time.
If metabolic acidosis recurs we may need to consider restart.
She has been on amiodarone 200 mg twice daily for 1 month, will reduce to once daily.
With bradycardia now that she has been on amiodarone, stop diltiazem which is relatively contraindicated with heart failure
Original Note:
Today's Communication / Plan
-
Metolazone x1 with this evening's dose of Lasix IV
Impression / Plan
-
PCP: Dr. Morris Gudino
Primary mixing machine tender: Dr. Rissa Walker
Impression:
Admitted with worsening SOB, edema, and weight gain 07/02/24
Difficulty ambulating
Acute on chronic HFpEF
Tested positive for COVID 07/04/24
Recent admission for COPD/bronchiectasis and PNA 05/23/24
Paroxysmal Afib with RVR spontaneously converted to SR on Cardizem gtt 05/23/24 and again on 05/29/2024
Chronic Eliquis OAC
Pulmonary nodules
CAD
s/p 3.5/15 mm Xience V expedition drug-eluting stent to the proximal LAD 02/17/14
s/p overlapping 3.5/38 mm x2 Xience V expedition drug-eluting stents to the mid and proximal RCA 02/17/14
stable CAD with patent LAD and RCA stents by cath 07/05/20
patent LAD and RCA stents, nonobstructive distal left main lesion by cath 06/27/21
stable LM lesions with negative iFR assessment of LM/LAD and LM/Circ by cath 04/20/23
Mild to moderate peak/mean 33/16 mmHg and LISA 1.3 cm sq by echo 05/27/24
CKD 3
Hyperlipidemia
Hypertension
Known meningioma
Anemia
Echo 12/26/22: Ejection fraction 55 to 60% with mild septal hypertrophy. Trace MR. Mild to moderate aortic valve stenosis with peak/mean gradient 32/17 mmHg. Aortic valve area 1.3 cm�. Trace AI. Mild TR with PA pressure 40 mmHg.
Echo 05/27/24: EF 60 to 65%, normal RV size and function, trace MR, mild to moderate peak/mean 33/16 mmHg with LISA 1.3 cm SQ, mild aortic regurgitation, mild TR with PAP 30 to 35 mmHg
Plan:
-Patient was admitted with acute HF 05/23/24 until 05/31/24 and was diuresed and discharged to home on Lasix 20 mg MWF. Patient returned to [facility] and was admitted 06/06/24 until 06/11/24 for orthostasis and acute HF, but cardiology was not consulted.
Patient was d/c'd to home on a higher dose of Lasix 40 mg PO daily. Patient was seen in the cardiology office for follow up 07/02/24 and sent to [facility] with acute HF.
-Lasix changed to Bumex 2 mg IV BID this admission. Metolazone doses given intermittently. Metolazone 5 mg PO x1 07/07/24 evening ordered.
-Weight is up 2 lbs overnight, but patient is being weighed with bed scale instead of standing scale.
-Cre stable at 1.7
-Patient with newer diagnosis of Afib, was diagnosed during her 05/23/24 admission. Patient spontaneously converted to SR on Cardizem gtt 2 admissions ago and was started on amiodarone 200 mg BID, that was more than 1 month ago. Will decreased dose
of amiodarone to 200 mg daily
-Continue Eliquis 5mg BID. (age 79, Cre 1.7, wt 120 kg)
-Patient tested positive for COVID 07/04/24
Progress Note - Rolling Mill Operator
Subjective
Date of Service: July 07, 2024
She is SOB with activity
Objective
Labs:
07/07/24 07:34
07/07/24 07:34
Labs
Hgb 8.9 g/dL (12.0-16.0) L 07/07/24 07:34
Hct 26.6 % (37.0-47.0) L 07/07/24 07:34
Plt Count 236 10^3/uL (130-400) D 07/07/24 07:34
Sodium 137 mmol/L (135-145) 07/07/24 07:34
Potassium 4.1 mmol/L (3.5-5.1) 07/07/24 07:34
BUN 58 mg/dl (7-17) H 07/07/24 07:34
Creatinine 1.7 mg/dL (0.6-1.0) H 07/07/24 07:34
Glucose 119 mg/dl (70-99) H 07/07/24 07:34
Vital Signs and I&O:
Vital Signs
Temp Pulse Resp BP Pulse Ox
97.5 F 56 17 130/57 96
07/07/24 11:12 07/07/24 11:12 07/07/24 11:12 07/07/24 11:12 07/07/24 11:12
Vital Signs
Temp Pulse Resp BP Pulse Ox
97.5 F 56 17 130/57 96
07/07/24 11:12 07/07/24 11:12 07/07/24 11:12 07/07/24 11:12 07/07/24 11:12
Intake & Output
07/05/24 07/06/24 07/07/24 07/08/24
06:59 06:59 06:59 06:59
Intake Total 840 / 840 1010 / 1010 1200 / 1200
Balance 840 / 840 1010 / 1010 1200 / 1200
Physical Exam
Physical Exam
GEN: AAOx3
HEENT: MMM
LUNGS: Wearing oxygen at 0.5 L
CV: SR on tele
ABD: ND
EXT: No edema B/L
NEURO: Gross non-focal
SKIN: No rash
[2024-07-07] MEDS: DECADRON 6 MG IV (11:44)
--- NOTE | 2024-07-07 12:18 | W.PN.HOSP.TC ---
Today's Communication/Plan
-
Monitor vital signs see plan
Continue with diuresis, metolazone added
Monitor renal function
Wean oxygen as tolerated
Continue with Decadron
Assessment / Plan
Assessment / Plan
General: Well Developed, Well Nourished and No Apparent Distress
HEENT: NormoCephalic, Moist mucous membranes and Atraumatic
Respiratory: Clear
Cardiac: S1/S2 and Regular Rhythm; No Murmur or Rub
GI: Soft, Non Tender, Non Distended and Normal Bowel Sounds
Rectal: Deferred by Provider
Musculoskeletal: No Edema
Neuro: Nonfocal/grossly intact
Acute on chronic HFpEF exacerbation
-Patient clearly clinically volume overloaded
-Check I's and O's, daily weights
-Bumex 2 mg twice daily IV; metalazone added
-Chest x-ray unremarkable
-Interestingly cardiac BNP of only 130
-Cardiology following
Patient had cough and sob so covid was checked 07/04 and its positive
no clear timeline as she had respiratory symptoms on admission; no fever
on 1L
no indication for covid therapy as timeline is unclear; would do 6 decadron daily. appears to be helping
Ambulatory dysfunction
last admission was thought to be related to steroid induced myopathy and recent hospitalization
PT/OT
monitor
Hypokalemia
resolved
CAD status post stents
-Continue statin
Paroxysmal atrial fibrillation
-Continue amiodarone; dose dec to 200mg daily
-Continue diltiazem
-Continue Eliquis
Hyperlipidemia
-Continue Zetia
History of orthostatic hypotension
Essential hypertension
CKD 3
-Continue sodium bicarb
-Renal function at baseline
Chronic hyponatremia
Constipation
COPD/bronchiectasis
-Continue Trelegy
Hypothyroidism
-Continue levothyroxine
Depression
-Continue duloxetine
Insomnia
-Continue trazodone
Obesity
Gout
-Continue allopurinol, colchicine
Full code
DVT prophylaxis�Eliquis
I spent a total of 51 minutes with the patient or on the floor. More than 50% of this time involved counseling and coordination of care.
Anticipated Discharge: 24 - 48 hours
Subjective/Interval History
-
Date of Service: July 07, 2024
denies pain
Objective Data
-
Labs:
Laboratory Results
07/07/24
07:34
WBC 6.8
Hgb 8.9 L
Hct 26.6 L
Plt Count 236 D
Sodium 137
Potassium 4.1
Chloride 92 L
Carbon Dioxide 28
BUN 58 H
Creatinine 1.7 H
Glucose 119 H
Calcium 9.1
Vital Signs:
Vital Signs
Temp Pulse Resp BP Pulse Ox
97.5 F 56 17 130/57 96
07/07/24 11:12 07/07/24 11:12 07/07/24 11:12 07/07/24 11:12 07/07/24 11:12
I&O
07/06/24 07/07/24 07/08/24
06:59 06:59 06:59
Intake Total 1010 / 1010 1200 / 1200
Balance 1010 / 1010 1200 / 1200
[2024-07-07 15:08] VITALS: BP 138/56
[2024-07-07] MEDS: ZAROXOLYN 5 MG PO (15:43)
--- NOTE | 2024-07-07 15:48 | CM ---
Chart reviewed. [facility] referral submitted via [employer].
[facility] Liaison made aware via TT and poss need for hospital bed per PT.
Per notes, pt denies wanting to return to SNF, pt's daughter agreed to [facility] w/ private CG's.
CG list previously provided to daughter via email
CM will cont. to follow for additional d/c needs
Plan: Home w/ [facility]
[2024-07-07 19:30] VITALS: BP 127/56
[2024-07-07] MEDS: MELATONIN 20 MG PO (20:57)
[2024-07-07] MEDS: CYMBALTA DELAYED RELEASE 60 MG PO (20:57)
[2024-07-07] MEDS: DESYREL 150 MG PO (20:57)
[2024-07-07] MEDS: LIPITOR 80 MG PO (20:57)
[2024-07-07] MEDS: ROBITUSSIN DM 10 ML PO (20:58)
[2024-07-07] MEDS: PROTONIX 40 MG PO (20:58)
[2024-07-07] MEDS: ZETIA 10 MG PO (20:58)
[2024-07-07] MEDS: LIDOCAINE 4% PATCH 1 PATCH TOPICAL (22:11)
[2024-07-07 23:55] VITALS: BP 138/61
[2024-07-08 03:30] VITALS: BP 128/51
[2024-07-08] MEDS: SYNTHROID 75 MCG PO (05:36)
[2024-07-08 05:41] VITALS: BMI 47.8
[2024-07-08 06:40] LABS: % Basophils 0.3 % (0-2); % Immature Granulocytes 4.4 % (0-0.5); % Lymphocytes 12.4 % (20.5-51.1); % Neutrophils 74.9 % (42.2-75.2); Absolute Immature Granulocytes 0.3 10^3/uL (0-0.05); Absolute Monocytes 0.6 10^3/uL (0.1-0.6); Absolute Neutrophils 5.8 10^3/uL (1.4-6.5); Hematocrit 26.2 % (37.0-47.0); Hemoglobin 8.7 g/dL (12.0-16.0); Mean Corp Hgb Conc. 33.2 g/dL (33.0-37.0); Mean Corpuscular Hgb 32.1 pg (27.0-31.0); Mean Corpuscular Volume 96.7 fL (81.0-99.0); Mean Platelet Volume 9.5 fL (7.4-10.4); Nucleated Red Blood Cells % 0.3 %; Platelet Count 230 10^3/uL (130-400); Red Blood Cell Count 2.71 10^6/uL (4.20-5.40); Red Cell Dist. Width 17.9 % (11.5-14.5); White Blood Cell Count 7.7 10^3/uL (4.8-10.8)
[2024-07-08 07:02] LABS: Blood Urea Nitrogen 59 mg/dl (7-17); Carbon Dioxide 28 mmol/L (22-30); Chloride 93 mmol/L (98-107); Estimated Creatinine Clearance 32 ml/min; Glucose 130 mg/dl (70-99); Potassium 4.3 mmol/L (3.5-5.1); Sodium 135 mmol/L (135-145); eGFR 28.66
[2024-07-08 07:20] VITALS: BP 134/63
[2024-07-08] MEDS: SPIRIVA RESPIMAT 2.5 MCG 2 PUFF INH (08:12)
[2024-07-08] MEDS: SYMBICORT 160/4.5 MCG INHALER 2 PUFF INH ×2 (08:12→19:47)
[2024-07-08] MEDS: VITAMIN B-12 1000 MCG PO (09:23)
[2024-07-08] MEDS: TYLENOL 1000 MG PO ×2 (09:23→21:10)
[2024-07-08] MEDS: MUCINEX 600 MG PO ×2 (09:23→21:11)
[2024-07-08] MEDS: KCL 40 MEQ PO (09:23)
[2024-07-08] MEDS: PACERONE 200 MG PO (09:23)
[2024-07-08] MEDS: ELIQUIS 5 MG PO ×2 (09:24→21:11)
[2024-07-08] MEDS: ZYLOPRIM 100 MG PO (09:24)
[2024-07-08] MEDS: TESSALON PERLES 100 MG PO ×3 (09:24→21:10)
[2024-07-08] MEDS: BUMEX 2 MG IV ×2 (09:24→16:48)
[2024-07-08] MEDS: DESENEX/MITRAZOL/ZEASORB 1 APPLIC TOPICAL ×2 (09:32→21:11)
[2024-07-08 11:45] VITALS: BP 125/57
--- NOTE | 2024-07-08 11:59 | W.PN.CARDCBS ---
Addendum entered and electronically signed by Doyle Walsh MD 07/08/24 15:58:
I saw and examined the patient.
The Professor Of Legal Studies's note was reviewed and I agree with the note.
Comment: Briefly, 79-year-old woman past medical history of heart failure with preserved ejection fraction, CAD with prior PCI, mild to moderate aortic stenosis and CKD presenting with dyspnea, edema and weight gain concerning for acute
decompensated heart failure. In addition, patient tested positive for COVID earlier this admission.
Mild peripheral edema on exam and still requiring supplemental oxygen
Continue IV diuresis
Daily standing weights
Follow renal function/electrolytes
Wean oxygen as able; COVID infection maybe contributing to her hypoxia
Add Tubigrips to help mobilize LE edema
Original Note:
Today's Communication / Plan
-
continue diuresis attempts
wean supp O2
follow Cr
in SR
tubigrip stockings
repeat proBNP in AM
supportive care of covid
Impression / Plan
-
PCP: Dr. Morris Gudino
Primary welder tech: Dr. Rissa Walker
Impression:
Admitted with worsening SOB, edema, and weight gain 07/02/24
Difficulty ambulating
Acute on chronic HFpEF
Tested positive for COVID 07/04/24
Recent admission for COPD/bronchiectasis and PNA 05/23/24
Paroxysmal Afib with RVR spontaneously converted to SR on Cardizem gtt 05/23/24 and again on 05/29/2024
Chronic Eliquis OAC
Pulmonary nodules
CAD
s/p 3.5/15 mm Xience V expedition drug-eluting stent to the proximal LAD 02/17/14
s/p overlapping 3.5/38 mm x2 Xience V expedition drug-eluting stents to the mid and proximal RCA 02/17/14
stable CAD with patent LAD and RCA stents by cath 07/05/20
patent LAD and RCA stents, nonobstructive distal left main lesion by cath 06/27/21
stable LM lesions with negative iFR assessment of LM/LAD and LM/Circ by cath 04/20/23
Mild to moderate peak/mean 33/16 mmHg and LISA 1.3 cm sq by echo 05/27/24
CKD 3
Hyperlipidemia
Hypertension
Known meningioma
Anemia
Echo 12/26/22: Ejection fraction 55 to 60% with mild septal hypertrophy. Trace MR. Mild to moderate aortic valve stenosis with peak/mean gradient 32/17 mmHg. Aortic valve area 1.3 cm�. Trace AI. Mild TR with PA pressure 40 mmHg.
Echo 05/27/24: EF 60 to 65%, normal RV size and function, trace MR, mild to moderate peak/mean 33/16 mmHg with LISA 1.3 cm SQ, mild aortic regurgitation, mild TR with PAP 30 to 35 mmHg
Plan:
-she has had 3 admissions since 04/2024 with escalating diuretic requirements
-proBNP was only 133, less than previous admissions. possible multifactorial symptoms with acute covid, possible lymphedema. will repeat proBNP in AM
-she is diuresing if weights accurate with IV bumex 2mg BID. she was given metolazone 5mg x1 on 07/07 in addition.
-change to weigh patient via standing scale if possible. dry weight estimated to be 253-255 pounds upon review of prior admissions
-Cr stable at 1.8
-tubigrip stockings ordered
-she remains in SR on review of tele. continue amiodarone, eliquis
-EF preserved by echo 05/27/24
-continue supportive care of covid illness. wean supp O2 as able
PREADMIT DATA:
-Patient was admitted with acute HF 05/23/24 until 05/31/24 and was diuresed and discharged to home on Lasix 20 mg MWF. Patient returned to [facility] and was admitted 06/06/24 until 06/11/24 for orthostasis and acute HF, but cardiology was not consulted.
Patient was d/c'd to home on a higher dose of Lasix 40 mg PO daily. Patient was seen in the cardiology office for follow up 07/02/24 and sent to [facility] with acute HF.
Progress Note - Machinist Helper Marine
Subjective
Date of Service: July 08, 2024
remains with LE edema.
Objective
Labs:
07/08/24 05:56
07/08/24 05:56
Labs
Hgb 8.7 g/dL (12.0-16.0) L 07/08/24 05:56
Hct 26.2 % (37.0-47.0) L 07/08/24 05:56
Plt Count 230 10^3/uL (130-400) 07/08/24 05:56
Sodium 135 mmol/L (135-145) 07/08/24 05:56
Potassium 4.3 mmol/L (3.5-5.1) 07/08/24 05:56
BUN 59 mg/dl (7-17) H 07/08/24 05:56
Creatinine 1.8 mg/dL (0.6-1.0) H 07/08/24 05:56
Glucose 130 mg/dl (70-99) H 07/08/24 05:56
Vital Signs and I&O:
Vital Signs
Temp Pulse Resp BP Pulse Ox
97.9 F 67 18 134/63 95
07/08/24 07:20 07/08/24 08:24 07/08/24 08:24 07/08/24 07:20 07/08/24 08:24
Vital Signs
Temp Pulse Resp BP Pulse Ox
97.9 F 67 18 134/63 95
07/08/24 07:20 07/08/24 08:24 07/08/24 08:24 07/08/24 07:20 07/08/24 08:24
Intake & Output
07/06/24 07/07/24 07/08/24 07/09/24
07:59 07:59 07:59 07:59
Intake Total 1010 / 1010 1200 / 1200 960 / 960
Balance 1010 / 1010 1200 / 1200 960 / 960
--- NOTE | 2024-07-08 12:08 | CM ---
CM spoke w/ daughter, Jenny re d/c plan and PT/OT rec.
Daughter stated originally plan was home w/ home health w/ private CG's, however, daughter now prefers SNF.
Daughter unable to pay for private CG's or provide 24 hour care at this time.
Daughter states pt is agreeable to SNF as prev. she declined
CM inquired about terminal system operator plan if pt cont. to need 24 hour support, daughter does not have definitive plan at this time
Daughter prefers referrals to be sent to [facility] and [facility]. Auth is not required
[facility] Liaison and hospitalist made aware via TT about new plan for SNF
Referrals will be sent to [facility] and [facility] via [facility]
Plan: SNF pending bed availability
[2024-07-08] MEDS: DECADRON 6 MG IV (12:44)
--- NOTE | 2024-07-08 14:17 | W.PN.HOSP.TC ---
Today's Communication/Plan
-
79yo F with PMHX of HFpEF, Afib on eliquis, pulmonary nodules, CAD s/p PCI, mild-moderate , CKD stage 3, HLD, HTN, meningioma, chronic anemia came with SOB worsening for past couple of months, managed for CHF exacerbation with Afib with RVR, later
found COVID-19
A/P:
#Acute hypoxic respiratory insufficiency 2/2 Acute on chronic HFpEF
#PAroxysmnal Afib with RVR on admission
Echo in sept with preserved EF
Lasix, daily weight, follow electrolytes
Cardio consult
Wean off O2
cont telemetry, rate and rhythm control
#COVID-19
No pneumonia on XR
Started on decadron x10 days
With Cr>1.5 - cautious to start Remdesivir. Since patient improving - will not start it
Mucinex to cont
#COPD
cont home bronchodilators
#CKD stge 3
Baseline Cr 1.7-1.9
#Hypothyroidism
#Hx of lung nodules
#Stable CAD
#HLD
#Anxiety d/o
#EssentiL HTN
cont home meds
Apparently was scheduled for PET with [facility] for pulmonary nodules. Advised to keep appointment with already scheduled specialists
#Chronic LE lymphedema
elevate extremity
use compression stockings
DVT ppx on Eliquis
Full code
I have spent at least 59min reviewing chart, test results and providing direct patient care
Assessment / Plan
Assessment / Plan
79yo F with PMHX of HFpEF, Afib on eliquis, pulmonary nodules, CAD s/p PCI, mild-moderate , CKD stage 3, HLD, HTN, meningioma, chronic anemia came with SOB worsening for past couple of months, managed for CHF exacerbation with Afib with RVR, later
found COVID-19
A/P:
#Acute hypoxic respiratory insufficiency 2/2 Acute on chronic HFpEF
#PAroxysmnal Afib with RVR on admission
Echo in sept with preserved EF
Lasix, daily weight, follow electrolytes
Cardio consult
Wean off O2
cont telemetry, rate and rhythm control
#COVID-19
No pneumonia on XR
Started on decadron x10 days
With Cr>1.5 - cautious to start Remdesivir. Since patient improving - will not start it
Mucinex to cont
#COPD
cont home bronchodilators
#CKD stge 3
Baseline Cr 1.7-1.9
#Hypothyroidism
#Hx of lung nodules
#Stable CAD
#HLD
#Anxiety d/o
#EssentiL HTN
cont home meds
Apparently was scheduled for PET with [facility] for pulmonary nodules. Advised to keep appoitment with already scheduled specialists
#Chronic LE lymphedema
elevate extremity
use compression stockings
DVT ppx on Eliquis
Full code
I have spent at least 59min reviewing chart, test results and providing direct patient care
Anticipated Discharge: > 48 hours
Subjective/Interval History
-
Date of Service: July 08, 2024
Objective Data
-
Labs:
Laboratory Results
07/08/24
05:56
WBC 7.7
Hgb 8.7 L
Hct 26.2 L
Plt Count 230
Sodium 135
Potassium 4.3
Chloride 93 L
Carbon Dioxide 28
BUN 59 H
Creatinine 1.8 H
Glucose 130 H
Calcium 9.0
Vital Signs:
Vital Signs
Temp Pulse Resp BP Pulse Ox
97.3 F 68 18 125/57 98
07/08/24 11:45 07/08/24 11:45 07/08/24 11:45 07/08/24 11:45 07/08/24 11:45
I&O
07/07/24 07/08/24 07/09/24
06:59 06:59 06:59
Intake Total 1200 / 1200 960 / 960
Balance 1200 / 1200 960 / 960
Review of Systems
-
History Source: Patient
All other systems: Reviewed and negative
Physical Exam
-
General: No Apparent Distress
HEENT: Normocephalic
Respiratory: Crackles; Negative Wheezes
Cardiac: Regular Rhythm
GI: Soft, Nontender and Nondistended
Skin: Warm
Neuro: Awake, Alert, Oriented and AO x 3
Psych: Calm
--- NOTE | 2024-07-08 15:41 | PTCARENOTE ---
patient still with B/L LE edema, +sob with exertion, cough improved, appetite improving. transferring oob with assist x1 with rolling walker to chair, vss, telemetry maintained, will continue to monitor.
[2024-07-08 15:55] VITALS: BP 105/55
[2024-07-08 19:30] VITALS: BP 123/57
[2024-07-08] MEDS: ROBITUSSIN DM 10 ML PO (21:10)
[2024-07-08] MEDS: DESYREL 150 MG PO (21:10)
[2024-07-08] MEDS: CYMBALTA DELAYED RELEASE 60 MG PO (21:10)
[2024-07-08] MEDS: MELATONIN 20 MG PO (21:10)
[2024-07-08] MEDS: PROTONIX 40 MG PO (21:11)
[2024-07-08] MEDS: ZETIA 10 MG PO (21:11)
[2024-07-08] MEDS: LIPITOR 80 MG PO (21:11)
[2024-07-08] MEDS: LIDOCAINE 4% PATCH 1 PATCH TOPICAL (21:11)
[2024-07-08 23:04] VITALS: BP 125/56
[2024-07-09 03:45] VITALS: BP 125/62
[2024-07-09] MEDS: SYNTHROID 75 MCG PO (05:38)
--- NOTE | 2024-07-09 05:49 | DOWNTIME ---
There was a [employer] Client Design Printing Machine Setter Downtime on 07/09/2024 from 0100 to 07/09/2024 at 0355. Downtime documentation of patient's care, including medication administrations, has been reconciled in the electronic record per guidelines. Refer to the
patient's paper chart under the miscellaneous tab to see printed paper medication records and downtime forms.
[2024-07-09 06:00] VITALS: BMI 47.4
[2024-07-09 06:28] LABS: % Basophils 0.6 % (0-2); % Eosinophils 0.2 % (0-6); % Immature Granulocytes 7.6 % (0-0.5); % Lymphocytes 13.5 % (20.5-51.1); % Monocytes 7.6 % (1.7-9.3); % Neutrophils 70.5 % (42.2-75.2); Absolute Basophils 0.1 10^3/uL (0-0.2); Absolute Immature Granulocytes 0.8 10^3/uL (0-0.05); Absolute Lymphocytes 1.5 10^3/uL (1.2-3.4); Absolute Monocytes 0.8 10^3/uL (0.1-0.6); Absolute Neutrophils 7.7 10^3/uL (1.4-6.5); Mean Corp Hgb Conc. 33.3 g/dL (33.0-37.0); Mean Corpuscular Hgb 31.9 pg (27.0-31.0); Mean Corpuscular Volume 95.8 fL (81.0-99.0); Mean Platelet Volume 9.5 fL (7.4-10.4); NT-proBNP 311 pg/ml; Nucleated Red Blood Cells % 0.5 %; Platelet Count 302 10^3/uL (130-400); Red Blood Cell Count 3.13 10^6/uL (4.20-5.40); Red Cell Dist. Width 17.9 % (11.5-14.5); White Blood Cell Count 10.9 10^3/uL (4.8-10.8)
[2024-07-09 07:16] LABS: ALT (SGPT) 31 U/L (0-35); AST (SGOT) 25 U/L (14-36); Albumin 3.9 g/dl (3.5-5.0); Alkaline Phosphatase 88 U/L (38-126); Blood Urea Nitrogen 65 mg/dl (7-17); Calcium 9.3 mg/dl (8.4-10.2); Carbon Dioxide 28 mmol/L (22-30); Chloride 91 mmol/L (98-107); Estimated Creatinine Clearance 32 ml/min; Glucose 133 mg/dl (70-99); Potassium 3.9 mmol/L (3.5-5.1); Sodium 137 mmol/L (135-145); Total Bilirubin 0.6 mg/dl (0.2-1.3); Total Protein 5.9 g/dl (6.3-8.2); eGFR 28.66
[2024-07-09 07:30] VITALS: BP 141/65
[2024-07-09] MEDS: BUMEX 2 MG IV ×2 (08:29→15:46)
[2024-07-09] MEDS: TYLENOL 1000 MG PO ×2 (08:29→20:58)
[2024-07-09] MEDS: VITAMIN B-12 1000 MCG PO (08:29)
[2024-07-09] MEDS: TESSALON PERLES 100 MG PO ×3 (08:29→21:03)
[2024-07-09] MEDS: PACERONE 200 MG PO (08:29)
[2024-07-09] MEDS: ELIQUIS 5 MG PO ×2 (08:29→20:58)
[2024-07-09] MEDS: ZYLOPRIM 100 MG PO (08:29)
[2024-07-09] MEDS: MUCINEX 600 MG PO ×2 (08:29→20:58)
[2024-07-09] MEDS: KCL 40 MEQ PO (08:29)
[2024-07-09] MEDS: DESENEX/MITRAZOL/ZEASORB 1 APPLIC TOPICAL ×2 (08:30→20:58)
[2024-07-09] MEDS: SYMBICORT 160/4.5 MCG INHALER 2 PUFF INH ×2 (08:36→20:27)
[2024-07-09] MEDS: SPIRIVA RESPIMAT 2.5 MCG 2 PUFF INH (08:36)
--- NOTE | 2024-07-09 11:21 | W.PN.CARDCBS ---
Addendum entered and electronically signed by Doyle Walsh MD 07/09/24 12:55:
I saw and examined the patient.
The Razor Sharpener's note was reviewed and I agree with the note.
Comment: Briefly, 79 past medical history of heart failure with preserved ejection fraction and pAFib presents in decompensated HF subsequently found to have COVID PNA.
Still requiring supplemental oxygen 2 L today at the time of my exam
Difficult to ascertain if hypoxia is related to underlying heart failure COVID infection, of note BNP was not elevated today
Lower extremity edema present and she is still above her dry weight by several pounds
Would continue IV diuresis, hopefully can transition to oral diuretics in the next 24 to 48 hours
Rest per Octavia Nunez
Original Note:
Today's Communication / Plan
-
continue diuresis
supportive care of covid illness
in SR
Impression / Plan
-
PCP: Dr. Morris Gudino
Primary cash register operator: Dr. Rissa Walker
Impression:
Admitted with worsening SOB, edema, and weight gain 07/02/24
Difficulty ambulating
Acute on chronic HFpEF
Tested positive for COVID 07/04/24
Recent admission for COPD/bronchiectasis and PNA 05/23/24
Paroxysmal Afib with RVR spontaneously converted to SR on Cardizem gtt 05/23/24 and again on 05/29/2024
Chronic Eliquis OAC
Pulmonary nodules
CAD
s/p 3.5/15 mm Xience V expedition drug-eluting stent to the proximal LAD 02/17/14
s/p overlapping 3.5/38 mm x2 Xience V expedition drug-eluting stents to the mid and proximal RCA 02/17/14
stable CAD with patent LAD and RCA stents by cath 07/05/20
patent LAD and RCA stents, nonobstructive distal left main lesion by cath 06/27/21
stable LM lesions with negative iFR assessment of LM/LAD and LM/Circ by cath 04/20/23
Mild to moderate peak/mean 33/16 mmHg and LISA 1.3 cm sq by echo 05/27/24
CKD 3
Hyperlipidemia
Hypertension
Known meningioma
Anemia
Echo 12/26/22: Ejection fraction 55 to 60% with mild septal hypertrophy. Trace MR. Mild to moderate aortic valve stenosis with peak/mean gradient 32/17 mmHg. Aortic valve area 1.3 cm�. Trace AI. Mild TR with PA pressure 40 mmHg.
Echo 05/27/24: EF 60 to 65%, normal RV size and function, trace MR, mild to moderate peak/mean 33/16 mmHg with LISA 1.3 cm SQ, mild aortic regurgitation, mild TR with PAP 30 to 35 mmHg
Plan:
-she has had 3 admissions since 04/2024 with escalating diuretic requirements
-proBNP was only 133, less than previous admissions. possible multifactorial symptoms with acute covid, possible lymphedema. repeat proBNP 311 on 07/09
-she appears to be diuresing with IV bumex 2mg BID, continue. she was given metolazone 5mg x1 on 07/07 in addition. dry weight estimated to be 253-255 pounds upon review of prior admissions, 258 pounds today if accurate
-Cr stable at 1.8
-tubigrip stockings
-she remains in SR on review of tele. continue amiodarone, eliquis
-EF preserved by echo 05/27/24
-remains with cough. continue supportive care of covid illness. wean supp O2 as able, remains on 2L NC
PREADMIT DATA:
-Patient was admitted with acute HF 05/23/24 until 05/31/24 and was diuresed and discharged to home on Lasix 20 mg MWF. Patient returned to [facility] and was admitted 06/06/24 until 06/11/24 for orthostasis and acute HF, but cardiology was not consulted.
Patient was d/c'd to home on a higher dose of Lasix 40 mg PO daily. Patient was seen in the cardiology office for follow up 07/02/24 and sent to [facility] with acute HF.
Progress Note - Radio Adjuster
Subjective
Date of Service: July 09, 2024
remains with cough
Objective
Labs:
07/09/24 06:01
07/09/24 06:01
Labs
Hgb 10.0 g/dL (12.0-16.0) L 07/09/24 06:01
Hct 30.0 % (37.0-47.0) L 07/09/24 06:01
Plt Count 302 10^3/uL (130-400) D 07/09/24 06:01
Sodium 137 mmol/L (135-145) 07/09/24 06:01
Potassium 3.9 mmol/L (3.5-5.1) 07/09/24 06:01
BUN 65 mg/dl (7-17) H 07/09/24 06:01
Creatinine 1.8 mg/dL (0.6-1.0) H 07/09/24 06:01
Glucose 133 mg/dl (70-99) H 07/09/24 06:01
Vital Signs and I&O:
Vital Signs
Temp Pulse Resp BP Pulse Ox
97.6 F 68 18 141/65 95
07/09/24 07:30 07/09/24 08:41 07/09/24 08:41 07/09/24 07:30 07/09/24 08:41
Vital Signs
Temp Pulse Resp BP Pulse Ox
97.6 F 68 18 141/65 95
07/09/24 07:30 07/09/24 08:41 07/09/24 08:41 07/09/24 07:30 07/09/24 08:41
Intake & Output
07/07/24 07/08/24 07/09/24 07/10/24
07:59 07:59 07:59 07:59
Intake Total 1200 / 1200 960 / 960 1120 / 1120
Balance 1200 / 1200 960 / 960 1120 / 1120
--- NOTE | 2024-07-09 11:23 | CM ---
CM reviewed chart, patient Covid positive. CM spoke with patients daughterJenny, via phone. CM discussed [facility] can review acceptance of patience once off isolation (07/12), [facility] reviewing/checking bed availability. Per daughter,
patient would not be for LTC, goal is to bring patient home after short term rehab. Per daughter, patient was previously at [facility], did not feel care was adequate regarding patients CHF, would not like to return to [facility]. CM will
continue to follow for all discharge planning needs.
Plan; SNF pending accepting facility, [facility] reviewing, [facility] review once off isolation.
[2024-07-09] MEDS: DECADRON 6 MG IV (11:37)
--- NOTE | 2024-07-09 12:12 | W.PN.HOSP.TC ---
Today's Communication/Plan
-
cont diuresis and patient continues to loose weight
Start Duoneb QID scheduled
avoid increasing steroids
wean off O2
Assessment / Plan
Assessment / Plan
79yo F with PMHX of HFpEF, Afib on eliquis, pulmonary nodules, CAD s/p PCI, mild-moderate , CKD stage 3, HLD, HTN, meningioma, chronic anemia came with SOB worsening for past couple of months, managed for CHF exacerbation with Afib with RVR, later
found COVID-19
A/P:
#Acute hypoxic respiratory insufficiency 2/2 Acute on chronic HFpEF
#PAroxysmnal Afib with RVR on admission
Echo in sept with preserved EF
Bumex, daily weight, follow electrolytes
Cardio consult
Wean off O2
cont telemetry, rate and rhythm control
#COVID-19
No pneumonia on XR
Started on decadron x10 days
With Cr>1.5 - cautious to start Remdesivir. Since patient improving - will not start it
Mucinex to cont
#COPD
Bronchodilators
#CKD stge 3
Baseline Cr 1.7-1.9
#Hypothyroidism
#Hx of lung nodules
#Stable CAD
#HLD
#Anxiety d/o
#EssentiL HTN
cont home meds
Apparently was scheduled for PET with [facility] for pulmonary nodules. Advised to keep appoitment with already scheduled specialists
#Chronic LE lymphedema
elevate extremity
use compression stockings
DVT ppx on Eliquis
Full code
I have spent at least 59min reviewing chart, test results and providing direct patient care
Anticipated Discharge: > 48 hours
Subjective/Interval History
-
Date of Service: July 09, 2024
Objective Data
-
Labs:
Laboratory Results
07/09/24
06:01
WBC 10.9 H
Hgb 10.0 L
Hct 30.0 L
Plt Count 302 D
Sodium 137
Potassium 3.9
Chloride 91 L
Carbon Dioxide 28
BUN 65 H
Creatinine 1.8 H
Glucose 133 H
Calcium 9.3
Total Bilirubin 0.6
AST 25
ALT 31
Alkaline Phosphatase 88
Vital Signs:
Vital Signs
Temp Pulse Resp BP Pulse Ox
97.6 F 68 18 141/65 95
07/09/24 07:30 07/09/24 08:41 07/09/24 08:41 07/09/24 07:30 07/09/24 08:41
I&O
07/08/24 07/09/24 07/10/24
06:59 06:59 06:59
Intake Total 960 / 960 1120 / 1120
Balance 960 / 960 1120 / 1120
Review of Systems
-
History Source: Patient
All other systems: Reviewed and negative
Respiratory: Reports Trouble Breathing
Physical Exam
-
General: Well Nourished and No Apparent Distress
HEENT: Normocephalic
Respiratory: Wheezes and Crackles
Cardiac: Regular Rhythm
GI: Soft, Nontender and Nondistended
Musculoskeletal: No Clubbing, No Cyanosis and No Edema
Skin: Warm
Neuro: Awake, Alert, Oriented and AO x 3
Psych: Calm
[2024-07-09 15:30] VITALS: BP 156/73
[2024-07-09] MEDS: CYMBALTA DELAYED RELEASE 60 MG PO (21:01)
[2024-07-09] MEDS: ZETIA 10 MG PO (21:01)
[2024-07-09] MEDS: ROBITUSSIN DM 10 ML PO (21:01)
[2024-07-09] MEDS: LIPITOR 80 MG PO (21:03)
[2024-07-09] MEDS: DESYREL 150 MG PO (21:03)
[2024-07-09] MEDS: PROTONIX 40 MG PO (21:03)
[2024-07-09] MEDS: MELATONIN 20 MG PO (21:04)
[2024-07-09] MEDS: LIDOCAINE 4% PATCH 1 PATCH TOPICAL (21:04)
[2024-07-09 23:57] VITALS: BP 125/54
[2024-07-10] MEDS: SYNTHROID 75 MCG PO (04:40)
[2024-07-10 06:00] VITALS: BMI 46.1
[2024-07-10 07:26] LABS: Blood Urea Nitrogen 68 mg/dl (7-17); Calcium 9.2 mg/dl (8.4-10.2); Carbon Dioxide 30 mmol/L (22-30); Chloride 91 mmol/L (98-107); Estimated Creatinine Clearance 33 ml/min; Glucose 121 mg/dl (70-99); Magnesium 2.1 mg/dl (1.6-2.3); Potassium 3.4 mmol/L (3.5-5.1); Sodium 136 mmol/L (135-145)
[2024-07-10] MEDS: BUMEX 2 MG IV ×2 (07:47→15:14)
[2024-07-10] MEDS: MUCINEX 600 MG PO ×2 (07:47→20:51)
[2024-07-10] MEDS: PACERONE 200 MG PO (07:48)
[2024-07-10] MEDS: KCL 40 MEQ PO ×2 (07:48)
[2024-07-10] MEDS: VITAMIN B-12 1000 MCG PO (07:48)
[2024-07-10] MEDS: TESSALON PERLES 100 MG PO ×3 (07:48→20:52)
[2024-07-10] MEDS: ELIQUIS 5 MG PO ×2 (07:48→20:52)
[2024-07-10] MEDS: ZYLOPRIM 100 MG PO (07:48)
[2024-07-10] MEDS: TYLENOL 1000 MG PO ×2 (07:48→20:51)
[2024-07-10 07:51] VITALS: BP 146/62
[2024-07-10] MEDS: DESENEX/MITRAZOL/ZEASORB 1 APPLIC TOPICAL ×2 (08:05→20:50)
[2024-07-10] MEDS: SYMBICORT 160/4.5 MCG INHALER 2 PUFF INH ×2 (08:50→20:21)
[2024-07-10] MEDS: DECADRON 6 MG IV (11:27)
--- NOTE | 2024-07-10 11:33 | W.PN.CARDCBS ---
Addendum entered and electronically signed by Doyle Walsh MD 07/10/24 16:00:
I saw and examined the patient.
The Java Front End Web Developer's note was reviewed and I agree with the note.
Comment: Briefly, 79 past medical history of heart failure with preserved ejection fraction and pAFib presents in decompensated HF subsequently found to have COVID PNA.
O2 weaned off
Cr stable
Weight down over the past few days, suspect she is approaching her dry weight
Still with mild lower extremity edema, likely some component of lymph edema, continue tubigrips
Would continue IV diuresis today, hopefully can transition to oral diuretics in the next 24 hours
Discussed with patient's daughter who is on speaker phone at the time of my evaluation as well as nursing
Gen: NAD, AA
HEENT: NC/AT, sclera anicteric
Neck: No JVD
CV: RRR, NL s1/s2
Lungs: No increased WOB on RA
Abd: S/ND
Ext: Nonpitting LE edema
Skin: Warm, dry
Neuro: Non-focal
Original Note:
Today's Communication / Plan
-
consider transition to po bumex in AM
replete K
will arrange OP cardiac follow up
Impression / Plan
-
PCP: Dr. Morris Gudino
Primary senior compliance officer: Dr. Rissa Walker
Impression:
Admitted with worsening SOB, edema, and weight gain 07/02/24
Difficulty ambulating
Acute on chronic HFpEF
Tested positive for COVID 07/04/24
Recent admission for COPD/bronchiectasis and PNA 05/23/24
Paroxysmal Afib with RVR spontaneously converted to SR on Cardizem gtt 05/23/24 and again on 05/29/2024
Chronic Eliquis OAC
Pulmonary nodules
CAD
s/p 3.5/15 mm Xience V expedition drug-eluting stent to the proximal LAD 02/17/14
s/p overlapping 3.5/38 mm x2 Xience V expedition drug-eluting stents to the mid and proximal RCA 02/17/14
stable CAD with patent LAD and RCA stents by cath 07/05/20
patent LAD and RCA stents, nonobstructive distal left main lesion by cath 06/27/21
stable LM lesions with negative iFR assessment of LM/LAD and LM/Circ by cath 04/20/23
Mild to moderate peak/mean 33/16 mmHg and LISA 1.3 cm sq by echo 05/27/24
CKD 3
Hyperlipidemia
Hypertension
Known meningioma
Anemia
Echo 12/26/22: Ejection fraction 55 to 60% with mild septal hypertrophy. Trace MR. Mild to moderate aortic valve stenosis with peak/mean gradient 32/17 mmHg. Aortic valve area 1.3 cm�. Trace AI. Mild TR with PA pressure 40 mmHg.
Echo 05/27/24: EF 60 to 65%, normal RV size and function, trace MR, mild to moderate peak/mean 33/16 mmHg with LISA 1.3 cm SQ, mild aortic regurgitation, mild TR with PAP 30 to 35 mmHg
Plan:
-she has had 3 admissions since 04/2024 with escalating diuretic requirements
-she continues with cough however overall states she is improving
-weight continues to trend down with diuresis if accurate. Cr stable at 1.7 although BUN trending up. now on room air. consider transition to po bumex in AM. prior to admission was on bumex 2mg daily.
-replete K
-tubigrip stockings
-has been in SR. continue amiodarone, eliquis
-EF preserved by echo 05/27/24
-continue supportive care of covid illness. primary service to treat for possible bronchitis
-will arrange OP cardiac follow up
-plan for SNF upon DC
PREADMIT DATA:
-Patient was admitted with acute HF 05/23/24 until 05/31/24 and was diuresed and discharged to home on Lasix 20 mg MWF. [facility] and was admitted 06/06/24 until 06/11/24 for orthostasis and acute HF, but cardiology was not consulted.
Patient was d/c'd to home on a higher dose of Lasix 40 mg PO daily. Patient was seen in the cardiology office for follow up 07/02/24 and [facility] with acute HF.
Progress Note - Hand Ironer
Subjective
Date of Service: July 10, 2024
continues with cough
Objective
Labs:
07/09/24 06:01
07/10/24 06:30
Labs
Hgb 10.0 g/dL (12.0-16.0) L 07/09/24 06:01
Hct 30.0 % (37.0-47.0) L 07/09/24 06:01
Plt Count 302 10^3/uL (130-400) D 07/09/24 06:01
Sodium 136 mmol/L (135-145) 07/10/24 06:30
Potassium 3.4 mmol/L (3.5-5.1) L 07/10/24 06:30
BUN 68 mg/dl (7-17) H 07/10/24 06:30
Creatinine 1.7 mg/dL (0.6-1.0) H 07/10/24 06:30
Glucose 121 mg/dl (70-99) H 07/10/24 06:30
Vital Signs and I&O:
Vital Signs
Temp Pulse Resp BP Pulse Ox
97.9 F 72 16 146/62 95
07/10/24 07:51 07/10/24 08:59 07/10/24 08:59 07/10/24 07:51 07/10/24 08:59
Vital Signs
Temp Pulse Resp BP Pulse Ox
97.9 F 72 16 146/62 95
07/10/24 07:51 07/10/24 08:59 07/10/24 08:59 07/10/24 07:51 07/10/24 08:59
Intake & Output
07/08/24 07/09/24 07/10/24 07/11/24
07:59 07:59 07:59 07:59
Intake Total 960 / 960 1120 / 1120 1680 / 1680
Balance 960 / 960 1120 / 1120 1680 / 1680
--- NOTE | 2024-07-10 12:04 | W.PN.HOSP.TC ---
Today's Communication/Plan
-
Off O2 - will be ready for d/c when switched to oral Bumex, cardio plans on 07/11, CM aware to work on rehab
Assessment / Plan
Assessment / Plan
79yo F with PMHX of HFpEF, Afib on eliquis, pulmonary nodules, CAD s/p PCI, mild-moderate , CKD stage 3, HLD, HTN, meningioma, chronic anemia came with SOB worsening for past couple of months, managed for CHF exacerbation with Afib with RVR, later
found COVID-19
A/P:
#Acute hypoxic respiratory insufficiency 2/2 Acute on chronic HFpEF
#PAroxysmnal Afib with RVR on admission
Echo in sept with preserved EF
Bumex, daily weight, follow electrolytes
Cardio consult
Wean off O2
cont telemetry, rate and rhythm control
#COVID-19
No pneumonia on XR
Started on decadron x10 days
With Cr>1.5 - cautious to start Remdesivir. Since patient improving - will not start it
Mucinex to cont
#COPD exacerbation
wheezing resolved on regular duoneb
Doxy for immunomodulatory properties
Bronchodilators
#CKD stge 3
Baseline Cr 1.7-1.9
#Hypothyroidism
#Hx of lung nodules
#Stable CAD
#HLD
#Anxiety d/o
#EssentiL HTN
cont home meds
Apparently was scheduled for PET with [facility] for pulmonary nodules. Advised to keep appoitment with already scheduled specialists
#Chronic LE lymphedema
elevate extremity
use compression stockings
DVT ppx on Eliquis
Full code
I have spent at least 59min reviewing chart, test results and providing direct patient care
Anticipated Discharge: Within 24 hours
Subjective/Interval History
-
Date of Service: July 10, 2024
Objective Data
-
Labs:
Laboratory Results
07/10/24
06:30
Sodium 136
Potassium 3.4 L
Chloride 91 L
Carbon Dioxide 30
BUN 68 H
Creatinine 1.7 H
Glucose 121 H
Calcium 9.2
Vital Signs:
Vital Signs
Temp Pulse Resp BP Pulse Ox
97.9 F 72 16 146/62 95
07/10/24 07:51 07/10/24 08:59 07/10/24 08:59 07/10/24 07:51 07/10/24 08:59
I&O
07/09/24 07/10/24 07/11/24
06:59 06:59 06:59
Intake Total 1120 / 1120 1680 / 1680
Balance 1120 / 1120 1680 / 1680
Review of Systems
-
History Source: Patient
All other systems: Reviewed and negative
Physical Exam
-
General: No Apparent Distress
HEENT: Normocephalic
Respiratory: Crackles
Cardiac: Regular Rhythm
GI: Soft, Nontender and Nondistended
Skin: Warm
Neuro: Awake, Alert, Oriented and AO x 3
Psych: Calm
[2024-07-10] MEDS: VIBRAMYCIN 100 MG PO ×2 (13:16→20:51)
--- NOTE | 2024-07-10 14:36 | CM ---
Pt daughter requested to speak w/ CM.
CM attempted TC to daughter, no answer, left vm
Spoke w/ hospitalist re d/c updates. Per hospitalist pt can d/c tomorrow as she will switch to oral abx in the AM
Pt is currently still in COVID isolation until 07/14
At this time, [facility] are unable to accept pt until end of her isolation on 07/14 and if available bed
CM informed hospitalist of pt's need to complete isolation per SNFs.
Will f/u w/ daughter to update
Plan: SNF once out of COVID isolation
[2024-07-10 15:00] VITALS: BP 136/65
[2024-07-10] MEDS: MELATONIN 20 MG PO (20:51)
[2024-07-10] MEDS: ROBITUSSIN DM 10 ML PO (20:51)
[2024-07-10] MEDS: LIPITOR 80 MG PO (20:51)
[2024-07-10] MEDS: PROTONIX 40 MG PO (20:51)
[2024-07-10] MEDS: ZETIA 10 MG PO (20:51)
[2024-07-10] MEDS: LIDOCAINE 4% PATCH 1 PATCH TOPICAL (20:52)
[2024-07-10] MEDS: DESYREL 150 MG PO (20:56)
[2024-07-10] MEDS: CYMBALTA DELAYED RELEASE 60 MG PO (20:56)
[2024-07-10 23:39] VITALS: BP 135/68
[2024-07-11] MEDS: SYNTHROID 75 MCG PO (05:14)
[2024-07-11 06:00] VITALS: BMI 45.8
[2024-07-11 07:08] LABS: Blood Urea Nitrogen 70 mg/dl (7-17); Calcium 9.4 mg/dl (8.4-10.2); Carbon Dioxide 30 mmol/L (22-30); Chloride 93 mmol/L (98-107); Estimated Creatinine Clearance 30 ml/min; Glucose 133 mg/dl (70-99); Potassium 3.4 mmol/L (3.5-5.1); Sodium 136 mmol/L (135-145); eGFR 26.86
[2024-07-11] MEDS: SYMBICORT 160/4.5 MCG INHALER 2 PUFF INH (07:32)
[2024-07-11 07:42] VITALS: BP 142/62
[2024-07-11] MEDS: BUMEX 2 MG PO (08:19)
[2024-07-11] MEDS: VIBRAMYCIN 100 MG PO (08:19)
[2024-07-11] MEDS: KCL 40 MEQ PO ×2 (08:19)
[2024-07-11] MEDS: PACERONE 200 MG PO (08:19)
[2024-07-11] MEDS: ELIQUIS 5 MG PO (08:20)
[2024-07-11] MEDS: TYLENOL 1000 MG PO (08:20)
[2024-07-11] MEDS: TESSALON PERLES 100 MG PO (08:20)
[2024-07-11] MEDS: DESENEX/MITRAZOL/ZEASORB 1 APPLIC TOPICAL (08:20)
[2024-07-11] MEDS: MUCINEX 600 MG PO (08:20)
[2024-07-11] MEDS: VITAMIN B-12 1000 MCG PO (08:20)
[2024-07-11] MEDS: ZYLOPRIM 100 MG PO (08:20)
--- NOTE | 2024-07-11 11:05 | CM ---
Addendum entered by Alpesh Kingston 07/11/24 11:37:
[facility] can offer bed today.
Daughter is agreeable and will transport pt to SNF
Hospitalist made aware and agree to d/c today. CM requested VN order
Ap[facility]/Sarah made aware and to begin services at SNF
IMM reviewed w/ pt over the phone due to COVID isolation. Copy will be placed in chart as pt would like copy at d/c
[facility]
Report: [phone]

[place]

Plan: [facility] w/Sarah
Original Note:
CM spoke w/ daughter Jenny. Pt can d/c today as abx switched to oral per hospitalist
LESLY updated daughter re [facility] needing pt to be out of isolation before can review for acceptance
Jenny confirmed her contact w/ [facility] today and them having an available bed and understands pt's current isolation
Jenny requested additional referrals to be sent to [facility]
Referrals sent via [facility], awaiting determination of potential COVID bed
Pt in isolation until 07/14
Plan: SNF at d/c
--- NOTE | 2024-07-11 11:12 | PTCARENOTE ---
pt aaox3. states chronic pain in right leg. tylenol given as ordered. pt oob to bathroom min one person assist with RW. pt now oob in chair. ex wheeze heard bilat posterior. room air. harsh cough.
[2024-07-11] MEDS: DRISDOL (VITAMIN D2) 50000 UNITS PO (11:46)
[2024-07-11] MEDS: DECADRON 6 MG IV (11:46)
--- NOTE | 2024-07-11 11:50 | W.PN.HOSP.TC ---
Today's Communication/Plan
-
DC
Assessment / Plan
Assessment / Plan
79yo F with PMHX of HFpEF, Afib on eliquis, pulmonary nodules, CAD s/p PCI, mild-moderate , CKD stage 3, HLD, HTN, meningioma, chronic anemia came with SOB worsening for past couple of months, managed for CHF exacerbation with Afib with RVR, later
found COVID-19. Diuresed well and switched to oral Bumex. Cr remained stable. Medically stable for d/c to rehab
A/P:
#Acute hypoxic respiratory insufficiency 2/2 Acute on chronic HFpEF
#Paroxysmal Afib with RVR on admission
Echo in sept with preserved EF
Bumex, daily weight, follow electrolytes
Cardio consult
Wean off O2
cont telemetry, rate and rhythm control
#COVID-19
No pneumonia on XR
Started on decadron x10 days
With Cr>1.5 - cautious to start Remdesivir. Since patient improving - will not start it
Mucinex to cont
#COPD exacerbation
wheezing resolved on regular duoneb
Doxy for immunomodulatory properties
Bronchodilators
#CKD stge 3
Baseline Cr 1.7-1.9
#Hypothyroidism
#Hx of lung nodules
#Stable CAD
#HLD
#Anxiety d/o
#EssentiL HTN
cont home meds
Apparently was scheduled for PET with [facility] for pulmonary nodules. Advised to keep appointment with already scheduled specialists
#hypokalemia
repleted
#Chronic LE lymphedema
elevate extremity
use compression stockings
DVT ppx on Eliquis
Full code
I have spent at least 39 reviewing chart, test results and providing direct patient care
Anticipated Discharge: Today
Subjective/Interval History
-
Date of Service: July 11, 2024
Objective Data
-
Labs:
Laboratory Results
07/11/24
06:03
Sodium 136
Potassium 3.4 L
Chloride 93 L
Carbon Dioxide 30
BUN 70 H
Creatinine 1.9 H
Glucose 133 H
Calcium 9.4
Vital Signs:
Vital Signs
Temp Pulse Resp BP Pulse Ox
97.7 F 66 16 142/62 97
07/11/24 07:42 07/11/24 08:19 07/11/24 07:42 07/11/24 08:19 07/10/24 23:39
I&O
07/10/24 07/11/24 07/12/24
06:59 06:59 06:59
Intake Total 1680 / 1680 1140 / 1140
Balance 1680 / 1680 1140 / 1140
Review of Systems
-
History Source: Patient
All other systems: Reviewed and negative
Physical Exam
-
General: No Apparent Distress
HEENT: Normocephalic
Cardiac: Regular Rhythm
GI: Soft, Nontender and Nondistended
Musculoskeletal: No Clubbing, No Cyanosis and No Edema
Neuro: Awake, Alert, Oriented and AO x 3
--- NOTE | 2024-07-11 11:59 | W.DCSUMMARY ---
Discharge Summary
Discharge Data
Date of Admission: 07/02/24
Date of Discharge: 07/11/24
-
Pending Results: No
Hospital Course
79yo F with PMHX of HFpEF, Afib on eliquis, pulmonary nodules, CAD s/p PCI, mild-moderate , CKD stage 3, HLD, HTN, meningioma, chronic anemia came with SOB worsening for past couple of months, managed for CHF exacerbation with Afib with RVR, later
found COVID-19. Diuresed well and switched to oral Bumex. Cr remained stable. Medically stable for d/c to rehab
I have spent at least 38min preparing d/c
Patient was managed for:
#Acute hypoxic respiratory insufficiency 2/2 Acute on chronic HFpEF
#Paroxysmal Afib with RVR on admission
#COVID-19
#COPD exacerbation
#CKD stge 3
#Hypothyroidism
#Hx of lung nodules
#Stable CAD
#HLD
#Anxiety d/o
#EssentiL HTN
#hypokalemia
#Chronic LE lymphedema
Discharge Plan
-
Patient Disposition: Detention/SNF
Discharge Diagnosis/Procedures: CHF, COVID-19
Diet: As tolerated and 2 Gram Sodium
Driving Restrictions: As prior to admission
Blood Work: BMP in 1 week
Other Services: PT and OT
Specialty Instructions: Weigh Daily- Call MD for wt gain/loss 3 lbs overnight/5 lbs in 1 week
Activity Restrictions/Additional Instructions:
Note to [facility] (if receiving home care through [facility]):
Initiate the Home Health Diuretic Protocol
Instructions: *[facility] Heart Failure Instructions
Referrals:
Dinorah Wooten PA-C [Specified Professional Personl] - 08/05/24 8:40 am (You have a cardiology follow-up appointment at the [place] office with Dr. Kwok's physician child and youth program assistant, Dinorah. Please call with questions)
Suraj Arreguin MD [Family Provider] -
Prescriptions:
New
doxycycline hyclate 100 mg Capsule
100 mg PO Q12 Qty: 10 0RF
bumetanide 2 mg Tablet
2 mg PO BID@0800,1600 Qty: 60 0RF
dexamethasone sodium phosphate 4 mg/mL Solution
6 mg IV Q24H Qty: 3 0RF
Continued
atorvastatin 80 MG tablet
80 mg PO HS
loperamide [Imodium A-D] 2 MG capsule
4 mg PO Q4HPRN PRN (Reason: diarrhea)
ezetimibe 10 MG tablet
10 mg PO HS
acetaminophen [Tylenol Extra Strength] 500 MG tablet
1,000 mg PO BID
melatonin 10 MG tablet
20 mg PO HS
lavinia (Zingiber officinalis) 500 MG capsule
550 mg PO HS
cyanocobalamin (vitamin B-12) [Vitamin B-12] 1,000 mcg Tablet
1,000 mcg PO DAILY
omeprazole 40 mg capsule,delayed release(DR/EC)
40 mg PO HS
levothyroxine 75 mcg Tablet
75 mcg PO DAILY
simethicone [Gas-X Extra Strength] 125 mg Capsule
125 mg PO HSPRN PRN (Reason: gas)
Trelegy Ellipta 200-62.5-25 mcg Blister With Device
1 inh INHALATION R DAILY
diltiazem HCl 180 mg Capsule,Extended Release 24hr
180 mg PO DAILY Qty: 30 0RF
Eliquis 5 mg Tablet
5 mg PO BID Qty: 60 0RF
amiodarone 200 mg Tablet
200 mg PO BID Qty: 60 0RF
trazodone 150 mg Tablet
150 mg PO HS
colchicine 0.6 mg Tablet
0.6 mg PO DAILYPRN PRN (Reason: gout)
duloxetine 60 mg Capsule,Delayed Release(Dr/Ec)
60 mg PO HS
allopurinol 100 mg Tablet
100 mg PO DAILY Qty: 30 0RF
sodium bicarbonate 650 mg Tablet
650 mg PO BID Qty: 60 0RF
acetaminophen 325 mg Tablet
650 mg PO Q6HPRN PRN (Reason: mild pain/temp >100)
ipratropium-albuterol 0.5 mg-3 mg(2.5 mg base)/3 mL Solution For Nebulization
3 ml INHALATION R Q6HPRN PRN (Reason: sob)
Patient Comments:
07/02/24: for 14 days, from 06/22/24-07/06/24
lidocaine 4 % Adhesive Patch,Medicated
1 patch TOPICAL DAILY
dextromethorphan-guaifenesin 10-100 mg/5 mL Syrup
10 ml PO HS
guaifenesin 200 mg Tablet
600 mg PO Q12H
magnesium hydroxide [Milk of Magnesia] 400 mg/5 mL Suspension
30 ml PO [id number] PRN (Reason: no bm 3 days)
bisacodyl [Dulcolax (bisacodyl)] 10 mg Suppository
10 mg OK DAILYPRN PRN (Reason: mom ineffective)
Fleet Enema 19-7 gram/118 mL Enema
118 ml OK DAILYPRN PRN (Reason: dulcolax ineffective)
cholecalciferol (vitamin D3) 1,250 mcg (50,000 unit) Tablet
1,250 mcg PO FR
icosapent ethyl [Vascepa] 1 gram Capsule
2 g PO BID
potassium chloride 20 mEq Tablet Extended Release
40 meq PO DAILY
Discontinued
bumetanide 2 mg Tablet
2 mg PO DAILY
Discharge Orders:
Discharge Patient (As Directed); Ordered 07/11/24
Ordered By: Ean Briceño
Discharge Date and Time
Print Language: THAI
--- NOTE | 2024-07-11 13:19 | W.PN.CARDCBS ---
Addendum entered and electronically signed by Alex Johnson DO 07/11/24 17:33:
I saw and examined the patient.
The Lead Quality Control Technician's note was reviewed and I agree with the note.
Comment:
Patient with acute on chronic HFPEF, improved on diuretic therapy with concurrent COVID
Transition to oral diuresis, repeat lab work 1 week
Supportive care for COVID
Continue eliquis, amiodarone
Stable for DC from CV standpoint with OP follow-up as scheduled
Original Note:
Today's Communication / Plan
-
po bumex 2mg BID
replete K. BMP in 1 week
tubigrip stockings
amio, eliquis
OP cardiac follow up arranged
for DC today
Impression / Plan
-
PCP: Dr. Morris Gudino
Primary steam powerplant supervisor: Dr. Rissa Walker
Impression:
Admitted with worsening SOB, edema, and weight gain 07/02/24
Difficulty ambulating
Acute on chronic HFpEF
Tested positive for COVID 07/04/24
Recent admission for COPD/bronchiectasis and PNA 05/23/24
Paroxysmal Afib with RVR spontaneously converted to SR on Cardizem gtt 05/23/24 and again on 05/29/2024
Chronic Eliquis OAC
Pulmonary nodules
CAD
s/p 3.5/15 mm Xience V expedition drug-eluting stent to the proximal LAD 02/17/14
s/p overlapping 3.5/38 mm x2 Xience V expedition drug-eluting stents to the mid and proximal RCA 02/17/14
stable CAD with patent LAD and RCA stents by cath 07/05/20
patent LAD and RCA stents, nonobstructive distal left main lesion by cath 06/27/21
stable LM lesions with negative iFR assessment of LM/LAD and LM/Circ by cath 04/20/23
Mild to moderate peak/mean 33/16 mmHg and LISA 1.3 cm sq by echo 05/27/24
CKD 3
Hyperlipidemia
Hypertension
Known meningioma
Anemia
Echo 12/26/22: Ejection fraction 55 to 60% with mild septal hypertrophy. Trace MR. Mild to moderate aortic valve stenosis with peak/mean gradient 32/17 mmHg. Aortic valve area 1.3 cm�. Trace AI. Mild TR with PA pressure 40 mmHg.
Echo 05/27/24: EF 60 to 65%, normal RV size and function, trace MR, mild to moderate peak/mean 33/16 mmHg with LISA 1.3 cm SQ, mild aortic regurgitation, mild TR with PAP 30 to 35 mmHg
Plan:
-weight continues to trend down, however Cr uptrending, 1.9 on 07/11. transition to po bumex 2mg BID. prior to admission was on bumex 2mg daily
-replete K
-BMP in 1 week
-tubigrip stockings
-now off tele. continue amiodarone, eliquis
-EF preserved by echo 05/27/24
-continue supportive care of covid illness.
-OP cardiac follow up arranged
-for DC today to SNF
PREADMIT DATA:
-Patient was admitted with acute HF 05/23/24 until 05/31/24 and was diuresed and discharged to home on Lasix 20 mg MWF. Patient returned to [facility] and was admitted 06/06/24 until 06/11/24 for orthostasis and acute HF, but cardiology was not consulted.
Patient was d/c'd to home on a higher dose of Lasix 40 mg PO daily. Patient was seen in the cardiology office for follow up 07/02/24 and sent to [facility] with acute HF.
Progress Note - Focuser
Subjective
Date of Service: July 11, 2024
for DC today
Objective
Labs:
07/09/24 06:01
07/11/24 06:03
Labs
Hgb 10.0 g/dL (12.0-16.0) L 07/09/24 06:01
Hct 30.0 % (37.0-47.0) L 07/09/24 06:01
Plt Count 302 10^3/uL (130-400) D 07/09/24 06:01
Sodium 136 mmol/L (135-145) 07/11/24 06:03
Potassium 3.4 mmol/L (3.5-5.1) L 07/11/24 06:03
BUN 70 mg/dl (7-17) H 07/11/24 06:03
Creatinine 1.9 mg/dL (0.6-1.0) H 07/11/24 06:03
Glucose 133 mg/dl (70-99) H 07/11/24 06:03
Vital Signs and I&O:
Vital Signs
Temp Pulse Resp BP Pulse Ox
97.7 F 66 16 142/62 97
07/11/24 07:42 07/11/24 08:19 07/11/24 07:42 07/11/24 08:19 07/10/24 23:39
Vital Signs
Temp Pulse Resp BP Pulse Ox
97.7 F 66 16 142/62 97
07/11/24 07:42 07/11/24 08:19 07/11/24 07:42 07/11/24 08:19 07/10/24 23:39
Intake & Output
07/09/24 07/10/24 07/11/24 07/12/24
07:59 07:59 07:59 07:59
Intake Total 1120 / 1120 1680 / 1680 1140 / 1140
Balance 1120 / 1120 1680 / 1680 1140 / 1140
[2024-07-11 14:39] VITALS: BP 138/62
--- NOTE | 2024-07-14 09:31 | W.HF.CON ---
Heart Failure
- LV Function
Left ventricular function study result: LV Ejection fraction >40% (ECHO 05/27/24)
Ejection Fraction Percentage: 60-65
- ARNI
Patient already on ARNI: No
Heart Failure ARNI Not Indicated: LV Ejection Fraction >/= 40%
- ACEI/ARB
Patient already on ACEI/ARB: No
Heart Failure ACEI/ARB Not Indicated: LV Ejection Fraction > 40%
- Beta Lavon
Patient already on Evidence Based Beta Lavon: No
Heart Failure Evidence Based Beta Lavon Not Indicated: LV Ejection Fraction > 40%
- Mineralocorticord Receptor Antagonist
Patient already on MRA: No
Heart Failure MRA Not Indicated: LV Ejection Fraction > 40%
- SGLT-2 Inhibitor
Patient already on SGLT-2 Inhibitor: No
Heart Failure SGLT-2 Inhibitor Not Indicated: LV Ejection Fraction >40%
- Afib Anticoagulation
Patient already on Anticoagulation for Afib: Yes
- NYHA CHF Classification
NYHA CHF Classification Level: Class III - Symptoms w/ min exertion, interferes w/ nml daily activity
- ACC/AHA Stage
ACC/AHA Stage: Stage C: Symptomatic Heart Failure
== END 2024-07-11 14:37 | DRG 291 ==
LOC: 3 WEST ACU 16:42
PROVIDERS: Internal Medicine; Internal Medicine Cardiovascular Disease; Physician Assistant; ADMITTING PHYSICIAN Hospitalist; ATTENDING PHYSICIAN Internal Medicine; EMERGENCY PHYSICIAN Emergency Medicine; FAMILY PHYSICIAN Internal Medicine
DX: I13.0 Hypertensive heart and chronic kidney disease with heart failure and stage 1 through stage 4 chronic kidney disease, or unspecified chronic kidney disease (principal); I50.33 Acute on chronic diastolic (congestive) heart failure; U07.1 COVID-19; E87.1 Hypo-osmolality and hyponatremia; J44.1 Chronic obstructive pulmonary disease with (acute) exacerbation; Z68.42 Body mass index [BMI] 45.0-49.9, adult; I48.0 Paroxysmal atrial fibrillation; I25.10 Atherosclerotic heart disease of native coronary artery without angina pectoris; N18.30 Chronic kidney disease, stage 3 unspecified; K59.00 Constipation, unspecified; E03.9 Hypothyroidism, unspecified; F32.A Depression, unspecified; D63.1 Anemia in chronic kidney disease; G47.00 Insomnia, unspecified; M10.9 Gout, unspecified; I35.0 Nonrheumatic aortic (valve) stenosis; R09.02 Hypoxemia; R06.89 Other abnormalities of breathing; I89.0 Lymphedema, not elsewhere classified; I95.1 Orthostatic hypotension; R91.8 Other nonspecific abnormal finding of lung field; F41.9 Anxiety disorder, unspecified; J47.9 Bronchiectasis, uncomplicated; E87.6 Hypokalemia; E78.00 Pure hypercholesterolemia, unspecified; E66.01 Morbid (severe) obesity due to excess calories; Z79.51 Long term (current) use of inhaled steroids; Z88.1 Allergy status to other antibiotic agents; Z79.890 Hormone replacement therapy; Z79.01 Long term (current) use of anticoagulants; Z95.5 Presence of coronary angioplasty implant and graft; Z87.891 Personal history of nicotine dependence; Z86.011 Personal history of benign neoplasm of the brain; Z79.899 Other long term (current) drug therapy
CPT/HCPCS: 71046; 80048; 80053; 83735; 83880; 84443; 84484; 85025; 87070; 87811; 93005; 94640; 96374; 97116; 97162; 97166; 97530; 97535; 99285

== ENCOUNTER 2024-07-29 15:42 | Inpatient (IN) | payer MEDICARE, OTHER, SELFPAY ==
[2024-07-29] VITALS (8 sets, daily range): BP systolic 116–146; BP diastolic 50–71; BMI 50.5; BMI 47.9; BMI 48.0
[2024-07-29 11:28] LABS: ALT (SGPT) 18 U/L (0-35); AST (SGOT) 15 U/L (14-36); Alkaline Phosphatase 70 U/L (38-126); Blood Urea Nitrogen 55 mg/dl (7-17); Calcium 9.3 mg/dl (8.4-10.2); Carbon Dioxide 27 mmol/L (22-30); Chloride 101 mmol/L (98-107); Estimated Creatinine Clearance 35 ml/min; Glucose 102 mg/dl (70-99); Potassium 3.7 mmol/L (3.5-5.1); Sodium 137 mmol/L (135-145); Total Bilirubin 0.4 mg/dl (0.2-1.3); Total Protein 4.8 g/dl (6.3-8.2)
[2024-07-29 11:29] LABS: % Basophils 0.6 % (0-2); % Eosinophils 2.3 % (0-6); % Immature Granulocytes 1.1 % (0-0.5); Absolute Basophils 0.1 10^3/uL (0-0.2); Absolute Eosinophils 0.2 10^3/uL (0-0.7); Absolute Immature Granulocytes 0.1 10^3/uL (0-0.05); Absolute Lymphocytes 1.3 10^3/uL (1.2-3.4); Absolute Monocytes 0.4 10^3/uL (0.1-0.6); Absolute Neutrophils 6.2 10^3/uL (1.4-6.5); Hematocrit 26.9 % (37.0-47.0); Hemoglobin 8.9 g/dL (12.0-16.0); Mean Corp Hgb Conc. 33.1 g/dL (33.0-37.0); Mean Corpuscular Hgb 32.1 pg (27.0-31.0); Mean Corpuscular Volume 97.1 fL (81.0-99.0); Mean Platelet Volume 9.5 fL (7.4-10.4); Nucleated Red Blood Cells % 0 %; Platelet Count 161 10^3/uL (130-400); Red Blood Cell Count 2.77 10^6/uL (4.20-5.40); Red Cell Dist. Width 18.5 % (11.5-14.5); White Blood Cell Count 8.2 10^3/uL (4.8-10.8)
[2024-07-29 11:39] LABS: NT-proBNP 138 pg/ml
--- NOTE | 2024-07-29 13:32 | ED.GENMED ---
History of Present Illness
General
Chief Complaint: Weakness
Source: patient
Exam Limitations: none
Time Seen by Provider: 07/29/24 10:45
Nursing documentation reviewed up to this point in time: agreed with
History of Present Illness
History of Present Illness:
HFpEF afib on eliquis, copd, hypothyroid, cad stents
has been in and out of the hospital and rehab for chf and wekaness
she formerly was on lasix but had some CONCHITA it seems and was switched to bumex. has been taking 2 mg bumex bid 07-11 to 07-17 then was reduced 07-18 to bumex 2 mg daily until 07/24 and put back up to BID dosing since then; has had progressive weight
gain; had been about 250 lbs and now up to 268 lbs with worsening edema, weakness, CLOUD,
yesterday the NH ordered iv lasix 40 mg daily x 3 days but she didn't get it yesterday or today because of IV access issues
today she is sob, edematous, and weak
she denies cp, vomitign, fever, headache, syncope
had covid 3 weeeks ago during last wadmission
Past History
Past History
ED Past Medical History: Asthma, CAD, COPD, HTN and Hypercholesterolemia
ED Past Surgical History: Cardiac (Stent X3)
Social History
Tobacco: Former smoker
Alcohol: None
Drug: None
Personal:
Living: with family
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
Family History
Family History: Other (COPD, breast cancer)
Phy Exam
Physical Exam
Physical Exam:
GENERAL: Alert , in no apparent distress, obese
EYE: pupils equal and reactive
NECK: Supple
ENT: o/p clr, mmm.
CARDIAC: Regular rate and rhythm .
LUNGS: diminished, no rhonchi, wheezing/rales
ABDOMEN: Soft, appears swollen/fluid vs. distended; nontender, no r/g, no cvat, normal bowel sounds
NEUROLOGICAL: Alert and oriented, no focal neuro deficits
SKIN: Warm and dry, skin intact.
MUSCULOSKELETAL: significant peripheral edema b/l up through legs to abdomen
PSYCH: Normal and appropriate interaction.
Course
Orders/Labs/Results
Orders:
Orders
07/29/24 10:22
Electrocardiogram (*1) Urgent
Reason for Study: Fatigue / Weakness
07/29/24 10:23
EKG- Treatment ONCE
07/29/24 11:05
Complete Blood Count/With Diff Urgent
Comprehensive Metabolic Panel Urgent
NT-proBNP Urgent
07/29/24 11:19
CR Chest - 2 Views Urgent
Comment:
Reason For Exam: cough, wheezing
07/29/24 13:34
Furosemide [Lasix] 40 mg IV NOW STA
07/29/24 14:09
Bumetanide [Bumex] 2 mg IV NOW STA
07/29/24 14:37
Urinalysis Reflex To Culture Urgent
Date Specimen was Collected: 07/29/24
Time Specimen was Collected: 14:06
Urine Microscopic Reflex Cult Urgent
07/29/24 Dinner
Cholesterol Lowering
At Your Request: Limited Participation
Fluid Restriction: 1200 mL/day (40 oz)
Cholesterol Lowering: Sodium, 2 Gram
07/29/24 15:19
Consult Cardiology [CARDIOLOGY CONSULT] Routine
Consulting Provider: Doyle Lucio
Was physician already notified: Yes
Reason for consult: acute chf
Splint [Braces/Immobilizers] As Directed
Type of Brace/Immobilizer: Other
Other brace/immobilizer: paris wraps
Location for Brace/Immobilizer: knees to feet
07/29/24 15:28
Admit/Transfer Patient As Directed
Co-Sign Provider:
Level of Care: Inpatient admission
Assign to:: Telemetry
Physician / Group: luep day
Diagnosis: acute on chronic chf, nonambulatory
Reason for Telemetry: Arrhythmia
Date to Stop Telemetry: 08/01/24
Time to Stop Telemetry: 11:00
Reason for Hospitalization: acute on chronic chf, nonambulatory
Expected length of stay greater than two midnights?: Yes
ELOS- Estimated Length of Stay in days: 4
I certify the patient meets the requirements for IP care: Yes
Code Status As Directed
Resuscitation Status: Full Code
07/29/24 15:34
PRN Pain Medication Management As Directed
May give lesser potent ordered pain med per pt: Yes
preference::
Protocol:: Medication orders for pain may be administered in a
manner that supports deferring to patient preference
when the pt is:
- Requesting an ordered lesser potent pain medication.
Least to most potent pain medications are defined
as: acetaminophen < NSAID < tramadol < opioids
(morphine, oxycodone, hydromorphone).
- Requesting a lesser dose of the same medication IF
ORDERED.
- Requesting a less intrusive route of administration
if both routes are prescribed by the provider (PO <
IV).
07/29/24 16:32
Acetaminophen [Tylenol] 650 mg PO Q6HPRN PRN
Bisacodyl [Dulcolax] 10 mg RECTAL DAILYPRN PRN
Bisacodyl [Dulcolax] 10 mg RECTAL [id number] PRN
Docusate W/Senna [Senokot-S] 1 tablet PO BIDPRN PRN
Gabapentin [Neurontin] 200 mg PO TID
Ipratropium/Albuterol Sulfate [Duoneb] 3 ml INH R Q6HPRN PRN
Polyethylene Glycol Powder [Miralax] 17 grams PO DAILYPRN PRN
07/29/24 16:32
Case Management Consult ONCE
Case Management Consult: Other
Requested By:: PT/FAMILY
Comment: pt and family want to know what palliative care is and how it can help them
VTE Contraindication Routine
VTE Mechanical Device Contraindication: Medical Contraindication
Pharmocologic Contraindication: Medical Contraindication
Comment: pt on eliquis
Activity As Directed
Activity Level: With Assistance
Intake/ Output As Directed
Frequency: Per unit guidelines
Vital Signs As Directed
Frequency: Per unit guidelines
Weight As Directed
Frequency: Daily
Pulse Ox/spot Check [RESP] Routine
Quantity: 1
Ot Eval And Treat Routine
Pt Eval And Treat Routine
Activity Level: With Assistance
07/29/24 17:00
Bumetanide [Bumex] 2 mg IV BID AT 0800,1700
07/29/24 20:00
Acetaminophen [Tylenol] 1,000 mg PO BID
Apixaban [Eliquis] 5 mg PO BID
Sodium Bicarbonate 650 mg PO BID
icosapent ethyl [Vascepa] 2 grams PO BID
07/29/24 22:00
Atorvastatin [Lipitor] 80 mg PO HS
Duloxetine Delayed Release [Cymbalta Delayed Release] 60 mg PO HS
Ezetimibe [Zetia] 10 mg PO HS
Guaifenesin/Dextromethorphan [Robitussin Dm] 10 ml PO HS
Melatonin 10 mg PO HS
Pantoprazole [Protonix] 40 mg PO HS
Trazodone [Desyrel] 150 mg PO HS
07/30/24 06:00
Levothyroxine [Synthroid] 75 mcg PO DAILY @ 0600
07/30/24 06:26
Cardiovascular Evaluation IN AM
Complete Blood Count/With Diff IN AM
Comprehensive Metabolic Panel IN AM
07/30/24 08:00
Allopurinol [Zyloprim] 100 mg PO DAILY
Amiodarone [Pacerone] 100 mg PO DAILY
Cyanocobalamin [Vitamin B-12] 1,000 mcg PO DAILY
Diltiazem Extended Release [Cardizem Cd] 180 mg PO DAILY
Lidocaine [Lidocaine 4% Patch] 1 patch TOPICAL DAILY
Apply Lidocaine patch(s) to:: thigh
cmzpvwujaqe-fppoqurjb-hqnrczlx [Trelegy Ellipta] 1 inh INH R DAILY
07/31/24 06:00
Comprehensive Metabolic Panel IN AM
08/01/24 06:00
Comprehensive Metabolic Panel IN AM
08/01/24 08:00
Ergocalciferol [Drisdol (Vitamin D2)] 50,000 units PO FR
08/01/24 11:00
DC Protocol for Telemetry ONCE
08/02/24 06:00
Comprehensive Metabolic Panel IN AM
Abnormal Lab Results
07/29/24 07/29/24
11:05 14:37
RBC 2.77 L 10^6/uL
(4.20-5.40)
Hgb 8.9 L g/dL
(12.0-16.0)
Hct 26.9 L %
(37.0-47.0)
MCH 32.1 H pg
(27.0-31.0)
RDW 18.5 H %
(11.5-14.5)
Abs Immat Gran (auto) 0.1 H 10^3/uL
(0-0.05)
Immature Gran % 1.1 H %
(0-0.5)
Lymphocytes % 16.0 L %
(20.5-51.1)
BUN 55 H mg/dl
(7-17)
Creatinine 1.7 H mg/dL
(0.6-1.0)
Glucose 102 H mg/dl
(70-99)
Total Protein 4.8 L g/dl
(6.3-8.2)
Albumin 3.0 L g/dl
(3.5-5.0)
Leukocyte Esterase Rfl Trace A
(Negative)
Urine Bacteria (Reflex) Few A
(Negative)
07/29/24 11:05
07/29/24 11:05
Vital Signs
Initial and Last Documented VS:
Initial Vital Signs
Temp Pulse Resp BP Pulse Ox
98.4 F 69 22 130/61 96
07/29/24 10:17 07/29/24 10:17 07/29/24 10:17 07/29/24 10:17 07/29/24 10:17
Last Documented Vital Signs
Temp Pulse Resp BP Pulse Ox
97.5 F 70 18 135/56 95
07/30/24 23:47 07/30/24 23:47 07/30/24 23:47 07/30/24 23:47 07/30/24 23:47
MDM/Problems Addressed
Differential Diagnosis Includes:
chf, 3rd spacing, hypoalbuinemia
MDM/Problems Addressed:
chf with pEF
COPD
OBESITY
edema progresssive despite bid bumex dosing in rehab
they ordered lasix40 mg daily x 3 days but she did not get it yet.
pt felt more weak and edematous
has gained 18 pounds
on exam she is normotensive, vss
faint end exp wheezing and cough probably her COPD
pretty severe LE edema and i think her abdomen even looks swollen but difficult to say
she has no o2 requirement; ekg is sinus;
bnp is 138; it has been mostly normal in the past month but had been up to 1700 previously
cxr shows some copd and i think looks like a little pulme edema but the radiologist didn't call it
i'm not sure what to do here; not sure her wekaness is really all related to her CHF; but she certainly continues to gain weight; her renal function is at her baseline 1.[address] lucio
recommended iv diuresis
*Critical Care Note
Total Time (30-74mins, 75-104mins- exclusive of procedures): Not Applicable
ED Attending Note
-
Portions of this chart may have been created with voice recognition software.� Occasional wrong word or��sound alike� substitutions may have occurred due to the inherent limitations of voice recognition software.
Discharge Plan
Departure
Patient Disposition: Admit
Date of Disposition: 07/29/24
Time of Disposition: 13:25
Admit to: Telemetry
Presentation/result/management discussed w/ accepting MD/DO: Hospitalist
Condition: Fair
Covid-19: Not Applicable
Discharge Problem:
Edema, CHF (congestive heart failure), Weakness
Interventions
Interventions:
*Risk Screen - Suicide Last Done: 07/29/24 10:17
*General Assessment Last Done: 07/29/24 10:17
*Neglect/Abuse Screening Last Done: 07/29/24 10:17
ED- Fall Risk Assessment Last Done: 07/29/24 11:09
*ED COVID-19 Vaccine History Last Done: 07/29/24 10:17
*Nursing Disposition Last Done: 07/29/24 16:37
ED- Cardiac Assessment Last Done: 07/29/24 11:09
ED- Neurological Assessment Last Done: 07/29/24 11:09
ED- Pulmonary Assessment Last Done: 07/29/24 11:09
Discharge Date and Time
Discharge Date/Time: 07/29/24 16:38
--- NOTE | 2024-07-29 14:10 | CON.CAR ---
Addendum entered and electronically signed by Doyle Walsh MD 07/29/24 17:11:
I saw and examined the patient.
The Can Labeler's note was reviewed and I agree with the note.
Comment: Briefly, 79-year-old woman past medical history of heart failure with preserved ejection fraction who presents with worsening peripheral edema and significant weight gain over the course of several weeks concerning for decompensated heart
failure. My understanding is that patient was maintained on Bumex 2 mg twice daily but dose was cut back to once daily with concern for renal insufficiency. Around this time she started with weight gain and worsening peripheral edema. Plan was for
outpatient IV diuresis however due to access issues this was not implemented.
Plan for IV Bumex 2 mg twice daily
Monitor daily weights, ideally would have standing scale
Follow renal function and electrolytes
GFR is borderline for initiation of SGLT2 or MRA
Rest per Octavia Nunez
Original Note:
Consultation
Consultation Request
Date/Time Consultation Performed: 07/29/24
Requesting Provider: Ashley Nobles PA-C
Performing Provider: Octavia Nunez PA-C for Dr. Walsh
Reason for Consultation: CHF
Medical History
-
Chief Complaint: weight gain
History of Present Illness:
Patient is a 79 yo F with PMH of chronic heart failure with preserved EF, paroxysmal A-fib on Eliquis, CAD with prior LAD and RCA stents with residual 50% distal L main stenosis which was iFR negative by cath 03/2023, mild to moderate , CKD with
multiple recent admissions to [facility]. She was admitted 05/23 - 06/10/2024 for COPD/bronchiectasis/pneumonia as well as new diagnosis paroxysmal A-fib, started on amiodarone and eliquis. She was then hospitalized 07/02 - 07/11/2024 for
CHF and COVID. She was discharged to rehab at [facility] on p.o. Bumex 2 mg twice daily. Reportedly due to an increase in her creatinine, her Bumex dose was decreased to 2 mg once daily as of 07/18/2024. As of 07/24/2024 she was
placed back up to twice daily dosing due to weight gain, however she continued to gain weight since that time. Reportedly yesterday the correction ordered IV Lasix 40 mg daily to be given for 3 days, however she has not yet gotten it due to IV
access issues and therefore was referred to the emergency room for further evaluation and treatment. She reports since discharge she has gained approximately 18 pounds. She reports some worsening lower extremity edema. She reports dyspnea on
exertion and orthopnea. Also reports weakness. proBNP 138.
PMH:
Recent admissions for:
COPD/bronchiectasis, PNA, new PAF 05/23/24-06/10/24
CHF, covid 07/02-07/11/24
chronic HFpEF
Paroxysmal Afib
Chronic Eliquis OAC
Pulmonary nodules
CAD
s/p 3.5/15 mm Xience V expedition drug-eluting stent to the proximal LAD 02/17/14
s/p overlapping 3.5/38 mm x2 Xience V expedition drug-eluting stents to the mid and proximal RCA 02/17/14
stable CAD with patent LAD and RCA stents by cath 07/05/20
patent LAD and RCA stents, nonobstructive distal left main lesion by cath 06/27/21
stable LM lesions with negative iFR assessment of LM/LAD and LM/Circ by cath 04/20/23
Mild to moderate peak/mean 33/16 mmHg and LISA 1.3 cm sq by echo 05/27/24
CKD 3
Hyperlipidemia
Hypertension
Known meningioma
Anemia
Past Medical History
Past Medical History: CAD, CHF (Heart failure preserved ejection fraction), GERD, HTN, Hypercholesterolemia, Valvular Disease and Other (Lung nodule, meningioma)
Past Surgical History: , Gynecological (D&C), Orthopedic (Knee surgery, low back procedure) and Other (Cataract surgery)
Social History
Tobacco: Non-Smoker
Personal:
Living: Other (SNF since last hospitalization)
Employment: Retired
Family History
Family History: CAD (Father 80s ) and Other (Mother COPD)
Allergies / Home Medications
Allergy/AdvReac Type Severity Reaction Status Date / Time
levofloxacin [From Levaquin] Allergy Unknown Verified 07/29/24 10:17
metronidazole [From Flagyl] Allergy JOINT Verified 07/29/24 10:17
PAINS/H=PYLORI
anesthetic Allergy nausea Uncoded 07/29/24 10:17
vomiting
�Medication �Instructions �Recorded �Confirmed �Type
atorvastatin 80 mg tablet 80 mg PO HS High cholesterol 10/03/16 07/29/24 History
ezetimibe 10 mg tablet 10 mg PO HS High cholesterol 07/05/20 07/29/24 History
loperamide 2 mg capsule (Imodium 4 mg PO Q4HPRN PRN diarrhea 07/05/20 07/29/24 History
A-D)
acetaminophen 500 mg tablet 1,000 mg PO BID Pain 06/27/21 07/29/24 History
(Tylenol Extra Strength)
melatonin 10 mg tablet 20 mg PO HS Sleep 06/27/21 07/29/24 History
lavinia (Zingiber officinalis) 500 500 mg PO HS Supplement 01/23/22 07/29/24 History
mg capsule
cyanocobalamin (vitamin B-12) 1,000 mcg PO DAILY Supplement 12/21/22 07/29/24 History
1,000 mcg tablet (Vitamin B-12)
omeprazole 40 mg capsule,delayed 40 mg PO HS Gastrointestinal issue 12/21/22 07/29/24 History
release
fluticasone fur. 200 mcg-umeclid 1 inh inhalation R DAILY 04/20/23 07/29/24 History
62.5 mcg-vilant 25 mcg Lung/Breathing Issues
inhalat.powder (Trelegy Ellipta)
levothyroxine 75 mcg tablet 75 mcg PO DAILY Thyroid 04/20/23 07/29/24 History
simethicone 125 mg capsule (Gas-X 125 mg PO HSPRN PRN gas 04/20/23 07/29/24 History
Extra Strength)
amiodarone 200 mg tablet 200 mg PO BID #60 tabs 05/31/24 07/29/24 Rx
apixaban 5 mg tablet (Eliquis) 5 mg PO BID #60 tabs 05/31/24 07/29/24 Rx
diltiazem HCl 180 mg 180 mg PO DAILY #30 caps 05/31/24 07/29/24 Rx
capsule,extended release 24 hr
colchicine 0.6 mg tablet 0.6 mg PO DAILYPRN PRN gout 06/06/24 07/29/24 History
duloxetine 60 mg capsule,delayed 60 mg PO HS Depression 06/06/24 07/29/24 History
release
trazodone 150 mg tablet 150 mg PO HS Sleep 06/06/24 07/29/24 History
allopurinol 100 mg tablet 100 mg PO DAILY #30 tabs 06/10/24 07/29/24 Rx
sodium bicarbonate 650 mg tablet 650 mg PO BID #60 tabs 06/10/24 07/29/24 Rx
acetaminophen 325 mg tablet 650 mg PO Q6HPRN PRN mild 07/02/24 07/29/24 History
pain/temp >100
bisacodyl 10 mg rectal suppository 10 mg MI DAILYPRN PRN mom 07/02/24 07/29/24 History
(Dulcolax (bisacodyl)) ineffective
cholecalciferol (vitamin D3) 1,250 1,250 mcg PO FR Supplement 07/02/24 07/29/24 History
mcg (50,000 unit) tablet
dextromethorphan-guaifenesin 10 10 ml PO HS Cough 07/02/24 07/29/24 History
mg-100 mg/5 mL oral syrup
guaifenesin 200 mg tablet 600 mg PO Q12H Cough 07/02/24 07/29/24 History
icosapent ethyl 1 gram capsule 2 g PO BID High Cholesterol 07/02/24 07/29/24 History
(Vascepa)
ipratropium 0.5 mg-albuterol 3 mg 3 ml inhalation R Q6HPRN PRN sob 07/02/24 07/29/24 History
(2.5 mg base)/3 mL nebulization
soln
lidocaine 4 % topical patch 1 patch topical DAILY right front 07/02/24 07/29/24 History
thigh
magnesium hydroxide 400 mg/5 mL 30 ml PO P54HATE PRN no bm 3 days 07/02/24 07/29/24 History
oral suspension (Milk of Magnesia)
potassium chloride 20 mEq 40 meq PO DAILY Supplement 07/02/24 07/29/24 History
tablet,extended release
sodium phosphates 19 gram-7 118 ml MI DAILYPRN PRN dulcolax 07/02/24 07/29/24 History
gram/118 mL enema (Fleet Enema) ineffective
bumetanide 2 mg tablet 2 mg PO BID@0800,1600 #60 tabs 07/11/24 07/29/24 Rx
doxycycline hyclate 100 mg capsule 100 mg PO BID 07/29/24 07/29/24 History
furosemide 10 mg/mL oral solution 40 mg PO BID 07/29/24 07/29/24 History
gabapentin 100 mg capsule 200 mg PO TID 07/29/24 07/29/24 History
polyethylene glycol 3350 17 gram 17 g PO DAILY 07/29/24 07/29/24 History
oral powder packet (Miralax)
sennosides 8.6 mg tablet (senna) 17.2 mg PO HS 07/29/24 07/29/24 History
Review of Systems
-
History Source: Patient
All other systems: Negative unless noted
Physical Exam
Vital Signs
Temp Pulse Resp BP Pulse Ox
98.4 F 67 15 130/61 94
07/29/24 10:17 07/29/24 12:00 07/29/24 12:00 07/29/24 10:17 07/29/24 12:00
Lab Results
07/29/24 11:05
07/29/24 11:05
Dva-E-Kydqvsjefom Pept 138 pg/ml 07/29/24 11:05
Physical Exam
General: No Apparent Distress, Comfortable and Other (obese)
HEENT: Normocephalic, Anicteric and Moist Mucous Membranes
Respiratory: Wheezes (few B/L), Non Labored Respirations and Other (dry cough)
Cardiac: S1/S2 and Regular Rhythm
GI: Soft and Non Tender
Musculoskeletal: No Clubbing, No Cyanosis and Edema (3+ of B/L LE)
Skin: Warm and Dry
Neuro: AO x 3
Impression / Plan
-
PCP: Dr. Morris Gudino
Primary central melt specialist: Dr. Rissa Walker
Impression:
Presentation with weight gain
Acute on chronic HFpEF
Recent admissions for:
COPD/bronchiectasis, PNA, new PAF 05/23/24-06/10/24
CHF, covid 07/02-07/11/24
Paroxysmal Afib
Chronic Eliquis OAC
Pulmonary nodules
CAD
s/p 3.5/15 mm Xience V expedition drug-eluting stent to the proximal LAD 02/17/14
s/p overlapping 3.5/38 mm x2 Xience V expedition drug-eluting stents to the mid and proximal RCA 02/17/14
stable CAD with patent LAD and RCA stents by cath 07/05/20
patent LAD and RCA stents, nonobstructive distal left main lesion by cath 06/27/21
stable LM lesions with negative iFR assessment of LM/LAD and LM/Circ by cath 04/20/23
Mild to moderate peak/mean 33/16 mmHg and LISA 1.3 cm sq by echo 05/27/24
CKD 3
Hyperlipidemia
Hypertension
Known meningioma
Anemia
Echo 12/26/22: Ejection fraction 55 to 60% with mild septal hypertrophy. Trace MR. Mild to moderate aortic valve stenosis with peak/mean gradient 32/17 mmHg. Aortic valve area 1.3 cm�. Trace AI. Mild TR with PA pressure 40 mmHg.
Echo 05/27/24: EF 60 to 65%, normal RV size and function, trace MR, mild to moderate peak/mean 33/16 mmHg with LISA 1.3 cm SQ, mild aortic regurgitation, mild TR with PAP 30 to 35 mmHg
Plan:
-Patient presents with persistent weight gain since last hospitalization at [facility]. her bumex dose had been decreased due to uptrending Cr however then was increased back when weight gain noted without improvement. now reports up 18 pounds since
discharge. proBNP 138. CXR read as no acute disease.
-will give IV bumex 2mg now and place on IV bumex 2mg BID and assess response
-Cr 1.7. may need to allow degree of CONCHITA to keep patient euvolemic
-CHF education. patient reports was on salt restriction at [facility] and no excessive fluid intake
-in SR. continue cardizem, eliquis. reduce amiodarone dose to 200mg daily. QTc 430ms by EKG 07/29
-paris wraps to legs
-likely not candidate for SGLT2 inhibitor due to baseline RI.
-d/w ER nursing
PREADMIT DATA:
-Patient was admitted with acute HF 05/23/24 until 05/31/24 and was diuresed and discharged to home on Lasix 20 mg MWF. Patient returned to [facility] and was admitted 06/06/24 until 06/11/24 for orthostasis and acute HF, but cardiology was not consulted.
Patient was d/c'd to home on a higher dose of Lasix 40 mg PO daily. Patient was seen in the cardiology office for follow up 07/02/24 and sent to [facility] with acute HF.
Data Reviewed
-
EKG: Tracing Personally Visualized and interpreted
Radiology: Report Reviewed by me
Medical Tests (Nuc Med, Echo etc): Report Reviewed by me
Labs: Labs Reviewed by me
Old Records: Reviewed
[2024-07-29] MEDS: BUMEX 2 MG IV ×2 (14:31→17:41)
--- NOTE | 2024-07-29 14:37 | HPS.HSE ---
Family Physician
-
Family Physician: NO INTERVIEW UNKNOWN
Chief Complaint
-
Increased edema from thighs to knees while on Bumex, inability to participate in PT and OT
History of Present Illness
79-year-old female from [facility] who complains of weakness over the past 4 days not able to participate with PT or OT and nonproductive cough and weight gain. She reports at 1 point she did walk up to 70 feet with a walker
but she has not been able to get up for the last 4 days due to her legs feeling weak as if they are going to give out. I spoke with the patient's daughter Brynn via phone who states her mother was admitted to that rehab on July 11 at 250 pounds
and this morning was 268.3 pounds despite a low-sodium diet and Bumex I did make the daughter aware she has not participated in any therapy over the past 4 days and has been lying in bed. She has been hospitalized 3 times since May 26 she had
to prior rehab admissions last 1 was [facility] where she also developed CHF was sent to the hospital and then sent to [facility]. The patient denies any salt intake she reports she is on a low sodium diet at the rehab. Prior to 4 days ago
she was mainly using a wheelchair and would only use the walker when standing up for balance in the bathroom to wash her hands. She denies headache, dizziness, sore throat, shortness of breath, chest pain, palpitations, abdominal pain, nausea,
vomiting, diarrhea, urinary symptoms.
She has past medical history heart failure preserved EF, paroxysmal A-fib on Eliquis, pulmonary nodules, CAD status post PCI with multiple stents, mild�moderate , CKD stage III, HLD, HTN, meningioma, chronic anemia, anxiety, chronic lower
extremity lymphedema, hypothyroidism, class III obesity
Medical History
Past Medical History
Past Medical History: Reports Other
Additional Past Medical History:
heart failure preserved EF,
paroxysmal A-fib on Eliquis,
pulmonary nodules,
CAD status post PCI with multiple stents
mild�moderate
CKD stage III
HLD
HTN
meningioma,
chronic anemia macrocytic
anxiety
chronic lower extremity lymphedema
Chronic ambulatory dysfunction
hypothyroidism
Insomnia
class III obesity
Past Surgical History: Reports Other
Additional Past Surgical History:
section x 3
Arthroscopic knee surgery
Joint surgery on feet 1986
4 D&Cs
Tonsillectomy with adenoidectomy 1954
Left breast lumpectomy 1977
Cardiac stents x 3
s/p 3.5/15 mm Xience V expedition drug-eluting stent to the proximal LAD 02/17/14
s/p overlapping 3.5/38 mm x2 Xience V expedition drug-eluting stents to the mid and proximal RCA 02/17/14
stable CAD with patent LAD and RCA stents by cath 07/05/20
patent LAD and RCA stents, nonobstructive distal left main lesion by cath 06/27/21
stable LM lesions with negative iFR assessment of LM/LAD and LM/Circ by cath 04/20/23
Bilateral cataract extraction
Cardiac cath 2021
Social History
Tobacco: Former Smoker
Alcohol: None
Drug: None
Personal: Single
Living: With Family (Daughter Brynn)
Employment: Retired
Family History
Family History: Other (She believes his parents from complications of COPD)
Allergies / Home Medications
Allergies reflects when Allergies were last updated in [employer] [facility].
Home Medications with original date entered in [facility]
Allergy/Medication List:
Allergies
Allergy/AdvReac Type Severity Reaction Status Date / Time
levofloxacin [From Levaquin] Allergy Unknown Verified 07/29/24 10:17
metronidazole [From Flagyl] Allergy JOINT Verified 07/29/24 10:17
PAINS/H=PYLORI
anesthetic Allergy nausea Uncoded 07/29/24 10:17
vomiting
Home Medications
atorvastatin 80 mg tablet 80 mg PO HS High cholesterol 10/03/16
ezetimibe 10 mg tablet 10 mg PO HS High cholesterol 07/05/20
loperamide 2 mg capsule (Imodium A-D) 4 mg PO Q4HPRN PRN diarrhea 07/05/20
acetaminophen 500 mg tablet (Tylenol Extra Strength) 1,000 mg PO BID Pain 06/27/21
melatonin 10 mg tablet 20 mg PO HS Sleep 06/27/21
lavinia (Zingiber officinalis) 500 mg capsule 500 mg PO HS Supplement 01/23/22
cyanocobalamin (vitamin B-12) 1,000 mcg tablet (Vitamin B-12) 1,000 mcg PO DAILY Supplement 12/21/22
omeprazole 40 mg capsule,delayed release 40 mg PO HS Gastrointestinal issue 12/21/22
fluticasone fur. 200 mcg-umeclid 62.5 mcg-vilant 25 mcg inhalat.powder (Trelegy Ellipta) 1 inh inhalation R DAILY Lung/Breathing Issues 04/20/23
levothyroxine 75 mcg tablet 75 mcg PO DAILY Thyroid 04/20/23
simethicone 125 mg capsule (Gas-X Extra Strength) 125 mg PO HSPRN PRN gas 04/20/23
colchicine 0.6 mg tablet 0.6 mg PO DAILYPRN PRN gout 06/06/24
duloxetine 60 mg capsule,delayed release 60 mg PO HS Depression 06/06/24
trazodone 150 mg tablet 150 mg PO HS Sleep 06/06/24
acetaminophen 325 mg tablet 650 mg PO Q6HPRN PRN mild pain/temp >100 07/02/24
bisacodyl 10 mg rectal suppository (Dulcolax (bisacodyl)) 10 mg NV DAILYPRN PRN mom ineffective 07/02/24
cholecalciferol (vitamin D3) 1,250 mcg (50,000 unit) tablet 1,250 mcg PO FR Supplement 07/02/24
dextromethorphan-guaifenesin 10 mg-100 mg/5 mL oral syrup 10 ml PO HS Cough 07/02/24
guaifenesin 200 mg tablet 600 mg PO Q12H Cough 07/02/24
icosapent ethyl 1 gram capsule (Vascepa) 2 g PO BID High Cholesterol 07/02/24
ipratropium 0.5 mg-albuterol 3 mg (2.5 mg base)/3 mL nebulization soln 3 ml inhalation R Q6HPRN PRN sob 07/02/24
lidocaine 4 % topical patch 1 patch topical DAILY right front thigh 07/02/24
magnesium hydroxide 400 mg/5 mL oral suspension (Milk of Magnesia) 30 ml PO [id number] PRN no bm 3 days 07/02/24
potassium chloride 20 mEq tablet,extended release 40 meq PO DAILY Electrolyte Repletion 07/02/24
sodium phosphates 19 gram-7 gram/118 mL enema (Fleet Enema) 118 ml NV DAILYPRN PRN dulcolax ineffective 07/02/24
allopurinol 100 mg tablet 100 mg PO DAILY gout 07/29/24
amiodarone 200 mg tablet 200 mg PO BID Arrhythmia 07/29/24
apixaban 5 mg tablet (Eliquis) 5 mg PO BID Blood Clot Prevention/Tx 07/29/24
bumetanide 2 mg tablet 2 mg PO BID@0800,1600 Fluid Retention/Swelling 07/29/24
diltiazem HCl 180 mg capsule,extended release 24 hr 180 mg PO DAILY Blood Pressure 07/29/24
doxycycline hyclate 100 mg capsule 100 mg PO BID infection 07/29/24
furosemide 10 mg/mL oral solution 40 mg PO BID Fluid Retention/Swelling 07/29/24
gabapentin 100 mg capsule 200 mg PO TID pain 07/29/24
polyethylene glycol 3350 17 gram oral powder packet (Miralax) 17 g PO DAILY Constipation 07/29/24
sennosides 8.6 mg tablet (senna) 17.2 mg PO HS Constipation 07/29/24
sodium bicarbonate 650 mg tablet 650 mg PO BID Supplement 07/29/24
Review of Systems
-
History Source: Patient and Family (Daughter Brynn via phone)
A 12 point ROS was completed and negative except as noted: Yes
Constitutional: Reports Weight Gain (18.3 pounds in the last 18 days) and Fatigue; Denies Chills
EENT: Denies Sore Throat or Runny Nose
Respiratory: Reports Cough (Nonproductive); Denies Trouble Breathing
Cardiac: Denies Chest Pain, Diaphoresis, Palpitations or Syncope
Abdomen/GI: Denies Abdominal Pain, Nausea, Vomiting, Diarrhea, Constipated or Bloody Stools
: Denies Dysuria, Frequency, Flank Pain, Incontinence, Difficulty Voiding, Urgency or Bleeding
Musculoskeletal: Reports Edema (Bilateral legs +2 edema from lateral aspects of thighs to knees and feet with underlying chronic lymphedema); Denies Joint Pain or Joint Swelling
Skin: Denies Itching or Rash
Neurological: Reports Weakness; Denies Dizzy or Headache
Endocrine: Reports No Symptoms
Hematologic/Lymphatic: Reports No Symptoms
Psych: Reports Calm
Physical Exam
Vital Signs
Vital Signs
Temp Pulse Resp BP Pulse Ox
98.4 F 67 15 119/50 94
07/29/24 10:17 07/29/24 14:31 07/29/24 12:00 07/29/24 14:31 07/29/24 12:00
Physical Exam
General: Comfortable, Conversant and Morbidly Obese; No Pain, Fever or Chills
HEENT: NormoCephalic, Anicteric, Moist mucous membranes, PERRLA and [place] Conjunctivae
Respiratory: Clear; No Wheezes, Rales or Rhonchi
Cardiac: S1/S2, Regular Rhythm and Peripheral Edema (Bilateral legs +2 edema from lateral aspects of thighs to knees and feet with underlying chronic lymphedema); No Murmur, Rub, Gallop or Calf Tenderness
Breast: Deferred by me
GI: Soft, Non Tender, Non Distended, Normal Bowel Sounds and No Hepatosplenomegaly
Rectal: Deferred by Provider
Genito-urinary: Deferred by me
Musculoskeletal: No Clubbing, No Cyanosis, Edema, Left Lower Extremity (Bilateral legs +2 edema from lateral aspects of thighs to knees and feet with underlying chronic lymphedema) and Edema, Right Lower Extremity (Bilateral legs +2 edema from
lateral aspects of thighs to knees and feet with underlying chronic lymphedema); No Edema, Left Upper Extremity or Edema, Right Upper Extremity
Skin: Warm and Dry; No Rash or Jaundice
Neuro: AO x 3 (But forgetful about some past medical history), Nonfocal/grossly intact, Cranial Nerves Intact and No Sensory Deficits; No Slurred Speech, Facial Droop, Tremors or Sedated
Psych: Calm
Laboratory Results
-
07/29/24 11:05
07/29/24 11:05
Laboratory Results
Total Bilirubin 0.4 mg/dl (0.2-1.3) 07/29/24 11:05
AST 15 U/L (14-36) 07/29/24 11:05
ALT 18 U/L (0-35) 07/29/24 11:05
Alkaline Phosphatase 70 U/L (38-126) 07/29/24 11:05
Impression/Plan
-
Impression/plan:
Admit to telemetry
#Acute hypoxic respiratory insufficiency 2/2 Acute on chronic HFpEF
#Chronic LE lymphedema
92-96% RA
BNP 138
-Alan wrap's to be applied properly to lower legs patient currently has them on at her distal tib-fib to foot area from the senior living*
-Consult [facility] cardiology
-IV Bumex 2 mg twice daily
-Will have Alan wrap is applied properly from knees to feet
-Patient's daughter Brynn and patient want to have discussion about what palliative care is
CXR: No active cardiopulmonary disease
2D echo 05/27/2024: EF 60 to 65% no wall abnormalities. Mild LVH normal diastolic function thickened mitral valve leaflets. Trace MR
Mild/moderate aortic stenosis peak mean gradient 33/16 mmHg
Mild TR
Pulm arterial pressure 30-35 mmHg
#Mild/moderate aortic stenosis
peak mean gradient 33/16 mmHg on echo 05/27/2024
#Paroxysmal Afib
-Continue Eliquis 5 mg twice daily
-REDUCE amiodarone 200 mg twice daily to AMIODARONE 200 mg Daily
Chronic pain
-Continue gabapentin 20 mg p.o. 3 times daily, Tylenol as needed
#HTN�benign
BP 130/61
#COPD -no acute exacerbation
-Continue nebs
#CKD stge 3B
Creat 1.7 baseline Cr 1.7-1.9
Continue sodium bicarb 650 mg p.o. twice daily
Follow BMP
#Hypothyroidism
-Continue levothyroxine
#Hx of lung nodules
-Was due to have PET scan of pulmonary nodules
#CAD
-Continue Zetia 10 mg at bedtime, atorvastatin 80 mg at bedtime, diltiazem 180 mg daily and Eliquis
*s/p 3.5/15 mm Xience V expedition drug-eluting stent to the proximal LAD 02/17/14
*s/p overlapping 3.5/38 mm x2 Xience V expedition drug-eluting stents to the mid and proximal RCA 02/17/14
*stable CAD with patent LAD and RCA stents by cath 07/05/20
* patent LAD and RCA stents, nonobstructive distal left main lesion by cath 06/27/21
*stable LM lesions with negative iFR assessment of LM/LAD and LM/Circ by cath 04/20/23
#HLD
-Continue Vascepa, Zetia and Lipitor
#Anxiety
-Continue duloxetine#
#Anemia macrocytic
Hgb 8.9 baseline appears 8.5�10
-Continue vitamin B12 supplement
#COVID-19 on 07/11/2024
Treated with 10-day course of Decadron did not receive remdesivir
#Gout
-Allopurinol 100 mg daily, colchicine 0.6 mg daily as needed gout flare
#Depression
-Continue duloxetine 60 mg at bedtime
#Class III obesity�BMI 50.5
-Weight loss recommended
-Low-fat diet recommended
Insomnia patient takes 20 mg of melatonin we will decrease to 10 mg at bedtime along with her trazodone
DVT ppx on Eliquis
Full code per patient daughter Brynn seemed shocked that her mother wanted full code while we had discussion on the phone.
[2024-07-29 14:55] LABS: Urine Albumin Negative (Neg - Trace); Urine Bilirubin Negative (Negative); Urine Character Slightly Cloudy (Clear); Urine Color Straw; Urine Glucose Negative (Negative); Urine Ketone Negative (Negative); Urine Leukocyte Trace (Negative); Urine Nitrite Negative (Negative); Urine Occult Blood Negative (Negative); Urine Specific Gravity 1.015 (<1.030); Urine Urobilinogen Negative (Neg - 1+)
[2024-07-29 15:06] LABS: Urine Squamous Cell >30 /LPF (Few)
[2024-07-29 15:07] LABS: Urine Bacteria Few (Negative); Urine Red Blood Cell 0-2 /HPF (0-2)
--- NOTE | 2024-07-29 15:22 | W.PN.UPDATE ---
Update Note
Progress Note Update
This is an addendum to the H&P written by April Clark on 07/29/2024. Patient seen and examined independently with RAG BALER.
79-year-old female past medical history of orthostatic hypotension, CAD status post stents, paroxysmal atrial fibrillation, HFpEF, essential hypertension, CKD 3, chronic hyponatremia, constipation, COPD/bronchiectasis, hypothyroidism, here with
acute recurrent HFpEF exacerbation with 18 pound weight gain in 18 days.
Cardiac BNP of 138 not reflective of volume status given obesity. Chest x-ray shows no active disease. Renal function is at baseline.
Cardiology recommending Bumex 2 mg IV twice daily, Alan wrap's, reducing amiodarone to 200 mg daily as patient currently in sinus. Daughter is interested in having palliative care evaluation although at this time patient wants to be full code.
[2024-07-29] MEDS: NEURONTIN 200 MG PO ×2 (17:41→20:36)
[2024-07-29] MEDS: SYMBICORT 160/4.5 MCG INHALER 2 PUFF INH (19:25)
[2024-07-29] MEDS: TYLENOL 1000 MG PO (20:35)
[2024-07-29] MEDS: SODIUM BICARBONATE 650 MG PO (20:35)
[2024-07-29] MEDS: DESYREL 150 MG PO (20:35)
[2024-07-29] MEDS: LIPITOR 80 MG PO (20:35)
[2024-07-29] MEDS: ZETIA 10 MG PO (20:35)
[2024-07-29] MEDS: CYMBALTA DELAYED RELEASE 60 MG PO (20:35)
[2024-07-29] MEDS: MELATONIN 10 MG PO (20:36)
[2024-07-29] MEDS: PROTONIX 40 MG PO (20:36)
[2024-07-29] MEDS: ELIQUIS 5 MG PO (20:36)
[2024-07-29] MEDS: ROBITUSSIN DM 10 ML PO (20:42)
[2024-07-30] VITALS (8 sets, daily range): BP systolic 131–174; BP diastolic 54–67; PULSE 74; O2SAT 96; BMI 48.5; BMI 47.9
[2024-07-30] MEDS: SYNTHROID 75 MCG PO (05:02)
[2024-07-30 06:52] LABS: % Basophils 0.5 % (0-2); % Eosinophils 2.8 % (0-6); % Immature Granulocytes 1.4 % (0-0.5); % Lymphocytes 20.3 % (20.5-51.1); % Monocytes 6.6 % (1.7-9.3); % Neutrophils 68.4 % (42.2-75.2); Absolute Eosinophils 0.2 10^3/uL (0-0.7); Absolute Immature Granulocytes 0.1 10^3/uL (0-0.05); Absolute Lymphocytes 1.3 10^3/uL (1.2-3.4); Absolute Monocytes 0.4 10^3/uL (0.1-0.6); Absolute Neutrophils 4.3 10^3/uL (1.4-6.5); Hematocrit 28.1 % (37.0-47.0); Hemoglobin 9.2 g/dL (12.0-16.0); Mean Corp Hgb Conc. 32.7 g/dL (33.0-37.0); Mean Corpuscular Volume 100.7 fL (81.0-99.0); Mean Platelet Volume 9.8 fL (7.4-10.4); Nucleated Red Blood Cells % 0 %; Platelet Count 143 10^3/uL (130-400); Red Blood Cell Count 2.79 10^6/uL (4.20-5.40); White Blood Cell Count 6.4 10^3/uL (4.8-10.8)
[2024-07-30 07:18] LABS: ALT (SGPT) 19 U/L (0-35); AST (SGOT) 14 U/L (14-36); Albumin 2.8 g/dl (3.5-5.0); Alkaline Phosphatase 72 U/L (38-126); Blood Urea Nitrogen 49 mg/dl (7-17); Calcium 9.4 mg/dl (8.4-10.2); Carbon Dioxide 29 mmol/L (22-30); Chloride 102 mmol/L (98-107); Estimated Creatinine Clearance 36 ml/min; Glucose 101 mg/dl (70-99); HDL Cholesterol 61 mg/dl; LDL Cholesterol, Calculated 43 mg/dl; Potassium 3.7 mmol/L (3.5-5.1); Sodium 140 mmol/L (135-145); Total Bilirubin 0.4 mg/dl (0.2-1.3); Total Cholesterol 124 mg/dl (50-199); Total Protein 4.5 g/dl (6.3-8.2); Triglyceride 103 mg/dl (10-149); Very Low Density Lipoprotein 20 mg/dl (0-30); eGFR 33.01
[2024-07-30] MEDS: NEURONTIN 200 MG PO ×3 (08:14→19:59)
[2024-07-30] MEDS: PACERONE 100 MG PO (08:14)
[2024-07-30] MEDS: ELIQUIS 5 MG PO ×2 (08:15→20:00)
[2024-07-30] MEDS: SODIUM BICARBONATE 650 MG PO ×2 (08:15→20:00)
[2024-07-30] MEDS: CARDIZEM CD 180 MG PO (08:15)
[2024-07-30] MEDS: VITAMIN B-12 1000 MCG PO (08:16)
[2024-07-30] MEDS: LIDOCAINE 4% PATCH 1 PATCH TOPICAL (08:16)
[2024-07-30] MEDS: TYLENOL 1000 MG PO ×2 (08:16→20:00)
[2024-07-30] MEDS: BUMEX 2 MG IV ×2 (08:17→17:05)
[2024-07-30] MEDS: SPIRIVA RESPIMAT 2.5 MCG 2 PUFF INH (08:19)
[2024-07-30] MEDS: SYMBICORT 160/4.5 MCG INHALER 2 PUFF INH ×2 (08:19→19:50)
--- NOTE | 2024-07-30 09:03 | W.PN.HOSP.TC ---
Today's Communication/Plan
-
see bold
Assessment / Plan
Assessment / Plan
#Acute on chronic heart failure with a preserved ejection fraction
#Chronic lymphedema
Appreciate cardiology input, continue Bumex 2 mg IV twice daily
Alan wraps
Trend creatinine, trend daily weights
#Stage IIIb chronic kidney disease
Creatinine at baseline, which is about 1.7�1.9
Continue sodium bicarb 650 mg p.o. twice daily
Trend creatinine with diuresis
#Paroxysmal atrial fibrillation
In normal sinus rhythm
Continue Eliquis, amiodarone, diltiazem
#COPD
Stable, continue bronchodilators
#Hypothyroidism
-Continue levothyroxine
#Hx of lung nodules
Needs outpt PET scan of pulmonary nodules
#CAD
Continue Zetia 10 mg at bedtime, atorvastatin 80 mg at bedtime, diltiazem 180 mg daily and Eliquis
#HLD
Continue Vascepa, Zetia and Lipitor
#Anxiety
Continue duloxetine
#Anemia macrocytic
Hemoglobin at baseline
Continue vitamin B12 supplement
#COVID-19 on 07/11/2024
Treated with 10-day course of Decadron, did not receive remdesivir
#Gout
Allopurinol 100 mg daily, colchicine 0.6 mg daily as needed gout flare
#Depression
Continue duloxetine 60 mg at bedtime
#Morbid obesity due to excess calories
Affects all aspects of care
DVT prophylaxis�Eliquis
Full code
Total time spent to see the patient on the floor, examine the patient, review data and lab results, discuss treatment plan with patient, nursing staff around 40 minutes.
Physical Exam
General: Morbidly obese, no acute distress
HEENT: Normocephalic, Atraumatic, EOMI, MMM
Respiratory: Clear to Auscultation bilaterally
Cardiac: Normal S1/S2, Regular Rate and Rhythm
GI: Soft, Nontender, Nondistended, Normal Bowel Sounds
Extremities: No Clubbing, Cyanosis
Bilateral lower extremity lymphedema noted
Neuro: Nonfocal/Grossly Intact
Anticipated Discharge: 24 - 48 hours
Subjective/Interval History
-
Date of Service: July 30, 2024
Patient reports she has dyspnea with activity, she is not sure that is improved since admission since she has been in bed. No chest pain, no nausea, no vomiting. No abdominal pain. No fever.
Objective Data
-
Labs:
Laboratory Results
07/30/24
06:26
WBC 6.4
Hgb 9.2 L
Hct 28.1 L
Plt Count 143
Sodium 140
Potassium 3.7
Chloride 102
Carbon Dioxide 29
BUN 49 H
Creatinine 1.6 H
Glucose 101 H
Calcium 9.4
Total Bilirubin 0.4
AST 14
ALT 19
Alkaline Phosphatase 72
Vital Signs:
Vital Signs
Temp Pulse Resp BP Pulse Ox
97.9 F 82 16 153/67 98
07/30/24 07:28 07/30/24 08:24 07/30/24 08:24 07/30/24 08:14 07/30/24 08:24
I&O
07/29/24 07/30/24 07/31/24
06:59 06:59 06:59
Intake Total 220 / 220
Output Total 1850 / 1850
Balance -1630 / -1630
[2024-07-30] MEDS: ZYLOPRIM 100 MG PO (09:14)
--- NOTE | 2024-07-30 10:52 | W.PN.CARDCBS ---
Addendum entered and electronically signed by Rissa Walker MD 07/30/24 13:45:
I saw and examined the patient.
The Bookseamer Blindstitch's note was reviewed and I agree with the note.
Comment: She is here with heart failure with preserved ejection fraction. She has been at the facility and it appears that diuretic was held/discontinued intermittently given renal insufficiency which appears to be chronic. She is 18 pounds volume
overloaded. She is diuresing nicely with IV diuretic and creatinine remains stable. Her daughter did bring up palliative care and I am not sure this is an option at her facility. We will discuss with case management.
-Continue diuresis.
-Follow daily weights/input and output
-Follow electrolytes
-Consider SGLT2 inhibitor if creatinine remains stable and body habitus does not place her at high risk. Will continue to assess.
-Heart failure teaching
-Continue treatment of known coronary disease.
-No further atrial arrhythmias. Continue current medications including NOAC.
-Will check TSH on amiodarone.
Original Note:
Today's Communication / Plan
-
continue IV bumex
follow Cr
consider candidacy for SGLT2 inhibitor
in SR on amiodarone, dose reduced to 200mg daily 07/29
Impression / Plan
-
PCP: Dr. Morris Gudino
Primary colloid mill operator: Dr. Rissa Walker
Impression:
Presentation with weight gain
Acute on chronic HFpEF
Recent admissions for:
COPD/bronchiectasis, PNA, new PAF 05/23/24-06/10/24
CHF, covid 07/02-07/11/24
Paroxysmal Afib
Chronic Eliquis OAC
Pulmonary nodules
CAD
s/p 3.5/15 mm Xience V expedition drug-eluting stent to the proximal LAD 02/17/14
s/p overlapping 3.5/38 mm x2 Xience V expedition drug-eluting stents to the mid and proximal RCA 02/17/14
stable CAD with patent LAD and RCA stents by cath 07/05/20
patent LAD and RCA stents, nonobstructive distal left main lesion by cath 06/27/21
stable LM lesions with negative iFR assessment of LM/LAD and LM/Circ by cath 04/20/23
Mild to moderate peak/mean 33/16 mmHg and LISA 1.3 cm sq by echo 05/27/24
CKD 3
Hyperlipidemia
Hypertension
Known meningioma
Anemia
Echo 12/26/22: Ejection fraction 55 to 60% with mild septal hypertrophy. Trace MR. Mild to moderate aortic valve stenosis with peak/mean gradient 32/17 mmHg. Aortic valve area 1.3 cm�. Trace AI. Mild TR with PA pressure 40 mmHg.
Echo 05/27/24: EF 60 to 65%, normal RV size and function, trace MR, mild to moderate peak/mean 33/16 mmHg with LISA 1.3 cm SQ, mild aortic regurgitation, mild TR with PAP 30 to 35 mmHg
Plan:
-Patient presents with persistent weight gain since last hospitalization at [facility]. her bumex dose had been decreased due to uptrending Cr however then was increased back when weight gain noted without improvement. now reports up 18 pounds since
discharge. proBNP 138. CXR read as no acute disease.
-I&O overnight grossly negative. Weight this morning likely inaccurate as was by bed scale. Have asked nursing to repeat weight via standing scale
-Continue IV Bumex 2 mg twice daily. Creatinine stable at 1.6. May need to allow degree of CONCHITA to keep patient euvolemic
-CHF education
-in SR on review of tele overnight. continue cardizem, eliquis. amiodarone dose reduced to 200mg daily as of 07/29/24. QTc 430ms by EKG 07/29
-paris wraps to legs
-consider candidacy for SGLT2 inhibitor, however may not be candidate due to baseline RI.
-d/w daughter Desi via telephone. she is asking about prognosis as patient has been in and out of hospital. asking if palliative care would be appropriate.
-d/w hospitalist
Progress Note - Hoisting Laborer
Subjective
Date of Service: July 30, 2024
denies CP, SOB. continued LE edema
Objective
Labs:
07/30/24 06:26
07/30/24 06:26
Labs
Hgb 9.2 g/dL (12.0-16.0) L 07/30/24 06:26
Hct 28.1 % (37.0-47.0) L 07/30/24 06:26
Plt Count 143 10^3/uL (130-400) 07/30/24 06:26
Sodium 140 mmol/L (135-145) 07/30/24 06:26
Potassium 3.7 mmol/L (3.5-5.1) 07/30/24 06:26
BUN 49 mg/dl (7-17) H 07/30/24 06:26
Creatinine 1.6 mg/dL (0.6-1.0) H 07/30/24 06:26
Glucose 101 mg/dl (70-99) H 07/30/24 06:26
Vital Signs and I&O:
Vital Signs
Temp Pulse Resp BP Pulse Ox
97.9 F 82 16 153/67 98
07/30/24 07:28 07/30/24 08:24 07/30/24 08:24 07/30/24 08:14 07/30/24 08:24
Vital Signs
Temp Pulse Resp BP Pulse Ox
97.9 F 82 16 153/67 98
07/30/24 07:28 07/30/24 08:24 07/30/24 08:24 07/30/24 08:14 07/30/24 08:24
Intake & Output
07/28/24 07/29/24 07/30/24 07/31/24
07:59 07:59 07:59 07:59
Intake Total 220 / 220
Output Total 1850 / 1850
Balance -163 / -1629
Physical Exam
Physical Exam
GEN: No distress, awake, alert, oriented x3. obese
HEENT: supple, anicteric, mmm, eomi
LUNGS: CTA B/L anterolaterally, no wheezes
CV: Reg, S1/S2, 1/6 syst LSB
ABD: soft, BS+, NT/ND
EXT: No cyanosis, clubbing. 3+ edema of B/L LE. paris wraps in place
NEURO: Gross non-focal
SKIN: Warm, pink, dry. No rash
--- NOTE | 2024-07-30 12:45 | PTCARENOTE ---
Patient able to ambulate within room, and got into chair w/ PT/OT. Pressure ulcer prevention discussed w/ patient. Q2hr turning placed on hold.
--- NOTE | 2024-07-30 14:55 | CM ---
Pt seen bedside. Pt lives w/ daughter, Kay, in a 3STH- 1 step to enter. Pt uses chair glide to enter the home. Pt has apartment set up in basement of the home. Pt uses chair lift to get into the basement.
Pt prev. independent w/ walker and WC. Pt has built in shower chair along with the two chair glides.
Pt was at [facility]
Pt has had [facility] in the past
Denies financial insecurities
Per bdr pt and family are interested in knowing more about palliative care
CM provided [facility] palliative care brochure to pt. Per pt, Kay is a nurse and is aware what palliative is and wants to discuss w/ bdr to determine a need for it.
OT recommend skilled rehab. PT recommendation pending
CM spoke w/ daughterKay re palliative and rehab recommendation. Per Kay she confirmed she is knowledgeable of palliative care and would like to consult with bdr about pt's prognosis and symptoms before finalizing need for palliative
care.
Per Kay, she cannot confirm rehab or not as she would like to speak w/ bdr first to cont. w/ d/c plan
Plan: CM will cont. to follow for d/c planning.
Family is deciding on palliative care need and if pt will d/c to rehab or home
[2024-07-30 16:26] LABS: TSH Reflex To Free T4 1.93 uIU/ml (0.47-4.68)
[2024-07-30] MEDS: LIPITOR 80 MG PO (19:59)
[2024-07-30] MEDS: ZETIA 10 MG PO (19:59)
[2024-07-30] MEDS: ROBITUSSIN DM 10 ML PO (19:59)
[2024-07-30] MEDS: DESYREL 150 MG PO (20:00)
[2024-07-30] MEDS: PROTONIX 40 MG PO (20:00)
[2024-07-30] MEDS: CYMBALTA DELAYED RELEASE 60 MG PO (20:00)
[2024-07-30] MEDS: MELATONIN 10 MG PO (20:00)
[2024-07-30 22:58] LABS: Urine Albumin Negative (Neg - Trace); Urine Bilirubin Negative (Negative); Urine Character Clear (Clear); Urine Color Yellow; Urine Glucose Negative (Negative); Urine Ketone Negative (Negative); Urine Leukocyte Negative (Negative); Urine Nitrite Negative (Negative); Urine Occult Blood Negative (Negative); Urine Urobilinogen Negative (Neg - 1+)
[2024-07-31 03:44] VITALS: BP 139/63
[2024-07-31 05:44] VITALS: BMI 48.0
[2024-07-31] MEDS: SYNTHROID 75 MCG PO (05:51)
[2024-07-31 07:21] VITALS: BP 141/55
[2024-07-31] MEDS: LIDOCAINE 4% PATCH 1 PATCH TOPICAL (07:26)
[2024-07-31] MEDS: TYLENOL 1000 MG PO ×2 (07:26→20:22)
[2024-07-31] MEDS: CARDIZEM CD 180 MG PO (07:27)
[2024-07-31] MEDS: PACERONE 200 MG PO (07:28)
[2024-07-31] MEDS: ELIQUIS 5 MG PO ×2 (07:28→20:21)
[2024-07-31] MEDS: VITAMIN B-12 1000 MCG PO (07:28)
[2024-07-31] MEDS: SODIUM BICARBONATE 650 MG PO ×2 (07:28→20:21)
[2024-07-31] MEDS: NEURONTIN 200 MG PO ×3 (07:28→21:07)
[2024-07-31] MEDS: ZYLOPRIM 100 MG PO (07:28)
[2024-07-31] MEDS: BUMEX 2 MG IV ×2 (07:29→16:04)
[2024-07-31 07:46] LABS: Hematocrit 27.6 % (37.0-47.0); Hemoglobin 9.1 g/dL (12.0-16.0); Mean Corpuscular Hgb 33.2 pg (27.0-31.0); Mean Corpuscular Volume 100.7 fL (81.0-99.0); Mean Platelet Volume 9.9 fL (7.4-10.4); Platelet Count 143 10^3/uL (130-400); Red Blood Cell Count 2.74 10^6/uL (4.20-5.40); Red Cell Dist. Width 18.3 % (11.5-14.5); White Blood Cell Count 6.3 10^3/uL (4.8-10.8)
[2024-07-31 08:05] LABS: ALT (SGPT) 19 U/L (0-35); AST (SGOT) 16 U/L (14-36); Albumin 2.8 g/dl (3.5-5.0); Alkaline Phosphatase 64 U/L (38-126); Blood Urea Nitrogen 51 mg/dl (7-17); Calcium 9.4 mg/dl (8.4-10.2); Carbon Dioxide 30 mmol/L (22-30); Chloride 100 mmol/L (98-107); Estimated Creatinine Clearance 38 ml/min; Glucose 100 mg/dl (70-99); Magnesium 1.8 mg/dl (1.6-2.3); Potassium 3.8 mmol/L (3.5-5.1); Sodium 139 mmol/L (135-145); Total Bilirubin 0.4 mg/dl (0.2-1.3); Total Protein 4.5 g/dl (6.3-8.2); eGFR 35.67
[2024-07-31] MEDS: SPIRIVA RESPIMAT 2.5 MCG 2 PUFF INH (08:20)
[2024-07-31] MEDS: SYMBICORT 160/4.5 MCG INHALER 2 PUFF INH ×2 (08:20→19:57)
--- NOTE | 2024-07-31 08:49 | W.PN.CARDCBS ---
Addendum entered and electronically signed by Rissa Walker MD 07/31/24 10:27:
I saw and examined the patient.
The Strap Maker's note was reviewed and I agree with the note.
Comment: Family at the bedside and in addition spoke to daughter Desi on the telephone who helps manage her care. Patient is starting to feel better and is diuresing. We have asked that weights be performed by standing scale only. She wishes
not to go back to snf facility and try to avoid hospital stays. She wishes to go home with palliative care and VN support. We also talked about reaching out to agency for the elderly which may offer further support. She has heart
failure with preserved ejection fraction and coronary artery disease along with COPD and bronchiectasis along with atrial fibrillation for which she remains on oral anticoagulation. Exam continues to be consistent with heart failure with lower
extremity edema and Alan wraps noted. Crackles bilateral bases.
Plan at this time:
-Continue IV diuresis with goal weight in the low to mid 250s
-Follow renal function which is currently stable and creatinine 1.5.
-Palliative care consult
-Continue risk factor modification for coronary disease
-Case management to assess needs which will include hospital bed, commode, raised toilet seat etc. Would involve primary service
-PT, OT, VN
We will closely follow her as an outpatient in the office in addition to her seeing primary care physician. Appointment made for August 11 in our office.
-Pulmonary treatment per primary service
Original Note:
Today's Communication / Plan
-
continue IV bumex
PLEASE WEIGH PATIENT VIA STANDING SCALE
consider purewick if needed for accurate I&O
Impression / Plan
-
PCP: Dr. Morris Gudino
Primary corn cooker: Dr. Rissa Walker
Impression:
Presentation with weight gain
Acute on chronic HFpEF
Recent admissions for:
COPD/bronchiectasis, PNA, new PAF 05/23/24-06/10/24
CHF, covid 07/02-07/11/24
Paroxysmal Afib
Chronic Eliquis OAC
Pulmonary nodules
CAD
s/p 3.5/15 mm Xience V expedition drug-eluting stent to the proximal LAD 02/17/14
s/p overlapping 3.5/38 mm x2 Xience V expedition drug-eluting stents to the mid and proximal RCA 02/17/14
stable CAD with patent LAD and RCA stents by cath 07/05/20
patent LAD and RCA stents, nonobstructive distal left main lesion by cath 06/27/21
stable LM lesions with negative iFR assessment of LM/LAD and LM/Circ by cath 04/20/23
Mild to moderate peak/mean 33/16 mmHg and LISA 1.3 cm sq by echo 05/27/24
CKD 3
Hyperlipidemia
Hypertension
Known meningioma
Anemia
Echo 12/26/22: Ejection fraction 55 to 60% with mild septal hypertrophy. Trace MR. Mild to moderate aortic valve stenosis with peak/mean gradient 32/17 mmHg. Aortic valve area 1.3 cm�. Trace AI. Mild TR with PA pressure 40 mmHg.
Echo 05/27/24: EF 60 to 65%, normal RV size and function, trace MR, mild to moderate peak/mean 33/16 mmHg with LISA 1.3 cm SQ, mild aortic regurgitation, mild TR with PAP 30 to 35 mmHg
Plan:
-Patient presents with persistent weight gain since last hospitalization at [facility]. her bumex dose had been decreased due to uptrending Cr however then was increased back when weight gain noted without improvement. now reports up 18 pounds since
discharge. proBNP 138. CXR read as no acute disease.
-continue IV bumex. I&Os appear to not be accurately recorded overnight. she was weighed by bed scale which is inaccurate. have asked to reweigh patient via standing scale moving forward. consider purewick if needed for accurate I&O
-Cr stable at 1.5, appears to be improving with diuresis. May need to allow degree of CONCHITA to keep patient euvolemic
-CHF education
-continue alan wraps to legs
-consider candidacy for SGLT2 inhibitor, however may not be candidate due to baseline RI.
-in SR on review of tele overnight. continue burt virk. amiodarone dose reduced to 200mg daily as of 07/29/24. QTc 430ms by EKG 07/29
-TSH WNL
-patient expressed she would like to go home rather than rehab upon DC, possibly with palliative care
Progress Note - Spray Gun Striper
Subjective
Date of Service: July 31, 2024
reports good urine output with IV bumex. reports some improvement in B/L LE edema
Objective
Labs:
07/31/24 07:24
07/31/24 07:24
Labs
Hgb 9.1 g/dL (12.0-16.0) L 07/31/24 07:24
Hct 27.6 % (37.0-47.0) L 07/31/24 07:24
Plt Count 143 10^3/uL (130-400) 07/31/24 07:24
Sodium 139 mmol/L (135-145) 07/31/24 07:24
Potassium 3.8 mmol/L (3.5-5.1) 07/31/24 07:24
BUN 51 mg/dl (7-17) H 07/31/24 07:24
Creatinine 1.5 mg/dL (0.6-1.0) H 07/31/24 07:24
Glucose 100 mg/dl (70-99) H 07/31/24 07:24
Vital Signs and I&O:
Vital Signs
Temp Pulse Resp BP Pulse Ox
97.9 F 80 16 144/55 97
07/31/24 07:21 07/31/24 08:33 07/31/24 08:33 07/31/24 07:27 07/31/24 08:33
Vital Signs
Temp Pulse Resp BP Pulse Ox
97.9 F 80 16 144/55 97
07/31/24 07:21 07/31/24 08:33 07/31/24 08:33 07/31/24 07:27 07/31/24 08:33
Intake & Output
07/29/24 07/30/24 07/31/24 08/01/24
07:59 07:59 07:59 07:59
Intake Total 220 / 220 600 / 600
Output Total 1850 / 1850 524 / 524
Balance -1630 / -1630 76 / 76
Physical Exam
Physical Exam
GEN: No distress, awake, alert, oriented x3. obese. sitting in chair
HEENT: supple, anicteric, mmm, eomi
LUNGS: CTA B/L anterolaterally, no wheezes
CV: Reg, S1/S2, 1/6 syst LSB
ABD: soft, BS+, NT/ND
EXT: No cyanosis, clubbing. 2+ edema of B/L LE. aaln wraps in place
NEURO: Gross non-focal
SKIN: Warm, pink, dry. No rash
--- NOTE | 2024-07-31 08:57 | W.PN.HOSP.TC ---
Today's Communication/Plan
-
see bold
Assessment / Plan
Assessment / Plan
#Acute on chronic heart failure with a preserved ejection fraction
#Chronic lymphedema
Appreciate cardiology input, continue Bumex 2 mg IV twice daily, paris wraps
Consult palliative care, patient wishes to go home with palliative care upon discharge
Since patient plans to go home with palliative care, she will need a hospital bed and commode
Trend creatinine, trend daily weights
#Stage IIIb chronic kidney disease
Creatinine at baseline, which is about 1.7�1.9
CO2 is 30 today, stop sodium bicarb
Trend creatinine with diuresis
#Paroxysmal atrial fibrillation
In normal sinus rhythm
Continue Eliquis, amiodarone, diltiazem
#COPD
Stable, continue bronchodilators
#Hypothyroidism
Continue levothyroxine
#Hx of lung nodules
Needs outpt PET scan of pulmonary nodules
#CAD
Continue Zetia 10 mg at bedtime, atorvastatin 80 mg at bedtime, diltiazem 180 mg daily and Eliquis
#HLD
Continue Vascepa, Zetia and Lipitor
#Anxiety
Continue duloxetine
#Anemia macrocytic
Hemoglobin at baseline
Continue vitamin B12 supplement
#COVID-19 on 07/11/2024
Treated with 10-day course of Decadron, did not receive remdesivir
#Gout
Allopurinol 100 mg daily, colchicine 0.6 mg daily as needed gout flare
#Depression
Continue duloxetine 60 mg at bedtime
#Morbid obesity due to excess calories
Affects all aspects of care
DVT prophylaxis�Eliquis
Full code
Updated daughters at bedside 07/31
Total time spent to see the patient on the floor, examine the patient, review data and lab results, discuss treatment plan with patient, nursing staff around 50 minutes.
Physical Exam
General: Morbidly obese, no acute distress
HEENT: Normocephalic, Atraumatic, EOMI, MMM
Respiratory: Clear to Auscultation bilaterally
Cardiac: Normal S1/S2, Regular Rate and Rhythm
GI: Soft, Nontender, Nondistended, Normal Bowel Sounds
Extremities: No Clubbing, Cyanosis
Bilateral lower extremity lymphedema noted
Neuro: Nonfocal/Grossly Intact
Anticipated Discharge: 24 - 48 hours
Subjective/Interval History
-
Date of Service: July 31, 2024
Patient reports her dyspnea with activity is the same. She denies shortness of breath at rest. No chest pain, no nausea, no vomiting. No fever. No abdominal pain. No dysuria.
Objective Data
-
Labs:
Laboratory Results
07/31/24
07:24
WBC 6.3
Hgb 9.1 L
Hct 27.6 L
Plt Count 143
Sodium 139
Potassium 3.8
Chloride 100
Carbon Dioxide 30
BUN 51 H
Creatinine 1.5 H
Glucose 100 H
Calcium 9.4
Total Bilirubin 0.4
AST 16
ALT 19
Alkaline Phosphatase 64
Vital Signs:
Vital Signs
Temp Pulse Resp BP Pulse Ox
97.9 F 80 16 144/55 97
07/31/24 07:21 07/31/24 08:33 07/31/24 08:33 07/31/24 07:27 07/31/24 08:33
I&O
07/30/24 07/31/24 08/01/24
06:59 06:59 06:59
Intake Total 220 / 220 600 / 600
Output Total 1850 / 1850 524 / 524
Balance -1630 / -1630 76 / 76
[2024-07-31 11:17] VITALS: BP 130/54
--- NOTE | 2024-07-31 14:37 | CM ---
CM spoke w/ daughter, Jenny re d/c plan.
PT/OT cont. to recommend skilled rehab. Family denies rehab for pt stating they would like for her to go home.
Per Jenny, after discussion w/ chocolate production machine operator, family would like to move forward w/ palliative care
Per cardiology, pt will need hospital bed, commode, raised toilet seat, PT/OT. Hospitalist agreeable and support d/c plan
palliative referral completed in [facility]
Pt current w/ [facility]. Referral completed
Clinicals and script faxed to [facility] for hospital bed and commode. Per Alexandria/Kerry, family will have to purchase raised toilet seat
Family discussed need for caregivers/aides as additional support in the home
Palliative Care

[facility]
fax: [phone]
Plan: Home w/ palliative and [facility] VN/PT
[2024-07-31 15:31] VITALS: BP 131/57
[2024-07-31 15:41] VITALS: BMI 47.9
[2024-07-31 19:29] VITALS: BP 128/61
[2024-07-31] MEDS: LIPITOR 80 MG PO (21:06)
[2024-07-31] MEDS: CYMBALTA DELAYED RELEASE 60 MG PO (21:06)
[2024-07-31] MEDS: MELATONIN 10 MG PO (21:06)
[2024-07-31] MEDS: DESYREL 150 MG PO (21:06)
[2024-07-31] MEDS: ZETIA 10 MG PO (21:08)
[2024-07-31] MEDS: ROBITUSSIN DM 10 ML PO (21:08)
[2024-07-31] MEDS: PROTONIX 40 MG PO (21:08)
[2024-07-31 23:14] VITALS: BP 119/59
[2024-08-01] VITALS (8 sets, daily range): BP systolic 107–167; BP diastolic 56–78; PULSE 65; O2SAT 96; BMI 47.6
[2024-08-01] MEDS: SYNTHROID 75 MCG PO (05:34)
[2024-08-01 06:34] LABS: Hematocrit 29.2 % (37.0-47.0); Hemoglobin 9.7 g/dL (12.0-16.0); Mean Corp Hgb Conc. 33.2 g/dL (33.0-37.0); Mean Corpuscular Hgb 33.3 pg (27.0-31.0); Mean Corpuscular Volume 100.3 fL (81.0-99.0); Mean Platelet Volume 9.7 fL (7.4-10.4); Platelet Count 144 10^3/uL (130-400); Red Blood Cell Count 2.91 10^6/uL (4.20-5.40); Red Cell Dist. Width 18.3 % (11.5-14.5); White Blood Cell Count 6.6 10^3/uL (4.8-10.8)
[2024-08-01 06:59] LABS: ALT (SGPT) 19 U/L (0-35); AST (SGOT) 15 U/L (14-36); Albumin 3.1 g/dl (3.5-5.0); Alkaline Phosphatase 75 U/L (38-126); Blood Urea Nitrogen 50 mg/dl (7-17); Calcium 9.5 mg/dl (8.4-10.2); Carbon Dioxide 30 mmol/L (22-30); Chloride 98 mmol/L (98-107); Estimated Creatinine Clearance 36 ml/min; Glucose 109 mg/dl (70-99); Magnesium 1.8 mg/dl (1.6-2.3); Potassium 3.7 mmol/L (3.5-5.1); Sodium 138 mmol/L (135-145); Total Bilirubin 0.5 mg/dl (0.2-1.3); Total Protein 4.9 g/dl (6.3-8.2); eGFR 33.01
[2024-08-01] MEDS: BUMEX 2 MG IV ×2 (07:33→15:20)
[2024-08-01] MEDS: TYLENOL 1000 MG PO ×2 (07:35→20:15)
[2024-08-01] MEDS: LIDOCAINE 4% PATCH 1 PATCH TOPICAL (07:35)
[2024-08-01] MEDS: ZYLOPRIM 100 MG PO (07:35)
[2024-08-01] MEDS: SODIUM BICARBONATE 650 MG PO ×2 (07:36→20:15)
[2024-08-01] MEDS: VITAMIN B-12 1000 MCG PO (07:36)
[2024-08-01] MEDS: PACERONE 200 MG PO (07:36)
[2024-08-01] MEDS: CARDIZEM CD 180 MG PO (07:36)
[2024-08-01] MEDS: ELIQUIS 5 MG PO ×2 (07:36→20:15)
[2024-08-01] MEDS: NEURONTIN 200 MG PO ×3 (07:36→21:25)
[2024-08-01] MEDS: DRISDOL (VITAMIN D2) 50000 UNITS PO (07:39)
--- NOTE | 2024-08-01 07:43 | W.PN.HOSP.TC ---
Today's Communication/Plan
-
see bold
Assessment / Plan
Assessment / Plan
#Acute on chronic heart failure with a preserved ejection fraction
#Chronic lymphedema
Appreciate cardiology input, continue Bumex 2 mg IV twice daily, paris wraps
Consult edpalliative care, patient wishes to go home with palliative care upon discharge
Since patient plans to go home with palliative care, she will need a hospital bed and commode
Trend creatinine, trend daily weights
#Stage IIIb chronic kidney disease
Creatinine at baseline, which is about 1.7�1.9
CO2 is 30 today, stop sodium bicarb
Trend creatinine with diuresis
#Paroxysmal atrial fibrillation
In normal sinus rhythm
Continue Eliquis, amiodarone, diltiazem
#Knees buckling out
Suspect secondary to osteoarthritis
Denies pain, reports getting joint injections in her knee at the rehab recently
Check bilateral knee x-rays
#COPD
Stable, continue bronchodilators
#Hypothyroidism
Continue levothyroxine
#Hx of lung nodules
Needs outpt PET scan of pulmonary nodules
#CAD
Continue Zetia 10 mg at bedtime, atorvastatin 80 mg at bedtime, diltiazem 180 mg daily and Eliquis
#HLD
Continue Vascepa, Zetia and Lipitor
#Anxiety
Continue duloxetine
#Anemia macrocytic
Hemoglobin at baseline
Continue vitamin B12 supplement
#COVID-19 on 07/11/2024
Treated with 10-day course of Decadron, did not receive remdesivir
#Gout
Allopurinol 100 mg daily, colchicine 0.6 mg daily as needed gout flare
#Depression
Continue duloxetine 60 mg at bedtime
#Morbid obesity due to excess calories
Affects all aspects of care
DVT prophylaxis�Eliquis
Full code
Updated daughters at bedside 07/31
Total time spent to see the patient on the floor, examine the patient, review data and lab results, discuss treatment plan with patient, nursing staff around 40 minutes.
Physical Exam
General: Morbidly obese, no acute distress
HEENT: Normocephalic, Atraumatic, EOMI, MMM
Respiratory: Clear to Auscultation bilaterally
Cardiac: Normal S1/S2, Regular Rate and Rhythm
GI: Soft, Nontender, Nondistended, Normal Bowel Sounds
Extremities: No Clubbing, Cyanosis
Bilateral lower extremity lymphedema noted
Neuro: Nonfocal/Grossly Intact
Anticipated Discharge: 24 - 48 hours
Subjective/Interval History
-
Date of Service: August 01, 2024
Breathing continues to improve. C/o knees buckling out. No fever, no vomiting. No chest pain.
Objective Data
-
Labs:
Laboratory Results
08/01/24
06:05
WBC 6.6
Hgb 9.7 L
Hct 29.2 L
Plt Count 144
Sodium 138
Potassium 3.7
Chloride 98
Carbon Dioxide 30
BUN 50 H
Creatinine 1.6 H
Glucose 109 H
Calcium 9.5
Total Bilirubin 0.5
AST 15
ALT 19
Alkaline Phosphatase 75
Vital Signs:
Vital Signs
Temp Pulse Resp BP Pulse Ox
98.3 F 64 19 133/64 97
08/01/24 07:35 08/01/24 07:35 08/01/24 07:35 08/01/24 07:35 08/01/24 07:35
I&O
07/31/24 08/01/24 08/02/24
06:59 06:59 06:59
Intake Total 600 / 600 1080 / 1080
Output Total 524 / 524 775 / 775
Balance 76 / 76 305 / 305
[2024-08-01] MEDS: SPIRIVA RESPIMAT 2.5 MCG 2 PUFF INH (08:22)
[2024-08-01] MEDS: SYMBICORT 160/4.5 MCG INHALER 2 PUFF INH ×2 (08:23→20:31)
--- NOTE | 2024-08-01 09:42 | W.PN.CARDCBS ---
Addendum entered and electronically signed by Doyle Walsh MD 08/01/24 11:46:
I saw and examined the patient.
The Mutuel Clerk's note was reviewed and I agree with the note.
Comment: Briefly, 79-year-old woman past medical history of heart failure preserved ejection fraction who presents with weight gain and worsening of her chronic peripheral edema concerning for CHF exacerbation
Some improvement in her volume status with IV Lasix twice daily however she still remains significantly above her dry weight
Add low-dose metolazone today to augment diuresis
Follow renal function and electrolytes closely
Standing weights if possible
Rest per Octavia Nunez
Original Note:
Today's Communication / Plan
-
metolazone 2.5mg today with PM IV bumex dose
replete K
follow Cr
Impression / Plan
-
PCP: Dr. Morris Gudino
Primary warehouse checker: Dr. Rissa Walker
Impression:
Presentation with weight gain
Acute on chronic HFpEF
Recent admissions for:
COPD/bronchiectasis, PNA, new PAF 05/23/24-06/10/24
CHF, covid 07/02-07/11/24
Paroxysmal Afib
Chronic Eliquis OAC
Pulmonary nodules
CAD
s/p 3.5/15 mm Xience V expedition drug-eluting stent to the proximal LAD 02/17/14
s/p overlapping 3.5/38 mm x2 Xience V expedition drug-eluting stents to the mid and proximal RCA 02/17/14
stable CAD with patent LAD and RCA stents by cath 07/05/20
patent LAD and RCA stents, nonobstructive distal left main lesion by cath 06/27/21
stable LM lesions with negative iFR assessment of LM/LAD and LM/Circ by cath 04/20/23
Mild to moderate peak/mean 33/16 mmHg and LISA 1.3 cm sq by echo 05/27/24
CKD 3
Hyperlipidemia
Hypertension
Known meningioma
Anemia
Echo 12/26/22: Ejection fraction 55 to 60% with mild septal hypertrophy. Trace MR. Mild to moderate aortic valve stenosis with peak/mean gradient 32/17 mmHg. Aortic valve area 1.3 cm�. Trace AI. Mild TR with PA pressure 40 mmHg.
Echo 05/27/24: EF 60 to 65%, normal RV size and function, trace MR, mild to moderate peak/mean 33/16 mmHg with LISA 1.3 cm SQ, mild aortic regurgitation, mild TR with PAP 30 to 35 mmHg
Plan:
-Patient presents with persistent weight gain since last hospitalization at [facility]. her bumex dose had been decreased due to uptrending Cr however then was increased back when weight gain noted without improvement. now reports up 18 pounds since
discharge. proBNP 138. CXR read as no acute disease.
-Reports accurate, trending down about 1 pound a day, 260 pounds today if accurate. dry weight felt to be low to mid 250s. Will attempt to give dose of metolazone 2.5mg with p.m. Bumex dose today.
-replete K
-Creatinine stable at 1.6. May need to allow degree of CONCHITA to keep patient euvolemic
-CHF education
-Continue paris wraps to legs
-consider candidacy for SGLT2 inhibitor, however may not be candidate due to baseline RI and body habitus.
-remains in SR on review of tele overnight. continue burt virk. amiodarone dose reduced to 200mg daily as of 07/29/24.
-TSH WNL
-patient expressed she would like to go home rather than rehab upon DC with palliative care
-OP cardiac follow up arranged
Progress Note - Claim Investigator
Subjective
Date of Service: August 01, 2024
Reports feels as though lower extremity edema is lessening
Objective
Labs:
08/01/24 06:05
08/01/24 06:05
Labs
Hgb 9.7 g/dL (12.0-16.0) L 08/01/24 06:05
Hct 29.2 % (37.0-47.0) L 08/01/24 06:05
Plt Count 144 10^3/uL (130-400) 08/01/24 06:05
Sodium 138 mmol/L (135-145) 08/01/24 06:05
Potassium 3.7 mmol/L (3.5-5.1) 08/01/24 06:05
BUN 50 mg/dl (7-17) H 08/01/24 06:05
Creatinine 1.6 mg/dL (0.6-1.0) H 08/01/24 06:05
Glucose 109 mg/dl (70-99) H 08/01/24 06:05
Vital Signs and I&O:
Vital Signs
Temp Pulse Resp BP Pulse Ox
98.3 F 68 16 133/64 95
08/01/24 07:35 08/01/24 08:27 08/01/24 08:27 08/01/24 07:35 08/01/24 08:27
Vital Signs
Temp Pulse Resp BP Pulse Ox
98.3 F 68 16 133/64 95
08/01/24 07:35 08/01/24 08:27 08/01/24 08:27 08/01/24 07:35 08/01/24 08:27
Intake & Output
07/30/24 07/31/24 08/01/24 08/02/24
07:59 07:59 07:59 07:59
Intake Total 220 / 220 600 / 600 1080 / 1080
Output Total 1850 / 1850 524 / 524 775 / 775
Balance -1630 / -1630 76 / 76 305 / 305
Physical Exam
Physical Exam
GEN: No distress, awake, alert, oriented x3. sitting in chair. obese
HEENT: supple, anicteric, mmm, eomi
LUNGS: Crackles RLB, no wheezes
CV: Reg, S1/S2, 1/6 syst LSB
ABD: soft, BS+, NT/ND
EXT: No cyanosis, clubbing. 2+ edema of B/L LE. paris wraps in place
NEURO: Gross non-focal
SKIN: Warm, pink, dry. No rash
[2024-08-01 09:59] LABS: Folate 7.6 ng/ml (2.76-20); Vitamin B12 > 1000 pg/ml (239-931)
[2024-08-01] MEDS: KCL 40 MEQ PO (10:22)
[2024-08-01] MEDS: ZAROXOLYN 2.5 MG PO (15:19)
--- NOTE | 2024-08-01 15:22 | CM ---
Chart reviewed. Care plan continues
Family cont. to move forward w/ palliative care
Per Michelle/Sarah, pt cannot receive both [facility] and palliative care. CM confirmed plan is for palliative.
Plan: Home w/ palliative care at d/c
[2024-08-01] MEDS: CYMBALTA DELAYED RELEASE 60 MG PO (21:24)
[2024-08-01] MEDS: ROBITUSSIN DM 10 ML PO (21:24)
[2024-08-01] MEDS: LIPITOR 80 MG PO (21:24)
[2024-08-01] MEDS: ZETIA 10 MG PO (21:25)
[2024-08-01] MEDS: PROTONIX 40 MG PO (21:25)
[2024-08-01] MEDS: DESYREL 150 MG PO (21:25)
[2024-08-01] MEDS: MELATONIN 10 MG PO (21:30)
[2024-08-02 03:00] VITALS: BP 134/61
[2024-08-02 04:28] VITALS: BMI 47.6
[2024-08-02] MEDS: SYNTHROID 75 MCG PO (05:19)
[2024-08-02 07:15] VITALS: BP 147/54
[2024-08-02 07:16] LABS: ALT (SGPT) 19 U/L (0-35); AST (SGOT) 16 U/L (14-36); Albumin 2.9 g/dl (3.5-5.0); Alkaline Phosphatase 73 U/L (38-126); Blood Urea Nitrogen 52 mg/dl (7-17); Calcium 9.7 mg/dl (8.4-10.2); Carbon Dioxide 32 mmol/L (22-30); Chloride 97 mmol/L (98-107); Estimated Creatinine Clearance 36 ml/min; Glucose 115 mg/dl (70-99); Magnesium 1.9 mg/dl (1.6-2.3); Potassium 3.3 mmol/L (3.5-5.1); Sodium 136 mmol/L (135-145); Total Bilirubin 0.5 mg/dl (0.2-1.3); Total Protein 4.6 g/dl (6.3-8.2); eGFR 33.01
[2024-08-02] MEDS: SPIRIVA RESPIMAT 2.5 MCG 2 PUFF INH (07:48)
[2024-08-02] MEDS: SYMBICORT 160/4.5 MCG INHALER 2 PUFF INH ×2 (07:49→19:04)
[2024-08-02] MEDS: PACERONE 200 MG PO (08:03)
[2024-08-02] MEDS: LIDOCAINE 4% PATCH 1 PATCH TOPICAL (08:03)
[2024-08-02] MEDS: ZYLOPRIM 100 MG PO (08:03)
[2024-08-02] MEDS: VITAMIN B-12 1000 MCG PO (08:03)
[2024-08-02] MEDS: NEURONTIN 200 MG PO ×3 (08:03→21:13)
[2024-08-02 08:04] LABS: Vitamin B12 > 1000 pg/ml (239-931)
[2024-08-02] MEDS: ELIQUIS 5 MG PO ×2 (08:04→19:59)
[2024-08-02] MEDS: BUMEX 2 MG IV ×2 (08:04→17:18)
[2024-08-02] MEDS: TYLENOL 1000 MG PO ×2 (08:04→19:59)
[2024-08-02] MEDS: SODIUM BICARBONATE 650 MG PO ×2 (08:04→19:59)
[2024-08-02] MEDS: CARDIZEM CD 180 MG PO (08:04)
--- NOTE | 2024-08-02 08:33 | W.PN.HOSP.TC ---
Today's Communication/Plan
-
see bold
Assessment / Plan
Assessment / Plan
#Acute on chronic heart failure with a preserved ejection fraction
#Chronic lymphedema
Appreciate cardiology input, continue Bumex 2 mg IV twice daily, Zaroxolyn as needed, paris wraps
Consulted palliative care, patient wishes to go home with palliative care upon discharge
Since patient plans to go home with palliative care, she will need a hospital bed and commode
Trend creatinine, trend daily weights
#Stage IIIb chronic kidney disease
Creatinine at baseline, which is about 1.7�1.9
CO2 is 30 today, stop sodium bicarb
Trend creatinine with diuresis
#Paroxysmal atrial fibrillation
In normal sinus rhythm
Continue Eliquis, amiodarone, diltiazem
#Knees buckling out
#Advance osteoarthritis of the bilateral knees
Suspect secondary to osteoarthritis
Denies pain, reports getting joint injections in her knee at the rehab recently
Recommend bilateral knee braces
#COPD
Stable, continue bronchodilators
#Hypothyroidism
Continue levothyroxine
#Hx of lung nodules
Needs outpt PET scan of pulmonary nodules
#CAD
Continue Zetia 10 mg at bedtime, atorvastatin 80 mg at bedtime, diltiazem 180 mg daily and Eliquis
#HLD
Continue Vascepa, Zetia and Lipitor
#Anxiety
Continue duloxetine
#Anemia macrocytic
Hemoglobin at baseline
Continue vitamin B12 supplement
#COVID-19 on 07/11/2024
Treated with 10-day course of Decadron, did not receive remdesivir
#Gout
Allopurinol 100 mg daily, colchicine 0.6 mg daily as needed gout flare
#Depression
Continue duloxetine 60 mg at bedtime
#Morbid obesity due to excess calories
Affects all aspects of care
DVT prophylaxis�Eliquis
Full code
Updated daughters at bedside 07/31
Total time spent to see the patient on the floor, examine the patient, review data and lab results, discuss treatment plan with patient, nursing staff around 39 minutes.
Physical Exam
General: Morbidly obese, no acute distress
HEENT: Normocephalic, Atraumatic, EOMI, MMM
Respiratory: Clear to Auscultation bilaterally
Cardiac: Normal S1/S2, Regular Rate and Rhythm
GI: Soft, Nontender, Nondistended, Normal Bowel Sounds
Extremities: No Clubbing, Cyanosis
Bilateral lower extremity lymphedema noted
Neuro: Nonfocal/Grossly Intact
Anticipated Discharge: 24 - 48 hours
Subjective/Interval History
-
Date of Service: August 02, 2024
Patient denies chest pain, shortness of breath at rest. She complains that her knees buckle when she stands up. No fever, no vomiting.
Objective Data
-
Labs:
Laboratory Results
08/02/24
06:39
Sodium 136
Potassium 3.3 L
Chloride 97 L
Carbon Dioxide 32 H
BUN 52 H
Creatinine 1.6 H
Glucose 115 H
Calcium 9.7
Total Bilirubin 0.5
AST 16
ALT 19
Alkaline Phosphatase 73
Vital Signs:
Vital Signs
Temp Pulse Resp BP Pulse Ox
98.1 F 64 16 147/54 94
08/02/24 07:15 08/02/24 07:54 08/02/24 07:54 08/02/24 07:15 08/02/24 07:54
I&O
08/01/24 08/02/24 08/03/24
06:59 06:59 06:59
Intake Total 1080 / 1080 1420 / 1420
Output Total 775 / 775 1200 / 1200
Balance 305 / 305 220 / 220
[2024-08-02] MEDS: KCL 40 MEQ PO (08:43)
--- NOTE | 2024-08-02 11:13 | CM ---
CM alerted by Dr Walls that pt will require a knee brace on dc
Per nursing, pt will require bariatric brace and size not available to be provided at hospital
Nursing measured thigh and calf
Per online search, Braceability with sizing pt requires (9x)
Print out provided to pt bedside
VM also left for darrian Alvarado with info regarding knee brace to purchase
Discharge Disposition- home with [facility] and [facility]ME[facility]
[2024-08-02 11:36] VITALS: BP 132/61
--- NOTE | 2024-08-02 12:01 | W.PN.CARDCBS ---
Today's Communication / Plan
-
Continue diuresis.
Will give 1 more dose of Zaroxolyn, not sure if weights are accurate seems to be clinically diuresing.
Give 1 extra dose of 20 mill equivalents of potassium. Potassium at 3.3 repleted this morning.
Reassess labs in a.m.
As outpatient consider SGLT2 inhibitor pending further assessment of cost and follow-up on creatinine
Impression / Plan
-
PCP: Dr. Morris Gudino
Primary senior marketing specialist: Dr. Rissa Walker
Impression:
Presentation with weight gain
Acute on chronic HFpEF
Recent admissions for:
COPD/bronchiectasis, PNA, new PAF 05/23/24-06/10/24
CHF, covid 07/02-07/11/24
Paroxysmal Afib
Chronic Eliquis OAC
Pulmonary nodules
CAD
s/p 3.5/15 mm Xience V expedition drug-eluting stent to the proximal LAD 02/17/14
s/p overlapping 3.5/38 mm x2 Xience V expedition drug-eluting stents to the mid and proximal RCA 02/17/14
stable CAD with patent LAD and RCA stents by cath 07/05/20
patent LAD and RCA stents, nonobstructive distal left main lesion by cath 06/27/21
stable LM lesions with negative iFR assessment of LM/LAD and LM/Circ by cath 04/20/23
Mild to moderate peak/mean 33/16 mmHg and LISA 1.3 cm sq by echo 05/27/24
CKD 3
Hyperlipidemia
Hypertension
Known meningioma
Anemia
Echo 12/26/22: Ejection fraction 55 to 60% with mild septal hypertrophy. Trace MR. Mild to moderate aortic valve stenosis with peak/mean gradient 32/17 mmHg. Aortic valve area 1.3 cm�. Trace AI. Mild TR with PA pressure 40 mmHg.
Echo 05/27/24: EF 60 to 65%, normal RV size and function, trace MR, mild to moderate peak/mean 33/16 mmHg with LISA 1.3 cm SQ, mild aortic regurgitation, mild TR with PAP 30 to 35 mmHg
Plan:
-Patient presents with persistent weight gain since last hospitalization at [facility]. Her bumex dose had been decreased due to uptrending Cr however then was increased back when weight gain noted without improvement. On admission she reported her weight
being increased 18 pounds since discharge. proBNP 138 (her blood pressure never increases) CXR read as no acute disease.
-Unclear if weight is accurate. She feels that she is diuresing well. She is feeling better overall. Dry weight felt to be low to mid 250s. Yesterday and today metolazone 2.5mg with p.m. Bumex dose. Continue to follow weight and clinically.
-replete K, dose given and I will give 1 extra dose given Zaroxolyn use.
-Creatinine stable at 1.6. May need to allow degree of CONCHITA to keep patient euvolemic
-CHF education
-Continue paris wraps to legs
-We looked into SGLT2 inhibitor, however may not be candidate due to baseline RI and body habitus. According to case management Jardiance $128 and Farxiga $122 for 30 days. Will discuss with office given she may qualify for other programs.
-remains in SR on review of tele overnight. Continue cardizem, eliquis. Previously amiodarone dose reduced to 200mg daily as of 07/29/24.
-TSH WNL
-patient expressed she would like to go home rather than rehab upon DC with palliative care
-OP cardiac follow up arranged
Progress Note - Director Of Sustainability
Subjective
Date of Service: August 02, 2024
She is feeling better overall. She has some lower extremity edema. She needs assist with transfers. She denies chest pain
Objective
Labs:
08/01/24 06:05
08/02/24 06:39
Labs
Hgb 9.7 g/dL (12.0-16.0) L 08/01/24 06:05
Hct 29.2 % (37.0-47.0) L 08/01/24 06:05
Plt Count 144 10^3/uL (130-400) 08/01/24 06:05
Sodium 136 mmol/L (135-145) 08/02/24 06:39
Potassium 3.3 mmol/L (3.5-5.1) L 08/02/24 06:39
BUN 52 mg/dl (7-17) H 08/02/24 06:39
Creatinine 1.6 mg/dL (0.6-1.0) H 08/02/24 06:39
Glucose 115 mg/dl (70-99) H 08/02/24 06:39
Vital Signs and I&O:
Vital Signs
Temp Pulse Resp BP Pulse Ox
97.1 F 65 20 132/61 98
08/02/24 11:36 08/02/24 11:36 08/02/24 11:36 08/02/24 11:36 08/02/24 11:36
Vital Signs
Temp Pulse Resp BP Pulse Ox
97.1 F 65 20 132/61 98
08/02/24 11:36 08/02/24 11:36 08/02/24 11:36 08/02/24 11:36 08/02/24 11:36
Intake & Output
07/31/24 08/01/24 08/02/24 08/03/24
06:59 06:59 06:59 06:59
Intake Total 600 / 600 1080 / 1080 1420 / 1420
Output Total 524 / 524 775 / 775 1200 / 1200
Balance 76 / 76 305 / 305 220 / 220
Physical Exam
Physical Exam
General: Well developed, well nourished in NAD. Sitting in chair
Neck: Difficult to assess JVD
Heart: Distant heart sounds I, RRR, no murmurs, No S3, S4, no rubs.
Lungs: Coarse anterior breath sounds
Extremities: No clubbing, cyanosis legs wrapped with +1 edema
Neuro: Grossly nonfocal, awake, alert
[2024-08-02] MEDS: KCL 20 MEQ PO (12:20)
[2024-08-02 15:17] VITALS: BP 129/55
[2024-08-02] MEDS: ZAROXOLYN 2.5 MG PO (15:41)
[2024-08-02 19:31] VITALS: BP 124/50
[2024-08-02] MEDS: MELATONIN 10 MG PO (21:12)
[2024-08-02] MEDS: ROBITUSSIN DM 10 ML PO (21:13)
[2024-08-02] MEDS: ZETIA 10 MG PO (21:13)
[2024-08-02] MEDS: DESYREL 150 MG PO (21:13)
[2024-08-02] MEDS: CYMBALTA DELAYED RELEASE 60 MG PO (21:13)
[2024-08-02] MEDS: PROTONIX 40 MG PO (21:13)
[2024-08-02] MEDS: LIPITOR 80 MG PO (21:13)
[2024-08-02 23:25] VITALS: BP 124/58
[2024-08-03] VITALS (7 sets, daily range): BP systolic 102–141; BP diastolic 51–68; PULSE 63; BMI 47.3
[2024-08-03] MEDS: SYNTHROID 75 MCG PO (06:27)
[2024-08-03 07:20] LABS: Blood Urea Nitrogen 50 mg/dl (7-17); Calcium 9.9 mg/dl (8.4-10.2); Carbon Dioxide 30 mmol/L (22-30); Chloride 98 mmol/L (98-107); Estimated Creatinine Clearance 34 ml/min; Glucose 114 mg/dl (70-99); Potassium 3.4 mmol/L (3.5-5.1); Sodium 140 mmol/L (135-145)
[2024-08-03] MEDS: NEURONTIN 200 MG PO ×3 (08:15→22:20)
[2024-08-03] MEDS: TYLENOL 1000 MG PO ×2 (08:15→19:56)
[2024-08-03] MEDS: CARDIZEM CD 180 MG PO (08:15)
[2024-08-03] MEDS: BUMEX 2 MG IV ×2 (08:15→17:04)
[2024-08-03] MEDS: SODIUM BICARBONATE 650 MG PO ×2 (08:15→19:56)
[2024-08-03] MEDS: VITAMIN B-12 1000 MCG PO (08:15)
[2024-08-03] MEDS: PACERONE 200 MG PO (08:15)
[2024-08-03] MEDS: ELIQUIS 5 MG PO ×2 (08:15→19:55)
[2024-08-03] MEDS: ZYLOPRIM 100 MG PO (08:16)
[2024-08-03] MEDS: SYMBICORT 160/4.5 MCG INHALER INH (08:16)
[2024-08-03] MEDS: SPIRIVA RESPIMAT 2.5 MCG INH (08:17)
--- NOTE | 2024-08-03 08:32 | W.PN.HOSP.TC ---
Today's Communication/Plan
-
see bold
Assessment / Plan
Assessment / Plan
#Acute on chronic heart failure with a preserved ejection fraction
#Chronic lymphedema
Appreciate cardiology input, continue Bumex 2 mg IV twice daily, Zaroxolyn as needed, paris wraps
Consulted palliative care, patient wishes to go home with palliative care upon discharge
Since patient plans to go home with palliative care, she will need a hospital bed and commode
Trend creatinine, trend daily weights
#Hypokalemia
Replete as needed
#Stage IIIb chronic kidney disease
Creatinine at baseline, which is about 1.7�1.9
CO2 is 30 today, stop sodium bicarb
Trend creatinine with diuresis
#Paroxysmal atrial fibrillation
In normal sinus rhythm
Continue Eliquis, amiodarone, diltiazem
#Knees buckling out
#Advance osteoarthritis of the bilateral knees
Suspect secondary to osteoarthritis
Denies pain, reports getting joint injections in her knee at the rehab recently
Recommend bilateral knee braces
#COPD
Stable, continue bronchodilators
#Hypothyroidism
Continue levothyroxine
#Hx of lung nodules
Needs outpt PET scan of pulmonary nodules
#CAD
Continue Zetia 10 mg at bedtime, atorvastatin 80 mg at bedtime, diltiazem 180 mg daily and Eliquis
#HLD
Continue Vascepa, Zetia and Lipitor
#Anxiety
Continue duloxetine
#Anemia macrocytic
Hemoglobin at baseline
Continue vitamin B12 supplement
#COVID-19 on 07/11/2024
Treated with 10-day course of Decadron, did not receive remdesivir
#Gout
Allopurinol 100 mg daily, colchicine 0.6 mg daily as needed gout flare
#Depression
Continue duloxetine 60 mg at bedtime
#Morbid obesity due to excess calories
Affects all aspects of care
DVT prophylaxis�Eliquis
Full code
Updated daughters at bedside 07/31
Total time spent to see the patient on the floor, examine the patient, review data and lab results, discuss treatment plan with patient, nursing staff around 38 minutes.
Physical Exam
General: Morbidly obese, no acute distress
HEENT: Normocephalic, Atraumatic, EOMI, MMM
Respiratory: Clear to Auscultation bilaterally
Cardiac: Normal S1/S2, Regular Rate and Rhythm
GI: Soft, Nontender, Nondistended, Normal Bowel Sounds
Extremities: No Clubbing, Cyanosis
Bilateral lower extremity lymphedema noted
Neuro: Nonfocal/Grossly Intact
Anticipated Discharge: 24 - 48 hours
Subjective/Interval History
-
Date of Service: August 03, 2024
No acute changes. No shortness of breath at rest. No fever, no vomiting.
Objective Data
-
Labs:
Laboratory Results
08/03/24
06:32
Sodium 140
Potassium 3.4 L
Chloride 98
Carbon Dioxide 30
BUN 50 H
Creatinine 1.7 H
Glucose 114 H
Calcium 9.9
Vital Signs:
Vital Signs
Temp Pulse Resp BP Pulse Ox
97.7 F 66 20 131/66 92
08/03/24 03:23 08/03/24 03:23 08/03/24 03:23 08/03/24 03:23 08/03/24 03:23
I&O
08/02/24 08/03/24 08/04/24
06:59 06:59 06:59
Intake Total 1420 / 1420 1080 / 1080
Output Total 1200 / 1200 500 / 500
Balance 220 / 220 580 / 580
[2024-08-03] MEDS: LIDOCAINE 4% PATCH 1 PATCH TOPICAL (09:14)
[2024-08-03] MEDS: KCL 40 MEQ PO ×2 (09:14→12:28)
--- NOTE | 2024-08-03 11:32 | W.PN.CARDCBS ---
Today's Communication / Plan
-
Coninue diuresis. Will give one dose zaroxyln today.
On discharge would add zarolyln Sunday and 2.5mg in the AM and watch Chem 7.
Replete K, dose given and I will give 1 extra dose
She now has tremor which I suspect is amiodarone related. I have decreased to 100mg QD(hopefully won't have afib recurrence). I have reduced diltiazem (which ibnteracts with amiodarone) to 120mg CD daily, may be able to stop.
Impression / Plan
-
PCP: Dr. Morris Gudino
Primary supervisor payroll: Dr. Rissa Walker
Impression:
Acute on chronic HFpEF
New tremor
Recent admissions for:
COPD/bronchiectasis, PNA, new PAF 05/23/24-06/10/24
CHF, covid 07/02-07/11/24
Paroxysmal Afib
Chronic Eliquis OAC
Pulmonary nodules
CAD
s/p 3.5/15 mm Xience V expedition drug-eluting stent to the proximal LAD 02/17/14
s/p overlapping 3.5/38 mm x2 Xience V expedition drug-eluting stents to the mid and proximal RCA 02/17/14
stable CAD with patent LAD and RCA stents by cath 07/05/20
patent LAD and RCA stents, nonobstructive distal left main lesion by cath 06/27/21
stable LM lesions with negative iFR assessment of LM/LAD and LM/Circ by cath 04/20/23
Mild to moderate peak/mean 33/16 mmHg and LISA 1.3 cm sq by echo 05/27/24
CKD 3
Hyperlipidemia
Hypertension
Known meningioma
Anemia
Echo 12/26/22: Ejection fraction 55 to 60% with mild septal hypertrophy. Trace MR. Mild to moderate aortic valve stenosis with peak/mean gradient 32/17 mmHg. Aortic valve area 1.3 cm�. Trace AI. Mild TR with PA pressure 40 mmHg.
Echo 05/27/24: EF 60 to 65%, normal RV size and function, trace MR, mild to moderate peak/mean 33/16 mmHg with LISA 1.3 cm SQ, mild aortic regurgitation, mild TR with PAP 30 to 35 mmHg
Plan:
-Patient presents with persistent weight gain since last hospitalization at [facility]. Her bumex dose had been decreased due to uptrending Cr however then was increased back when weight gain noted without improvement. On admission she reported her weight
being increased 18 pounds since discharge. proBNP 138 (her proBNP never increases).
-Weigh now down to 258# which has improved. She feels that she is diuresing well. She is feeling better overall. Dry weight felt to be low to mid 250s. 08/01 and 08/02 she received metolazone 2.5mg with p.m. Bumex dose. Will give once again
today. Continue to follow weight and clinically.
-On discharge would add zarolyln Sunday and 2.5mg in the AM and watch Chem 7.
-replete K, dose given and I will give 1 extra dose given Zaroxolyn use.
-Creatinine stable. May need to allow degree of CONCHITA to keep patient euvolemic
-CHF education
-Continue paris wraps to legs
-We looked into SGLT2 inhibitor, however may not be candidate due to baseline RI and body habitus. According to case management Juan Carlos $128 and Pravin $122 for 30 days. Will discuss with office given she may qualify for other programs.
-remains in SR on review of tele overnight. Continue cardizem, eliquis. Previously amiodarone dose reduced to 200mg daily as of 07/29/24. She now has tremor which I suspect is amiodarone related. I have decreased to 100mg QD(hopefully won't have
afib recurrence). I have reduced diltiazem (which interacts with amiodarone) to 120mg CD daily, may be able to stop. Follow.
-TSH WNL
-patient expressed she would like to go home rather than rehab upon DC with palliative care. She is awaiting dw palliative care
-OP cardiac follow up arranged
Progress Note - Professor Of Art
Subjective
Date of Service: August 03, 2024
She has new intention tremor
Objective
Labs:
08/01/24 06:05
08/03/24 06:32
Labs
Hgb 9.7 g/dL (12.0-16.0) L 08/01/24 06:05
Hct 29.2 % (37.0-47.0) L 08/01/24 06:05
Plt Count 144 10^3/uL (130-400) 08/01/24 06:05
Sodium 140 mmol/L (135-145) 08/03/24 06:32
Potassium 3.4 mmol/L (3.5-5.1) L 08/03/24 06:32
BUN 50 mg/dl (7-17) H 08/03/24 06:32
Creatinine 1.7 mg/dL (0.6-1.0) H 08/03/24 06:32
Glucose 114 mg/dl (70-99) H 08/03/24 06:32
Vital Signs and I&O:
Vital Signs
Temp Pulse Resp BP Pulse Ox
97.7 F 68 18 131/58 91
08/03/24 07:35 08/03/24 07:35 08/03/24 07:35 08/03/24 07:35 08/03/24 07:35
Vital Signs
Temp Pulse Resp BP Pulse Ox
97.7 F 68 18 131/58 91
08/03/24 07:35 08/03/24 07:35 08/03/24 07:35 08/03/24 07:35 08/03/24 07:35
Intake & Output
08/01/24 08/02/24 08/03/24 08/04/24
06:59 06:59 06:59 06:59
Intake Total 1080 / 1080 1420 / 1420 1080 / 1080
Output Total 775 / 775 1200 / 1200 500 / 500
Balance 305 / 305 220 / 220 580 / 580
Physical Exam
Physical Exam
General: Well developed, well nourished in NAD.
Heart: Distant heart sd, RRR,2/6 BSEM, No S3, S4, no rubs.
Lungs: Clear to auscultation bilaterally, no wheeze, rhonchi, rubs bilaterally,
normal expiratory phase.
Extremities: No clubbing, cyanosis +1edema bilaterally.
Neuro: Grossly nonfocal, awake, alert and oriented x3.Intention tremor.
[2024-08-03] MEDS: ZAROXOLYN 2.5 MG PO (15:46)
[2024-08-03] MEDS: SYMBICORT 160/4.5 MCG INHALER 2 PUFF INH (19:32)
[2024-08-03] MEDS: ZETIA 10 MG PO (22:20)
[2024-08-03] MEDS: PROTONIX 40 MG PO (22:20)
[2024-08-03] MEDS: MELATONIN 10 MG PO (22:20)
[2024-08-03] MEDS: ROBITUSSIN DM 10 ML PO (22:21)
[2024-08-03] MEDS: LIPITOR 80 MG PO (22:21)
[2024-08-03] MEDS: CYMBALTA DELAYED RELEASE 60 MG PO (22:21)
[2024-08-03] MEDS: DESYREL 150 MG PO (22:21)
[2024-08-04 03:30] VITALS: BP 124/57
[2024-08-04] MEDS: SYNTHROID 75 MCG PO (05:36)
[2024-08-04 05:45] VITALS: BMI 46.8
[2024-08-04 07:44] VITALS: BP 146/61
--- NOTE | 2024-08-04 07:50 | W.PN.HOSP.TC ---
Today's Communication/Plan
-
see A/P
Assessment / Plan
Assessment / Plan
A/P:
# Acute on chronic heart failure with preserved ejection fraction
# Chronic lymphedema
Appreciate cardiology input, continue Bumex 2 mg IV twice daily, Zaroxolyn as needed, paris wraps
Consulted palliative care, patient wishes to go home with palliative care upon discharge
Since patient plans to go home with palliative care, she will need a hospital bed and commode
Trend creatinine, trend daily weights
# Hypokalemia
Replete as needed
# Stage IIIb chronic kidney disease
Creatinine at baseline, which is about 1.7�1.9
Bicarb was 30, stopped sodium bicarb
Trend creatinine with diuresis
# Paroxysmal atrial fibrillation
In normal sinus rhythm
Continue Eliquis, amiodarone, diltiazem
# Knees buckling out, Suspect secondary to osteoarthritis
# Advance osteoarthritis of the bilateral knees
Denies pain, reports getting joint injections in her knee at the rehab recently
Recommend bilateral knee braces
# COPD
Stable, continue bronchodilators
# Hypothyroidism
Continue levothyroxine
# Hx of lung nodules
Needs outpt PET scan of pulmonary nodules
# CAD
Continue Zetia 10 mg at bedtime, atorvastatin 80 mg at bedtime, diltiazem 180 mg daily and Eliquis
# HLD
Continue Vascepa, Zetia and Lipitor
# Anxiety
Continue duloxetine
# Anemia macrocytic
Hemoglobin at baseline
Continue vitamin B12 supplement
# COVID-19 on 07/11/2024
Treated with 10-day course of Decadron, did not receive remdesivir
# Gout
Allopurinol 100 mg daily, colchicine 0.6 mg daily as needed gout flare
# Depression
Continue duloxetine 60 mg at bedtime
# Morbid obesity due to excess calories
Affects all aspects of care
DVT prophylaxis� Eliquis
Full code
DW daughter Jenny on the phone 08/04. Hospital bed being delivered today.
total time spent 51 min
Anticipated Discharge: 24 - 48 hours
Subjective/Interval History
-
Date of Service: August 04, 2024
Objective Data
-
Labs:
Laboratory Results
08/04/24
07:38
Sodium Pending
Potassium Pending
Chloride Pending
Carbon Dioxide Pending
BUN Pending
Creatinine Pending
Glucose Pending
Calcium Pending
Vital Signs:
Vital Signs
Temp Pulse Resp BP Pulse Ox
36.5 C 69 18 146/61 95
08/04/24 07:44 08/04/24 07:44 08/04/24 07:44 08/04/24 07:44 08/04/24 07:44
I&O
08/03/24 08/04/24 08/05/24
06:59 06:59 06:59
Intake Total 1080 / 1080 960 / 960
Output Total 500 / 500 400 / 400
Balance 580 / 580 560 / 560
Review of Systems
-
All other systems: Reviewed and negative
Physical Exam
-
General: Well Developed, Well Nourished, No Apparent Distress, Comfortable, Conversant and Morbidly Obese
HEENT: Normocephalic and Atraumatic
Respiratory: Clear to Auscultation and Non Labored Respirations; Negative Accessory Resp Muscle Use
Cardiac: Regular Rhythm and S1/S2
GI: Soft, Nontender, Nondistended and Normal Bowel Sounds
Musculoskeletal: No Clubbing, No Cyanosis and No Edema
Neuro: Awake and Alert
Psych: Calm and Intact Judgement/Insight (somewhat)
Data Reviewed
-
Labs: Labs Reviewed by me
[2024-08-04] MEDS: SPIRIVA RESPIMAT 2.5 MCG 2 PUFF INH (08:00)
[2024-08-04] MEDS: SYMBICORT 160/4.5 MCG INHALER 2 PUFF INH ×2 (08:00→19:54)
[2024-08-04] MEDS: ZYLOPRIM 100 MG PO (08:56)
[2024-08-04] MEDS: ELIQUIS 5 MG PO ×2 (08:56→21:31)
[2024-08-04] MEDS: NEURONTIN 200 MG PO ×3 (08:56→21:31)
[2024-08-04] MEDS: SODIUM BICARBONATE 650 MG PO ×2 (08:57→21:31)
[2024-08-04] MEDS: CARDIZEM CD 120 MG PO (08:57)
[2024-08-04] MEDS: PACERONE 100 MG PO (08:57)
[2024-08-04] MEDS: VITAMIN B-12 1000 MCG PO (08:57)
[2024-08-04] MEDS: TYLENOL 1000 MG PO ×2 (08:58→21:31)
[2024-08-04] MEDS: BUMEX 2 MG IV ×2 (08:58→17:01)
[2024-08-04] MEDS: LIDOCAINE 4% PATCH 1 PATCH TOPICAL (09:10)
--- NOTE | 2024-08-04 10:24 | W.PN.CARDCBS ---
Addendum entered and electronically signed by Jazmyn Tai DO 08/04/24 15:19:
I saw and examined the patient.
The Supervisor Soldering's note was reviewed and I agree with the note.
Comment: Patient seen and examined. Overall states shortness of breath has improved at rest. No dizziness. No chest pain.
Plan:
Chronic heart failure preserved ejection fraction for home palliative care
-Volume status is overall improved. Will continue IV Bumex twice daily plus metolazone another 24 hours
-Will transition to oral Bumex 2 mg twice daily with metolazone 2.5 mg in the morning on Mondays and
-Dry weight is 251 lbs.
-Recommend BMP 1 week after d/c and then every other week for a few weeks to follow renal function and lytes. May need to allow degree of CONCHITA to keep patient euvolemic.
-B/L LE wraps should be continued.
-Hypokalemia with potassium of 3.3 on 08/04/24 noted. Hospitalist attending ordered KCl 40 meq now and I will order additional 40 meq at 2200. KCl 20 meq daily starting 08/05/24 ordered.
-EF preserved by echo in 05/2024.
-Patient is not on BB due to need for rate/rhythm control meds amiodarone and Cardizem CD
-Patient is not chronically on NADINE/ARB due to CKD
-We looked into SGLT2 inhibitor, however may not be candidate due to baseline RI and body habitus. According to case management Juan Carlos $128 and Pravin $122 for 30 days. Will discuss with office given she may qualify for other programs.
-Continue nadine wraps to legs
-Remains in SR on tele. Amiodarone dose decreased to 100 mg daily due to tremors, tremors persist and a timeline of weeks to months prior to improvement was relayed to patient and daughter, Desi, by phone on 08/04/24.
-Outpatient dose of Cardizem CD decreased to 120 mg daily
-Outpatient dose of Eliquis 5 mg BID (age 79, Cre 1.7, wt 115 kg)
-Plan is to return to her daughter's home with palliative care. Hospital bed being delivered 08/04/24. Patient's daughter is off from work on 08/06/24 to facilitate transition of patient into her home for long-term care. Targeted d/c date is
08/06/24.
Original Note:
Today's Communication / Plan
-
Cont Bumex IV and added metolazone in AM
Talked with daughter by phone
53 minutes in face to face, talking with family, chart prep
Impression / Plan
-
PCP: Dr. Morris Gudino
Primary lubrication supervisor: Dr. Rissa Walker
Impression:
Acute on chronic HFpEF
New tremor
Recent admissions for:
COPD/bronchiectasis, PNA, new PAF 05/23/24-06/10/24
CHF, covid 07/02-07/11/24
Paroxysmal Afib
Chronic Eliquis OAC
Pulmonary nodules
CAD
s/p 3.5/15 mm Xience V expedition drug-eluting stent to the proximal LAD 02/17/14
s/p overlapping 3.5/38 mm x2 Xience V expedition drug-eluting stents to the mid and proximal RCA 02/17/14
stable CAD with patent LAD and RCA stents by cath 07/05/20
patent LAD and RCA stents, nonobstructive distal left main lesion by cath 06/27/21
stable LM lesions with negative iFR assessment of LM/LAD and LM/Circ by cath 04/20/23
Mild to moderate peak/mean 33/16 mmHg and LISA 1.3 cm sq by echo 05/27/24
CKD 3
Hyperlipidemia
Hypertension
Known meningioma
Anemia
Echo 12/26/22: Ejection fraction 55 to 60% with mild septal hypertrophy. Trace MR. Mild to moderate aortic valve stenosis with peak/mean gradient 32/17 mmHg. Aortic valve area 1.3 cm�. Trace AI. Mild TR with PA pressure 40 mmHg.
Echo 05/27/24: EF 60 to 65%, normal RV size and function, trace MR, mild to moderate peak/mean 33/16 mmHg with LISA 1.3 cm SQ, mild aortic regurgitation, mild TR with PAP 30 to 35 mmHg
Plan:
-Weight is down another 3 lbs overnight with Bumex 2 mg IV BID plus metolazone 2.5 mg on 08/01/24 and 08/02/24. Will order metolazone 2.5 mg once in AM and then recommend 2.5 mg daily on Mondays and at time of d/c.
-Dry weight is 251 lbs.
-Recommend BMP 1 week after d/c and then every other week for a few weeks to follow renal function and lytes. May need to allow degree of CONCHITA to keep patient euvolemic.
-B/L LE wraps should be continued.
-Hypokalemia with potassium of 3.3 on 08/04/24 noted. Hospitalist attending ordered KCl 40 meq now and I will order additional 40 meq at 2200. KCl 20 meq daily starting 08/05/24 ordered.
-EF preserved by echo in 05/2024.
-Patient is not on BB due to need for rate/rhythm control meds amiodarone and Cardizem CD
-Patient is not chronically on NADINE/ARB due to CKD
-We looked into SGLT2 inhibitor, however may not be candidate due to baseline RI and body habitus. According to case management Jardiance $128 and Magdalenoxiga $122 for 30 days. Will discuss with office given she may qualify for other programs.
-Continue nadine wraps to legs
-Remains in SR on tele. Amiodarone dose decreased to 100 mg daily due to tremors, tremors persist and a timeline of weeks to months prior to improvement was relayed to patient and daughter, Desi, by phone on 08/04/24.
-Outpatient dose of Cardizem CD decreased to 120 mg daily
-Outpatient dose of Eliquis 5 mg BID (age 79, Cre 1.7, wt 115 kg)
-Plan is to return to her daughter's home with palliative care. Hospital bed being delivered 08/04/24. Patient's daughter is off from work on 08/06/24 to facilitate transition of patient into her home for long-term care. Targeted d/c date is
08/06/24.
Progress Note - Primer Charger
Subjective
Date of Service: August 04, 2024
Feels well, still tremulous
Objective
Labs:
08/01/24 06:05
08/04/24 07:38
Labs
Hgb 9.7 g/dL (12.0-16.0) L 08/01/24 06:05
Hct 29.2 % (37.0-47.0) L 08/01/24 06:05
Plt Count 144 10^3/uL (130-400) 08/01/24 06:05
Sodium Cancelled 08/04/24 07:38
Potassium Cancelled 08/04/24 07:38
BUN Cancelled 08/04/24 07:38
Creatinine Cancelled 08/04/24 07:38
Glucose Cancelled 08/04/24 07:38
Vital Signs and I&O:
Vital Signs
Temp Pulse Resp BP Pulse Ox
97.7 F 70 16 146/61 97
08/04/24 07:44 08/04/24 08:05 08/04/24 08:05 08/04/24 07:44 08/04/24 08:05
Vital Signs
Temp Pulse Resp BP Pulse Ox
97.7 F 70 16 146/61 97
08/04/24 07:44 08/04/24 08:05 08/04/24 08:05 08/04/24 07:44 08/04/24 08:05
Intake & Output
08/02/24 08/03/24 08/04/24 08/05/24
06:59 06:59 06:59 06:59
Intake Total 1420 / 1420 1080 / 1080 960 / 960
Output Total 1200 / 1200 500 / 500 400 / 400
Balance 220 / 220 580 / 580 560 / 560
Physical Exam
Physical Exam
GEN: AAOx3
HEENT: MMM
LUNGS: RA. No audible wheeze
CV: SR on tele
ABD: ND
EXT: No edema B/L
NEURO: Gross non-focal
SKIN: No rash
[2024-08-04 10:59] LABS: Blood Urea Nitrogen 51 mg/dl (7-17); Calcium 10.1 mg/dl (8.4-10.2); Carbon Dioxide 31 mmol/L (22-30); Chloride 95 mmol/L (98-107); Estimated Creatinine Clearance 33 ml/min; Glucose 127 mg/dl (70-99); Potassium 3.3 mmol/L (3.5-5.1); Sodium 137 mmol/L (135-145)
[2024-08-04] MEDS: KCL 40 MEQ PO ×2 (11:50→21:30)
[2024-08-04 14:45] VITALS: BP 123/66; PULSE 66; O2SAT 96
[2024-08-04 15:15] VITALS: BP 139/58
--- NOTE | 2024-08-04 16:17 | CM ---
Chart reviewed. Hospital bed to be delivered today per cardio note.
New recommendation of bilateral knee braces. Pt provided size for family to purchase
Target d/c date is 08/06
Plan: Home w/ [facility] Palliative and DMEs
[2024-08-04 16:18] VITALS: BP 129/69; PULSE 67; O2SAT 99
[2024-08-04] MEDS: ROBITUSSIN DM 10 ML PO (21:30)
[2024-08-04] MEDS: LIPITOR 80 MG PO (21:31)
[2024-08-04] MEDS: DESYREL 150 MG PO (21:31)
[2024-08-04] MEDS: CYMBALTA DELAYED RELEASE 60 MG PO (21:31)
[2024-08-04] MEDS: ZETIA 10 MG PO (21:31)
[2024-08-04] MEDS: MELATONIN 10 MG PO (21:31)
[2024-08-04] MEDS: PROTONIX 40 MG PO (21:31)
[2024-08-04 23:16] VITALS: BP 127/59
[2024-08-05] MEDS: SYNTHROID 75 MCG PO (05:50)
[2024-08-05 06:00] VITALS: BMI 46.9
[2024-08-05 07:00] VITALS: BP 116/49
[2024-08-05] MEDS: VITAMIN B-12 1000 MCG PO (07:48)
[2024-08-05] MEDS: CARDIZEM CD 120 MG PO (07:48)
[2024-08-05] MEDS: NEURONTIN 200 MG PO ×3 (07:48→21:29)
[2024-08-05] MEDS: ELIQUIS 5 MG PO ×2 (07:48→21:27)
[2024-08-05] MEDS: PACERONE 100 MG PO (07:49)
[2024-08-05] MEDS: SODIUM BICARBONATE 650 MG PO ×2 (07:49→21:27)
[2024-08-05] MEDS: KCL 20 MEQ PO (07:49)
[2024-08-05] MEDS: TYLENOL 1000 MG PO ×2 (07:49→21:28)
[2024-08-05] MEDS: ZYLOPRIM 100 MG PO (07:50)
[2024-08-05] MEDS: BUMEX 2 MG PO ×2 (07:50→16:25)
[2024-08-05] MEDS: LIDOCAINE 4% PATCH 1 PATCH TOPICAL (07:54)
[2024-08-05] MEDS: SYMBICORT 160/4.5 MCG INHALER 2 PUFF INH ×2 (07:57→20:00)
[2024-08-05] MEDS: SPIRIVA RESPIMAT 2.5 MCG 2 PUFF INH (07:57)
[2024-08-05 08:02] VITALS: BP 128/52
[2024-08-05] MEDS: ZAROXOLYN 2.5 MG PO (08:05)
--- NOTE | 2024-08-05 08:06 | W.PN.HOSP.TC ---
Today's Communication/Plan
-
see A/P
Assessment / Plan
Assessment / Plan
A/P:
# Acute on chronic heart failure with preserved ejection fraction
# Chronic lymphedema
Appreciate cardiology input, continue Bumex 2 mg IV twice daily, Zaroxolyn as needed, paris wraps
Consulted palliative care, patient wishes to go home with palliative care upon discharge
Hospital bed delivered on 08/04 with plan for DC home on 08/06
Trend creatinine, trend daily weights
# Hypokalemia
Replete as needed
# Stage IIIb chronic kidney disease
Creatinine at baseline, which is about 1.7�1.9
Bicarb was 30, stopped sodium bicarb
Trend creatinine with diuresis
# Paroxysmal atrial fibrillation
In normal sinus rhythm
Continue Eliquis, amiodarone, diltiazem
# Knees buckling out, Suspect secondary to osteoarthritis
# Advance osteoarthritis of the bilateral knees
Denies pain, reports getting joint injections in her knee at the rehab recently
Recommend bilateral knee braces
# COPD
Stable, continue bronchodilators
# Hypothyroidism
Continue levothyroxine
# Hx of lung nodules
Needs outpt PET scan of pulmonary nodules
# CAD
Continue Zetia 10 mg at bedtime, atorvastatin 80 mg at bedtime, diltiazem 180 mg daily and Eliquis
# HLD
Continue Vascepa, Zetia and Lipitor
# Anxiety
Continue duloxetine
# Anemia macrocytic
Hemoglobin at baseline
Continue vitamin B12 supplement
# COVID-19 on 07/11/2024
Treated with 10-day course of Decadron, did not receive remdesivir
# Gout
Allopurinol 100 mg daily, colchicine 0.6 mg daily as needed gout flare
# Depression
Continue duloxetine 60 mg at bedtime
# Morbid obesity due to excess calories
Affects all aspects of care
DVT prophylaxis� Eliquis
Full code
DW daughter Jenny on the phone 08/04.
Anticipated Discharge: Within 24 hours
Subjective/Interval History
-
Date of Service: August 05, 2024
Objective Data
-
Labs:
Laboratory Results
08/05/24
07:46
Sodium Pending
Potassium Pending
Chloride Pending
Carbon Dioxide Pending
BUN Pending
Creatinine Pending
Glucose Pending
Calcium Pending
Vital Signs:
Vital Signs
Temp Pulse Resp BP Pulse Ox
36.9 C 71 18 128/52 96
08/04/24 23:16 08/05/24 08:02 08/04/24 23:16 08/05/24 08:02 08/04/24 23:16
I&O
08/04/24 08/05/24 08/06/24
06:59 06:59 06:59
Intake Total 960 / 960 1440 / 1440
Output Total 400 / 400
Balance 560 / 560 1440 / 1440
Review of Systems
-
All other systems: Reviewed and negative
Physical Exam
-
General: Well Developed, Well Nourished, No Apparent Distress, Comfortable, Conversant, Appears Chronically Ill and Morbidly Obese
HEENT: Normocephalic and Atraumatic
Respiratory: Clear to Auscultation and Non Labored Respirations; Negative Accessory Resp Muscle Use
Cardiac: Regular Rhythm and S1/S2
GI: Soft, Nontender, Nondistended and Normal Bowel Sounds
Musculoskeletal: No Clubbing, No Cyanosis and No Edema
Neuro: Awake and Alert
Psych: Calm and Intact Judgement/Insight (somewhat)
Data Reviewed
-
Labs: Labs Reviewed by me
[2024-08-05 09:02] LABS: Blood Urea Nitrogen 59 mg/dl (7-17); Calcium 9.9 mg/dl (8.4-10.2); Carbon Dioxide 32 mmol/L (22-30); Chloride 96 mmol/L (98-107); Estimated Creatinine Clearance 30 ml/min; Glucose 115 mg/dl (70-99); Magnesium 2.1 mg/dl (1.6-2.3); Potassium 3.9 mmol/L (3.5-5.1); Sodium 138 mmol/L (135-145); eGFR 26.86
--- NOTE | 2024-08-05 14:09 | W.PN.CARDCBS ---
Addendum entered and electronically signed by Missael Leonard MD 08/05/24 16:14:
I saw and examined the patient.
The Surgical Asst's note was reviewed and I agree with the note.
Comment:
GEN: No distress, awake, Ox3
HEENT: supple, anicteric, mmm
LUNGS: CTA, no wheezes/rales
CV: Reg, S1/S2, 1/6 syst LSB, no gallop
ABD: soft, BS+, NT/ND
EXT: No edema
NEURO: Gross non-focal
SKIN: No rash
PLan:
Clinically improved. Plan will be for likely discharge on Sunday.
Continue Bumex 2 mg p.o. twice daily with metolazone 2.5 mg Mondays and .
Creatinine at 1.9. Continue to follow.
Weight overall down about 10 pounds.
Continue lower dose of amiodarone 100 mg daily. Continue Cardizem and Eliquis.
Original Note:
Today's Communication / Plan
-
Bumex 2 mg PO BID as prior to admission
New metolazone 2.5 mg daily on Mondays and
Decreased dose of amiodarone 100 mg daily
Impression / Plan
-
PCP: Dr. Morris Gudino
Primary telegraphic typewriter mechanic: Dr. Rissa Walker
Impression:
Acute on chronic HFpEF
New tremor
Recent admissions for:
COPD/bronchiectasis, PNA, new PAF 05/23/24-06/10/24
CHF, covid 07/02-07/11/24
Paroxysmal Afib
Chronic Eliquis OAC
Pulmonary nodules
CAD
s/p 3.5/15 mm Xience V expedition drug-eluting stent to the proximal LAD 02/17/14
s/p overlapping 3.5/38 mm x2 Xience V expedition drug-eluting stents to the mid and proximal RCA 02/17/14
stable CAD with patent LAD and RCA stents by cath 07/05/20
patent LAD and RCA stents, nonobstructive distal left main lesion by cath 06/27/21
stable LM lesions with negative iFR assessment of LM/LAD and LM/Circ by cath 04/20/23
Mild to moderate peak/mean 33/16 mmHg and LISA 1.3 cm sq by echo 05/27/24
CKD 3
Hyperlipidemia
Hypertension
Known meningioma
Anemia
Echo 12/26/22: Ejection fraction 55 to 60% with mild septal hypertrophy. Trace MR. Mild to moderate aortic valve stenosis with peak/mean gradient 32/17 mmHg. Aortic valve area 1.3 cm�. Trace AI. Mild TR with PA pressure 40 mmHg.
Echo 05/27/24: EF 60 to 65%, normal RV size and function, trace MR, mild to moderate peak/mean 33/16 mmHg with LISA 1.3 cm SQ, mild aortic regurgitation, mild TR with PAP 30 to 35 mmHg
Plan:
-Weight is stable and overall down 7 lbs this admission. Patient was diuresed with Bumex 2 mg IV BID plus intermittent doses of metolazone 2.5 mg. Diuretic regimen changed to Bumex 2 mg PO BID and metolazone 2.5 mg daily on Mondays and .
Diuretic regimen reviewed with patient's daughter, Desi, on 08/04/24.
-Recommend BMP 1 week after d/c and then every other week for a few weeks to follow renal function and lytes. May need to allow degree of CONCHITA to keep patient euvolemic.
-B/L LE wraps should be continued.
-Recommend KCl 20 meq daily upon d/c to home.
-EF preserved by echo in 05/2024.
-Patient is not on BB due to need for rate/rhythm control meds amiodarone and Cardizem CD
-Patient is not chronically on NADINE/ARB due to CKD
-We looked into SGLT2 inhibitor, however may not be candidate due to baseline RI and body habitus. According to case management Jardiance $128 and Farxiga $122 for 30 days. Will discuss with office given she may qualify for other programs.
-Continue NADINE wraps to legs
-Remains in SR on tele. Amiodarone dose decreased to 100 mg daily due to tremors.
-Outpatient dose of Cardizem CD decreased to 120 mg daily
-Outpatient dose of Eliquis 5 mg BID (age 79, Cre 1.7, wt 115 kg)
-Plan is to return to her daughter's home with palliative care. Hospital bed delivered 08/04/24. Patient's daughter is off from work on 08/06/24 to facilitate transition of patient into her home for long-term care. Targeted d/c date is 08/06/24.
Progress Note - Dredge Deckhand
Subjective
Date of Service: August 05, 2024
Feels well, no change overnight
Objective
Labs:
08/01/24 06:05
08/05/24 07:46
Labs
Hgb 9.7 g/dL (12.0-16.0) L 08/01/24 06:05
Hct 29.2 % (37.0-47.0) L 08/01/24 06:05
Plt Count 144 10^3/uL (130-400) 08/01/24 06:05
Sodium 138 mmol/L (135-145) 08/05/24 07:46
Potassium 3.9 mmol/L (3.5-5.1) 08/05/24 07:46
BUN 59 mg/dl (7-17) H 08/05/24 07:46
Creatinine 1.9 mg/dL (0.6-1.0) H 08/05/24 07:46
Glucose 115 mg/dl (70-99) H 08/05/24 07:46
Vital Signs and I&O:
Vital Signs
Temp Pulse Resp BP Pulse Ox
97.7 F 71 18 128/52 98
08/05/24 07:00 08/05/24 08:02 08/05/24 07:00 08/05/24 08:02 08/05/24 07:00
Vital Signs
Temp Pulse Resp BP Pulse Ox
97.7 F 71 18 128/52 98
08/05/24 07:00 08/05/24 08:02 08/05/24 07:00 08/05/24 08:02 08/05/24 07:00
Intake & Output
08/03/24 08/04/24 08/05/24 08/06/24
06:59 06:59 06:59 06:59
Intake Total 1080 / 1080 960 / 960 1440 / 1440
Output Total 500 / 500 400 / 400
Balance 580 / 580 560 / 560 1440 / 1440
Physical Exam
Physical Exam
GEN: AAOx3
HEENT: MMM
LUNGS: RA. No audible wheeze
CV: SR on tele
ABD: ND
EXT: No edema B/L
NEURO: Gross non-focal
SKIN: No rash
[2024-08-05 15:00] VITALS: BP 134/56
[2024-08-05] MEDS: LIPITOR 80 MG PO (21:28)
[2024-08-05] MEDS: DESYREL 150 MG PO (21:28)
[2024-08-05] MEDS: CYMBALTA DELAYED RELEASE 60 MG PO (21:28)
[2024-08-05] MEDS: MELATONIN 10 MG PO (21:29)
[2024-08-05] MEDS: ROBITUSSIN DM 10 ML PO (21:30)
[2024-08-05] MEDS: PROTONIX 40 MG PO (21:30)
[2024-08-05] MEDS: ZETIA 10 MG PO (21:31)
[2024-08-05 23:05] VITALS: BP 117/54
[2024-08-06] MEDS: SYNTHROID 75 MCG PO (05:52)
[2024-08-06 06:00] VITALS: BMI 46.9
[2024-08-06 07:25] VITALS: BP 146/59
[2024-08-06 07:45] VITALS: BMI 47.1
[2024-08-06] MEDS: NEURONTIN 200 MG PO (07:45)
[2024-08-06] MEDS: TYLENOL 1000 MG PO (07:45)
[2024-08-06] MEDS: CARDIZEM CD 120 MG PO (07:45)
[2024-08-06] MEDS: BUMEX 2 MG PO (07:45)
[2024-08-06] MEDS: VITAMIN B-12 1000 MCG PO (07:45)
[2024-08-06] MEDS: KCL 20 MEQ PO (07:45)
[2024-08-06] MEDS: SODIUM BICARBONATE 650 MG PO (07:45)
[2024-08-06] MEDS: ZYLOPRIM 100 MG PO (07:45)
[2024-08-06] MEDS: PACERONE 100 MG PO (07:45)
[2024-08-06] MEDS: ELIQUIS 5 MG PO (07:45)
[2024-08-06] MEDS: LIDOCAINE 4% PATCH 1 PATCH TOPICAL (07:50)
[2024-08-06 08:00] VITALS: BMI 47.1
--- NOTE | 2024-08-06 08:04 | W.PN.HOSP.TC ---
Addendum entered and electronically signed by Alicia Hall MD 08/06/24 13:59:
total DC time 37 min
Original Note:
Today's Communication/Plan
-
see A/P
Assessment / Plan
Assessment / Plan
A/P:
# Acute on chronic heart failure with preserved ejection fraction
# Chronic lymphedema
Appreciate cardiology input,
IV Bumex 2 mg twice daily to PO 2 mg p.o. twice daily, with metolazone 2.5 mg Mondays and .
Consulted palliative care as patient wishes to go home with palliative care upon discharge
Hospital bed delivered on 08/04 with plan for DC home 08/06
Trend creatinine, trend daily weights
# Hypokalemia
Replete as needed
# Stage IIIb chronic kidney disease
Creatinine at baseline, which is about 1.7�1.9
Bicarb was 30, stopped sodium bicarb
Trend creatinine with diuresis
# Paroxysmal atrial fibrillation
In normal sinus rhythm
Continue Eliquis, amiodarone, diltiazem
# Knees buckling out, Suspect secondary to osteoarthritis
# Advance osteoarthritis of the bilateral knees
Denies pain, reports getting joint injections in her knee at the rehab recently
Recommend bilateral knee braces
# COPD
Stable, continue bronchodilators
# Hypothyroidism
Continue levothyroxine
# Hx of lung nodules
Needs outpt PET scan of pulmonary nodules
# CAD
Continue Zetia 10 mg at bedtime, atorvastatin 80 mg at bedtime, diltiazem 180 mg daily and Eliquis
# HLD
Continue Vascepa, Zetia and Lipitor
# Anxiety
Continue duloxetine
# Anemia macrocytic
Hemoglobin at baseline
Continue vitamin B12 supplement
# COVID-19 on 07/11/2024
Treated with 10-day course of Decadron, did not receive remdesivir
# Gout
Allopurinol 100 mg daily, colchicine 0.6 mg daily as needed gout flare
# Depression
Continue duloxetine 60 mg at bedtime
# Morbid obesity due to excess calories
Affects all aspects of care
DVT prophylaxis� Eliquis
Full code
DW daughter Jenny on the phone
Anticipated Discharge: Today
Subjective/Interval History
-
Date of Service: August 06, 2024
Objective Data
-
Labs:
Laboratory Results
08/06/24
06:44
Sodium Pending
Potassium Pending
Chloride Pending
Carbon Dioxide Pending
BUN Pending
Creatinine Pending
Glucose Pending
Calcium Pending
Vital Signs:
Vital Signs
Temp Pulse Resp BP Pulse Ox
36.9 C 69 18 117/54 96
08/05/24 23:05 08/05/24 23:05 08/05/24 23:05 08/05/24 23:05 08/05/24 23:05
I&O
08/05/24 08/06/24 08/07/24
06:59 06:59 06:59
Intake Total 1440 / 1440 720 / 720
Balance 1440 / 1440 720 / 720
Review of Systems
-
All other systems: Reviewed and negative
Physical Exam
-
General: Well Developed, Well Nourished, No Apparent Distress, Comfortable, Conversant, Appears Chronically Ill and Morbidly Obese
HEENT: Normocephalic and Atraumatic
Respiratory: Clear to Auscultation and Non Labored Respirations; Negative Accessory Resp Muscle Use
Cardiac: Regular Rhythm and S1/S2
GI: Soft, Nontender, Nondistended and Normal Bowel Sounds
Musculoskeletal: No Clubbing, No Cyanosis and No Edema
Neuro: Awake and Alert
Psych: Calm and Intact Judgement/Insight (somewhat)
Data Reviewed
-
Labs: Labs Reviewed by me
[2024-08-06 09:02] LABS: Blood Urea Nitrogen 59 mg/dl (7-17); Calcium 10.1 mg/dl (8.4-10.2); Carbon Dioxide 31 mmol/L (22-30); Chloride 94 mmol/L (98-107); Estimated Creatinine Clearance 30 ml/min; Glucose 119 mg/dl (70-99); Potassium 3.2 mmol/L (3.5-5.1); Sodium 137 mmol/L (135-145); eGFR 26.86
--- NOTE | 2024-08-06 09:40 | CM ---
Addendum entered by Alpesh Kingston 08/06/24 11:02:
Call returned from [facility]/ Palliative
CM discussed family's want to discuss Palliative care plan. LESLY advised that pt will d/c today and Sarah will be following
Per Cathy, she will reach out to pt's daughterJenny to further discuss
Original Note:
Pt to d/c today
Spoke w/ pt's daughter, Brynn, re d/c plan today
Per Brynn, DME has been delivered to her home as her mother lives w/ her.
Per Brynn, she has not spoken to anyone from palliative and would like to speak w/ them prior to pt d/c to confirm plan
CM attempted call to Palliative, no answer, left vm
CM spoke w/ Apurva/Sarah who confirmed that Sarah is able to work w/ pt in the home along w/ Palliative as well
Apurva requested updated clinicals to be sent via wooju. Clinicals sent as requested
Apurva stated she will follow up w/ pt family w/ confirmation of Sarah's start of service when pt d/c. Per Apurva, family is also looking into [facility]'s private duty support as well.
[place]

Palliative

Plan: Home w/ Palliative and [facility] VN/PT
[2024-08-06] MEDS: SYMBICORT 160/4.5 MCG INHALER INH (11:44)
[2024-08-06] MEDS: SPIRIVA RESPIMAT 2.5 MCG INH (11:44)
--- NOTE | 2024-08-06 12:07 | W.PN.CARDCBS ---
Addendum entered and electronically signed by Doyle Walsh MD 08/06/24 15:34:
I saw and examined the patient.
The Medical Authorization Specialist's note was reviewed and I agree with the note.
Comment: Briefly, 79-year-old woman past medical history of heart failure preserved ejection fraction coming in with significant weight weight gain concerning for decompensated heart failure
Weight has come down significantly with IV diuresis
Still with lower extremity edema but suspect this is largely lymphedema
Breathing is comfortable on room air
BUN/creatinine uptrending but not significantly increased from baseline
Would continue p.o. Bumex 2 mg twice daily with 2.5 mg metolazone twice weekly
Can give additional metolazone for weight gain
Stable cardiac status, Outpatient follow-up arranged
Original Note:
Today's Communication / Plan
-
Extra metolazone when patient gets home this afternoon
Family ready for d/c to their home and have talked with palliative care
Impression / Plan
-
PCP: Dr. Morris Gudino
Primary hotbed operator: Dr. Rissa Walker
Impression:
Acute on chronic HFpEF
New tremor
Recent admissions for:
COPD/bronchiectasis, PNA, new PAF 05/23/24-06/10/24
CHF, covid 07/02-07/11/24
Paroxysmal Afib
Chronic Eliquis OAC
Pulmonary nodules
CAD
s/p 3.5/15 mm Xience V expedition drug-eluting stent to the proximal LAD 02/17/14
s/p overlapping 3.5/38 mm x2 Xience V expedition drug-eluting stents to the mid and proximal RCA 02/17/14
stable CAD with patent LAD and RCA stents by cath 07/05/20
patent LAD and RCA stents, nonobstructive distal left main lesion by cath 06/27/21
stable LM lesions with negative iFR assessment of LM/LAD and LM/Circ by cath 04/20/23
Mild to moderate peak/mean 33/16 mmHg and LISA 1.3 cm sq by echo 05/27/24
CKD 3
Hyperlipidemia
Hypertension
Known meningioma
Anemia
Echo 12/26/22: Ejection fraction 55 to 60% with mild septal hypertrophy. Trace MR. Mild to moderate aortic valve stenosis with peak/mean gradient 32/17 mmHg. Aortic valve area 1.3 cm�. Trace AI. Mild TR with PA pressure 40 mmHg.
Echo 05/27/24: EF 60 to 65%, normal RV size and function, trace MR, mild to moderate peak/mean 33/16 mmHg with LISA 1.3 cm SQ, mild aortic regurgitation, mild TR with PAP 30 to 35 mmHg
Plan:
-Called and talked with patient's daughters Jenny and Kay (who goes by Brynn). Reviewed weight gain from overnight and plans for extra dose of metolazone 2.5 mg PO x1 08/06/24 afternoon prior to Bumex 2 mg BID evening dose.
-Patient's daughters report that if patient fails to improve or stabilize despite the changes being made at this d/c (moving in with her daughter, palliative care, VN etc) then they will look into possibly hospice
-Recommend BMP 1 week after d/c and then every other week for a few weeks to follow renal function and lytes. May need to allow degree of CONCHITA to keep patient euvolemic. Lab slip left on the chart.
-Recommend KCl 20 meq daily upon d/c to home.
-EF preserved by echo in 05/2024.
-Patient is not on BB due to need for rate/rhythm control meds amiodarone and Cardizem CD
-Patient is not chronically on NADINE/ARB due to CKD
-We looked into SGLT2 inhibitor, however may not be candidate due to baseline RI and body habitus. According to case management Jardiance $128 and Farxiga $122 for 30 days. Will discuss with office given she may qualify for other programs.
-Remains in SR on tele. Amiodarone dose decreased to 100 mg daily due to tremors.
-Outpatient dose of Cardizem CD decreased to 120 mg daily
-Outpatient dose of Eliquis 5 mg BID (age 79, Cre 1.7, wt 115 kg)
-Cardiology f/u arranged
Progress Note - Manager Visual
Subjective
Date of Service: August 06, 2024
Feels well despite weight gain
Objective
Labs:
08/01/24 06:05
08/06/24 06:44
Labs
Hgb 9.7 g/dL (12.0-16.0) L 08/01/24 06:05
Hct 29.2 % (37.0-47.0) L 08/01/24 06:05
Plt Count 144 10^3/uL (130-400) 08/01/24 06:05
Sodium 137 mmol/L (135-145) 08/06/24 06:44
Potassium 3.2 mmol/L (3.5-5.1) L 08/06/24 06:44
BUN 59 mg/dl (7-17) H 08/06/24 06:44
Creatinine 1.9 mg/dL (0.6-1.0) H 08/06/24 06:44
Glucose 119 mg/dl (70-99) H 08/06/24 06:44
Vital Signs and I&O:
Vital Signs
Temp Pulse Resp BP Pulse Ox
97.6 F 65 18 146/59 97
08/06/24 07:25 08/06/24 07:25 08/06/24 07:25 08/06/24 07:25 08/06/24 07:45
Vital Signs
Temp Pulse Resp BP Pulse Ox
97.6 F 65 18 146/59 97
08/06/24 07:25 08/06/24 07:25 08/06/24 07:25 08/06/24 07:25 08/06/24 07:45
Intake & Output
08/04/24 08/05/24 08/06/24 08/07/24
06:59 06:59 06:59 06:59
Intake Total 960 / 960 1440 / 1440 720 / 720
Output Total 400 / 400
Balance 560 / 560 1440 / 1440 720 / 720
Physical Exam
Physical Exam
GEN: AAOx3
HEENT: MMM
LUNGS: RA. No audible wheeze
CV: SR on tele
ABD: ND
EXT: No edema B/L
NEURO: Gross non-focal
SKIN: No rash
--- NOTE | 2024-08-06 13:48 | W.DCSUMMARY ---
Discharge Summary
Discharge Data
Date of Admission: 07/29/24
Date of Discharge: 08/06/24
-
Pending Results: No
Hospital Course
Principal Diagnosis:
Acute on chronic heart failure with preserved ejection fraction
Chronic Diagnoses:�
Chronic lymphedema
Chronic kidney disease stage IIIb
Paroxysmal atrial fibrillation
COPD
Hypothyroidism on levothyroxine
History of lung nodules, pending outpatient PET evaluation
Coronary artery disease
Hyperlipidemia
Anxiety /depression
Gout
Morbid obesity due to excess calories
Consultations:�
Cardiology
Procedures:�
None
Clinical course:�
This is a 79-year-old female, with past medical history as stated above, who presented with weight gain and respiratory insufficiency.
Problem 1:
Acute on chronic heart failure with preserved ejection fraction.
She was treated with IV Bumex 2 mg twice daily while in the hospital, and she can continue with oral Bumex 2 mg p.o. twice daily with metolazone 2.5 mg Mondays and following discharge.
The plan is for the patient to be discharged home with home health, followed by palliative care transition outpatient.
As for the rest of her medical problems, they were stable during her hospital stay.
Discharge Plan
-
Patient Disposition: Home with Home Care
Discharge Diagnosis/Procedures: Acute on chronic heart failure with preserved ejection fraction with Chronic lymphedema
Condition: Fair
Diet: 2 Gram Sodium and Restrict fluids to 48 oz
Activity: As tolerated
Driving Restrictions: As prior to admission
Blood Work: BMP in 1 week
Other Services: VN
Specialty Instructions: Weigh Daily- Call MD for wt gain/loss 3 lbs overnight/5 lbs in 1 week
Activity Restrictions/Additional Instructions:
Follow up with palliative care outpatient
Instructions: *[facility] Heart Failure Instructions
Referrals:
Dinorah Wooten PA-C [Specified Professional Personl] - 08/11/24 12:40 pm (You have a cardiology follow-up appointment at the [place] office with Dr. Kwok's physician phys assistant, Dinorah. Please [phone] if you need to reschedule or would like to
transition to telehealth. )
UNKNOWN,NO INTERVIEW [Family Provider] - in less than 1 week
Additional Discharge Medication Instructions: Your amiodarone dose was decreased from 200 to 100 mg daily
Your Cardizem dose was decreased from 180 mg to 120 mg daily
Continue Bumex 2 mg twice daily (with Potassium supplement) and take metolazone 2.5 mg Mondays and .
Take an extra dose of metolazone 2.5 mg at 3:30 PM on 08/06/24.
Prescriptions:
New
diltiazem HCl 120 mg Capsule,Extended Release 24hr
120 mg PO DAILY Qty: 30 0RF
amiodarone [Pacerone] 100 mg Tablet
100 mg PO DAILY Qty: 30 0RF
metolazone 2.5 mg tablet
2.5 mg PO .@moTh Qty: 30 0RF
Rx Instructions:
Take one tablet Mondays and
Continued
atorvastatin 80 MG tablet
80 mg PO HS
loperamide [Imodium A-D] 2 MG capsule
4 mg PO Q4HPRN PRN (Reason: diarrhea)
ezetimibe 10 MG tablet
10 mg PO HS
acetaminophen [Tylenol Extra Strength] 500 MG tablet
1,000 mg PO BID
melatonin 10 MG tablet
20 mg PO HS
lavinia (Zingiber officinalis) 500 MG capsule
500 mg PO HS
cyanocobalamin (vitamin B-12) [Vitamin B-12] 1,000 mcg Tablet
1,000 mcg PO DAILY
omeprazole 40 mg capsule,delayed release(DR/EC)
40 mg PO HS
levothyroxine 75 mcg Tablet
75 mcg PO DAILY
simethicone [Gas-X Extra Strength] 125 mg Capsule
125 mg PO HSPRN PRN (Reason: gas)
Trelegy Ellipta 200-62.5-25 mcg Blister With Device
1 inh INHALATION R DAILY
trazodone 150 mg Tablet
150 mg PO HS
colchicine 0.6 mg Tablet
0.6 mg PO DAILYPRN PRN (Reason: gout)
duloxetine 60 mg Capsule,Delayed Release(Dr/Ec)
60 mg PO HS
acetaminophen 325 mg Tablet
650 mg PO Q6HPRN PRN (Reason: mild pain/temp >100)
ipratropium-albuterol 0.5 mg-3 mg(2.5 mg base)/3 mL Solution For Nebulization
3 ml INHALATION R Q6HPRN PRN (Reason: sob)
lidocaine 4 % Adhesive Patch,Medicated
1 patch TOPICAL DAILY
dextromethorphan-guaifenesin 10-100 mg/5 mL Syrup
10 ml PO HS
guaifenesin 200 mg Tablet
600 mg PO Q12H
magnesium hydroxide [Milk of Magnesia] 400 mg/5 mL Suspension
30 ml PO [id number] PRN (Reason: no bm 3 days)
bisacodyl [Dulcolax (bisacodyl)] 10 mg Suppository
10 mg TX DAILYPRN PRN (Reason: mom ineffective)
Fleet Enema 19-7 gram/118 mL Enema
118 ml TX DAILYPRN PRN (Reason: dulcolax ineffective)
cholecalciferol (vitamin D3) 1,250 mcg (50,000 unit) Tablet
1,250 mcg PO FR
icosapent ethyl [Vascepa] 1 gram Capsule
2 g PO BID
potassium chloride 20 mEq Tablet Extended Release
40 meq PO DAILY
sennosides [senna] 8.6 mg Tablet
17.2 mg PO HS
polyethylene glycol 3350 [Miralax] 17 gram Powder In Packet
17 g PO DAILY
gabapentin 100 mg Capsule
200 mg PO TID
bumetanide 2 mg tablet
2 mg PO BID@0800,1600
allopurinol 100 mg tablet
100 mg PO DAILY
sodium bicarbonate 650 mg tablet
650 mg PO BID
Eliquis 5 mg tablet
5 mg PO BID
Discontinued
furosemide [Lasix] 10 mg/mL Solution
40 mg PO BID
Rx Instructions:
for 3 days taken for 07/28/24-07/31/24
doxycycline hyclate 100 mg capsule
100 mg PO BID
diltiazem HCl 180 mg capsule,extended release 24hr
180 mg PO DAILY
amiodarone 200 mg tablet
200 mg PO BID
Discharge Orders:
Discharge Patient (As Directed); Ordered 08/06/24
Ordered By: Alicia Hall
Discharge Date and Time
Print Language: ITALIAN
== END 2024-08-06 14:27 | disposition home health service (06) | DRG 291 ==
LOC: 4 WEST ACU 15:42
PROVIDERS: Clinical Nurse Specialist Family Health; Family Medicine; Physician Assistant; ADMITTING PHYSICIAN Hospitalist; ATTENDING PHYSICIAN Internal Medicine; CONSULT PHYSICIAN Internal Medicine Cardiovascular Disease; EMERGENCY PHYSICIAN Emergency Medicine
DX: I13.0 Hypertensive heart and chronic kidney disease with heart failure and stage 1 through stage 4 chronic kidney disease, or unspecified chronic kidney disease (principal); I50.33 Acute on chronic diastolic (congestive) heart failure; Z68.42 Body mass index [BMI] 45.0-49.9, adult; Z87.891 Personal history of nicotine dependence; I48.0 Paroxysmal atrial fibrillation; Z79.01 Long term (current) use of anticoagulants; E78.00 Pure hypercholesterolemia, unspecified; Z51.5 Encounter for palliative care; N18.32 Chronic kidney disease, stage 3b; E03.9 Hypothyroidism, unspecified; I25.10 Atherosclerotic heart disease of native coronary artery without angina pectoris; M10.9 Gout, unspecified; E66.01 Morbid (severe) obesity due to excess calories
CPT/HCPCS: 71046; 73560; 80048; 80053; 80061; 81003; 81015; 82607; 82746; 83735; 83880; 84443; 85025; 85027; 93005; 94640; 96374; 97116; 97163; 97167; 97530; 97535; 99285